=== PATIENT | male | born 1970 | race Caucasian/White ===

== ENCOUNTER 2016-07-29 01:00 | Emergency (ER) | payer OTHER ==
[~2016-07-29] VITALS: Ht 177.8 cm; Wt 75.9 kg
[~2016-07-29 01:00] MED LIST: AMPH20TA2 PO; VICODIN PO
[2016-07-29 01:06] VITALS: TEMP 36.9; Ht 177.8 cm; Wt 75.9 kg
[2016-07-29] MEDS ORDERED: IBUPROFEN 600 MG TAB PO STA (01:17)
[2016-07-29] MEDS ORDERED: ACETAMINOPHEN 500 MG TAB PO STA (01:17)
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
[2016-07-29 02:22] VITALS: BP 124/89; PULSE 96; O2SAT 97
--- NOTE | 2016-07-29 08:33 | DIAGNOSTIC IMAGING REPORT ---
LEFT RIBS UNILATERAL WITH PA CHEST CLINICAL HISTORY: fall, pain trauma COMPARISON STUDY: None FINDINGS: Negative left ribs. Lungs are clear. No evidence pneumothorax. IMPRESSION: Negative study Electronically signed by: Osvaldo Jacobs M.D. 07/29/2016 8:31 AM Dictated Date/Time: 07/29/2016 8:30 AM
== END 2016-07-29 02:50 | disposition home or self-care (01) ==
LOC: C.EDB 01:02
DX: S20.212A Contusion of left front wall of thorax, initial encounter (principal); X58.XXXA Exposure to other specified factors, initial encounter; Y92.89 Other specified places as the place of occurrence of the external cause; F17.210 Nicotine dependence, cigarettes, uncomplicated; F10.10 Alcohol abuse, uncomplicated

== ENCOUNTER 2019-07-20 23:24 | Inpatient (IN) ==
--- OUTSIDE RECORDS SUMMARY | 2019-07-20 23:27 | External Medical Summary | Continuity of Care Document ---
:1970 Author Name Sabrina Conte Address Unavailable Unavailable , Care Team Providers Name Role Phone Unavailable Unavailable Unavailable PCP, UNKNOWN Unavailable Unavailable Problems Active medical history not documented Allergies and Adverse Reactions Allergy history not documented Medications Medications not documented Procedures Procedures not documented Immunizations Immunizations not documented Plan of Treatment Planned Observations Planned Goals not documented Results No Known Results Results not documented
[2019-07-20] MEDS ORDERED: SODIUM CHLORIDE 0.9% 1000ML 1,000 ML IV ONE (23:47)
[2019-07-20] MEDS ORDERED: KETOROLAC TROMETHAMINE 15 MG/ML VIAL IV STA (23:47)
[2019-07-21 00:06] LABS: Basophils # (auto) 0.06 K/uL (0-0.2); Basophils % (auto) 0.6 %; Eosinophils # (auto) 0.22 K/uL (0-0.5); Eosinophils % (auto) 2.3 %; Hematocrit (blood only) 46.8 % (42-52); Hemoglobin 16.5 g/dL (14.0-18.0); Immature Granulocytes # (auto) 0.03 K/uL (0.00-0.02); Immature Granulocytes % (auto) 0.3 %; Lymphocytes # (auto) 3.41 K/uL (1.2-3.4); Lymphocytes % (auto) 35.3 %; Mean Corpuscular Hemoglobin 33.7 pg (25-34); Mean Corpuscular Hgb Conc 35.3 g/dL (32-36); Mean Corpuscular Volume 95.7 fL (80-100); Mean Platelet Volume 8.8 fL (7.4-10.4); Monocytes # (auto) 0.75 K/uL (0.11-0.59); Monocytes % (auto) 7.8 %; Neutrophils # (auto) 5.19 K/uL (1.4-6.5); Neutrophils % (auto) 53.7 %; Platelet Count 216 K/uL (130-400); RDW Coefficient of Variation 12.5 % (11.5-14.5); RDW Standard Deviation 43.5 fL (36.4-46.3); Red Blood Count 4.89 M/uL (4.7-6.1); White Blood Count 9.66 K/uL (4.8-10.8)
[2019-07-21 00:26] LABS: Albumin Level 3.6 gm/dl (3.4-5.0); BUN Creatinine Ratio 13.5 (10-20); Calcium 8.5 mg/dl (8.5-10.1); Creatinine Clr Calc Pharmacy 110.5 ml/min; Est GFR (African American) 118.6; Est GFR (Non-African American) 102.3; Potassium 3.1 mmol/L (3.5-5.1)
[2019-07-21 00:28] LABS: Albumin Globulin Ratio 0.7 (0.9-2); Bilirubin,Total 0.5 mg/dl (0.2-1); Globulin 4.8 gm/dl (2.5-4.0); Total Protein 8.4 gm/dl (6.4-8.2)
[2019-07-21] MEDS ORDERED: IOVERSOL 100ml IV PRN (00:50)
[2019-07-21 01:54] LABS: Appearance Urine Slightly Cloudy (Clear); Bilirubin Urine Negative (Negative); Blood Urine Negative (Negative); Color Urine Yellow; Glucose Urine UA Negative (Negative); Ketones Urine Trace (Negative); Leukocyte Esterase Urine Negative (Negative); Nitrite Urine Negative (Negative); Protein Urine Negative (Negative); Urobilinogen Urine Negative (Negative)
[2019-07-21] MEDS ORDERED: NICOTINE 21 MG/24 HR TDSY TD STA (02:40)
[2019-07-21] MEDS ORDERED: NICOTINE POLACRILEX 2 MG GUM MT ONE (02:45)
[2019-07-21] MEDS ORDERED: SODIUM CHLORIDE 0.9% 1000ML 1,000 ML IV ONE (02:48)
--- NOTE | 2019-07-21 02:59 | Emergency Department Note ---
History of Present Illness General Chief complaint: Abdominal Pain Stated complaint: stomach pain Time Seen by Provider: 07/20/19 23:32 Source: patient Mode of arrival: ambulatory Limitations: no limitations History of Present Illness Maximum Pain Intensity: 4 This patient is a 49-year-old male who presents to the emergency department ambulatory complaining of upper abdominal pain. The patient states that he has had severe pain in his upper abdomen over the past 4 days. The patient states that the pain radiates across the upper abdomen and he rates his discomfort an 8/10. Pain is worse when he eats. He has had a decreased appetite. He has been nauseous but has not vomited. He denies changes in bowel movements, urinary symptoms or fever. Patient admits to alcohol use tonight and states he had 2-3 drinks. He admits that he sometimes drinks more than he would like to. He is not able to quantify how much he drinks per day. He does report a history of some abdominal pain over the past 2 years and was supposed to have an EGD, but never scheduled it. He states this pain is different. He has not taken any medication for the pain. Home Medications Home Medications Medication Instructions Recorded Confirmed Type dextroamphetamine-amphetamine 20 mg PO BID 05/26/18 07/20/19 History [Adderall] amitriptyline 10 mg PO HS 07/20/19 07/20/19 History magnesium oxide 400 mg PO HS 07/20/19 07/20/19 History omeprazole 20 mg PO DAILY 07/20/19 07/20/19 History sildenafil 50 mg PO UD PRN 07/20/19 07/20/19 History tizanidine 2 mg PO DAILY 07/20/19 07/20/19 History Allergies Allergy/AdvReac Type Severity Reaction Status Date / Time banana AdvReac Unknown GI SYMPTOMS Verified 07/20/19 23:47 Past Med/Surg History Medical History (Updated 07/21/19 @ 03:59 by Tanisha Coy PA-C) ADD (attention deficit disorder) Migraines Sleep disorder (Chronic) Social History Preferred Language: Gabonese Communication Ability: Effective Watch Guard Gate Required: No Beliefs That Will Affect Care: None Current Living Situation: Significant Other Feels Safe at Home: Yes Smoking Status: Former smoker Tobacco Type: cigarettes ; Cigarettes Per Day: 6 ; Hx Alcohol Use: Yes Alcohol type: beer Hx Substance Use: Yes substance use type: former substance user Review of Systems A total of 10 systems reviewed and were otherwise negative Physical Exam Vital Signs Vital Signs - 24 hr 07/20/19 23:26 07/21/19 00:06 07/21/19 01:07 Temperature 36.6 C Temperature Source Oral Pulse Rate 120 H Pulse Rate [Right Finger] 101 H 92 H Respiratory Rate 18 18 20 Respiratory Effort / Characteristics Non-Labored Non-Labored Respiratory Depth Normal Normal Respiratory Pattern Regular Blood Pressure 155/94 H Blood Pressure [Left Arm] 144/97 H 132/93 Blood Pressure Mean 114 Blood Pressure Mean [Left Arm] 112 106 Blood Pressure Position [Left Arm] Sitting Pulse Oximetry 96 98 97 Oxygen Delivery Method Room Air Room Air Sepsis Recent Fever Within 48 Hours No Sepsis Action Taken by Nursing No Action Required 07/21/19 02:58 Temperature Temperature Source Pulse Rate Pulse Rate [Right Finger] 108 H Respiratory Rate 20 Respiratory Effort / Characteristics Non-Labored Respiratory Depth Normal Respiratory Pattern Blood Pressure Blood Pressure [Left Arm] 150/92 H Blood Pressure Mean Blood Pressure Mean [Left Arm] 111 Blood Pressure Position [Left Arm] Sitting Pulse Oximetry 98 Oxygen Delivery Method Room Air Sepsis Recent Fever Within 48 Hours Sepsis Action Taken by Nursing VITALS: Vitals are noted on the nurse's note and reviewed by myself. Vital signs stable. GENERAL: This is a 49-year-old male, in no acute distress, nondiaphoretic, well- developed well-nourished. SKIN: The skin was without rashes. HEAD: Normocephalic atraumatic. EARS: External auditory canals clear, tympanic membranes pearly snider without erythema or effusion bilaterally. EYES: Pupils equal round and reactive to light and accommodation. No scleral icterus. MOUTH: Mucous membranes moist. Tonsils are not enlarged. Pharynx without eryt levon or exudate. NECK: Supple without nuchal rigidity. No lymphadenopathy. HEART: Regular rate and rhythm without murmurs gallops or rubs. LUNGS: Clear to auscultation bilaterally without wheezes, rales or rhonchi. No retractions or accessory muscle use. ABDOMEN: Positive bowel sounds x 4. Soft, mild tenderness to palpation across the upper abdomen. No guarding or rebound tenderness. EXTREMITIES: No pitting edema of the lower extremities. NEURO: Patient was alert and oriented to person place and time. PSYCH: Patient anxious appearing. Course Consultations Consultation #1: [facility] hospitalist Administered Medications Ioversol (Optiray 320 100ml) 92 ml IV ONCE PRN PRN Reason: Interaction Checking Stop: 07/25/19 00:49 Last Admin: 07/21/19 00:50 Dose: 92 ml Documented by: [id number] Discontinued Medications Sodium Chloride (Nss 1000ml) 1,000 mls @ 999 mls/hr IV .Q1H1M ONE Stop: 07/21/19 00:47 Last Infusion: 07/21/19 00:49 Dose: 0 mls/hr Documented by: [id number] Admin: 07/21/19 00:01 Dose: 999 mls/hr Documented by: [id number] Sodium Chloride (Nss 1000ml) 1,000 mls @ 999 mls/hr IV .Q1H1M ONE Stop: 07/21/19 03:48 Last Admin: 07/21/19 02:54 Dose: 999 mls/hr Documented by: [id number] Ketorolac Tromethamine (Toradol) 15 mg IV NOW STA Stop: 07/20/19 23:48 Last Admin: 07/21/19 00:01 Dose: 15 mg Documented by: [id number] Nicotine (Nicoderm Cq) 21 mg TD NOW STA Stop: 07/21/19 02:41 Last Admin: 07/21/19 02:48 Dose: 21 mg Documented by: [id number] Nicotine Polacrilex (Nicorette 2mg) Confirm Administered Dose 1 piece [facility] ONE Stop: 07/21/19 02:46 Last Admin: 07/21/19 02:48 Dose: 1 piece Documented by: [id number] Medical Decision Making Differential Diagnosis Differential diagnosis includes appendicitis, testicular torsion, infections, diverticulitis, UTI, obstruction, mesenteric ischemia, aortic pathology, inflammatory bowel disease, renal colic, PUD, pancreatitis, biliary pathology, hernia, volvulus, constipation, as well as other pathologies. Home Medications Current Medication List: was personally reviewed by me Laboratory Data Attestation: I reviewed the patient's lab results. Result diagrams: 07/20/19 23:52 07/20/19 23:52 Lab Results 07/20/19 07/20/19 07/21/19 Range/Units 23:52 23:52 00:20 WBC 9.66 (4.8-10.8) K/uL RBC 4.89 (4.7-6.1) M/uL Hgb 16.5 (14.0-18.0) g/dL Hct 46.8 (42-52) % MCV 95.7 (80-100) fL MCH 33.7 (25-34) pg MCHC 35.3 (32-36) g/dL RDW Std Deviation 43.5 (36.4-46.3) fL RDW Coeff of Edilson 12.5 (11.5-14.5) % Plt Count 216 (130-400) K/uL MPV 8.8 (7.4-10.4) fL Immature Gran % (Auto) 0.3 % Neut % (Auto) 53.7 % Lymph % (Auto) 35.3 % [place] % (Auto) 7.8 % Eos % (Auto) 2.3 % Baso % (Auto) 0.6 % Immature Gran # (Auto) 0.03 H (0.00-0.02) K/uL Neut # (Auto) 5.19 (1.4-6.5) K/uL Lymph # (Auto) 3.41 H (1.2-3.4) K/uL [place] # (Auto) 0.75 H (0.11-0.59) K/uL Eos # (Auto) 0.22 (0-0.5) K/uL Baso # (Auto) 0.06 (0-0.2) K/uL Sodium 141 (136-145) mmol/L Potassium 3.1 L (3.5-5.1) mmol/L Chloride 107 (98-107) mmol/L Carbon Dioxide 25 (21-32) mmol/L Anion Gap 9.0 (3-11) BUN 12 (7-18) mg/dl Creatinine 0.88 (0.6-1.4) mg/dl Est Cr Clr Drug Dosing 110.5 ml/min Est GFR ( Amer) 118.6 Est GFR (Non-Af Amer) 102.3 BUN/Creatinine Ratio 13.5 (10-20) Glucose 127 H (70-99) mg/dl Calcium 8.5 (8.5-10.1) mg/dl Total Bilirubin 0.5 (0.2-1) mg/dl AST 96 H (15-37) U/L ALT 120 H (12-78) U/L Alkaline Phosphatase 152 H (45-117) U/L Total Protein 8.4 H (6.4-8.2) gm/dl Albumin 3.6 (3.4-5.0) gm/dl Globulin 4.8 H (2.5-4.0) gm/dl Albumin/Globulin Ratio 0.7 L (0.9-2) Lipase 587 H (73-393) U/L Urine Color Urine Appearance (Clear) Urine pH (4.5-7.5) Ur Specific [place] (1.000-1.030) Urine Protein (Negative) Urine Glucose (UA) (Negative) Urine Ketones (Negative) Urine Blood (Negative) Urine Nitrite (Negative) Urine Bilirubin (Negative) Urine Urobilinogen (Negative) Ur Leukocyte Esterase (Negative) Ethyl Alcohol mg/dL 254.0 H (0-3) mg/dl 03/25/20 Range/Units 01:25 WBC (4.8-10.8) K/uL RBC (4.7-6.1) M/uL Hgb (14.0-18.0) g/dL Hct (42-52) % MCV (80-100) fL MCH (25-34) pg MCHC (32-36) g/dL RDW Std Deviation (36.4-46.3) fL RDW Coeff of Edilson (11.5-14.5) % Plt Count (130-400) K/uL MPV (7.4-10.4) fL Immature Gran % (Auto) % Neut % (Auto) % Lymph % (Auto) % [place] % (Auto) % Eos % (Auto) % Baso % (Auto) % Immature Gran # (Auto) (0.00-0.02) K/uL Neut # (Auto) (1.4-6.5) K/uL Lymph # (Auto) (1.2-3.4) K/uL [place] # (Auto) (0.11-0.59) K/uL Eos # (Auto) (0-0.5) K/uL Baso # (Auto) (0-0.2) K/uL Sodium (136-145) mmol/L Potassium (3.5-5.1) mmol/L Chloride (98-107) mmol/L Carbon Dioxide (21-32) mmol/L Anion Gap (3-11) BUN (7-18) mg/dl Creatinine (0.6-1.4) mg/dl Est Cr Clr Drug Dosing ml/min Est GFR ( Amer) Est GFR (Non-Af Amer) BUN/Creatinine Ratio (10-20) Glucose (70-99) mg/dl Calcium (8.5-10.1) mg/dl Total Bilirubin (0.2-1) mg/dl AST (15-37) U/L ALT (12-78) U/L Alkaline Phosphatase (45-117) U/L Total Protein (6.4-8.2) gm/dl Albumin (3.4-5.0) gm/dl Globulin (2.5-4.0) gm/dl Albumin/Globulin Ratio (0.9-2) Lipase (73-393) U/L Urine Color Yellow Urine Appearance Slightly Cloudy (Clear) Urine pH 7.0 (4.5-7.5) Ur Specific [place] 1.010 (1.000-1.030) Urine Protein Negative (Negative) Urine Glucose (UA) Negative (Negative) Urine Ketones Trace H (Negative) Urine Blood Negative (Negative) Urine Nitrite Negative (Negative) Urine Bilirubin Negative (Negative) Urine Urobilinogen Negative (Negative) Ur Leukocyte Esterase Negative (Negative) Ethyl Alcohol mg/dL (0-3) mg/dl Imaging Data Attestation: I personally reviewed and interpreted this imaging study as follows: Radiologist's Impression: CT ABDOMEN & PELVIS With Contrast: Compared to 09/04/15. Retroperitoneal edema may reflect proximal pancreatitis or duodenitis. Recommend laboratory correlation. No loculated fluid collection. No bowel perforation. Marked hepatic steatosis. Colonic diverticula without diverticulitis. Unremarkable appendix. Mild urinary bladder wall thickening. Possible cystitis. Radiologist: Killian Thurman M.D. Blood Pressure Blood Pressure Findings: Elevated blood pressure Blood Pressure Disposition: elevated BP felt to be situational MDM Narrative The patient is a 49-year-old male who presents today complaining of upper abdominal pain for the past several days. Labs revealed no leukocytosis or anemia. Patient is hypokalemic. Patient's lipase is elevated at 587. AST is elevated at 96, ALT [address] phosphatase [address] of the abdomen/pelvis was performed and does show evidence of pancreatitis. Patient's medical alcohol elevated at 254. Patient given IV Toradol and fluids with significant improvement of his symptoms. Patient was informed of the findings and advised to stay for further care. [facility] and will evaluate the patient for further care. Impression & Plan Acute alcoholic pancreatitis Discharge Plan Visit Data Chief Complaint: Abdominal Pain Stated Complaint: stomach pain ED Provider: Jihan Phan ED Midlevel Provider: Tanisha Coy Discharge Problem: Acute alcoholic pancreatitis Discharge Instructions Interventions: ED Discharge Assessment Last Done: 07/21/19 03:47 Forms Stand Alone Forms: [employer] Prescriptions Prescriptions: No Action dextroamphetamine-amphetamine [Adderall] 20 mg Tablet 20 mg PO BID RF: 0 tizanidine 2 mg tablet 2 mg PO DAILY RF: 0 sildenafil 50 mg tablet 50 mg PO UD PRN (Reason: Sexual Activity) RF: 0 amitriptyline 10 mg tablet 10 mg PO HS RF: 0 magnesium oxide 400 mg (241.3 mg magnesium) tablet 400 mg PO HS RF: 0 omeprazole 20 mg capsule,delayed release(DR/EC) 20 mg PO DAILY RF: 0 Referrals Referrals: Lazaro Jackson DO [Primary Care Provider] - Discharge Problem: Acute alcoholic pancreatitis Qualifiers: Acute pancreatitis complication: unspecified Qualified Code(s): K85.20 - Alcohol induced acute pancreatitis without necrosis or infection
[2019-07-21] MEDS ORDERED: NITROGLYCERIN SL 0.4 MG/TAB TAB SL PRN (04:07)
[2019-07-21] MEDS ORDERED: POLYETHYLENE (MIRALAX) 17 GM PACK PO PRN (04:07)
[2019-07-21] MEDS ORDERED: LORazepam 3 MG/6 ML VIAL IV PRN (04:07)
[2019-07-21] MEDS ORDERED: ATIVAN IV ALCOHOL WITHDRAWL IV PRN (04:07)
[2019-07-21] MEDS ORDERED: ONDANSETRON INJ 2 MG/ML 2 ML VIAL IV PRN (04:07)
[2019-07-21] MEDS ORDERED: GABAPENTIN 1200MG ALCOHOL WITHDRAWAL LOAD PO STA (04:07)
[2019-07-21] MEDS ORDERED: MULTI-VITAMIN INFUSION 10 ML, THIAMINE HCL 100 MG, FOLIC ACID 1 MG in SODIUM CHLORIDE 0... IV ONE (04:30)
[2019-07-21] MEDS ORDERED: GABAPENTIN 600 MG TAB PO SCH (04:30)
[2019-07-21] MEDS: SODIUM CHLORIDE 0.9% 1000ML 1,000 ML IV SCH ×4 (04:58→20:50)
--- NOTE | 2019-07-21 05:05 | History and Physical Report ---
DATE OF ADMISSION: 07/21/2019 CHIEF COMPLAINT: Abdominal pain. HISTORY OF PRESENT ILLNESS: A 49-year-old male with past medical history significant for chronic alcoholism, affective disorder, depression, anxiety, presents with severe abdominal pain starting last Friday in the epigastric region, states it was 7/10 in severity, not getting better. Denies any nausea, vomiting, is somewhat constipated. Last bowel movement was yesterday and it was normal. No blood in stools or black stools. Normal bladder movements. Denies any other complaints. There is no chest pain, no shortness of breath, no cough, no fever, no chills, no headache, no blurred vision, no earache, no runny nose, no sore throat. Appetite is okay, but not eating much since yesterday because of abdominal pain. No rash. He says he drinks alcohol about 3-4 beers and 3-4 shots of vodka every day for last 30 years. There is no history of withdrawal symptoms but he never quit drinking. His alcohol level was 254 in the ER. Currently, resting comfortable and hemodynamically stable. ALLERGIES: No known drug allergies. PAST MEDICAL HISTORY: As mentioned above. PAST SURGICAL HISTORY: Colonoscopy. MEDICATIONS: The patient is on amitriptyline 10 mg p.o. at bedtime, Adderall 20 mg p.o. b.i.d., magnesium oxide 400 mg p.o. at bedtime, omeprazole 20 mg p.o. daily, sildenafil 50 mg p.r.n., tizanidine 2 mg p.o. daily. FAMILY HISTORY: No family history on file. SOCIAL HISTORY: Former smoker, quit in 2019. Alcohol 3-4 beers per day and 3-4 shots of vodka a day for last 30 years. No drug use as per records. REVIEW OF SYMPTOMS: As per HPI. Rest of the review of symptoms negative. PHYSICAL EXAMINATION: GENERAL: The patient is of moderate build, not in acute distress. VITAL SIGNS: Temperature 36.6, pulse 108, respiratory rate 20, blood pressure 150/92, oxygen 98% on room air. HEENT: No pallor, no icterus. Pupils equal, round, reactive to light. NECK: No JVD, no neck mass, no carotid bruit. CARDIOVASCULAR: S1, S2 heard, regular rate and rhythm, no murmur, no gallop. RESPIRATORY SYSTEM: Normal AP diameter. No accessory muscle use. No wheezing, no crackles. ABDOMEN: Soft, bowel sounds present. Mild epigastric tenderness present, no guarding, no rigidity. No distention. CENTRAL NERVOUS SYSTEM: Cranial nerves II-XII grossly intact. Alert and oriented. Moves all extremities. EXTREMITIES: No edema, no erythema. LABORATORY DATA: WBC is 9.6, hemoglobin 16.5, hematocrit 46.8, platelets 216. Sodium 141, potassium 3.1, chloride 107, bicarbonate 25, BUN 12, creatinine 0.8, serum glucose 127, calcium 8.4, total bilirubin 0.5, AST 96, ALT 120, alkaline phosphatase 152, lipase 587. Urinalysis negative. Ethyl alcohol 254. IMAGING: CT of abdomen and pelvis preliminary report shows proximal pancreatitis or duodenitis. ASSESSMENT AND PLAN: This is a 49-year-old male with history of alcoholism, presents with abdominal pain and found to have acute pancreatitis. 1. Acute pancreatitis, most likely alcohol-induced pancreatitis. Lipase is 587. CT scan preliminary report shows pancreatitis or duodenitis.Will follow final report. We will keep him n.p.o., aggressive IV fluids, IV normal saline 200 mL per hour, IV Dilaudid p.r.n., IV antiemetics p.r.n. follow lipase in a.m. Consult GI for further recommendations. 2. Alcoholism: Will monitor for withdrawal symptoms. We will give him IV banana bag and then continue with IV thiamine, IV folic acid, multivitamins daily. Gabapentin withdrawal protocol with active IV Ativan active protocol. Close monitor for withdrawal symptoms. Needs counseling. 3. History of transaminitis, possibly secondary to alcoholism. We will follow the repeat labs. 4. History of affective disorder, depression, anxiety. Continue with his home medications. 5. Deep vein thrombosis prophylaxis, sequential compression devices. 6. Disposition: Close monitoring in the med/surg tele. Level 1 full code. MTDD
[2019-07-21] MEDS ORDERED: POTASSIUM CHLORIDE 20 MEQ TABCR PO STA (06:00)
[2019-07-21] MEDS: HYDROmorphone INJ 0.5 MG/0.5 ML SYR IV PRN ×4 (06:49→20:50)
--- NOTE | 2019-07-21 06:49 | CT Scan Report ---
CT abd pelvis IV con only CLINICAL HISTORY: 49 years-old Male presenting with upper abdominal pain, epigastric pain. TECHNIQUE: Multidetector CT of the abdomen and pelvis was performed after the administration of intra venous contrast. IV contrast: 92 mL of Optiray 320. One or more dose lowering techniques were used co nsistent with the principles of ALARA (as low as reasonably achievable), including automatic exposure control, mA or kV adjustment to individual patient size, and/or use of iterative reconstruction. COMPARISON: 09/04/2015. CT DOSE (mGy.cm): The estimated cumulative dose is 670.06 mGy.cm. FINDINGS: [place] topogram: Unremarkable. Lung bases: Normal heart size. No pericardial or pleural effusion. No focal infiltrate or nodule at t he lung bases. Fat-containing Bochdalek hernia on the left and trace on the right. Liver: Normal morphology. Density consistent with severe hepatic steatosis. No focal lesion. Patent h epatic vasculature. Biliary: No intrahepatic or extrahepatic biliary ductal dilatation. Normal gallbladder. Pancreas: Trace peripancreatic fat infiltration primarily along the pancreatic head, which appears to emanate more from the descending duodenum than the pancreas itself. The remainder the pancreas is no rmal. Spleen: Normal. Adrenal glands: Normal. Kidneys and ureters: Normal. No hydronephrosis. Bladder: Circumferential bladder wall thickening. Pelvic organs: Prostate and seminal vesicles normal. Bowel: Normal appendix. No bowel obstruction. Mild wall thickening of the descending duodenum with pe riduodenal trace fluid and fat stranding. This also tracks into the right anterior pararenal space. Peritoneal cavity: No free fluid or intraperitoneal gas. Lymph nodes: No enlarged lymph nodes in the abdomen or pelvis. Vasculature: Mild atherosclerosis of the normal caliber abdominal aorta. IVC and pelvic veins patent. Abdominal wall: Small bilateral inguinal hernias. Musculoskeletal: Normal. IMPRESSION: 1. Periduodenal inflammatory change with mild wall thickening of the descending duodenum. Findings f avor duodenitis or duodenal ulcer. Groove pancreatitis is considered less likely, which could be excl uded with serum lipase. 2. Severe hepatic steatosis. 3. Circumferential bladder wall thickening could either indicate cystitis developing bladder outlet obstruction in the setting of benign prostatic hyperplasia. Correlate with urinalysis. ACT 112: Negative or not required by law. Electronically signed by: Regan Negrete M.D. 07/21/2019 6:48 AM
[2019-07-21] MEDS: CEROVITE ADV FORMULA TAB PO SCH (08:25)
[2019-07-21] MEDS: TIZANIDINE HCL 4 MG TABLET PO SCH (08:26)
[2019-07-21] MEDS ORDERED: THIAMINE HCL 100 MG in SYRINGE 9 ML IV SCH (09:00)
[2019-07-21] MEDS ORDERED: FOLIC ACID 1 MG in SYRINGE 9.8 ML IV SCH (09:00)
[2019-07-21] MEDS ORDERED: AMPHETAMINE ASP/SULF/DEXTRAMPH 20 MG TAB PO SCH (09:00)
[2019-07-21] MEDS ORDERED: PANTOprazole 40 MG TAB PO SCH (09:00)
--- NOTE | 2019-07-21 10:19 | Gastrointestinal Consultation ---
Date of Consultation July 21, 2019 Assessment & Plan (1) Epigastric abdominal pain: This is a 49 y/o male with PMHx alcohol abuse, intermittently elevated LFTs, fatty liver, chronic abd pain, anxiety, who presents with several days of epigastric abd pain. He was found to have mildly elevated LFTs and lipase with CT findings of mild pancreatitis/duodenitis, likely related to ongoing ETOH use. - Agree with IV hydration - Continue analgesia/antiemetics PRN - Continue PPI - Keep NPO until abd pain improves, would then advance diet slowly starting with clear liquids, then low-fat diet - Trend LFTs, lipase, BMP - Would recommend he follow-up as an outpt with GI and consider EGD/EUS as recommended and ordered at last GI visit for his ongoing abd pain - Pt would do well to consider formal rehab and ETOH cessation Thank you for allowing us to participate in the care of this patient. Please call with any acute changes, questions or concerns. Please see addendum below with additional recommendation from my supervising physician. (2) Elevated lipase: (3) Chronic alcohol abuse: Supervising Physician Co-Signing Physician Notes Aggressive hydration. Slowly advance diet only when pain improves. Stop ETOH. History of Present Illness Reason for Consultation: acute pancreatitis Attending Physician: Divya Zuleta MD History of Present Illness This is a 49 y/o male with PMHx alcoholism, anxiety, chronic abd pain, probable fatty liver, intermittently elevated LFTs, who presented to the ER yesterday with acute on chronic epigastric pain since Friday. On arrival, lipase mildly at 587, LFTs mildly elevated (AST 96, ALT 120, ALP 152), bilirubin, renal fxn and CBC WNL. CTAP with IV contrast demonstrated trace peripancreatic fat inflammation in the area of the pancreatic head along with periduodenal inflammatory change. He was admitted and started on IV hydration, folic acid, thiamine and oral PPI. Due to current coronavirus pandemic, chart was reviewed for consult but pt was not seen. Overnight he remained hemodynamically stable, afebrile. Repeat labs are pending. Per chart notes he has denied n/v; melena, hematochezia, fever, chills, last BM was 2 days ago. He continues to drink ETOH daily which he has done on a chronic basis for many years. Per review of [facility] chart, he has been seen by [facility] GI service over the last year for epigastric abd pain, elevated LFTs, fattyh liver, alcohol use; last seen Feb 2019. At that time EGD/EUS was ordered but pt has yet to schedule. Allergies Allergy/AdvReac Type Severity Reaction Status Date / Time banana AdvReac Unknown GI SYMPTOMS Verified 07/20/19 23:47 Home Medications Home Medications Medication Instructions Recorded Confirmed Type dextroamphetamine-amphetamine 20 mg PO BID 05/26/18 07/20/19 History [Adderall] amitriptyline 10 mg PO HS 07/20/19 07/20/19 History magnesium oxide 400 mg PO HS 07/20/19 07/20/19 History omeprazole 20 mg PO DAILY 07/20/19 07/20/19 History sildenafil 50 mg PO UD PRN 07/20/19 07/20/19 History tizanidine 2 mg PO DAILY 07/20/19 07/20/19 History Patient History Medical History (Updated 07/21/19 @ 10:58 by Oralia Jc PA-C) ADD (attention deficit disorder) Migraines Sleep disorder (Chronic) Social History Preferred Language: Kazakh Communication Ability: Effective Joiner Helper Required: No Beliefs That Will Affect Care: None Current Living Situation: Alone Other Information That Helps Us Care for You: No Feels Safe at Home: Yes Safety Concerns: Feels Safe At This Time Smoking Status: Current every day smoker Tobacco Type: e-cigarettes ; Cigarettes Per Day: 6 ; Do You Dip or Chew Tobacco: No ; Second Hand Exposure: No ; Tobacco Cessation Education Requested by Patient: No Hx Alcohol Use: Yes Alcohol type: beer and hard liquor Hx Substance Use: Yes substance use type: former substance user Last Used Substance: Unknown Results & Data ([place]) Vital Signs (Past 12 Hours) Vital Signs Temp Pulse Pulse Resp BP BP Pulse Ox 07/21/19 07:26 97 H 07/21/19 07:22 37.4 C 109 H 20 144/93 H 95 07/21/19 04:44 104 H 07/21/19 04:05 37.2 C 102 H 20 162/92 H 95 07/21/19 03:50 102 H 20 142/94 H 95 07/21/19 02:58 108 H 20 150/92 H 98 07/21/19 01:07 92 H 20 132/93 97 07/21/19 00:06 101 H 18 144/97 H 98 07/20/19 23:26 36.6 C 120 H 18 155/94 H 96 Laboratory Results 07/21/19 07/21/19 07/21/19 Range/Units 06:10 04:24 01:25 WBC (4.8-10.8) K/uL RBC (4.7-6.1) M/uL Hgb (14.0-18.0) g/dL Hct (42-52) % MCV (80-100) fL MCH (25-34) pg MCHC (32-36) g/dL RDW Std Deviation (36.4-46.3) fL RDW Coeff of Edilson (11.5-14.5) % Plt Count (130-400) K/uL MPV (7.4-10.4) fL Immature Gran % (Auto) % Neut % (Auto) % Lymph % (Auto) % [place] % (Auto) % Eos % (Auto) % Baso % (Auto) % Immature Gran # (Auto) (0.00-0.02) K/uL Neut # (Auto) (1.4-6.5) K/uL Lymph # (Auto) (1.2-3.4) K/uL [place] # (Auto) (0.11-0.59) K/uL Eos # (Auto) (0-0.5) K/uL Baso # (Auto) (0-0.2) K/uL Sodium (136-145) mmol/L Potassium (3.5-5.1) mmol/L Chloride (98-107) mmol/L Carbon Dioxide (21-32) mmol/L Anion Gap (3-11) BUN (7-18) mg/dl Creatinine (0.6-1.4) mg/dl Est Cr Clr Drug Dosing ml/min Est GFR ( Amer) Est GFR (Non-Af Amer) BUN/Creatinine Ratio (10-20) Glucose (70-99) mg/dl Calcium (8.5-10.1) mg/dl Magnesium 1.9 (1.8-2.4) mg/dl Total Bilirubin (0.2-1) mg/dl AST (15-37) U/L ALT (12-78) U/L Alkaline Phosphatase (45-117) U/L Total Protein (6.4-8.2) gm/dl Albumin (3.4-5.0) gm/dl Globulin (2.5-4.0) gm/dl Albumin/Globulin Ratio (0.9-2) Lipase (73-393) U/L Folate 17.55 (>5.38) ng/ml Urine Color Yellow Urine Appearance Slightly Cloudy (Clear) Urine pH 7.0 (4.5-7.5) Ur Specific [place] 1.010 (1.000-1.030) Urine Protein Negative (Negative) Urine Glucose (UA) Negative (Negative) Urine Ketones Trace H (Negative) Urine Blood Negative (Negative) Urine Nitrite Negative (Negative) Urine Bilirubin Negative (Negative) Urine Urobilinogen Negative (Negative) Ur Leukocyte Esterase Negative (Negative) Ethyl Alcohol mg/dL (0-3) mg/dl 07/21/19 07/20/19 07/20/19 Range/Units 00:20 23:52 23:52 WBC 9.66 (4.8-10.8) K/uL RBC 4.89 (4.7-6.1) M/uL Hgb 16.5 (14.0-18.0) g/dL Hct 46.8 (42-52) % MCV 95.7 (80-100) fL MCH 33.7 (25-34) pg MCHC 35.3 (32-36) g/dL RDW Std Deviation 43.5 (36.4-46.3) fL RDW Coeff of Edilson 12.5 (11.5-14.5) % Plt Count 216 (130-400) K/uL MPV 8.8 (7.4-10.4) fL Immature Gran % (Auto) 0.3 % Neut % (Auto) 53.7 % Lymph % (Auto) 35.3 % [place] % (Auto) 7.8 % Eos % (Auto) 2.3 % Baso % (Auto) 0.6 % Immature Gran # (Auto) 0.03 H (0.00-0.02) K/uL Neut # (Auto) 5.19 (1.4-6.5) K/uL Lymph # (Auto) 3.41 H (1.2-3.4) K/uL [place] # (Auto) 0.75 H (0.11-0.59) K/uL Eos # (Auto) 0.22 (0-0.5) K/uL Baso # (Auto) 0.06 (0-0.2) K/uL Sodium 141 (136-145) mmol/L Potassium 3.1 L (3.5-5.1) mmol/L Chloride 107 (98-107) mmol/L Carbon Dioxide 25 (21-32) mmol/L Anion Gap 9.0 (3-11) BUN 12 (7-18) mg/dl Creatinine 0.88 (0.6-1.4) mg/dl Est Cr Clr Drug Dosing 110.5 ml/min Est GFR ( Amer) 118.6 Est GFR (Non-Af Amer) 102.3 BUN/Creatinine Ratio 13.5 (10-20) Glucose 127 H (70-99) mg/dl Calcium 8.5 (8.5-10.1) mg/dl Magnesium (1.8-2.4) mg/dl Total Bilirubin 0.5 (0.2-1) mg/dl AST 96 H (15-37) U/L ALT 120 H (12-78) U/L Alkaline Phosphatase 152 H (45-117) U/L Total Protein 8.4 H (6.4-8.2) gm/dl Albumin 3.6 (3.4-5.0) gm/dl Globulin 4.8 H (2.5-4.0) gm/dl Albumin/Globulin Ratio 0.7 L (0.9-2) Lipase 587 H (73-393) U/L Folate (>5.38) ng/ml Urine Color Urine Appearance (Clear) Urine pH (4.5-7.5) Ur Specific [place] (1.000-1.030) Urine Protein (Negative) Urine Glucose (UA) (Negative) Urine Ketones (Negative) Urine Blood (Negative) Urine Nitrite (Negative) Urine Bilirubin (Negative) Urine Urobilinogen (Negative) Ur Leukocyte Esterase (Negative) Ethyl Alcohol mg/dL 254.0 H (0-3) mg/dl
[2019-07-21] MEDS: GABAPENTIN 600 MG TAB PO SCH ×2 (11:15→17:02)
[2019-07-21 11:44] LABS: Albumin Globulin Ratio 0.8 (0.9-2); Albumin Level 3.2 gm/dl (3.4-5.0); BUN Creatinine Ratio 10.4 (10-20); Bilirubin,Total 0.7 mg/dl (0.2-1); Calcium 7.9 mg/dl (8.5-10.1); Creatinine Clr Calc Pharmacy 137.6 ml/min; Est GFR (African American) 126.6; Est GFR (Non-African American) 109.2; Potassium 3.7 mmol/L (3.5-5.1); Total Protein 7.2 gm/dl (6.4-8.2)
--- NOTE | 2019-07-21 16:15 | Hospitalist Progress Note ---
Date of Service July 21, 2019 Assessment & Plan (1) Acute alcoholic pancreatitis: (1) Epigastric abdominal pain: Due to alcohol abuse/alcohol induced pancreatitis Admitted with elevated lipase, epigastric pain CT abdomen pelvis finding of mild pancreatitis/duodenitis Patient was treated with bowel rest, n.p.o., IV fluids Repeat labs shows normal lipase level, GI symptoms improved, Willing to try for clear liquid diet -appreciate input GI input slow advancement diet with clear liquids /then low fat diet as tolerated - Continue PPI - Follow-up as an outpt with GI and EGD/EUS as recommended Abnormal LFTs/alcoholic hepatitis: LFTs elevated secondary to acute alcohol intoxication/abuse CT abdomen pelvis shows a severe hepatic steatosis Continue IV fluids, GI recommendation as above Patient is counseled repeatedly for strict alcohol abstinence to prevent fulminant liver failure Patient voiced understanding Does not want to go to inpatient rehab, willing to seek for resources for outpatient counseling, psychotherapy psychiatric follow-up and possible medication treatment for alcohol addiction We will update case management to provide patient resources for outpatient addiction (2) Chronic alcohol abuse: strongly encouraged for ETOH abstinence Refuses inpatient alcohol rehab on Gabapentin ETOH withdrawl protocol Patient will be discharged home when medically stable Admission and Anticipated Discharge Date Admission Date: July 21, 2019 Subjective No complaint of dizzy spell or lightheadedness, patient denies of being anxious Understands that he needs to quit drinking alcohol in order to prevent having liver failure/recurrent pancreatitis Abdominal pain has improved, feels hungry, willing to try clear liquid diet no nausea /vomiting no fever or chills Review of Systems Review of Systems: All systems reviewed & are unremarkable except as noted in HPI & below Constitutional: + anorexia; no fever and no chills Cardiovascular: no chest pain, no dyspnea, no orthopnea, no syncope and no edema Gastrointestinal: + abdominal pain; no nausea and no vomiting Physical Exam Constitutional: WD/WN, vitals as above Eyes: PERRL, conjunctivae normal, anicteric sclerae ENMT: external ear and nose normal, oropharynx normal Neck: trachea midline, no thyromegaly Respiratory: normal respiratory effort, lungs clear to auscultation Cardiovascular: RRR, no murmur, no edema Gastrointestinal (Abdomen): Percussion/Palpation: + abdomen tender and abdomen soft Musculoskeletal: no cyanosis or clubbing, extremities motor strength 5/5 Skin: no rashes, warm and dry Neurologic: PERRL, EOMI, accommodation nl, no face palsy, no dysarthria Psychiatric: A+Ox3, euthymic affect Results & Data Results & Data ([facility]) Vital Signs (Past 12 Hours) Vital Signs Temp Pulse Pulse Resp BP Pulse Ox 07/21/19 15:40 37.0 C 104 H 18 172/91 H 90 07/21/19 14:55 90 07/21/19 07:26 97 H 07/21/19 07:22 37.4 C 109 H 20 144/93 H 95 07/21/19 04:44 104 H (1) Acute alcoholic pancreatitis Acute pancreatitis complication: unspecified Qualified Code(s): K85.20 - Alcohol induced acute pancreatitis without necrosis or infection
[2019-07-21] MEDS: cloNIDine HCL 0.1 MG TAB PO PRN (20:08)
[2019-07-21] MEDS: AMITRIPTYLINE HCL 10 MG TAB PO SCH (20:09)
[2019-07-21] MEDS: MAGNESIUM OXIDE 400 MG TAB PO SCH (20:09)
[2019-07-21] MEDS: PANTOprazole 40 MG TAB PO SCH (20:10)
[2019-07-21] MEDS ORDERED: ALUMINUM/MAGNESIUM/SIMETH (MAALOX MAX) 30 ML UDC PO STA (21:12)
[2019-07-22] MEDS: SODIUM CHLORIDE 0.9% 1000ML 1,000 ML IV SCH ×5 (01:47→20:10)
[2019-07-22] MEDS: ACETAMINOPHEN 325 MG TAB PO PRN (04:53)
[2019-07-22] MEDS ORDERED: ALUMINUM/MAGNESIUM/SIMETH (MAALOX MAX) 30 ML UDC PO PRN (04:56)
[2019-07-22] MEDS: GABAPENTIN 600 MG TAB PO SCH ×3 (05:25→20:18)
[2019-07-22 06:20] LABS: Albumin Level 2.9 gm/dl (3.4-5.0); BUN Creatinine Ratio 7.1 (10-20); Bilirubin Direct 0.5 mg/dl (0-0.2); Calcium 7.4 mg/dl (8.5-10.1); Creatinine Clr Calc Pharmacy 130.4 ml/min; Est GFR (African American) 123.9; Est GFR (Non-African American) 106.9; Magnesium 1.6 mg/dl (1.8-2.4); Potassium 3.2 mmol/L (3.5-5.1)
[2019-07-22 06:26] LABS: Bilirubin,Total 1.6 mg/dl (0.2-1); Total Protein 6.8 gm/dl (6.4-8.2)
[2019-07-22] MEDS ORDERED: POTASSIUM CHLORIDE 20 MEQ TABCR PO STA (07:23)
[2019-07-22] MEDS ORDERED: MAGNESIUM SULFATE / D5W 1 GM/100 ML BAG IV ONE (07:30)
--- NOTE | 2019-07-22 07:30 | Hospitalist Progress Note ---
Date of Service July 22, 2019 Assessment & Plan (1) Acute alcoholic pancreatitis: (1) Epigastric abdominal pain: Due to alcohol abuse/alcohol induced pancreatitis Admitted with elevated lipase, epigastric pain CT abdomen pelvis finding of mild pancreatitis/duodenitis Patient was treated with bowel rest, n.p.o., IV fluids Repeat labs shows normal lipase level, GI symptoms improved, Willing to try for clear liquid diet -appreciate input GI input slow advancement diet with clear liquids /then low fat diet as tolerated - Continue PPI - Follow-up as an outpt with GI and EGD/EUS as recommended Abnormal LFTs/alcoholic liver disease/ concern for alcoholic hepatitis: LFTs elevated secondary to acute alcohol intoxication/abuse CT abdomen pelvis shows a severe hepatic steatosis Continue IV fluids, GI recommendation as above Tbili elevated this AM (07/21), MRCP ordered, discussed with GI - will obtain PT and will cont. to follow to calc. Maddrey's score to assess for poss. alcoholic hepatitis Patient is counseled repeatedly for strict alcohol abstinence to prevent fulminant liver failure Patient voiced understanding Does not want to go to inpatient rehab, willing to seek for resources for outpatient counseling, psychotherapy psychiatric follow-up and possible medication treatment for alcohol addiction Case management to provide patient resources for outpatient addiction (2) Chronic alcohol abuse: strongly encouraged for ETOH abstinence Refuses inpatient alcohol rehab on Gabapentin ETOH withdrawal protocol Patient will be discharged home when medically stable Admission and Anticipated Discharge Date Admission Date: July 21, 2019 Subjective Pt is lying in bed, in NAD. Says he tried clear liquid diet and had some abd. pain/ discomfort yesterday. He also had some food today and abd. pain did not seem to bother him as much anymore. Denies fever, chills, chest pain, shortness of breath, nausea or vomiting. Reports having BM. Tbili elevated this AM, lipase, ALT, AST decreased. K, Mg low and replaced. Denies any tremor, visual or auditory hallucinations. MRCP ordered this AM, and discussed with GI, however pt received food and ate (despite NPO status) and so study was not yet performed. Review of Systems Review of Systems: All systems reviewed & are unremarkable except as noted in HPI & below Constitutional: no fever and no chills Respiratory: no cough and no dyspnea Cardiovascular: no chest pain, no palpitations and no edema Gastrointestinal: + abdominal pain (improved); no nausea and no vomiting Physical Exam Physical Exam: Constitutional: middle aged male lying in bed in NAD, WD/WN, vitals as above Eyes: PERRL, EOMI, conjunctivae normal, anicteric sclerae ENMT: external ear and nose normal, oropharynx normal Neck: trachea midline, no thyromegaly Respiratory: normal respiratory effort, lungs clear to auscultation, no wheezing, rhonchi, crackles Cardiovascular: RRR, no murmur, no edema Gastrointestinal (Abdomen): Percussion/Palpation: + abdomen tender to palp., soft, nondistended Musculoskeletal: no cyanosis or clubbing, extremities motor strength 5/5, moves extremities spontaneously Skin: no rashes, warm and dry Neurologic: PERRL, EOMI, accommodation nl, no face palsy, no dysarthria, moves extremities spontaneously Psychiatric: A+Ox3, euthymic affect Results & Data Results & Data ([facility]) Vital Signs (Past 12 Hours) Vital Signs Temp Pulse Pulse Resp BP BP Pulse Ox 07/22/19 06:00 159/93 H 07/22/19 03:24 37.1 C 89 20 164/93 H 93 07/22/19 00:53 85 07/21/19 23:06 37.4 C 89 20 161/98 H 93 07/21/19 20:10 37.4 C 07/21/19 19:42 37.6 C H 92 H 20 164/99 H 95 Laboratory Results 07/22/19 07/21/19 07/21/19 Range/Units 05:32 10:51 04:24 Sodium 136 140 (136-145) mmol/L Potassium 3.2 L 3.7 D (3.5-5.1) mmol/L Chloride 106 107 (98-107) mmol/L Carbon Dioxide 25 27 (21-32) mmol/L Anion Gap 5.0 5.0 (3-11) BUN 6 L 8 (7-18) mg/dl Creatinine 0.79 0.75 (0.6-1.4) mg/dl Est Cr Clr Drug Dosing 130.4 137.6 ml/min Est GFR ( Amer) 123.9 126.6 Est GFR (Non-Af Amer) 106.9 109.2 BUN/Creatinine Ratio 7.1 L 10.4 (10-20) Glucose 95 122 H (70-99) mg/dl Calcium 7.4 L 7.9 L (8.5-10.1) mg/dl Magnesium 1.6 L (1.8-2.4) mg/dl Total Bilirubin 1.6 H D 0.7 (0.2-1) mg/dl Direct Bilirubin 0.5 H (0-0.2) mg/dl AST 69 H 126 H (15-37) U/L ALT 82 H 110 H (12-78) U/L Alkaline Phosphatase 119 H 128 H (45-117) U/L Total Protein 6.8 7.2 (6.4-8.2) gm/dl Albumin 2.9 L 3.2 L (3.4-5.0) gm/dl Globulin 4.0 (2.5-4.0) gm/dl Albumin/Globulin Ratio 0.8 L (0.9-2) Lipase 149 315 (73-393) U/L Folate 17.55 (>5.38) ng/ml Medications Administered Current Inpatient Medications Acetaminophen (Tylenol) 650 mg PO Q4H PRN PRN Reason: Pain or Fever Stop: 08/20/19 04:06 Last Admin: 07/22/19 04:53 Dose: 650 mg Documented by: Al Hydrox/Mg Hydrox/Simethicone (Maalox Max) 15 ml PO Q6H PRN PRN Reason: GI Upset Stop: 08/21/19 04:55 Last Admin: 07/22/19 05:25 Dose: 15 ml Documented by: Amitriptyline HCl (Elavil) 10 mg PO HS [facility] Stop: 08/20/19 20:59 Last Admin: 07/21/19 20:09 Dose: 10 mg Documented by: Amphetamine/Dextroamphetamine (Adderall) 20 mg PO BID [facility] Stop: 08/04/19 08:59 Last Admin: 07/21/19 08:30 Dose: Not Given Documented by: Clonidine HCl (Catapres) 0.1 mg PO Q4H PRN PRN Reason: Hypertension Stop: 08/20/19 05:58 Last Admin: 07/22/19 00:00 Dose: 0.1 mg Documented by: Gabapentin (Neurontin) 600 mg PO Q8H [facility] Stop: 07/22/19 22:01 Last Admin: 07/22/19 05:25 Dose: 600 mg Documented by: Gabapentin (Neurontin) 600 mg PO Q12H [facility] Stop: 07/23/19 22:01 Gabapentin (Neurontin) 600 mg PO Q24H [facility] Stop: 07/24/19 22:01 Hydromorphone HCl (Dilaudid) 0.5 mg IV Q3H PRN PRN Reason: Pain Stop: 08/04/19 04:06 Last Admin: 07/21/19 20:50 Dose: 0.5 mg Documented by: Sodium Chloride (Nss 1000ml) 1,000 mls @ 200 mls/hr IV .Q5H [facility] Stop: 08/20/19 04:06 Last Admin: 07/22/19 07:03 Dose: 200 mls/hr Documented by: Lorazepam (Ativan) 1 mg in 2 mls @ 2 mls/min IV UD PRN; Protocol PRN Reason: EtOH Withdrawl AWSS Score 6,7 Stop: 08/20/19 04:06 Lorazepam (Ativan) 2 mg in 4 mls @ 4 mls/min IV UD PRN; Protocol PRN Reason: EtOH Withdrawl AWSS Score 8,9 Stop: 08/20/19 04:06 Lorazepam (Ativan) 3 mg in 6 mls @ 4 mls/min IV ONCE PRN; Protocol PRN Reason: EtOH Withdrawl AWSS Score >=10 Stop: 08/20/19 04:06 Magnesium Sulfate/Dextrose (Magnesium Sulfate / D5w) 1 gm in 100 mls @ 100 mls/hr IV ONE ONE Stop: 07/22/19 08:29 Magnesium Oxide (Mag-Ox) 400 mg PO HS [facility] Stop: 08/20/19 20:59 Last Admin: 07/21/19 20:09 Dose: 400 mg Documented by: Multivitamins/Minerals (Multivitamin W/ Minerals Tab) 1 tab PO QAM [facility] Stop: 08/20/19 08:59 Last Admin: 07/21/19 08:25 Dose: 1 tab Documented by: Nitroglycerin (Nitrostat) 0.4 mg SL UD PRN PRN Reason: Chest Pain Stop: 08/20/19 04:06 Ondansetron HCl (Zofran) 4 mg IV Q6H PRN PRN Reason: Nausea Stop: 08/20/19 04:06 Pantoprazole Sodium (Protonix) 40 mg PO BID [facility] Stop: 08/20/19 20:59 Last Admin: 07/21/19 20:10 Dose: 40 mg Documented by: Polyethylene Glycol (Miralax Powder Packet) 17 gm PO DAILY PRN PRN Reason: Constipation Stop: 08/20/19 04:06 Tizanidine HCl (Zanaflex) 2 mg PO DAILY [facility] Stop: 08/20/19 08:59 Last Admin: 07/21/19 08:26 Dose: 2 mg Documented by: (1) Acute alcoholic pancreatitis Acute pancreatitis complication: unspecified Qualified Code(s): K85.20 - Alcohol induced acute pancreatitis without necrosis or infection
[2019-07-22] MEDS: PANTOprazole 40 MG TAB PO SCH ×2 (08:13→20:17)
[2019-07-22] MEDS: TIZANIDINE HCL 4 MG TABLET PO SCH (08:13)
[2019-07-22] MEDS: CEROVITE ADV FORMULA TAB PO SCH (08:13)
[2019-07-22] MEDS: NICOTINE 21 MG/24 HR TDSY TD SCH (09:22)
[2019-07-22 10:06] LABS: Hematocrit (blood only) 37.4 % (42-52); Hemoglobin 13.1 g/dL (14.0-18.0); Mean Corpuscular Hemoglobin 34.3 pg (25-34); Mean Corpuscular Volume 97.9 fL (80-100); Platelet Count 155 K/uL (130-400); RDW Coefficient of Variation 12.3 % (11.5-14.5); RDW Standard Deviation 43.4 fL (36.4-46.3); Red Blood Count 3.82 M/uL (4.7-6.1); White Blood Count 7.49 K/uL (4.8-10.8)
[2019-07-22] MEDS ORDERED: POTASSIUM CHLORIDE 20 MEQ TABCR PO ONE (13:00)
[2019-07-22] MEDS: HYDROmorphone INJ 0.5 MG/0.5 ML SYR IV PRN (15:22)
[2019-07-22] MEDS: cloNIDine HCL 0.1 MG TAB PO PRN ×2 (15:22)
[2019-07-22] MEDS: LORazepam 1 MG/2 ML VIAL IV PRN (18:38)
--- NOTE | 2019-07-22 18:55 | Magnetic Resonance Report ---
MRCP CLINICAL HISTORY: Severe abdominal pain. Evaluate for choledocholithiasis. TECHNIQUE: Utilizing a 1.5 Estela magnet and dedicated coil, multiplanar, multiecho imaging of the upp er abdomen was performed utilizing heavily T2 weighted pulsing sequences without IV contrast. COMPARISON STUDY: CT of the abdomen and pelvis July 21, 2019. FINDINGS: There is no biliary ductal dilatation. No common bile duct calculi are identified. The cour se and caliber of the main pancreatic duct is normal. No gallstones are noted. There is no peripancre atic or pericholecystic infiltration. Fatty infiltration of the liver is better depicted on CT of Jun. No abdominal ascites or lymphadenopathy is present. Unenhanced images of the spleen, adr enal glands and kidneys are unremarkable. Caliber of visualized small and large bowel are normal. IMPRESSION: 1. No biliary ductal dilatation. 2. No common bile duct calculi identified. 3. Fatty infiltration of the liver, better depicted on CT of July 21, 2019. ACT 112: Negative or not required by law. Electronically signed by: Harley Walker M.D. 07/22/2019 6:54 PM
[2019-07-22] MEDS: AMITRIPTYLINE HCL 10 MG TAB PO SCH (20:17)
[2019-07-22] MEDS: MAGNESIUM OXIDE 400 MG TAB PO SCH (20:17)
[2019-07-23] MEDS: ACETAMINOPHEN 325 MG TAB PO PRN ×2 (00:01→13:24)
[2019-07-23] MEDS: cloNIDine HCL 0.1 MG TAB PO PRN ×4 (00:02→21:06)
[2019-07-23] MEDS ORDERED: LORazepam 1 MG TAB PO STA (00:12)
[2019-07-23] MEDS: SODIUM CHLORIDE 0.9% 1000ML 1,000 ML IV SCH ×3 (01:48→13:14)
[2019-07-23 05:54] LABS: Hematocrit (blood only) 37.5 % (42-52); Hemoglobin 13.1 g/dL (14.0-18.0); Mean Corpuscular Hemoglobin 33.4 pg (25-34); Mean Corpuscular Hgb Conc 34.9 g/dL (32-36); Mean Corpuscular Volume 95.7 fL (80-100); Platelet Count 139 K/uL (130-400); RDW Coefficient of Variation 12.3 % (11.5-14.5); RDW Standard Deviation 42.7 fL (36.4-46.3); Red Blood Count 3.92 M/uL (4.7-6.1); White Blood Count 6.68 K/uL (4.8-10.8)
[2019-07-23 06:18] LABS: INR 1.1 (0.9-1.1); Prothrombin Time 11.4 Seconds (9.0-12.0)
[2019-07-23 06:30] LABS: Albumin Globulin Ratio 0.7 (0.9-2); Albumin Level 2.9 gm/dl (3.4-5.0); BUN Creatinine Ratio 6.6 (10-20); Bilirubin Direct 0.4 mg/dl (0-0.2); Bilirubin,Total 1.3 mg/dl (0.2-1); Calcium 7.6 mg/dl (8.5-10.1); Creatinine Clr Calc Pharmacy 147.2 ml/min; Est GFR (African American) 130.3; Est GFR (Non-African American) 112.4; Globulin 3.9 gm/dl (2.5-4.0); Magnesium 2.3 mg/dl (1.8-2.4); Potassium 3.8 mmol/L (3.5-5.1); Total Protein 6.8 gm/dl (6.4-8.2)
--- NOTE | 2019-07-23 07:49 | Hospitalist Progress Note ---
Date of Service July 23, 2019 Assessment & Plan (1) Acute alcoholic pancreatitis: (1) Epigastric abdominal pain: Due to alcohol abuse/alcohol induced pancreatitis Admitted with elevated lipase, epigastric pain CT abdomen pelvis finding of mild pancreatitis/duodenitis Patient was treated with bowel rest, n.p.o., IV fluids Repeat labs shows normal lipase level, GI symptoms improved, Willing to try for clear liquid diet -appreciate input from GI - slow advancement diet with clear liquids /then low fat diet as tolerated - Continue PPI - Follow-up as an outpt with GI and EGD/EUS as recommended Abnormal LFTs/alcoholic liver disease/ concern for alcoholic hepatitis: LFTs elevated secondary to acute alcohol intoxication/abuse CT abdomen pelvis shows a severe hepatic steatosis Continue IV fluids, GI recommendation as above Tbili elevated (07/21), discussed w/ GI, MRCP ordered - negative for bile duct calculi - will obtain PT and will cont. to follow to calc. Lockhart's score to assess for poss. alcoholic hepatitis Patient is counseled repeatedly for strict alcohol abstinence to prevent fulminant liver failure Patient voiced understanding Does not want to go to inpatient rehab, willing to seek for resources for outpatient counseling, psychotherapy psychiatric follow-up and possible medication treatment for alcohol addiction Received info on outpt resources (07/22) (2) Chronic alcohol abuse: strongly encouraged for ETOH abstinence Refuses inpatient alcohol rehab Received info on outpt resources (07/22) on Gabapentin ETOH withdrawal protocol Patient will be discharged home when medically stable Admission and Anticipated Discharge Date Admission Date: July 21, 2019 Subjective Pt is lying in bed, in NAD. Started on clear liquid diet, overall tolerating with some abd. discomfort. MRCP obtained yesterday for incr. Tbili, MRCP negative for bile duct calculi. Tbili decreased today. Pt denies any fever, chills, chest pain, shortness of breath, nausea or vomiting. Abd. discomfort much improved but worsens with any PO intake. Denies any visual or auditory hallucinations. Review of Systems Review of Systems: All systems reviewed & are unremarkable except as noted in HPI & below Constitutional: no fever and no chills Respiratory: no cough and no dyspnea Cardiovascular: no chest pain, no palpitations and no edema Gastrointestinal: + abdominal pain (improved); no nausea and no vomiting Neurologic: + tremor(s) (mild occasional) Physical Exam Physical Exam: Constitutional: middle aged male lying in bed in NAD, WD/WN, vitals as above Eyes: PERRL, EOMI, conjunctivae normal, anicteric sclerae ENMT: external ear and nose normal, oropharynx normal Neck: trachea midline, no thyromegaly Respiratory: normal respiratory effort, lungs clear to auscultation, no wheezing, rhonchi, crackles Cardiovascular: RRR, no murmur, no edema Gastrointestinal (Abdomen): Percussion/Palpation: + abdomen tender to palp. (improved), soft, nondistended Musculoskeletal: no cyanosis or clubbing, extremities motor strength 5/5, moves extremities spontaneously Skin: no rashes, warm and dry Neurologic: PERRL, EOMI, accommodation nl, no face palsy, no dysarthria, m oves extremities spontaneously Psychiatric: A+Ox3, euthymic affect Results & Data Results & Data ([facility]) Vital Signs (Past 12 Hours) Vital Signs Temp Pulse Pulse Resp BP BP Pulse Ox 07/23/19 02:48 36.9 C 78 18 151/97 H 95 07/23/19 00:00 82 07/22/19 23:47 37.1 C 83 16 163/98 H 97 07/22/19 20:15 37.3 C 90 16 153/87 H 93 Laboratory Results 07/23/19 07/23/19 07/23/19 Range/Units 05:17 05:17 05:17 WBC 6.68 (4.8-10.8) K/uL RBC 3.92 L (4.7-6.1) M/uL Hgb 13.1 L (14.0-18.0) g/dL Hct 37.5 L (42-52) % MCV 95.7 (80-100) fL MCH 33.4 (25-34) pg MCHC 34.9 (32-36) g/dL RDW Std Deviation 42.7 (36.4-46.3) fL RDW Coeff of Edilson 12.3 (11.5-14.5) % Plt Count 139 (130-400) K/uL MPV 9.0 (7.4-10.4) fL PT 11.4 (9.0-12.0) Seconds INR 1.1 (0.9-1.1) Sodium 139 (136-145) mmol/L Potassium 3.8 D (3.5-5.1) mmol/L Chloride 110 H (98-107) mmol/L Carbon Dioxide 24 (21-32) mmol/L Anion Gap 5.0 (3-11) BUN 5 L (7-18) mg/dl Creatinine 0.70 (0.6-1.4) mg/dl Est Cr Clr Drug Dosing 147.2 ml/min Est GFR ( Amer) 130.3 Est GFR (Non-Af Amer) 112.4 BUN/Creatinine Ratio 6.6 L (10-20) Glucose 93 (70-99) mg/dl Calcium 7.6 L (8.5-10.1) mg/dl Magnesium 2.3 (1.8-2.4) mg/dl Total Bilirubin 1.3 H (0.2-1) mg/dl Direct Bilirubin 0.4 H (0-0.2) mg/dl AST 87 H (15-37) U/L ALT 88 H (12-78) U/L Alkaline Phosphatase 129 H (45-117) U/L Total Protein 6.8 (6.4-8.2) gm/dl Albumin 2.9 L (3.4-5.0) gm/dl Globulin 3.9 (2.5-4.0) gm/dl Albumin/Globulin Ratio 0.7 L (0.9-2) 07/22/19 07/22/19 Range/Units 18:19 05:34 WBC 7.49 (4.8-10.8) K/uL RBC 3.82 L (4.7-6.1) M/uL Hgb 13.1 L D (14.0-18.0) g/dL Hct 37.4 L (42-52) % MCV 97.9 (80-100) fL MCH 34.3 H (25-34) pg MCHC 35.0 (32-36) g/dL RDW Std Deviation 43.4 (36.4-46.3) fL RDW Coeff of Edilson 12.3 (11.5-14.5) % Plt Count 155 (130-400) K/uL MPV 9.0 (7.4-10.4) fL PT 11.0 (9.0-12.0) Seconds INR 1.0 (0.9-1.1) Sodium (136-145) mmol/L Potassium (3.5-5.1) mmol/L Chloride (98-107) mmol/L Carbon Dioxide (21-32) mmol/L Anion Gap (3-11) BUN (7-18) mg/dl Creatinine (0.6-1.4) mg/dl Est Cr Clr Drug Dosing ml/min Est GFR ( Amer) Est GFR (Non-Af Amer) BUN/Creatinine Ratio (10-20) Glucose (70-99) mg/dl Calcium (8.5-10.1) mg/dl Magnesium (1.8-2.4) mg/dl Total Bilirubin (0.2-1) mg/dl Direct Bilirubin (0-0.2) mg/dl AST (15-37) U/L ALT (12-78) U/L Alkaline Phosphatase (45-117) U/L Total Protein (6.4-8.2) gm/dl Albumin (3.4-5.0) gm/dl Globulin (2.5-4.0) gm/dl Albumin/Globulin Ratio (0.9-2) Medications Administered Current Inpatient Medications Acetaminophen (Tylenol) 650 mg PO Q4H PRN PRN Reason: Pain or Fever Stop: 08/20/19 04:06 Last Admin: 07/23/19 00:01 Dose: 650 mg Documented by: Al Hydrox/Mg Hydrox/Simethicone (Maalox Max) 15 ml PO Q6H PRN PRN Reason: GI Upset Stop: 08/21/19 04:55 Last Admin: 07/22/19 05:25 Dose: 15 ml Documented by: Amitriptyline HCl (Elavil) 10 mg PO HS [facility] Stop: 08/20/19 20:59 Last Admin: 07/22/19 20:17 Dose: 10 mg Documented by: Amphetamine/Dextroamphetamine (Adderall) 20 mg PO BID [facility] Stop: 08/04/19 08:59 Last Admin: 07/21/19 08:30 Dose: Not Given Documented by: Clonidine HCl (Catapres) 0.1 mg PO Q4H PRN PRN Reason: Hypertension Stop: 08/20/19 05:58 Last Admin: 07/23/19 00:02 Dose: 0.1 mg Documented by: Gabapentin (Neurontin) 600 mg PO Q12H [facility] Stop: 07/23/19 22:01 Gabapentin (Neurontin) 600 mg PO Q24H [facility] Stop: 07/24/19 22:01 Hydromorphone HCl (Dilaudid) 0.5 mg IV Q3H PRN PRN Reason: Pain Stop: 08/04/19 04:06 Last Admin: 07/22/19 15:22 Dose: 0.5 mg Documented by: Sodium Chloride (Nss 1000ml) 1,000 mls @ 180 mls/hr IV .Q5H34M [facility] Stop: 08/20/19 04:06 Last Admin: 07/23/19 07:12 Dose: 180 mls/hr Documented by: Lorazepam (Ativan) 1 mg in 2 mls @ 2 mls/min IV UD PRN; Protocol PRN Reason: EtOH Withdrawl AWSS Score 6,7 Stop: 08/20/19 04:06 Last Admin: 07/22/19 18:38 Dose: 2 mls/min Documented by: Lorazepam (Ativan) 2 mg in 4 mls @ 4 mls/min IV UD PRN; Protocol PRN Reason: EtOH Withdrawl AWSS Score 8,9 Stop: 08/20/19 04:06 Lorazepam (Ativan) 3 mg in 6 mls @ 4 mls/min IV ONCE PRN; Protocol PRN Reason: EtOH Withdrawl AWSS Score >=10 Stop: 08/20/19 04:06 Magnesium Oxide (Mag-Ox) 400 mg PO HS [facility] Stop: 08/20/19 20:59 Last Admin: 07/22/19 20:17 Dose: 400 mg Documented by: Miscellaneous (Remove Nicoderm Patch) 1 ea N/A DAILY@0859 [facility] Stop: 08/22/19 08:58 Multivitamins/Minerals (Multivitamin W/ Minerals Tab) 1 tab PO QAM [facility] Stop: 08/20/19 08:59 Last Admin: 07/22/19 08:13 Dose: 1 tab Documented by: Nicotine (Nicoderm Cq) 21 mg TD QAM [facility] Stop: 08/21/19 09:09 Last Admin: 07/22/19 09:22 Dose: 21 mg Documented by: Nitroglycerin (Nitrostat) 0.4 mg SL UD PRN PRN Reason: Chest Pain Stop: 08/20/19 04:06 Ondansetron HCl (Zofran) 4 mg IV Q6H PRN PRN Reason: Nausea Stop: 08/20/19 04:06 Pantoprazole Sodium (Protonix) 40 mg PO BID [facility] Stop: 08/20/19 20:59 Last Admin: 07/22/19 20:17 Dose: 40 mg Documented by: Polyethylene Glycol (Miralax Powder Packet) 17 gm PO DAILY PRN PRN Reason: Constipation Stop: 08/20/19 04:06 Tizanidine HCl (Zanaflex) 2 mg PO DAILY [facility] Stop: 08/20/19 08:59 Last Admin: 07/22/19 08:13 Dose: 2 mg Documented by: (1) Acute alcoholic pancreatitis Acute pancreatitis complication: unspecified Qualified Code(s): K85.20 - Alcohol induced acute pancreatitis without necrosis or infection
[2019-07-23] MEDS: CEROVITE ADV FORMULA TAB PO SCH (08:11)
[2019-07-23] MEDS: PANTOprazole 40 MG TAB PO SCH ×2 (08:11→20:44)
[2019-07-23] MEDS: TIZANIDINE HCL 4 MG TABLET PO SCH (08:11)
[2019-07-23] MEDS: NICOTINE 21 MG/24 HR TDSY TD SCH (08:12)
[2019-07-23] MEDS: GABAPENTIN 600 MG TAB PO SCH ×2 (10:13→21:05)
[2019-07-23] MEDS: LORazepam 2 MG/4 ML VIAL IV PRN (15:55)
[2019-07-23] MEDS: LACTATED RINGER'S 1,000 ML IV SCH (18:53)
[2019-07-23] MEDS: HYDROmorphone INJ 0.5 MG/0.5 ML SYR IV PRN (19:24)
[2019-07-23] MEDS: AMITRIPTYLINE HCL 10 MG TAB PO SCH (20:44)
[2019-07-23] MEDS: MAGNESIUM OXIDE 400 MG TAB PO SCH (20:44)
[2019-07-23] MEDS: LORazepam 1 MG/2 ML VIAL IV PRN (22:32)
[2019-07-24] MEDS ORDERED: SODIUM CHLORIDE 0.65% NA SOLN 45 ML (OCEAN) ONE (01:14)
[2019-07-24] MEDS: ACETAMINOPHEN 325 MG TAB PO PRN (01:37)
[2019-07-24] MEDS: cloNIDine HCL 0.1 MG TAB PO PRN ×3 (01:37→20:53)
[2019-07-24] MEDS: LORazepam 2 MG/4 ML VIAL IV PRN ×4 (01:38→23:19)
[2019-07-24] MEDS: LACTATED RINGER'S 1,000 ML IV SCH ×3 (03:59→18:49)
[2019-07-24 06:14] LABS: Hematocrit (blood only) 37.3 % (42-52); Hemoglobin 13.5 g/dL (14.0-18.0); Mean Corpuscular Hemoglobin 33.8 pg (25-34); Mean Corpuscular Hgb Conc 36.2 g/dL (32-36); Mean Corpuscular Volume 93.5 fL (80-100); Platelet Count 155 K/uL (130-400); RDW Coefficient of Variation 12.2 % (11.5-14.5); RDW Standard Deviation 41.3 fL (36.4-46.3); Red Blood Count 3.99 M/uL (4.7-6.1); White Blood Count 6.77 K/uL (4.8-10.8)
[2019-07-24 06:30] LABS: INR 1.1 (0.9-1.1); Prothrombin Time 11.4 Seconds (9.0-12.0)
[2019-07-24 06:48] LABS: Albumin Level 3.1 gm/dl (3.4-5.0); BUN Creatinine Ratio 4.2 (10-20); Bilirubin Direct 0.4 mg/dl (0-0.2); Calcium 8.3 mg/dl (8.5-10.1); Creatinine Clr Calc Pharmacy 145.1 ml/min; Est GFR (African American) 129.5; Est GFR (Non-African American) 111.7
[2019-07-24 06:54] LABS: Albumin Globulin Ratio 0.7 (0.9-2); Bilirubin,Total 1.2 mg/dl (0.2-1); Globulin 4.2 gm/dl (2.5-4.0); Total Protein 7.3 gm/dl (6.4-8.2)
[2019-07-24] MEDS ORDERED: POTASSIUM CHLORIDE 20 MEQ TABCR PO STA (08:04)
--- NOTE | 2019-07-24 08:09 | Hospitalist Progress Note ---
Date of Service July 24, 2019 Assessment & Plan (1) Acute alcoholic pancreatitis: (1) Epigastric abdominal pain: Due to alcohol abuse/alcohol induced pancreatitis Admitted with elevated lipase, epigastric pain CT abdomen pelvis finding of mild pancreatitis/duodenitis Patient was treated with bowel rest, n.p.o., IV fluids Repeat labs shows normal lipase level, GI symptoms improved, -appreciate input from GI - slow advancement diet with clear liquids /then low fat diet as tolerated - Continue PPI - Follow-up as an outpt with GI and EGD/EUS as recommended Abnormal LFTs/alcoholic liver disease/ concern for alcoholic hepatitis: LFTs elevated secondary to acute alcohol intoxication/abuse CT abdomen pelvis shows a severe hepatic steatosis Continue IV fluids, GI recommendation as above Tbili elevated (07/21), discussed w/ GI, MRCP ordered - negative for bile duct calculi - will obtain PT and will cont. to follow to alejandro. Mechelleey's score to assess for poss. alcoholic hepatitis Patient is counseled repeatedly for strict alcohol abstinence to prevent fulminant liver failure Patient voiced understanding Does not want to go to inpatient rehab, willing to seek for resources for outpatient counseling, psychotherapy psychiatric follow-up and possible medication treatment for alcohol addiction Received info on outpt resources (07/22) (2) Chronic alcohol abuse: strongly encouraged for ETOH abstinence Refuses inpatient alcohol rehab Received info on outpt resources (07/22) on Gabapentin ETOH withdrawal protocol Patient will be discharged home when medically stable Admission and Anticipated Discharge Date Admission Date: July 21, 2019 Subjective Pt is lying in bed, in NAD. Had breakfast, full liquid/low fat diet, and denies any issues on my exam. He continues to be concerned that he will have more pain w/ eating. He is inquiring about medical marijuana. Counseled patient in length about abstinence from alcohol, and importance of follow-up. Patient states that his girlfriend also drinks, and discussed that he plans to move to his own apartment after discharge, and try to be sober. Encouraged him to contact family/friends who are not associated with him and drinking, and who could help him to get through this. He also received information from the case management regarding outpatient addiction counseling and follow-up. Pt denies any fever, chills, chest pain, shortness of breath, nausea or vomiting. Denies any visual or auditory hallucinations. Review of Systems Review of Systems: All systems reviewed & are unremarkable except as noted in HPI & below Constitutional: no fever and no chills Respiratory: no cough and no dyspnea Cardiovascular: no chest pain and no palpitations Gastrointestinal: + abdominal pain (much improved); no nausea and no vomiting Neurologic: + tremor(s) (mild occasional) Physical Exam Physical Exam: Constitutional: middle aged male lying in bed in NAD, WD/WN, vitals as above Eyes: PERRL, EOMI, conjunctivae normal, anicteric sclerae ENMT: external ear and nose normal, oropharynx normal Neck: trachea midline, no thyromegaly Respiratory: normal respiratory effort, lungs clear to auscultation, no wheezing, rhonchi, crackles Cardiovascular: RRR, no murmur, no edema Gastrointestinal (Abdomen): Percussion/Palpation: + abdomen tender to palp. (improved), soft, nondistended Musculoskeletal: no cyanosis or clubbing, extremities motor strength 5/5, moves extremities spontaneously Skin: no rashes, warm and dry Neurologic: PERRL, EOMI, accommodation nl, no face palsy, no dysarthria, moves extremities spontaneously Psychiatric: A+Ox3, euthymic affect Results & Data Results & Data ([facility]) Vital Signs (Past 12 Hours) Vital Signs Temp Pulse Pulse Resp BP BP Pulse Ox 07/24/19 07:26 36.6 C 83 18 149/96 H 96 07/24/19 06:35 36.6 C 80 18 139/95 96 07/24/19 05:04 108 H 07/24/19 03:58 36.6 C 81 20 152/96 H 98 07/24/19 02:31 36.8 C 101 H 18 162/89 H 98 07/24/19 01:04 37.4 C 107 H 20 175/102 H 97 07/23/19 23:45 37.3 C 103 H 20 169/115 H 95 Laboratory Results 07/24/19 07/24/19 07/24/19 Range/Units 05:49 05:49 05:49 WBC 6.77 (4.8-10.8) K/uL RBC 3.99 L (4.7-6.1) M/uL Hgb 13.5 L (14.0-18.0) g/dL Hct 37.3 L (42-52) % MCV 93.5 (80-100) fL MCH 33.8 (25-34) pg MCHC 36.2 H (32-36) g/dL RDW Std Deviation 41.3 (36.4-46.3) fL RDW Coeff of Edilson 12.2 (11.5-14.5) % Plt Count 155 (130-400) K/uL MPV 9.0 (7.4-10.4) fL PT 11.4 (9.0-12.0) Seconds INR 1.1 (0.9-1.1) Sodium 138 (136-145) mmol/L Potassium 3.0 L D (3.5-5.1) mmol/L Chloride 109 H (98-107) mmol/L Carbon Dioxide 24 (21-32) mmol/L Anion Gap 5.0 (3-11) BUN 3 L (7-18) mg/dl Creatinine 0.71 (0.6-1.4) mg/dl Est Cr Clr Drug Dosing 145.1 ml/min Est GFR ( Amer) 129.5 Est GFR (Non-Af Amer) 111.7 BUN/Creatinine Ratio 4.2 L (10-20) Glucose 110 H (70-99) mg/dl Calcium 8.3 L (8.5-10.1) mg/dl Total Bilirubin 1.2 H (0.2-1) mg/dl Direct Bilirubin 0.4 H (0-0.2) mg/dl AST 108 H (15-37) U/L ALT 118 H (12-78) U/L Alkaline Phosphatase 138 H (45-117) U/L Total Protein 7.3 (6.4-8.2) gm/dl Albumin 3.1 L (3.4-5.0) gm/dl Globulin 4.2 H (2.5-4.0) gm/dl Albumin/Globulin Ratio 0.7 L (0.9-2) Medications Administered Current Inpatient Medications Acetaminophen (Tylenol) 650 mg PO Q4H PRN PRN Reason: Pain or Fever Stop: 08/20/19 04:06 Last Admin: 07/24/19 01:37 Dose: 650 mg Documented by: Al Hydrox/Mg Hydrox/Simethicone (Maalox Max) 15 ml PO Q6H PRN PRN Reason: GI Upset Stop: 08/21/19 04:55 Last Admin: 07/22/19 05:25 Dose: 15 ml Documented by: Amitriptyline HCl (Elavil) 10 mg PO HS [facility] Stop: 08/20/19 20:59 Last Admin: 07/23/19 20:44 Dose: 10 mg Documented by: Amphetamine/Dextroamphetamine (Adderall) 20 mg PO BID [facility] Stop: 08/04/19 08:59 Last Admin: 07/21/19 08:30 Dose: Not Given Documented by: Clonidine HCl (Catapres) 0.1 mg PO Q4H PRN PRN Reason: Hypertension Stop: 08/20/19 05:58 Last Admin: 07/24/19 01:37 Dose: 0.1 mg Documented by: Gabapentin (Neurontin) 600 mg PO Q24H [facility] Stop: 07/24/19 22:01 Hydromorphone HCl (Dilaudid) 0.5 mg IV Q3H PRN PRN Reason: Pain Stop: 08/04/19 04:06 Last Admin: 07/23/19 19:24 Dose: 0.5 mg Documented by: Lorazepam (Ativan) 1 mg in 2 mls @ 2 mls/min IV UD PRN; Protocol PRN Reason: EtOH Withdrawl AWSS Score 6,7 Stop: 08/20/19 04:06 Last Admin: 07/23/19 22:32 Dose: 2 mls/min Documented by: Lorazepam (Ativan) 2 mg in 4 mls @ 4 mls/min IV UD PRN; Protocol PRN Reason: EtOH Withdrawl AWSS Score 8,9 Stop: 08/20/19 04:06 Last Admin: 07/24/19 01:38 Dose: 4 mls/min Documented by: Lorazepam (Ativan) 3 mg in 6 mls @ 4 mls/min IV ONCE PRN; Protocol PRN Reason: EtOH Withdrawl AWSS Score >=10 Stop: 08/20/19 04:06 Last Admin: 07/24/19 00:44 Dose: 4 mls/min Documented by: Lactated Ringer's (Lr) 1,000 mls @ 125 mls/hr IV .Q8H [facility] Stop: 08/22/19 18:44 Last Admin: 07/24/19 03:59 Dose: 125 mls/hr Documented by: Magnesium Oxide (Mag-Ox) 400 mg PO HS [facility] Stop: 08/20/19 20:59 Last Admin: 07/23/19 20:44 Dose: 400 mg Documented by: Miscellaneous (Remove Nicoderm Patch) 1 ea N/A DAILY@0859 [facility] Stop: 08/22/19 08:58 Last Admin: 07/23/19 08:13 Dose: 1 ea Documented by: Multivitamins/Minerals (Multivitamin W/ Minerals Tab) 1 tab PO QAM [facility] Stop: 08/20/19 08:59 Last Admin: 07/23/19 08:11 Dose: 1 tab Documented by: Nicotine (Nicoderm Cq) 21 mg TD QAM [facility] Stop: 08/21/19 09:09 Last Admin: 07/23/19 08:12 Dose: 21 mg Documented by: Nitroglycerin (Nitrostat) 0.4 mg SL UD PRN PRN Reason: Chest Pain Stop: 08/20/19 04:06 Ondansetron HCl (Zofran) 4 mg IV Q6H PRN PRN Reason: Nausea Stop: 08/20/19 04:06 Pantoprazole Sodium (Protonix) 40 mg PO BID [facility] Stop: 08/20/19 20:59 Last Admin: 07/23/19 20:44 Dose: 40 mg Documented by: Polyethylene Glycol (Miralax Powder Packet) 17 gm PO DAILY PRN PRN Reason: Constipation Stop: 08/20/19 04:06 Potassium Chloride (Klor-Con M20) 20 meq PO TID [facility] Stop: 08/23/19 08:59 Tizanidine HCl (Zanaflex) 2 mg PO DAILY [facility] Stop: 08/20/19 08:59 Last Admin: 07/23/19 08:11 Dose: 2 mg Documented by: (1) Acute alcoholic pancreatitis Acute pancreatitis complication: unspecified Qualified Code(s): K85.20 - Alco hol induced acute pancreatitis without necrosis or infection
[2019-07-24] MEDS: FOLIC ACID 1 MG TAB PO SCH (08:31)
[2019-07-24] MEDS: NICOTINE 21 MG/24 HR TDSY TD SCH (08:31)
[2019-07-24] MEDS: THIAMINE HCL 100 MG TAB PO SCH (08:31)
[2019-07-24] MEDS: PANTOprazole 40 MG TAB PO SCH ×2 (08:32→20:09)
[2019-07-24] MEDS: CEROVITE ADV FORMULA TAB PO SCH (08:32)
[2019-07-24] MEDS: TIZANIDINE HCL 4 MG TABLET PO SCH (08:32)
[2019-07-24 08:38] LABS: Magnesium 2.2 mg/dl (1.8-2.4)
[2019-07-24] MEDS: POTASSIUM CHLORIDE 20 MEQ TABCR PO SCH ×2 (13:47→20:08)
[2019-07-24] MEDS: HYDROmorphone HCL 2 MG TAB PO PRN (18:16)
[2019-07-24] MEDS ORDERED: Nursing to Pharmacy Communication ONE (18:34)
[2019-07-24] MEDS ORDERED: NICOTINE 21 MG/24 HR TDSY TD SCH (19:00)
[2019-07-24] MEDS: MAGNESIUM OXIDE 400 MG TAB PO SCH (20:09)
[2019-07-24] MEDS: AMITRIPTYLINE HCL 10 MG TAB PO SCH (20:09)
[2019-07-24] MEDS: LORazepam 1 MG/2 ML VIAL IV PRN (20:53)
[2019-07-24] MEDS ORDERED: GABAPENTIN 600 MG TAB PO SCH (22:00)
--- NOTE | 2019-07-24 23:23 | Communication Note ---
Date of Service: July 24, 2019 Made aware by RN of uncontrolled blood pressure. SBP 150-170s since afternoon . Usual abdominal pain as per RN. AP Uncontrolled HTN Ongoing alcohol withdrawal Possible chronic hypertension (concentric LVH on outpatient [facility] 2018) Initiate lisinopril daily. Clonidine as needed as ordered on admission. Will relay to AM provider.
[2019-07-25] MEDS: HYDROmorphone HCL 2 MG TAB PO PRN (00:23)
[2019-07-25] MEDS: LORazepam 1 MG/2 ML VIAL IV PRN (00:23)
[2019-07-25] MEDS: LACTATED RINGER'S 1,000 ML IV SCH (02:49)
[2019-07-25 06:50] LABS: Albumin Level 3.4 gm/dl (3.4-5.0); BUN Creatinine Ratio 4.3 (10-20); Bilirubin Direct 0.4 mg/dl (0-0.2); Creatinine Clr Calc Pharmacy 116.4 ml/min; Est GFR (African American) 122.7; Est GFR (Non-African American) 105.8; Potassium 2.9 mmol/L (3.5-5.1)
[2019-07-25 06:53] LABS: Albumin Globulin Ratio 0.8 (0.9-2); Bilirubin,Total 1.2 mg/dl (0.2-1); Globulin 4.4 gm/dl (2.5-4.0); Total Protein 7.8 gm/dl (6.4-8.2)
[2019-07-25] MEDS: CEROVITE ADV FORMULA TAB PO SCH (08:35)
[2019-07-25] MEDS: FOLIC ACID 1 MG TAB PO SCH (08:35)
[2019-07-25] MEDS: THIAMINE HCL 100 MG TAB PO SCH (08:36)
[2019-07-25] MEDS: TIZANIDINE HCL 4 MG TABLET PO SCH (08:36)
[2019-07-25] MEDS: PANTOprazole 40 MG TAB PO SCH (08:36)
[2019-07-25] MEDS ORDERED: POTASSIUM CHLORIDE 20 MEQ TABCR PO ONE (09:00)
[2019-07-25 09:17] LABS: INR 1.1 (0.9-1.1); Prothrombin Time 11.5 Seconds (9.0-12.0)
[2019-07-25] MEDS ORDERED: POTASSIUM CHLORIDE 20 MEQ TABCR PO SCH (14:00)
[2019-07-25 14:20] LABS: BUN Creatinine Ratio 5.4 (10-20); Calcium 9.6 mg/dl (8.5-10.1); Creatinine Clr Calc Pharmacy 95.2 ml/min; Est GFR (African American) 104.7; Est GFR (Non-African American) 90.3; Potassium 3.9 mmol/L (3.5-5.1)
--- NOTE | 2019-07-25 15:51 | Discharge Summary ---
Date of Service July 25, 2019 Admission HPI Per Admitting Provider This is a 48 y/o male with past medical history significant of alcoholism, affective disorder, depression, anxiety, was brought in by sanding machine operator or tender because of alcohol intoxication and combativeness.As per significant other, he was drinking vodka whole day at his significant other's place and he got combative and she called sanding machine operator or tender and he was brought in here. Initially seemed to be okay, then was threatening and combative here in the ER and he received 10 mg IV Haldol and 1 mg Ativan and was restrained, but right now he is conversing okay. He says he wants to go home, but when we said the alcohol was too high to send him to home and he said he was okay to stay overnight, but he wanted to take the restrains off and we took off the restraints and seem to be doing okay. Not much cooperative. We could not get much review of symptoms from the patient at this time. Admission Exam Per Admitting Provider GENERAL: The patient is of moderate build, seems to be intoxicated with alcohol. VITAL SIGNS: Temperature 36.6, pulse 101, respiratory rate 18, blood pressure 136/83, oxygen 96% room air. HEENT: No pallor, no icterus. Pupils equal, round, and reactive to light. Oral mucosa moist. NECK: No neck masses. CARDIOVASCULAR: S1, S2 heard, regular rate and rhythm, no murmur, no gallop. RESPIRATORY SYSTEM: Clear to auscultation bilaterally. No wheezing, no crackles. ABDOMEN: Soft, bowel sounds present. Nontender. No distention. CENTRAL NERVOUS SYSTEM: Alert and awake, not moves his extremities. Nonfocal. Principal Diagnosis Pancreatitis (alcoholic) Alcoholic liver disease Alcohol intoxication, withdrawal Discharge Exam Constitutional: middle aged male sitting up bed in NAD, WD/WN VS: BP 124/81, HR 89, RR 18, Temp. 37.0C, O2 Satts 93% on room air Eyes: PERRL, EOMI, conjunctivae normal, anicteric sclerae ENMT: external ear and nose normal, oropharynx normal Neck: trachea midline, no thyromegaly Respiratory: normal respiratory effort, lungs clear to auscultation, no wheezing, rhonchi, crackles Cardiovascular: RRR, no murmur, no edema Gastrointestinal (Abdomen): Percussion/Palpation: + abdomen only mildly tender to palp., soft, nondistended Musculoskeletal: no cyanosis or clubbing, extremities motor strength 5/5, moves extremities spontaneously Skin: no rashes, warm and dry Neurologic: PERRL, EOMI, accommodation nl, no face palsy, no dysarthria, moves extremities spontaneously Psychiatric: A+Ox3, euthymic affect Discharge Data Allergies Allergy/AdvReac Type Severity Reaction Status Date / Time banana AdvReac Unknown GI SYMPTOMS Verified 07/20/19 23:47 Consultations 07/21/19 02:40 ED Decision to Admit Stat 07/21/19 04:07 Consult Case Management - Discharge Planning Routine 07/21/19 08:00 Consult Gastroenterology Routine Ordered Studies 07/20/19 23:48 CT abd pelvis IV con only Urgent IMPRESSION: 1. Periduodenal inflammatory change with mild wall thickening of the descending duodenum. Findings favor duodenitis or duodenal ulcer. Groove pancreatitis is considered less likely, which could be excluded with serum lipase. 2. Severe hepatic steatosis. 3. Circumferential bladder wall thickening could either indicate cystitis developing bladder outlet obstruction in the setting of benign prostatic hyperplasia. Correlate with urinalysis. 07/22/19 08:24 MR MRCP Stat IMPRESSION: 1. No biliary ductal dilatation. 2. No common bile duct calculi identified. 3. Fatty infiltration of the liver, better depicted on CT of July 21, 2019. Hospital Course (1) Acute alcoholic pancreatitis: (1) Epigastric abdominal pain: Due to alcohol abuse/alcohol induced pancreatitis Admitted with elevated lipase, epigastric pain CT abdomen pelvis finding of mild pancreatitis/duodenitis Patient was treated with bowel rest, n.p.o., IV fluids Repeat labs shows normal lipase level, GI symptoms improved, - appreciate input from GI - slowly advanced diet with clear liquids /then low fat diet, tolerated well - Continue PPI - Follow-up as an outpt with GI and EGD/EUS as recommended Abnormal LFTs/alcoholic liver disease/ concern for alcoholic hepatitis: LFTs elevated secondary to acute alcohol intoxication/abuse CT abdomen pelvis shows a severe hepatic steatosis GI recommendation as above Tbili elevated (07/21), discussed w/ GI, MRCP ordered - negative for bile duct calculi - Tbili downtrended, PT wnl, Maddrey score unremarkable Patient was counseled repeatedly for strict alcohol abstinence to prevent fulminant liver failure Patient voiced understanding Does not want to go to inpatient rehab, willing to seek for resources for outpatient counseling, psychotherapy psychiatric follow-up and possible medication treatment for alcohol addiction Received info on outpt resources (07/22) (2) Chronic alcohol abuse: strongly encouraged for alcohol abstinence Refuses inpatient alcohol rehab Received info on outpt resources (07/22) on Gabapentin alcohol withdrawal protocol while inpt Total Time Total Time Spent Total Time Spent (In Minutes): 40 Total Time Includes: Examination of the Patient, Discharge Planning and Medication Reconciliation Discharge Plan Discharge Items Patient Disposition: Home - Self-Care Reason For Visit: ABDOMINAL PAIN Discharge Diagnosis: Pancreatitis Alcoholic liver disease Alcohol intoxication, withdrawal Activity: As commented below Non-emergency contact: Primary Care Provider Call non-emergency contact if: you have any medication questions and your symptoms worsen Follow-up/Referrals: Lazaro Jackson DO [Primary Care Provider] - Diet: Low Fat Addtl Attending Provider Instructions: Recommend to follow-up with primary care doctor within 1 to 2 weeks. At that time, blood work - liver function tests, should be obtained to monitor their level. Make sure to schedule EGD/EUS study with gastroenterology office, as was already ordered for you. It is crucial that you completely abstain from alcohol. Do not restart taking your Adderall, until you talk with your primary care doctor. Instead of your omeprazole, start taking pantoprazole 40 mg twice a day. Also take vitamins, thiamine and folic acid daily. Take gabapentin 100 mg twice a day for next 5 days. Discuss with your primary care doctor, if your dose should be changed after that or if you should stop this medication. Make sure to call for addiction counseling/management appointment, information was given to you by our case management. Pending Studies at Discharge: No Stand-Alone Forms: My 4-Tell, Smoking Cessation Medications and DC Order Prescriptions: New pantoprazole 40 mg Tablet,Delayed Release (Dr/Ec) 40 mg PO BID 30 Days Qty: 60 RF: 0 thiamine HCl (vitamin B1) [Vitamin B-1] 100 mg Tablet 100 mg PO QAM 30 Days Qty: 30 RF: 0 folic acid 1 mg Tablet 1 mg PO QAM 30 Days Qty: 30 RF: 0 gabapentin 100 mg capsule 100 mg PO BID Qty: 10 RF: 0 hydromorphone [Dilaudid] 2 mg tablet 1 mg PO TID PRN (Reason: pain) Qty: 10 RF: 0 Continued tizanidine 2 mg tablet 2 mg PO DAILY RF: 0 sildenafil 50 mg tablet 50 mg PO UD PRN (Reason: Sexual Activity) RF: 0 amitriptyline 10 mg tablet 10 mg PO HS RF: 0 magnesium oxide 400 mg (241.3 mg magnesium) tablet 400 mg PO HS RF: 0 Discontinued dextroamphetamine-amphetamine [Adderall] 20 mg Tablet 20 mg PO BID RF: 0 omeprazole 20 mg capsule,delayed release(DR/EC) 20 mg PO DAILY RF: 0 Discharge Orders: Discharge Order (Routine); Ordered 07/25/19 Ordered By: Wilson Mosley Admission Data Admit Date/Time: 07/21/19 03:28 Attending Provider: Wilson Mosley Admit Provider: Edin Robert Primary Care Provider: Lazaro Jackson Other Providers: Edin Robert ; Falguni Spicer ; Oralia Jc ; Halina Soler ; Rosmery Juarez ; Kayden Sethi ; Patrick Woodson ; Yelena Caro ; Elo Cobos ; Darek Rios ; Nehemias Arambula ; Agnes Solano ; Isabela Nick ; Katherine Cuenca ; Amy Montenegro ; Reagan Morton ; Divya Zuleta H. Other Interventions: Discharge Summary Assessment (RN) Last Done: 07/25/19 15:54 DC Date/Time DO NOT enter until pt leaves facility: 07/25/19 16:25
== END 2019-07-25 16:25 | disposition home or self-care (01) | DRG 439 ==
LOC: ED 23:24 → 2N 07-21 03:28 → SUATTDRO 07-21 03:28 → 2N 07-21 03:47

== ENCOUNTER 2020-01-20 12:25 | Inpatient (IN) ==
--- NOTE | 2020-01-20 12:51 | XRay Report ---
XR chest 1V portable CLINICAL HISTORY: Atypical chest pain COMPARISON STUDY: July 2016 FINDINGS: The cardiac and mediastinal contours are normal. There is no evidence of focal pulmonary co nsolidation. There is no evidence of failure. No pleural effusions are visualized.[ IMPRESSION: No active disease in the chest. ACT 112: Negative or not required by law. Electronically signed by: Per Villa M.D. 01/20/2020 12:50 PM
[2020-01-20] MEDS ORDERED: NICOTINE 14 MG/24 HR PATCH TD SCH (13:30)
--- NOTE | 2020-01-20 13:31 | Emergency Department Note ---
History of Present Illness General Chief complaint: Cardiac Assessment Time Seen by Provider: 01/20/20 13:04 History of Present Illness This is a 49-year-old male that presents to the emergency department via ambu alex referred by PCP office with complaints of "chest pain". The patient states that he had chest pain intermittently from this past Friday into Friday. It was not necessarily exertional but he felt it was stress related. He notes that he has had a very stressful week. He points to the left anterior chest as a location of pain. He also notes excessive diaphoresis as of recently. While at the PCP office today he brought up his left anterior chest pain and as well as his diaphoresis and an EKG was performed and found to be abnormal and he was referred here for further evaluation and work-up. The patient denies any current chest pain. No fevers, chills, nausea or vomiting. He does have a minimal appetite as of late. He notes his father at age 62 from an ND. His mother is currently living. Patient notes he had a stress test and EKG about 18 months ago. He did have 324 of aspirin plus nitro prior to arrival. He denies any personal history of cardiac events. No history of ND, PE, DVT or recent leg swelling. Home Medications Home Medications Medication Instructions Recorded Confirmed Type amitriptyline 10 mg PO HS 07/20/19 01/20/20 History magnesium oxide 400 mg PO HS 07/20/19 01/20/20 History sildenafil 50 mg PO UD PRN 07/20/19 01/20/20 History tizanidine 2 mg PO DAILY 07/20/19 01/20/20 History aspirin [Aspir-81] 324 mg PO DAILY PRN 01/20/20 01/20/20 History dextroamphetamine-amphetamine 20 mg PO BID 01/20/20 01/20/20 History folic acid 1 mg PO DAILY 01/20/20 01/20/20 History lactobacillus combination no.4 0 mmu cells PO DAILY 01/20/20 01/20/20 History [Probiotic] multivitamin 1 tab PO QAM 01/20/20 01/20/20 History nitroglycerin 0.4 mg SUBLINGUAL UD 01/20/20 01/20/20 History pantoprazole 40 mg PO BID 01/20/20 01/20/20 History riboflavin (vitamin B2) 0 mg PO DAILY 01/20/20 01/20/20 History Allergies Allergy/AdvReac Type Severity Reaction Status Date / Time banana AdvReac Unknown GI SYMPTOMS Verified 07/20/19 23:47 Past Med/Surg History Medical History ADD (attention deficit disorder) Migraines Sleep disorder Surgical History History of endoscopy Hx of colonoscopy Social History Smoking Status: Current every day smoker Tobacco Type: Cigarettes and E-cigarettes / Vaping Cigarettes Per Day: 6; Second Hand Exposure: No; Hx Alcohol Use: Yes Alcohol type: beer and hard liquor Hx Substance Use: Yes Last Used Substance: Unknown Preferred Language: Setswana Communication Ability: Effective Recep Required: No Beliefs That Will Affect Care: None marital status: Single Current Living Situation: Alone Feels Safe at Home: Yes Assistive Devices: None Review of Systems A total of 10 systems reviewed and were otherwise negative Physical Exam Vital Signs Vital Signs - 24 hr 01/20/20 12:36 01/20/20 12:37 01/20/20 13:00 Temperature 37.6 C H Temperature Source Oral Pulse Rate 108 H 103 H Pulse Rate [Finger] Pulse Rate from SpO2 Sensor Pulse Rhythm Regular Pulse Strength Normal Respiratory Rate 20 24 Respiratory Effort / Characteristics Non-Labored Spontaneous Respiratory Depth Normal Respiratory Pattern Regular Blood Pressure 146/107 H 130/102 H Blood Pressure [Right Arm] Blood Pressure Mean 120 112 Blood Pressure Mean [Right Arm] Blood Pressure Position Sitting Pulse Oximetry 99 99 Oxygen Delivery Method Room Air Room Air Sepsis Recent Fever Within 48 Hours No Sepsis New/Unexplained Change in Mental Status No Sepsis Action Taken by Nursing No Action Required 01/20/20 13:08 01/20/20 13:09 01/20/20 13:15 Temperature Temperature Source Pulse Rate 109 H 105 H Pulse Rate [Finger] 66 Pulse Rate from SpO2 Sensor Pulse Rhythm Pulse Strength Respiratory Rate 20 14 33 H Respiratory Effort / Characteristics Respiratory Depth Normal Respiratory Pattern Blood Pressure Blood Pressure [Right Arm] 108/65 Blood Pressure Mean Blood Pressure Mean [Right Arm] 79 Blood Pressure Position Pulse Oximetry 99 Oxygen Delivery Method Room Air Sepsis Recent Fever Within 48 Hours Sepsis New/Unexplained Change in Mental Status Sepsis Action Taken by Nursing 01/20/20 13:30 01/20/20 13:45 01/20/20 14:00 Temperature Temperature Source Pulse Rate 103 H 106 H 105 H Pulse Rate [Finger] Pulse Rate from SpO2 Sensor Pulse Rhythm Pulse Strength Respiratory Rate 23 20 17 Respiratory Effort / Characteristics Respiratory Depth Respiratory Pattern Blood Pressure Blood Pressure [Right Arm] Blood Pressure Mean Blood Pressure Mean [Right Arm] Blood Pressure Position Pulse Oximetry Oxygen Delivery Method Sepsis Recent Fever Within 48 Hours Sepsis New/Unexplained Change in Mental Status Sepsis Action Taken by Nursing 01/20/20 14:01 01/20/20 14:15 01/20/20 14:30 Temperature Temperature Source Pulse Rate 101 H 101 H 99 H Pulse Rate [Finger] Pulse Rate from SpO2 Sensor 98 H Pulse Rhythm Pulse Strength Respiratory Rate 20 25 H 18 Respiratory Effort / Characteristics Respiratory Depth Respiratory Pattern Blood Pressure 145/109 H Blood Pressure [Right Arm] Blood Pressure Mean 130 Blood Pressure Mean [Right Arm] Blood Pressure Position Pulse Oximetry 97 Oxygen Delivery Method Sepsis Recent Fever Within 48 Hours Sepsis New/Unexplained Change in Mental Status Sepsis Action Taken by Nursing 01/20/20 14:45 01/20/20 15:00 01/20/20 15:01 Temperature Temperature Source Pulse Rate 0 L 115 H 113 H Pulse Rate [Finger] Pulse Rate from SpO2 Sensor 104 H 113 H 110 H Pulse Rhythm Pulse Strength Respiratory Rate 17 27 H Respiratory Effort / Characteristics Respiratory Depth Respiratory Pattern Blood Pressure 154/95 H 154/95 H Blood Pressure [Right Arm] Blood Pressure Mean 114 104 Blood Pressure Mean [Right Arm] Blood Pressure Position Pulse Oximetry 98 99 99 Oxygen Delivery Method Sepsis Recent Fever Within 48 Hours Sepsis New/Unexplained Change in Mental Status Sepsis Action Taken by Nursing 01/20/20 15:15 01/20/20 15:30 01/20/20 15:45 Temperature Temperature Source Pulse Rate 114 H 108 H 96 H Pulse Rate [Finger] Pulse Rate from SpO2 Sensor 108 H 109 H 94 H Pulse Rhythm Pulse Strength Respiratory Rate 24 20 16 Respiratory Effort / Characteristics Respiratory Depth Respiratory Pattern Blood Pressure 124/80 Blood Pressure [Right Arm] Blood Pressure Mean 94 Blood Pressure Mean [Right Arm] Blood Pressure Position Pulse Oximetry 98 99 95 Oxygen Delivery Method Sepsis Recent Fever Within 48 Hours Sepsis New/Unexplained Change in Mental Status Sepsis Action Taken by Nursing VITAL SIGNS - Vital signs and nursing notes were reviewed. Stable and afebrile. He is borderline tachycardic. GENERAL -49-year-old male appearing his stated age who is in no acute distress. He is diaphoretic. Drops of sweat are noted to the forehead. Communicates well with provider and answers questions appropriately. SKIN - Without rashes. HEAD - NC/AT. EYES - PERRL with EOMI bilaterally. Sclera anicteric. EARS - No deformities of external structures noted on gross examination bilatera lly. No pain elicited with palpation of the tragus bilaterally. External auditory canals without discharge or otorrhea. Tympanic membranes pearly snider without retraction or bulging. No fluid or purulent material visualized behind the TM. Handle of malleus, umbo, cone of light, pars tensa/flaccid all easily visualized. NOSE - Midline and without cyanosis. No epistaxis or purulent drainage noted. Se ptum midline without deviation or septal hematoma noted. MOUTH/OROPHARYNX - Without perioral cyanosis. Buccal mucosa pink and moist and without leukoplakia. Tongue midline with equal elevation of palate bilaterally. No tonsillar hypertrophy, erythema, or exudates noted. Good dentition noted. NECK - Neck with FROM. Supple to palpation. No lymphadenopathy noted. No nuchal rigidity. LUNGS - Chest wall symmetric without accessory muscle use, intercostals retractions, or central cyanosis. Normal vesicular breath sounds CTA B/L. No wheezes, rales, or rhonchi appreciated. CARDIAC - RRR with S1/S2. No murmur, rubs, or gallops appreciated. ABDOMEN - Abdominal contour normal without pulsations or visible masses. BS normoactive all four quadrants. No tenderness, palpable masses, hepatosplenomegaly, or ascites noted. EXTREMITIES - No clubbing or peripheral cyanosis. No pretibial edema present. S oft tissue contusion noted to the left proximal lateral forearm. No step-off. No deformity. +5/5 strength noted in UE/LE bilaterally. NEUROLOGIC - Cranial nerves II through XII grossly intact. Sensory intact to light touch throughout. PSYCH - A&Ox3 and cooperates fully with examiner. Pt is very pleasant and interacts well with examiner. Course Administered Medications Heparin Sodium/Dextrose (Heparin Sodium/Dextrose) 25,000 units in 500 mls @ 20 mls/hr IV .Q24H [facility]; Protocol Stop: 02/19/20 15:29 Last Admin: 09/24/20 15:40 Dose: 1,000 units/hr, 20 mls/hr Documented by: [id number] Cosigned by: [id number] Nicotine (Nicotine 14 Mg/24 Hr Patch) 14 mg TD QAM DELANEY Stop: 02/19/20 13:29 Last Admin: 01/20/20 13:21 Dose: 14 mg Documented by: [id number] Discontinued Medications Heparin Sodium (Porcine) (Heparin Sod (Porcine) 1000 Unit/Ml 10 Ml Vial) Confirm Administered Dose 10,000 units .ROUTE .STK-MED ONE Stop: 01/20/20 15:34 Last Admin: 01/20/20 15:35 Dose: 4,000 units Documented by: [id number] Cosigned by: [id number] Heparin Sodium/Dextrose (Heparin Iv Low Dose With Bolus) 1 ea N/A NOW STA; Protocol Stop: 01/20/20 15:28 Last Admin: 01/20/20 15:48 Dose: 1 ea Documented by: [id number] Metoprolol Tartrate (Metoprolol Tartrate 1 Mg/Ml Vial) 5 mg IV NOW STA Stop: 01/20/20 15:22 Last Admin: 01/20/20 15:35 Dose: 5 mg Documented by: [id number] Medical Decision Making Laboratory Data Result diagrams: 01/20/20 14:09 01/20/20 14:16 Lab Results 01/20/20 01/20/20 01/20/20 Range/Units 14:09 14:09 14:09 WBC 11.33 H (4.8-10.8) K/uL RBC 4.86 (4.7-6.1) M/uL Hgb 16.5 (14.0-18.0) g/dL Hct 46.4 (42-52) % MCV 95.5 (80-100) fL MCH 34.0 (25-34) pg MCHC 35.6 (32-36) g/dL RDW Std Deviation 43.7 (36.4-46.3) fL RDW Coeff of Edilson 12.7 (11.5-14.5) % Plt Count 257 (130-400) K/uL MPV 9.1 (7.4-10.4) fL Immature Gran % (Auto) 0.4 % Neut % (Auto) 68.3 % Lymph % (Auto) 20.7 % Butts % (Auto) 8.9 % Eos % (Auto) 1.3 % Baso % (Auto) 0.4 % Neut # (Auto) 7.75 H (1.4-6.5) K/uL Lymph # (Auto) 2.34 (1.2-3.4) K/uL Butts # (Auto) 1.01 H (0.11-0.59) K/uL Eos # (Auto) 0.15 (0-0.5) K/uL Baso # (Auto) 0.04 (0-0.2) K/uL Immature Gran # (Auto) 0.04 H (0.00-0.02) K/uL PT 10.4 (9.0-12.0) Seconds INR 1.0 (0.9-1.1) APTT 26.5 (21.0-31.0) Seconds PTT Ratio 0.9 D-Dimer 270 (0-500) ug/L FEU Sodium 138 (136-145) mmol/L Potassium (3.5-5.1) mmol/L Chloride 102 (98-107) mmol/L Carbon Dioxide 29 (21-32) mmol/L Anion Gap 7.0 (3-11) BUN 10 (7-18) mg/dl Creatinine 0.91 (0.6-1.4) mg/dl Est Cr Clr Drug Dosing 116.0 ml/min Est GFR ( Amer) 115.9 Est GFR (Non-Af Amer) 100.0 BUN/Creatinine Ratio 10.6 (10-20) Glucose 105 H (70-99) mg/dl Calcium 9.2 (8.5-10.1) mg/dl Total Bilirubin 1.0 (0.2-1) mg/dl AST (15-37) U/L ALT 121 H (12-78) U/L Alkaline Phosphatase 158 H (45-117) U/L Troponin I 7.460 H* (0-0.045) ng/ml Total Protein 8.9 H (6.4-8.2) gm/dl Albumin 3.5 (3.4-5.0) gm/dl Globulin 5.4 H (2.5-4.0) gm/dl Albumin/Globulin Ratio 0.6 L (0.9-2) Lipase 116 (73-393) U/L 01/20/20 Range/Units 14:16 WBC (4.8-10.8) K/uL RBC (4.7-6.1) M/uL Hgb (14.0-18.0) g/dL Hct (42-52) % MCV (80-100) fL MCH (25-34) pg MCHC (32-36) g/dL RDW Std Deviation (36.4-46.3) fL RDW Coeff of Edilson (11.5-14.5) % Plt Count (130-400) K/uL MPV (7.4-10.4) fL Immature Gran % (Auto) % Neut % (Auto) % Lymph % (Auto) % Butts % (Auto) % Eos % (Auto) % Baso % (Auto) % Neut # (Auto) (1.4-6.5) K/uL Lymph # (Auto) (1.2-3.4) K/uL Butts # (Auto) (0.11-0.59) K/uL Eos # (Auto) (0-0.5) K/uL Baso # (Auto) (0-0.2) K/uL Immature Gran # (Auto) (0.00-0.02) K/uL PT (9.0-12.0) Seconds INR (0.9-1.1) APTT (21.0-31.0) Seconds PTT Ratio D-Dimer (0-500) ug/L FEU Sodium (136-145) mmol/L Potassium 3.9 (3.5-5.1) mmol/L Chloride (98-107) mmol/L Carbon Dioxide (21-32) mmol/L Anion Gap (3-11) BUN (7-18) mg/dl Creatinine (0.6-1.4) mg/dl Est Cr Clr Drug Dosing ml/min Est GFR ( Amer) Est GFR (Non-Af Amer) BUN/Creatinine Ratio (10-20) Glucose (70-99) mg/dl Calcium (8.5-10.1) mg/dl Total Bilirubin (0.2-1) mg/dl AST 141 H (15-37) U/L ALT (12-78) U/L Alkaline Phosphatase (45-117) U/L Troponin I (0-0.045) ng/ml Total Protein (6.4-8.2) gm/dl Albumin (3.4-5.0) gm/dl Globulin (2.5-4.0) gm/dl Albumin/Globulin Ratio (0.9-2) Lipase (73-393) U/L ECG Data Additional Comments: Sinus tachycardia at a rate of 111 bpm. This was compared to EKG of February 17, 2012 and significant changes have noted to have occurred. No ST elevation at this time but diffuse T wave inversion noted in addition to Q waves. A second EKG was repeated at 1503 and revealed sinus tachycardia rate of 103 bpm. Persistence of the T wave inversion and Q waves again noted. No ST elevation. MDM Narrative Patient was seen and evaluated as above in room B04. Review was performed of nursing notes and vital signs. I did review pertinent previous visits and patient history. After obtaining a thorough history and physical examination the above work up was performed. He presents to us today with referral from PCP office noting a few days ago he had chest pain and was found to be diaphoretic in the office and an EKG was performed and was found to be significantly abnormal. On arrival the patient is mildly diaphoretic but denies any chest pain. He has been chest pain-free for several days now. Chest x-ray was obtained. No overt failure. Troponin was elevated. Bone Char Kiln Tender consulted. He came to bedside. Stat echo was performed. He will be taken to the Hydraulic Corrugating Machine Operator for further evaluation and management. Please refer to further documentation regarding his stay. Labs reveal mild leukocytosis 11.33 without anemia. D- dimer negative. Other than the troponin elevation and mild AST and ALT elevation, no other significant abnormality noted. Given the troponin elevation in the setting of diaphoresis with remote chest pain heparin low-dose with bolus was ordered. IV metoprolol was also added. It is important note that the initial order was standard bolus however I immediately communicated with the nurse that this was changed to low-dose as well as the clinical pharmacist. Is important note that the patient was only provided the low-dose with bolus as ordered. While in the department, I personally reevaluated the patient several times and each time the patient was found to be resting comfortably. Please refer to further documentation regarding his stay. Case was discussed with the attending physician. GCS: 15 In the evaluation and treatment of this patient, the following differential diagnoses were considered: ND, ASC, Dysrhythmia, Angina, Mediastinitis, GERD, Esophagitis, PE, Pneumonia, Bronchitis, Costochondritis, Rib Fracture, Zoster. Impression & Plan Abnormal ECG, Diaphoresis, Elevated troponin Discharge Plan Visit Data Chief Complaint: Cardiac Assessment ED Provider: Nayan Batista ED Midlevel Provider: Kris Mahajan Discharge Problem: Abnormal ECG, Diaphoresis, Elevated troponin Patient Disposition: Still a Patient Condition: Good Discharge Instructions Interventions: ED Discharge Assessment Last Done: 01/20/20 16:01
[2020-01-20 14:29] LABS: Basophils # (auto) 0.04 K/uL (0-0.2); Basophils % (auto) 0.4 %; Eosinophils # (auto) 0.15 K/uL (0-0.5); Eosinophils % (auto) 1.3 %; Hematocrit (blood only) 46.4 % (42-52); Hemoglobin 16.5 g/dL (14.0-18.0); Immature Granulocytes # (auto) 0.04 K/uL (0.00-0.02); Immature Granulocytes % (auto) 0.4 %; Lymphocytes # (auto) 2.34 K/uL (1.2-3.4); Lymphocytes % (auto) 20.7 %; Mean Corpuscular Hgb Conc 35.6 g/dL (32-36); Mean Corpuscular Volume 95.5 fL (80-100); Mean Platelet Volume 9.1 fL (7.4-10.4); Monocytes # (auto) 1.01 K/uL (0.11-0.59); Monocytes % (auto) 8.9 %; Neutrophils # (auto) 7.75 K/uL (1.4-6.5); Neutrophils % (auto) 68.3 %; Platelet Count 257 K/uL (130-400); RDW Coefficient of Variation 12.7 % (11.5-14.5); RDW Standard Deviation 43.7 fL (36.4-46.3); Red Blood Count 4.86 M/uL (4.7-6.1); White Blood Count 11.33 K/uL (4.8-10.8)
[2020-01-20 14:47] LABS: D Dimer 270 ug/L FEU (0-500); Partial Thromboplastin Ratio 0.9; Partial Thromboplastin Time 26.5 Seconds (21.0-31.0); Prothrombin Time 10.4 Seconds (9.0-12.0)
[2020-01-20 14:57] LABS: Albumin Globulin Ratio 0.6 (0.9-2); Albumin Level 3.5 gm/dl (3.4-5.0); BUN Creatinine Ratio 10.6 (10-20); Calcium 9.2 mg/dl (8.5-10.1); Est GFR (African American) 115.9; Globulin 5.4 gm/dl (2.5-4.0); Total Protein 8.9 gm/dl (6.4-8.2)
[2020-01-20 15:02] LABS: Potassium 3.9 mmol/L (3.5-5.1)
[2020-01-20 15:03] LABS: Troponin I 7.46 ng/ml (0-0.045)
[2020-01-20] MEDS ORDERED: METOPROLOL TARTRATE 1 MG/ML VIAL IV STA (15:21)
[2020-01-20] MEDS ORDERED: Heparin IV Low Dose WITH Bolus STA (15:27)
[2020-01-20] MEDS ORDERED: HEPARIN SODIUM/DEXTROSE 25,000 UNITS/500 ML BAG IV SCH ×2 (15:30)
[2020-01-20] MEDS ORDERED: HEPARIN SOD (PORCINE) 1000 UNIT/ML 10 ML VIAL ONE (15:33)
--- NOTE | 2020-01-20 15:54 | Cardiology Consultation ---
Date of Consultation January 20, 2020 Assessment & Plan (1) Precordial chest pain: Chest pain patient is a 49-year-old male presents with signs and symptoms suggestive of acute coronary syndrome. EKGs reflect evolving anteroseptal infarct. Patient currently asymptomatic other than mild diaphoresis at times. Heart rate and blood pressures are elevated. Plan acutely will order stat echocardiogram reviewed in the ER in interim patient begun on IV heparin IV metoprolol and oral metoprolol topical nitrates for management. Suspect patient will require diagnostic cardiac catheterization for further delineation. Further recommendations pending results of imaging serial lab test Echocardiogram reviewed with LAD distribution hypokinesis. Patient will be referred urgently for diagnostic cardiac catheterization History of Present Illness Reason for Consultation: Chest pain,elevated troponin Requesting Physician: Dr Shamika Polk History of Present Illness Patient is a 49-year-old male without prior history of documented cardiac disease with underlying history of tobacco use borderline hypertension and hyperlipidemia. He does have a familial history of heart disease. Patient presented to primary care physician's office today for minor concern but noted on presentation symptoms of chest pain 4 days ago that have been stuttering for 3 days prior. Episodes were associated with chest pressure radiating to left shoulder and intermittent diaphoresis. EKG performed in the office was significantly abnormal and patient was referred to ER for further evaluation. Initial troponins elevated Patient noted no further chest pain since past Friday though has had intermittent episodes of diaphoresis. No worsening shortness of breath. No bleeding difficulties. Denies fevers chills or unexplained infections. Notes no melena medication dysuria hematuria. No recent change in medications. Is wearing a nicotine patch and attempt to discontinue E cigarettes. Takes Adderall daily. No recent increase or change in iglv-ene-rrnbaov medications other than an acids. Denies street drugs or amphetamine and cocaine use Allergies Allergy/AdvReac Type Severity Reaction Status Date / Time banana AdvReac Unknown GI SYMPTOMS Verified 07/20/19 23:47 Home Medications Home Medications Medication Instructions Recorded Confirmed Type amitriptyline 10 mg PO HS 07/20/19 01/20/20 History magnesium oxide 400 mg PO HS 07/20/19 01/20/20 History sildenafil 50 mg PO UD PRN 07/20/19 01/20/20 History tizanidine 2 mg PO DAILY 07/20/19 01/20/20 History aspirin [Aspir-81] 324 mg PO DAILY PRN 01/20/20 01/20/20 History dextroamphetamine-amphetamine 20 mg PO BID 01/20/20 01/20/20 History folic acid 1 mg PO DAILY 01/20/20 01/20/20 History lactobacillus combination no.4 0 mmu cells PO DAILY 01/20/20 01/20/20 History [Probiotic] multivitamin 1 tab PO QAM 01/20/20 01/20/20 History nitroglycerin 0.4 mg SUBLINGUAL UD 01/20/20 01/20/20 History pantoprazole 40 mg PO BID 01/20/20 01/20/20 History riboflavin (vitamin B2) 0 mg PO DAILY 01/20/20 01/20/20 History Patient History Medical History ADD (attention deficit disorder) Migraines Sleep disorder Surgical History History of endoscopy Hx of colonoscopy Social History Smoking Status: Current every day smoker Tobacco Type: Cigarettes and E-cigarettes / Vaping Cigarettes Per Day: 6; Second Hand Exposure: No; Hx Alcohol Use: Yes Alcohol type: beer and hard liquor Hx Substance Use: Yes Last Used Substance: Unknown Preferred Language: Guamanian Communication Ability: Effective Tare Man Required: No Beliefs That Will Affect Care: None marital status: Single Current Living Situation: Alone Feels Safe at Home: Yes Assistive Devices: None Review of Systems Review of Systems: All systems reviewed & are unremarkable except as noted in HPI & below Physical Exam Constitutional: WD/WN, vitals as above Eyes: PERRL, conjunctivae normal, anicteric sclerae ENMT: external ear and nose normal, oropharynx normal Neck: trachea midline, no thyromegaly Respiratory: normal respiratory effort, lungs clear to auscultation Cardiovascular: Rate/Rhythm: regular rate, regular rhythm and + tachycardic Heart Sounds: normal S1 and normal S2; no gallop and no murmur Palpation: normal PMI Vessels: normal carotid upstroke and radial pulses present; no JVD and no carotid bruit Extremities: no edema Gastrointestinal (Abdomen): normal bowel sounds, soft, nontender, no hepatosplenomegaly Musculoskeletal: no cyanosis or clubbing, extremities motor strength 5/5 Skin: no rashes, warm and dry Neurologic: PERRL, EOMI, accommodation nl, no face palsy, no dysarthria Psychiatric: A+Ox3, euthymic affect Results & Data ([facility]) Vital Signs (Past 12 Hours) Vital Signs Temp Pulse Pulse Resp BP BP Pulse Ox 01/20/20 15:01 113 H 27 H 99 01/20/20 15:00 115 H 17 154/95 H 99 01/20/20 14:45 0 L 154/95 H 98 01/20/20 14:30 99 H 18 97 01/20/20 14:15 101 H 25 H 01/20/20 14:01 101 H 20 145/109 H 01/20/20 14:00 105 H 17 01/20/20 13:45 106 H 20 01/20/20 13:30 103 H 23 01/20/20 13:15 105 H 33 H 01/20/20 13:09 109 H 14 01/20/20 13:08 66 20 108/65 99 01/20/20 13:00 103 H 24 130/102 H 01/20/20 12:37 99 01/20/20 12:36 37.6 C H 108 H 20 146/107 H 99 Laboratory Results Laboratory Results - last 24 hr 01/20/20 01/20/20 01/20/20 14:09 14:09 14:09 WBC 11.33 H RBC 4.86 Hgb 16.5 Hct 46.4 MCV 95.5 MCH 34.0 MCHC 35.6 RDW Std Deviation 43.7 RDW Coeff of Edilson 12.7 Plt Count 257 MPV 9.1 Immature Gran % (Auto) 0.4 Neut % (Auto) 68.3 Lymph % (Auto) 20.7 [place] % (Auto) 8.9 Eos % (Auto) 1.3 Baso % (Auto) 0.4 Neut # (Auto) 7.75 H Lymph # (Auto) 2.34 [place] # (Auto) 1.01 H Eos # (Auto) 0.15 Baso # (Auto) 0.04 Immature Gran # (Auto) 0.04 H PT 10.4 INR 1.0 APTT 26.5 PTT Ratio 0.9 D-Dimer 270 Sodium 138 Potassium Chloride 102 Carbon Dioxide 29 Anion Gap 7.0 BUN 10 Creatinine 0.91 Est Cr Clr Drug Dosing 116.0 Est GFR ( Amer) 115.9 Est GFR (Non-Af Amer) 100.0 BUN/Creatinine Ratio 10.6 Glucose 105 H Calcium 9.2 Total Bilirubin 1.0 AST ALT 121 H Alkaline Phosphatase 158 H Troponin I 7.460 H* Total Protein 8.9 H Albumin 3.5 Globulin 5.4 H Albumin/Globulin Ratio 0.6 L Lipase 116 01/20/20 14:16 WBC RBC Hgb Hct MCV MCH MCHC RDW Std Deviation RDW Coeff of Edilson Plt Count MPV Immature Gran % (Auto) Neut % (Auto) Lymph % (Auto) [place] % (Auto) Eos % (Auto) Baso % (Auto) Neut # (Auto) Lymph # (Auto) [place] # (Auto) Eos # (Auto) Baso # (Auto) Immature Gran # (Auto) PT INR APTT PTT Ratio D-Dimer Sodium Potassium 3.9 Chloride Carbon Dioxide Anion Gap BUN Creatinine Est Cr Clr Drug Dosing Est GFR ( Amer) Est GFR (Non-Af Amer) BUN/Creatinine Ratio Glucose Calcium Total Bilirubin AST 141 H ALT Alkaline Phosphatase Troponin I Total Protein Albumin Globulin Albumin/Globulin Ratio Lipase
[2020-01-20] MEDS ORDERED: METOPROLOL TARTRATE 25 MG TAB PO STA (15:55)
[2020-01-20] MEDS ORDERED: NITROGLYCERIN 2% OINTMENT 30GM TUBE EXT SCH (16:00)
[2020-01-20] MEDS ORDERED: MIDAZOLAM HCL 1 MG/ML 2ML VIAL ONE ×2 (16:01→16:53)
[2020-01-20] MEDS ORDERED: NiCARDipine HCL INJ 2.5 MG/ML 10 ML AMP ONE (16:01)
[2020-01-20] MEDS ORDERED: HEPARIN (PORCINE) 1000 UNIT/ML 10 ML (CATH LAB USE ONLY) ONE (16:01)
[2020-01-20] MEDS ORDERED: fentaNYL citrate 100 MCG/2 ML VIAL ONE ×2 (16:01→16:53)
[2020-01-20] MEDS ORDERED: NITROGLYCERIN/D5W 100MCG/ML 20ML SYR ONE (16:03)
--- NOTE | 2020-01-20 16:23 | Pre Anesthesia Assessment ---
Date of Service January 20, 2020 Pre Sedation Assessment Vital Signs Temp Pulse Pulse Resp BP BP Pulse Ox 01/20/20 15:45 96 H 16 124/80 95 01/20/20 15:30 108 H 20 99 01/20/20 15:15 114 H 24 98 01/20/20 15:01 113 H 27 H 99 01/20/20 15:00 115 H 17 154/95 H 99 01/20/20 14:45 0 L 154/95 H 98 01/20/20 14:30 99 H 18 97 01/20/20 14:15 101 H 25 H 01/20/20 14:01 101 H 20 145/109 H 01/20/20 14:00 105 H 17 01/20/20 13:45 106 H 20 01/20/20 13:30 103 H 23 01/20/20 13:15 105 H 33 H 01/20/20 13:09 109 H 14 01/20/20 13:08 66 20 108/65 99 01/20/20 13:00 103 H 24 130/102 H 01/20/20 12:37 99 01/20/20 12:36 99.7 F H 108 H 20 146/107 H 99 Cardiovascular RRR, no murmur, no edema Respiratory normal respiratory effort, lungs clear to auscultation Pre-Sedation Airway Assessment Smoking Status: Current every day smoker Hx Sleep Apnea: No Hx Difficult Intubation: No Short, Thick Neck: No Thyromental Distance: > or= 3.5 Finger Breadths Oral Cavity: + WNL Mallampati Class: III ASA: ASA3 Procedure Planning Contraindications for Sedation: none Current Medications Reviewed: Yes Notes The planned sedation has been discussed with the patient. Informed Consent was obtained. I have identified the patient, determined the appropriateness of sedation and have assessed the patient immediately prior to the procedure. All medicine(s) and interventions are by my order.
[2020-01-20] MEDS ORDERED: PRASugrel TAB 10 MG TAB PO ONE (17:31)
--- NOTE | 2020-01-20 17:36 | Post Anesthesia Assessment ---
Date of Service January 20, 2020 Post Sedation Assessment Vital Signs Temp Pulse Pulse Resp BP BP Pulse Ox 01/20/20 15:45 96 H 16 124/80 95 01/20/20 15:30 108 H 20 99 01/20/20 15:15 114 H 24 98 01/20/20 15:01 113 H 27 H 99 01/20/20 15:00 115 H 17 154/95 H 99 01/20/20 14:45 0 L 154/95 H 98 01/20/20 14:30 99 H 18 97 01/20/20 14:15 101 H 25 H 01/20/20 14:01 101 H 20 145/109 H 01/20/20 14:00 105 H 17 01/20/20 13:45 106 H 20 01/20/20 13:30 103 H 23 01/20/20 13:15 105 H 33 H 01/20/20 13:09 109 H 14 01/20/20 13:08 66 20 108/65 99 01/20/20 13:00 103 H 24 130/102 H 01/20/20 12:37 99 01/20/20 12:36 99.7 F H 108 H 20 146/107 H 99 Recovery Score Activity: Moves 4 extremities Respiration: Deep Breath/Cough Circulation: +/-20% PreAnes Value Consciousness: Fully Awake Oxygen Saturation: O2 needed for >90% Discharge Sedation Level of Care: Fast Track Phase II Post Sedation Plan On clinical assessment, the patient appears to have tolerated the sedation without complications. Patient is recovering as anticipated. Patient will continue to be monitored by nursing and may be discharged when sedation discharge criteria are met per below protocol. Upon Completions of procedure up to 15 minutes continue every 5 minute vital signs and the P.A.R. score; then discharge to a Phase I or Fast Track to Phase II per the following guidelines: * Discharge Patient to appropriate Phase II area if PAR is 8 or greater or return to pre- procedure baseline. The post - procedure orders will be as directed. * If PAR score is less than 8 or not return to pre-procedure baseline then patient will follow Phase I monitoring till PAR is reached for Phase II. The Phase I may be done in procedure room or may call to secure a Phase I area. * If naloxone or flumazenil are used for reversal, hold in Phase I for continued monitoring from when last reversal dose was given for a minimum of 60 minutes or longer pending the nurse and/or physician discretion of patient condition before discharge to Phase II. Please call the Sedation Physician to re-evaluate and complete post-note for discharge to Phase II area. Do NOT discharge from procedure sedation or Phase 1 until post- sedation evaluation note is complete by procedure /sedation MD Sedation Discharge Instructions to be given to the patient at discharge to home.
--- NOTE | 2020-01-20 17:53 | Cardiac Catheterization ---
ACC Data: [place] Cardiac Status Clinical evaluation leading to the procedure CAD Presenation: Non STEMI Anginal Classification: CCS IV Heart Failure: No Cardiogenic Shock within 24 Hours: No Cardiac Arrest within 24 Hours: No Imaging Studies Past 6 Months: Yes Stress Studies Past 6 Months: No Diagnostic Physicians Name: Rajinder Dillard MD Status: Urgent Closure Device Percutaneous Entry Location: Radial Closure Device: Radial Band Recommendations: PCI without planned CABG PCI Indication: PCI for high risk Non-RUSH Lesion Segment Name: Mid LAD Culprit Artery: Yes Stenosis Prior to Rx (%): 99 Chronic Total Occlusion: No IVUS: Yes FFR: No Pre-Procedure BRY Flow: 1 Previously Treated Lesion: No Lesion Complexity: Non-High/Non-C Lesion Length (mm): 30 Thrombus Present: Yes Bifurcation Lesion: No Guidewire Across Lesion: Stenosis Post-Procedure (%): 0 Post-Procedure BRY Flow: 3 Devices(s) Deployed: Yes Yes Lesion #2 Segment Name: OM 2 Culprit Artery: No Stenosis Prior to Rx (%): 95 Chronic Total Occlusion: No IVUS: No FFR: No Pre-Procedure BRY Flow: 3 Previously Treated Lesion: No Lesion Complexity: Non-High/Non-C Lesion Length (mm): 10 Thrombus Present: No Bifurcation Lesion: No Guidewire Across Lesion: Yes Stenosis Post-Procedure (%): 0 Post-Procedure BRY Flow: 3 Devices(s) Deployed: Yes Intraprocedure Events Significant Disection: No Perforation: No Cardiac Cath Procedure Full Procedure Date January 20, 2020 Pre-Procedure Diagnosis Pre-Procedure Diagnosis: Non STEMI AUC Score AUC Score: 8 Post-Procedure Diagnosis Post-Procedure Diagnosis: Severe CAD, Successful PCI and Normal Intracardiac Pressures Procedure(s) Performed Procedure(s) Performed: Coronary Angiography, Left Heart Cath, Drug Eluting Stent and IVUS [employer] [facility] Rajinder Dillard MD Allopathic Doctor(s) Nicola Youssef Estimated Blood Loss Estimated Blood Loss: 15 Medication(s) Medication(s): Fentanyl, Heparin, Hydralazine, Nicardipine, Nitroglycerin and Versed Summary of Findings Indication: High risk NSTEMI Access: 6 Fr slender right radial artery Catheters: [place], EBU 3.5 guide Findings: LM -large caliber, angiographically normal LAD -large caliber, proximal luminal irregularities, 99% hazy/acute mid segment stenosis with BRY I-II distal flow. Medium caliber first diagonal with mild diffuse proximal to mid disease. Circumflex - dominant, large caliber, 30% ostial, mid segment luminal irregularities. Medium caliber OM 2 with 95% proximal stenosis. Proximal luminal irregularities in left PDA RCA -nondominant, 30% mid segment stenosis LVEDP - 10 -- PCI -- Antithrombotic therapy: Heparin, Prasugrel Procedure: Left main cannulated with EBU 3.5 guide Rod[place]uster 50 wire passed across lesion into distal vessel Mid LAD lesion predilated with 2.5 compliant balloon Dilated lesion stented with 3.5 x 38 mm Meredith drug-eluting Post stenting no reflow with suspected distal edge dissection Mid LAD after stent dilated with 2.5 balloon with reestablished flow Second IRAIS (2.75 x 15 mm Elijah) placed to mid LAD overlapping with distal aspect of initial stent IVUS used to assess stent expansion and evaluate vessel immediately proximal/distal to stents [place] IVUS pullback revealed appropriately sized stents, well apposed, mildly underexpanded in the proximal aspect of stents. No apparent edge complications. Mild diffuse proximal LAD disease. Stent post-dilated with 3.75 noncompliant balloon IC vasodilators administered for spasm Post procedure BRY 3 flow, stents well expanded with minimal residual stenosis and no apparent cardiac complications. Rod[place]uster 50 wire removed from LAD and redirected into circumflex across proximal OM 2 stenosis Proximal OM 2 dilated with 2.0 balloon Proximal OM 2 stented with 2.25 x 12 mm Elijah drug-eluting stent Stent postdilated with stent balloon Post procedure BRY 3 flow, stent well expanded with minimal residual stenosis and no apparent cardiac complications. Arterial Closure: TR band Summary: 1. Severe multi vessel coronary artery disease -99% acute mid LAD stenosis with sluggish distal flow (BRY I-II). 95% proximal OM 2 2. Normal intracardiac filling pressure 3. Successful PCI of mid LAD with 2 overlapping drug-eluting stents (3.5 x 38, 2.75 x 15 mm Elijah; postdilated with 3.75 NC). 4. Successful PCI of proximal OM2 with single drug-eluting stent (2.25 x 12 mm Elijah). Recommendations: To PCU for continued monitoring Loaded with Prasugrel 60 mg in [place] Continue dual-antiplatelet therapy for at least 1 year Continue statin, and ASCVD risk factor modification Consult cardiac Rehab Hemodynamics Rest Ao:: 124/93/109 Final Ao: 136/90/112 LV: 115/10 Recommendations Recommendations: PCI without planned CABG Specimens Specimens: None Radiation Exposure (mGy) 2548 Contrast (mls) 140 Fluids (cc crystalloids) Fluids (cc crystalloids): 100 Drains Drains: None Anesthesia Moderate Procedural Complication(s) None Disposition PCU I attest to the content of the Intraoperative Record and any orders documented therein. Any exceptions are noted below. [employer] Card Cath Procedure Codes Cardiac Catheterization Procedure 1: Cardiovascular Cath Procedures: 26771 Coronaries and LHC (+/-LV) Therapeutic Services & Ancillary Proc Procedure 1: Cardiovascular Tx and Anc Procedures: 10892 IV Ultrasound (Coronary or Graft) Moderate Sedation Procedure 1: Sedation/Anesthesia: 02426 Mod Sedation by the same physician;Init15 Min Child Age 5 & Up Procedure 2: Sedation/Anesthesia: 43747 Mod Sedation by the same physician; Ea [id number] Minutes Stenting Procedure 1: Cardiovascular Stent Procedures: 05233 Perc transcatheter placement of intracoronary stent(s), with ang Procedure 2: Cardiovascular Stent Procedures: 12707 Ea addl branch of a major coronary artery PG Care Time/CCT Total # of Minutes Spent Total Time Spent with Patient: Total time spent is greater than 50% in coordination of care (as documented) at patient's floor/unit and/or counseling patient:
[2020-01-20] MEDS ORDERED: ONDANSETRON INJ 2 MG/ML 2 ML VIAL IV PRN (17:54)
[2020-01-20] MEDS ORDERED: NITROGLYCERIN SL 0.4 MG/TAB TAB SL PRN (17:54)
[2020-01-20] MEDS ORDERED: SODIUM CHLORIDE 0.9% 1000ML 1,000 ML IV SCH (18:00)
[2020-01-20] MEDS ORDERED: INFLUENZA ADMINISTRATION CHARGE ONE (18:12)
[2020-01-20] MEDS ORDERED: INFLUENZA VIRUS QUAD VACCINE 0.5 ML SYR IM ONE (18:12)
--- NOTE | 2020-01-20 19:07 | History & Physical Report ---
Date of Service January 20, 2020 Assessment & Plan (1) NSTEMI (non-ST elevated myocardial infarction): Patient presented for evaluation of chest pain, associated with diaphoresis, chest pressure radiating to left shoulder and jaw Troponin was found elevated at 7.46 ECG abnormal, evolving anteroseptal infarct, echo showing hypokinesis in the LAD distribution Patient underwent cardiac cath and now is status post IRAIS to LAD x2, and 1 IRAIS to OM 2 Loaded with Prasugrel in [employer] Continue dual antiplatelet therapy with aspirin and Prasugrel for 1 year Continue statin, Lipitor 80 ordered Metoprolol Will need cardiac rehab and ASCVD risk factor modification Cardiology consulted History of tobacco use, currently vaping, patient was counseled on cessation, continue nicotine patch History of alcohol use -Currently reports that he drinks much less, max 2-3 beers a day -Continue home folic acid, thiamine ADHD -Patient on Adderall, will hold for now -Amitriptyline tizanidine, likely resume prior to discharge Code: Full Admission and Anticipated Discharge Date Admission Date: January 20, 2020 History of Present Illness Chief Complaint: Chest pain Primary Care Provider: Lazaro Jackson DO 49-year-old male with history of ADHD, alcohol abuse, tobacco history abuse, history of pancreatitis, who presents in ED with history of chest pain. Patient was evaluated by his primary care doctor today who recommended further evaluation in the hospital. Patient reported chest pain for past 4 days, the pain was intermittent, but associated with diaphoresis. He also reported chest pressure that was radiating to his left shoulder and jaw. Initial ECG obtained in the office was abnormal. Repeat ECG in the ED was obtained showing evolving anteroseptal infarct and then echocardiogram was also obtained in the ED, which showed hypokinesis in LAD distribution. Troponin was elevated at 7.4. Patient was started on IV heparin and metoprolol and oral metoprolol and was taken for cardiac cath for further evaluation. Patient is a status post IRAIS x2 to LAD, and 1 IRAIS stent to OM 2. He was loaded with Prasugrel 60, and will need to be on dual antiplatelet therapy for a year, started on statin. Patient is currently vaping, but strongly interested in c ontinuing on nicotine patch and quitting smoking/vaping altogether. Currently pt is sitting up in bed, in no acute distress, eating dinner. Currently denies any chest pain or shortness of breath, dizziness or lightheadedness. Denies any numbness tingling in his extremities. Also denies any abdominal pain, nausea or vomiting. Previously patient reported heavy alcohol use, now he reports 2-3 beers a day. He states that he has been doing much better and that he is trying to drink even less. He confirmed his home medications, of folic acid, riboflavin, Adderall, pantoprazole, probiotic, ami triptyline and tizanidine. Allergies Allergy/AdvReac Type Severity Reaction Status Date / Time banana AdvReac Unknown GI SYMPTOMS Verified 07/20/19 23:47 Home Medications Home Medications Medication Instructions Recorded Confirmed Type amitriptyline 10 mg PO HS 07/20/19 01/20/20 History magnesium oxide 400 mg PO HS 07/20/19 01/20/20 History sildenafil 50 mg PO UD PRN 07/20/19 01/20/20 History tizanidine 2 mg PO DAILY 07/20/19 01/20/20 History aspirin [Aspir-81] 324 mg PO DAILY PRN 01/20/20 01/20/20 History dextroamphetamine-amphetamine 20 mg PO BID 01/20/20 01/20/20 History folic acid 1 mg PO DAILY 01/20/20 01/20/20 History lactobacillus combination no.4 0 mmu cells PO DAILY 01/20/20 01/20/20 History [Probiotic] multivitamin 1 tab PO QAM 01/20/20 01/20/20 History nitroglycerin 0.4 mg SUBLINGUAL UD 01/20/20 01/20/20 History pantoprazole 40 mg PO BID 01/20/20 01/20/20 History riboflavin (vitamin B2) 0 mg PO DAILY 01/20/20 01/20/20 History Past Med/Surg History Medical History ADD (attention deficit disorder) Migraines Sleep disorder Surgical History History of endoscopy Hx of colonoscopy Social History Smoking Status: Former smoker Tobacco Type: Cigarettes and E-cigarettes / Vaping Cigarettes Per Day: 6; Second Hand Exposure: No; Hx Alcohol Use: Yes Alcohol type: beer and hard liquor Hx Substance Use: Yes Last Used Substance: Days (ago) Substance Use Type Other:: medical marijuana Preferred Language: Ecuadorean Communication Ability: Effective Registered Respiratory Therapist Required: No Beliefs That Will Affect Care: None marital status: Single Current Living Situation: Alone Feels Safe at Home: Yes Assistive Devices: Denture - Upper and Denture - Lower Review of Systems Review of Systems: All systems reviewed & are unremarkable except as noted in HPI & below Constitutional: no fever and no chills Eyes: no problem reported Ear, Nose, Mouth, Throat: no problem reported Respiratory: no cough and no dyspnea Cardiovascular: no chest pain (no resolved) and no palpitations Gastrointestinal: no abdominal pain, no nausea and no vomiting Genitourinary: no problem reported Musculoskeletal: no problem reported Integumentary: no problem reported Neurologic: no problem reported Psychiatric: no problem reported Endocrine: no problem reported Hematologic / Lymphatic: no problem reported Allergy / Immunological: no problem reported Physical Exam Physical Exam: Patient is sitting up in bed, in no acute distress, eating dinner Constitutional: WD/WN, vitals as above Eyes: PERRL, conjunctivae normal, anicteric sclerae EOM intact bilaterally ENMT: external ear and nose normal, oropharynx normal Neck: normal visual inspection Respiratory: normal respiratory effort, lungs clear to auscultation Auscultation: no crackles, no rhonchi and no wheezes Cardiovascular: RRR, no murmur, no edema Chest (Breasts): Chest: normal inspection of chest Gastrointestinal (Abdomen): Inspection/Auscultation: abdomen normal to inspection and normal bowel sounds; abdomen not distended Percussion/Palpation: abdomen nontender and no guarding Musculoskeletal: Head/Neck/Chest: normocephalic and head atraumatic Extremities: extremities normal to inspection Skin: no rashes, warm and dry Neurologic: moves all extremities Psychiatric: A+Ox3, euthymic affect Results & Data Results & Data ([facility]) Vital Signs (Past 12 Hours) Vital Signs Temp Pulse Pulse Resp BP BP BP 01/20/20 18:39 96 H 18 144/99 H 01/20/20 18:24 95 H 18 138/95 01/20/20 18:13 91 H 18 132/91 01/20/20 17:53 94 H 18 139/95 01/20/20 15:45 96 H 16 124/80 01/20/20 15:30 108 H 20 01/20/20 15:15 114 H 24 01/20/20 15:01 113 H 27 H 01/20/20 15:00 115 H 17 154/95 H 01/20/20 14:45 0 L 154/95 H 01/20/20 14:30 99 H 18 01/20/20 14:15 101 H 25 H 01/20/20 14:01 101 H 20 145/109 H 01/20/20 14:00 105 H 17 01/20/20 13:45 106 H 20 01/20/20 13:30 103 H 23 01/20/20 13:15 105 H 33 H 01/20/20 13:09 109 H 14 01/20/20 13:08 66 20 108/65 01/20/20 13:00 103 H 24 130/102 H 01/20/20 12:37 01/20/20 12:36 37.6 C H 108 H 20 146/107 H Pulse Ox 01/20/20 18:39 95 01/20/20 18:24 96 01/20/20 18:13 96 01/20/20 17:53 95 01/20/20 15:45 95 01/20/20 15:30 99 01/20/20 15:15 98 01/20/20 15:01 99 01/20/20 15:00 99 01/20/20 14:45 98 01/20/20 14:30 97 01/20/20 14:15 01/20/20 14:01 01/20/20 14:00 01/20/20 13:45 01/20/20 13:30 01/20/20 13:15 01/20/20 13:09 01/20/20 13:08 99 01/20/20 13:00 01/20/20 12:37 99 01/20/20 12:36 99 Code Status & VTE Plan VTE Prophylaxis Plan VTE Prophylaxis will be ordered: Yes
[2020-01-20] MEDS: THIAMINE HCL 100 MG TAB PO SCH (20:22)
[2020-01-20] MEDS: METOPROLOL TARTRATE 25 MG TAB PO SCH (20:22)
[2020-01-20] MEDS: FOLIC ACID 1 MG TAB PO SCH (20:22)
[2020-01-20] MEDS ORDERED: METOPROLOL TARTRATE 25 MG TAB PO SCH (21:00)
[2020-01-20] MEDS: ACETAMINOPHEN 325 MG TAB PO PRN (22:47)
[2020-01-21] MEDS: NICOTINE 21 MG/24 HR TDSY TD SCH ×2 (00:34→08:28)
[2020-01-21] MEDS: ACETAMINOPHEN 325 MG TAB PO PRN (03:22)
[2020-01-21 06:09] LABS: Basophils # (auto) 0.03 K/uL (0-0.2); Basophils % (auto) 0.3 %; Eosinophils # (auto) 0.18 K/uL (0-0.5); Eosinophils % (auto) 1.6 %; Hematocrit (blood only) 46.5 % (42-52); Hemoglobin 15.6 g/dL (14.0-18.0); Immature Granulocytes # (auto) 0.05 K/uL (0.00-0.02); Immature Granulocytes % (auto) 0.5 %; Lymphocytes # (auto) 2.57 K/uL (1.2-3.4); Lymphocytes % (auto) 23.2 %; Mean Corpuscular Hemoglobin 32.1 pg (25-34); Mean Corpuscular Hgb Conc 33.5 g/dL (32-36); Mean Corpuscular Volume 95.7 fL (80-100); Monocytes # (auto) 0.79 K/uL (0.11-0.59); Monocytes % (auto) 7.1 %; Neutrophils # (auto) 7.47 K/uL (1.4-6.5); Neutrophils % (auto) 67.3 %; Platelet Count 237 K/uL (130-400); RDW Coefficient of Variation 12.7 % (11.5-14.5); RDW Standard Deviation 43.8 fL (36.4-46.3); Red Blood Count 4.86 M/uL (4.7-6.1); White Blood Count 11.09 K/uL (4.8-10.8)
[2020-01-21 06:27] LABS: BUN Creatinine Ratio 10.4 (10-20); Calcium 8.9 mg/dl (8.5-10.1); Creatinine Clr Calc Pharmacy 96.3 ml/min; Est GFR (African American) 102.2; Est GFR (Non-African American) 88.2; Potassium 4.4 mmol/L (3.5-5.1)
[2020-01-21 07:59] LABS: Estimated Average Glucose 103 mg/dl; Hemoglobin A1C 5.2 % (4.5-5.6)
[2020-01-21] MEDS: FOLIC ACID 1 MG TAB PO SCH (08:28)
[2020-01-21] MEDS: THIAMINE HCL 100 MG TAB PO SCH (08:28)
[2020-01-21] MEDS: METOPROLOL TARTRATE 25 MG TAB PO SCH (08:28)
[2020-01-21] MEDS ORDERED: ATORVASTATIN 40 MG TAB PO SCH (09:00)
[2020-01-21] MEDS ORDERED: PANTOprazole 40 MG TAB PO SCH (09:00)
[2020-01-21] MEDS ORDERED: ASPIRIN 81 MG ECTAB PO SCH (09:00)
[2020-01-21] MEDS ORDERED: MULTIVITAMIN TAB PO SCH (09:00)
[2020-01-21] MEDS ORDERED: lisinopriL 5 MG TAB PO SCH (09:00)
[2020-01-21] MEDS ORDERED: PRASugrel TAB 10 MG TAB PO SCH (09:00)
--- NOTE | 2020-01-21 10:34 | Cardiology Progress Note ---
Date of Service January 21, 2020 Assessment & Plan (1) ACS (acute coronary syndrome): Patient presented with acute coronary syndrome involving anteroapical infarct by echocardiogram, enzyme and EKG. Underwent successful coronary intervention to the left anterior descending as well as to the obtuse marginal with diffuse coronary disease identified Plan: Dual antiplatelet therapy x1 year currently on aspirin and Prasugrel to be continued Continue beta-david with metoprolol 25 mg twice daily Continue added lisinopril 5 mg p.o. daily Treat underlying lipid disorder atorvastatin 80 mg p.o. daily Cardiac rehab Discontinue vaping/tobacco use Discussed Adderall use with patient, he wishes to continue with indications being ADHD as well as central apnea Patient ambulate today if stable may be discharged later this afternoon. Will arrange follow-up with cardiology 12 week's time (2) Ischemic cardiomyopathy: Focal anteroapical wall motion normality persistent on echocardiogram with mild to moderate left ventricular dysfunction No current heart failure though patient at risk given LV dysfunction. Expected to improve however at risk and will need CHF instructions daily weights (3) Dyslipidemia: Atorvastatin begun with mixed dyslipidemia observed including elevated triglycerides low HDL and high LDL Admission and Anticipated Discharge Date Admission Date: January 20, 2020 Subjective Patient seen and examined, chart, medications, telemetry reviewed. No complaints this morning other than sleep disruption last night. No chest pains diaphoresis tachypalpitations dizziness or lightheadedness. Up in room but no ambulation is today. Right wrist healing well with small hematoma Physical Exam Constitutional: WD/WN, vitals as above Eyes: PERRL, conjunctivae normal, anicteric sclerae ENMT: external ear and nose normal, oropharynx normal Neck: trachea midline, no thyromegaly Respiratory: normal respiratory effort, lungs clear to auscultation Cardiovascular: Rate/Rhythm: regular rate, regular rhythm and + tachycardic Heart Sounds: normal S1 and normal S2; no gallop and no murmur Palpation: normal PMI Vessels: normal carotid upstroke and radial pulses present; no JVD and no carotid bruit Extremities: no edema Gastrointestinal (Abdomen): normal bowel sounds, soft, nontender, no hepatosplenomegaly Musculoskeletal: no cyanosis or clubbing, extremities motor strength 5/5 Skin: no rashes, warm and dry Neurologic: PERRL, EOMI, accommodation nl, no face palsy, no dysarthria Psychiatric: A+Ox3, euthymic affect Results & Data ([facility]) Vital Signs (Past 12 Hours) Vital Signs Temp Pulse Pulse Pulse Resp BP Pulse Ox 01/21/20 08:00 37 C 91 H 94 H 16 127/84 95 01/21/20 04:04 37.4 C 92 H 18 124/83 94 01/20/20 23:27 37.2 C 84 18 134/86 98 01/20/20 23:00 89 Laboratory Results Laboratory Results - last 24 hr 01/20/20 01/20/20 01/20/20 14:09 14:09 14:09 WBC 11.33 H RBC 4.86 Hgb 16.5 Hct 46.4 MCV 95.5 MCH 34.0 MCHC 35.6 RDW Std Deviation 43.7 RDW Coeff of Edilson 12.7 Plt Count 257 MPV 9.1 Immature Gran % (Auto) 0.4 Neut % (Auto) 68.3 Lymph % (Auto) 20.7 [place] % (Auto) 8.9 Eos % (Auto) 1.3 Baso % (Auto) 0.4 Neut # (Auto) 7.75 H Lymph # (Auto) 2.34 [place] # (Auto) 1.01 H Eos # (Auto) 0.15 Baso # (Auto) 0.04 Immature Gran # (Auto) 0.04 H PT 10.4 INR 1.0 APTT 26.5 PTT Ratio 0.9 D-Dimer 270 Sodium 138 Potassium Chloride 102 Carbon Dioxide 29 Anion Gap 7.0 BUN 10 Creatinine 0.91 Est Cr Clr Drug Dosing 116.0 Est GFR ( Amer) 115.9 Est GFR (Non-Af Amer) 100.0 BUN/Creatinine Ratio 10.6 Glucose 105 H Estimat Average Glucose Hemoglobin A1c Calcium 9.2 Total Bilirubin 1.0 AST ALT 121 H Alkaline Phosphatase 158 H Troponin I 7.460 H* Total Protein 8.9 H Albumin 3.5 Globulin 5.4 H Albumin/Globulin Ratio 0.6 L Triglycerides Cholesterol LDL Cholesterol, Calc VLDL Cholesterol, Calc HDL Cholesterol Cholesterol/HDL Ratio Lipase 116 01/20/20 01/20/20 01/21/20 14:16 22:41 05:57 WBC 11.09 H RBC 4.86 Hgb 15.6 Hct 46.5 MCV 95.7 MCH 32.1 MCHC 33.5 RDW Std Deviation 43.8 RDW Coeff of Edilson 12.7 Plt Count 237 MPV 9.0 Immature Gran % (Auto) 0.5 Neut % (Auto) 67.3 Lymph % (Auto) 23.2 [place] % (Auto) 7.1 Eos % (Auto) 1.6 Baso % (Auto) 0.3 Neut # (Auto) 7.47 H Lymph # (Auto) 2.57 [place] # (Auto) 0.79 H Eos # (Auto) 0.18 Baso # (Auto) 0.03 Immature Gran # (Auto) 0.05 H PT INR APTT PTT Ratio D-Dimer Sodium Potassium 3.9 Chloride Carbon Dioxide Anion Gap BUN Creatinine Est Cr Clr Drug Dosing Est GFR ( Amer) Est GFR (Non-Af Amer) BUN/Creatinine Ratio Glucose Estimat Average Glucose Hemoglobin A1c Calcium Total Bilirubin AST 141 H ALT Alkaline Phosphatase Troponin I 16.900 H* Total Protein Albumin Globulin Albumin/Globulin Ratio Triglycerides Cholesterol LDL Cholesterol, Calc VLDL Cholesterol, Calc HDL Cholesterol Cholesterol/HDL Ratio Lipase 01/21/20 01/21/20 01/21/20 05:57 05:57 05:57 WBC RBC Hgb Hct MCV MCH MCHC RDW Std Deviation RDW Coeff of Edilson Plt Count MPV Immature Gran % (Auto) Neut % (Auto) Lymph % (Auto) [place] % (Auto) Eos % (Auto) Baso % (Auto) Neut # (Auto) Lymph # (Auto) [place] # (Auto) Eos # (Auto) Baso # (Auto) Immature Gran # (Auto) PT INR APTT PTT Ratio D-Dimer Sodium 137 Potassium 4.4 Chloride 104 Carbon Dioxide 30 Anion Gap 3.0 BUN 11 Creatinine 1.01 Est Cr Clr Drug Dosing 96.3 Est GFR ( Amer) 102.2 Est GFR (Non-Af Amer) 88.2 BUN/Creatinine Ratio 10.4 Glucose 109 H Estimat Average Glucose 103 Hemoglobin A1c 5.2 Calcium 8.9 Total Bilirubin AST ALT Alkaline Phosphatase Troponin I 13.900 H* Total Protein Albumin Globulin Albumin/Globulin Ratio Triglycerides 689 H Cholesterol 251 H LDL Cholesterol, Calc VLDL Cholesterol, Calc HDL Cholesterol 30 Cholesterol/HDL Ratio 8 Lipase
[2020-01-21 11:40] VITALS: BP 129/75; PULSE 89; TEMP 97.7; O2SAT 100
--- NOTE | 2020-01-21 12:48 | Electrocardiogram Report ---
Test Reason : Blood Pressure : / mmHG Vent. Rate : 111 BPM Atrial Rate : 111 BPM P-R Int : 136 ms QRS Dur : 080 ms QT Int : 356 ms P-R-T Axes : 074 -57 097 degrees QTc Int : 484 ms Poor data quality, interpretation may be adversely affected Sinus tachycardia Left axis deviation Low voltage QRS Possible Inferior infarct , age undetermined Cannot rule out Anterior infarct , age undetermined T wave abnormality, consider lateral ischemia Abnormal ECG When compared with ECG of 17-FEB-2012 14:56, Anterior infarct is now Present Confirmed by Thang Hernandez ([id number]) on 01/21/2020 12:47:41 PM Referred By: Confirmed By:Thang Hernandez
--- NOTE | 2020-01-21 12:59 | Electrocardiogram Report ---
Test Reason : Blood Pressure : / mmHG Vent. Rate : 103 BPM Atrial Rate : 103 BPM P-R Int : 140 ms QRS Dur : 094 ms QT Int : 384 ms P-R-T Axes : 045 -39 092 degrees QTc Int : 503 ms Sinus tachycardia Left axis deviation Low voltage QRS Inferior infarct (cited on or before 20-JAN-2020) Cannot rule out Anterior infarct (cited on or before 20-JAN-2020) T wave abnormality, consider lateral ischemia Abnormal ECG When compared with ECG of 20-JAN-2020 12:32, (unconfirmed) No significant change was found Confirmed by Thang Hernandez ([id number]) on 01/21/2020 12:58:55 PM Referred By: Lazaro Jackson Confirmed By:Thang Hernandez
--- NOTE | 2020-01-21 13:46 | Hospitalist Progress Note ---
Date of Service January 21, 2020 Assessment & Plan (1) NSTEMI (non-ST elevated myocardial infarction): Present on admission with chest pain radiating to the left shoulder Troponin was found elevated at 7.46 on admission, then peak to 16 ECG abnormal, evolving anteroseptal infarct, echo showing hypokinesis in the LAD distribution S/P cardiac cath with successful PCI of mid LAD with 2 overlapping drug-eluting stents and proximal OM2 with single drug-eluting stent cardiology on board Troponin trending down to 13 today Echo showed moderate size apical, septal, and anteroseptal wall motion abnormality with hypokinesis to akinesis of the segment. Ejection fraction 40 to 45%. 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) Code status Full Disposition Discharge home today Admission and Anticipated Discharge Date Admission Date: January 20, 2020 Subjective Pt was seen and examined Lying in bed with no distress Pt said that he feels fine He has been walking in the hallway Denies any chest pain, palpitation, dizziness and SOB Physical Exam Physical Exam: General- No acute distress Head- atraumatic Eyes- PERRL, EOMI, ENT- oropharynx clear Neck- supple, no JVD Lungs- clear to auscultation Heart- regular rhythm; no murmur Abdomen- normal bowel sounds, soft, nontender Extremities- no calf tenderness, no hematoma in right wrist area Neuro- alert, oriented x 3; PERRL, EOMI; no facial palsy; no dysarthria Skin- warm & dry Results & Data Results & Data ([facility]) Vital Signs (Past 12 Hours) Vital Signs Temp Pulse Pulse Pulse Resp BP Pulse Ox 01/21/20 11:40 36.5 C 89 18 129/75 100 01/21/20 08:00 37 C 91 H 94 H 16 127/84 95 01/21/20 04:04 37.4 C 92 H 18 124/83 94
[2020-01-21] MEDS ORDERED: AMITRIPTYLINE HCL 10 MG TAB PO SCH (21:00)
--- NOTE | 2020-01-23 07:41 | Electrocardiogram Report ---
Test Reason : Blood Pressure : / mmHG Vent. Rate : 094 BPM Atrial Rate : 094 BPM P-R Int : 140 ms QRS Dur : 088 ms QT Int : 394 ms P-R-T Axes : 066 -21 147 degrees QTc Int : 492 ms Normal sinus rhythm Low voltage QRS Inferior infarct (cited on or before 20-JAN-2020) Serial changes of evolving Anterior infarct (cited on or before 20-JAN-2020) T wave abnormality, consider lateral ischemia Abnormal ECG When compared with ECG of 20-JAN-2020 15:03, (unconfirmed) Serial changes of Anterior infarct Present Confirmed by Thang Hernandez ([id number]) on 01/23/2020 7:41:11 AM Referred By: Lazaro Jackson Confirmed By:Thang Hernandez
--- NOTE | 2020-01-24 07:56 | Discharge Summary ---
Date of Service January 21, 2020 Admission HPI Per Admitting Provider 49-year-old male with history of ADHD, alcohol abuse, tobacco history abuse, history of pancreatitis, who presents in ED with history of chest pain. Patient was evaluated by his primary care doctor today who recommended further evaluation in the hospital. Patient reported chest pain for past 4 days, the pain was intermittent, but associated with diaphoresis. He also reported chest pressure that was radiating to his left shoulder and jaw. Initial ECG obtained in the office was abnormal. Repeat ECG in the ED was obtained showing evolving anteroseptal infarct and then echocardiogram was also obtained in the ED, which showed hypokinesis in LAD distribution. Troponin was elevated at 7.4. Patient was started on IV heparin and metoprolol and oral metoprolol and was taken for cardiac cath for further evaluation. Patient is a status post IRAIS x2 to LAD, and 1 IRAIS stent to OM 2. He was loaded with Prasugrel 60, and will need to be on dual antiplatelet therapy for a year, started on statin. Patient is currently vaping, but strongly interested in continuing on nicotine patch and quitting smoking/vaping altogether. Currently pt is sitting up in bed, in no acute distress, eating dinner. Currently denies any chest pain or shortness of breath, dizziness or lightheadedness. Denies any numbness tingling in his extremities. Also denies any abdominal pain, nausea or vomiting. Previously patient reported heavy alcohol use, now he reports 2-3 beers a day. He states that he has been doing much better and that he is trying to drink even less. He confirmed his home medications, of folic acid, riboflavin, Adderall, pantoprazole, probiotic, amitriptyline and tizanidine. Admission Exam Per Admitting Provider Physical Exam: Patient is sitting up in bed, in no acute distress, eating dinner Constitutional: WD/WN, vitals as above Eyes: PERRL, conjunctivae normal, anicteric sclerae EOM intact bilaterally ENMT: external ear and nose normal, oropharynx normal Neck: normal visual inspection Respiratory: normal respiratory effort, lungs clear to auscultation Auscultation: no crackles, no rhonchi and no wheezes Cardiovascular: RRR, no murmur, no edema Chest: normal inspection of chest Gastrointestinal: Abdomen normal to inspection and normal bowel sounds; abdomen not distended Percussion/Palpation: abdomen nontender and no guarding Head/Neck/Chest: normocephalic and head atraumatic Extremities: extremities normal to inspection Skin: no rashes, warm and dry Neurologic: moves all extremities Psychiatric: A+Ox3, euthymic affect Principal Diagnosis NSTEMI (non-ST elevated myocardial infarction): Discharge Exam General- No acute distress Head- atraumatic Eyes- PERRL, EOMI, ENT- oropharynx clear Neck- supple, no JVD Lungs- clear to auscultation Heart- regular rhythm; no murmur Abdomen- normal bowel sounds, soft, nontender Extremities- no calf tenderness, no hematoma in right wrist area Neuro- alert, oriented x 3; PERRL, EOMI; no facial palsy; no dysarthria Skin- warm & dry Discharge Data Allergies Allergy/AdvReac Type Severity Reaction Status Date / Time banana AdvReac Unknown GI SYMPTOMS Verified 07/20/19 23:47 Consultations 01/20/20 16:19 ED Decision to Admit Stat 01/20/20 18:00 Consult Cardiac Rehabilitation Routine 01/20/20 19:08 Consult Cardiology Routine Procedures Performed Operation Date: 01/20/20 16:30 Actual Procedures s Cineradiography w/Routine Exam - aNdir Dillard MD p Cath, Left with Cors and Vent - Nadir Dillard MD s Drug Eluting Stent SGl Vessel - Nadir Dillard MD s Drug Eluting Stent each ADDTL Vessel - Nadir Dillard MD s IVUS Coronary Single Vessel - Naidr Dillard MD Ordered Studies 01/20/20 07:34 CL IVUS Coronary Single Vessel Routine 01/20/20 16:15 CL Cath Imgs for PACS use only Stat XR chest 1V portable CLINICAL HISTORY: Atypical chest pain COMPARISON STUDY: July 2016 FINDINGS: The cardiac and mediastinal contours are normal. There is no evidence of focal pulmonary consolidation. There is no evidence of failure. No pleural effusions are visualized.[ IMPRESSION: No active disease in the chest. ACT 112: Negative or not required by law. Electronically signed by: Per Villa M.D. 01/20/2020 12:50 PM Dictated: 01/20/20 1250 Transcribed: 01/20/20 1250 Hospital Course (1) NSTEMI (non-ST elevated myocardial infarction): Present on admission with chest pain radiating to the left shoulder Troponin was found elevated at 7.46 on admission, then peak to 16 ECG abnormal, evolving anteroseptal infarct, echo showing hypokinesis in the LAD distribution S/P cardiac cath with successful PCI of mid LAD with 2 overlapping drug-eluting stents and proximal OM2 with single drug-eluting stent cardiology on board Troponin trending down to 13 today Echo showed moderate size apical, septal, and anteroseptal wall motion abno rmality with hypokinesis to akinesis of the segment. Ejection fraction 40 to 45%. 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) Code status Full Disposition Discharge home today Total Time Total Time Spent Total Time Spent (In Minutes): 35 minutes Total Time Includes: Examination of the Patient, Discharge Planning, Medication Reconciliation, Communication With Other Providers and Other Discharge Plan Discharge Items Patient Disposition: Home - Self-Care Reason For Visit: NSTEMI Discharge Diagnosis: NSTEMI (non-ST elevated myocardial infarction): Condition on Discharge: Good Activity: As commented below Non-emergency contact: Primary Care Provider and Temporary Receptionist Call non-emergency contact if: you have any medication questions Follow-up/Referrals: Lazaro Jackson DO [Primary Care Provider] - 01/25/20 11:20 am (Date & Time 01/25/2020 11:20 AM Provider Lazaro Jackson DO Department [facility] ) Diet: Heart Healthy Addtl Attending Provider Instructions: Follow up with your primary care provider Dr. Jackson on 01/24 @ 11 am Follow up with cardiology in 1 to 2 weeks (office will call you for the appointment) Continue dual antiplatelet therapy with aspirin and Prasugrel for at least 1 year Counseling on smoking/Vaping cessation Check BMP in 1 week since starting on Lisinopril to monitor electrolytes and renal function Since starting on Lipitor check LFT Check in 1 week to monitor liver function Your physician or cardiology will refer you to cardiac rehab Keep the area for the cardiac cath clean and dry to avoid any infection Do not use creams, lotions or ointment on the wound site Do not take a bath, tub soak, go in a Jacuzzi, or swim in a pool or queen for one week after the procedure. Do not participate in strenuous activities for 3 days after the procedure. Gradually increase your activities until you reach your normal activity level Avoid heavy lifting (more than 10 pounds) and pushing or pulling heavy objects for the first 5 days after the procedure. Pending Studies at Discharge: No Stand-Alone Forms: My [facility] Stage [facility] Diagnostics, Smoking Cessation Medications and DC Order Prescriptions: New prasugrel [Effient] 10 mg Tablet 10 mg PO QAM 30 Days Qty: 30 RF: 0 lisinopril [Zestril] 5 mg Tablet 5 mg PO QAM Qty: 30 RF: 0 aspirin 81 mg Tablet,Delayed Release (Dr/Ec) 81 mg PO QAM 30 Days Qty: 30 RF: 0 metoprolol tartrate 25 mg Tablet 25 mg PO BID 30 Days Qty: 60 RF: 0 atorvastatin 80 mg tablet 80 mg PO DAILY Qty: 30 RF: 0 Continued multivitamin Tablet 1 tab PO QAM RF: 0 riboflavin (vitamin B2) 25 mg Tablet 0 mg PO DAILY RF: 0 pantoprazole 40 mg tablet,delayed release (DR/EC) 40 mg PO BID RF: 0 dextroamphetamine-amphetamine 20 mg tablet 20 mg PO BID RF: 0 nitroglycerin 0.4 mg Tablet, Sublingual 0.4 mg sublingual UD RF: 0 folic acid 1 mg tablet 1 mg PO DAILY RF: 0 Probiotic 3 billion cell Capsule 0 mmu cells PO DAILY RF: 0 tizanidine 2 mg tablet 2 mg PO DAILY RF: 0 sildenafil 50 mg tablet 50 mg PO UD PRN (Reason: Sexual Activity) RF: 0 amitriptyline 10 mg tablet 10 mg PO HS RF: 0 magnesium oxide 400 mg (241.3 mg magnesium) tablet 400 mg PO HS RF: 0 Discontinued aspirin [Aspir-81] 81 mg Tablet,Delayed Release (Dr/Ec) 324 mg PO DAILY PRN (Reason: Pain) RF: 0 Discharge Orders: Discharge Order (Routine); Ordered 01/21/20 Ordered By: Leonor Camacho Admission Data Admit Date/Time: 01/20/20 16:44 Attending Provider: Leonor Camacho Admit Provider: Nadir Dillard Primary Care Provider: Lazaro Jackson Other Providers: Vinicio Hoang ; Wilson Mosley Other Interventions: Discharge Summary Assessment (RN) Last Done: 01/21/20 15:36
== END 2020-01-21 16:46 | disposition home or self-care (01) | DRG 247 ==
LOC: ED 12:25 → CC 16:01 → SUATTDRO 16:44 → 2E 16:44

== ENCOUNTER 2020-03-26 17:32 | Observation (INO) ==
[2020-03-26] MEDS ORDERED: SODIUM CHLORIDE 0.9% 500 ML IV SCH (18:00)
[2020-03-26] MEDS ORDERED: SODIUM CHLORIDE 0.9% 1000ML 1,000 ML IV SCH (18:00)
[2020-03-26 18:12] LABS: Basophils # (auto) 0.04 K/uL (0-0.2); Basophils % (auto) 0.7 %; Eosinophils # (auto) 0.16 K/uL (0-0.5); Eosinophils % (auto) 2.8 %; Hematocrit (blood only) 36.5 % (42-52); Hemoglobin 12.9 g/dL (14.0-18.0); Immature Granulocytes # (auto) 0.02 K/uL (0.00-0.02); Immature Granulocytes % (auto) 0.4 %; Lymphocytes # (auto) 1.97 K/uL (1.2-3.4); Lymphocytes % (auto) 35.1 %; Mean Corpuscular Hemoglobin 33.2 pg (25-34); Mean Corpuscular Hgb Conc 35.3 g/dL (32-36); Mean Corpuscular Volume 94.1 fL (80-100); Mean Platelet Volume 9.1 fL (7.4-10.4); Monocytes # (auto) 0.22 K/uL (0.11-0.59); Monocytes % (auto) 3.9 %; Neutrophils # (auto) 3.21 K/uL (1.4-6.5); Neutrophils % (auto) 57.1 %; Platelet Count 236 K/uL (130-400); RDW Coefficient of Variation 12.7 % (11.5-14.5); RDW Standard Deviation 43.4 fL (36.4-46.3); Red Blood Count 3.88 M/uL (4.7-6.1); White Blood Count 5.62 K/uL (4.8-10.8)
[2020-03-26 18:21] LABS: Albumin Level 3.6 gm/dl (3.4-5.0); BUN Creatinine Ratio 11.1 (10-20); Calcium 8.1 mg/dl (8.5-10.1); Creatinine Clr Calc Pharmacy 115.2 ml/min; Est GFR (Non-African American) 94.9; Potassium 3.3 mmol/L (3.5-5.1)
[2020-03-26 18:35] LABS: Albumin Globulin Ratio 0.8 (0.9-2); Bilirubin,Total 0.8 mg/dl (0.2-1); Globulin 4.5 gm/dl (2.5-4.0); Thyroid Stimulating Hormone 1.87 uIu/ml (0.300-4.500); Total Protein 8.1 gm/dl (6.4-8.2); Troponin I 0.056 ng/ml (0-0.045)
--- NOTE | 2020-03-26 19:23 | CT Scan Report ---
CT SCAN OF THE BRAIN WITHOUT IV CONTRAST CLINICAL HISTORY: Syncope/seizure. COMPARISON STUDY: MRI of the brain dated 09/28/2007. TECHNIQUE: Unenhanced axial CT scan of the brain is performed from the vertex to the skull base. A d ose lowering technique was utilized adhering to the principles of ALARA. CT DOSE: 729.78 mGycm FINDINGS: Brain parenchyma: The brain parenchyma is normal in appearance. There is no hemorrhage, mass effect, or evidence of acute territorial ischemia by CT criteria. Dumont-white matter differentiation is preser carlos. No extra-axial fluid collection is seen. Ventricles, sulci, cisterns: Normal in configuration. Intracranial vasculature: There is atherosclerotic calcification of the cavernous carotid arteries. Calvarium: Unremarkable. Sinuses and mastoids: The visualized paranasal sinuses are clear. The mastoid air cells are well pneu matized. Orbits: The bony orbits are grossly intact. IMPRESSION: There is no hemorrhage, mass effect, or evidence of acute territorial ischemia by CT hany soto. ACT 112: Negative or not required by law. Electronically signed by: Tomas Maravilla M.D. 03/26/2020 7:22 PM
[2020-03-26 19:24] LABS: D Dimer 370 ug/L FEU (0-500)
--- NOTE | 2020-03-26 19:25 | XRay Report ---
SINGLE VIEW CHEST CLINICAL HISTORY: Generalized weakness. FINDINGS: An AP, portable, upright chest radiograph is compared to study dated 01/20/2020. The cardiom ediastinal silhouette is unremarkable. A coronary artery stent is noted. There is mild elevation of t he left hemidiaphragm with left basilar atelectasis. The lungs and pleural spaces are otherwise clear . No pneumothorax is seen. The bony thorax is grossly intact. IMPRESSION: No acute cardiopulmonary abnormality. ACT 112: Negative or not required by law. Electronically signed by: Tomas Maravilla M.D. 03/26/2020 7:23 PM
[2020-03-26] MEDS ORDERED: ASPIRIN CHEW 324 MG PO STA (19:55)
[2020-03-26] MEDS ORDERED: LORazepam 2 MG/4 ML VIAL IV STA (20:06)
--- NOTE | 2020-03-26 20:35 | Emergency Department Note ---
Impression & Plan Acute hypotension, Alcoholic intoxication, Elevated troponin, Syncope and collapse ED Provider Note INFORMANT: Patient ED PROVIDER(S): Josh Packer MD CHIEF COMPLAINT: Illness PLAN: Disposition: Admitted Condition: Good MEDICAL DECISION MAKING: Patient presented to the ER after having an episode of shaking that was described like seizure activity. The patient was found to be hypotensive af terwards but not post ictal. He initially refused transport however was in agreement after discussion with the manager internet retails sales. The patient had an ECG that was performed and no acute findings were noted. He was noted to be mildly hypotensive and was given normal saline hydration. The patient had blood work obtained. His CBC showed a mild anemia. Potassium was slightly low. His LFTs were mildly elevated. D-dimer negative. Alcohol level mildly elevated at 0.184. The patient was found to have a mildly positive troponin. On reassessment I discussed the findings. It is very possible the patient had a primary cardiac event that caused his seizure-like activity as opposed to a true purely neurologic seizure type of episode. He needs to stay in the hospital for further management. A head CT was performed and was negative. The patient was initially reluctant to stay in the hospital but then agreed. [facility] Patient was evaluated in the ER and admitted for further management. He was given aspirin. He was also given a dose of IV Ativan due to his regular alcohol consumption. Triage Nursing notes reviewed and agree them. Additional history obtained from EMS Vital Signs: reviewed and remarkable for mild hypotension Differential diagnosis: Infection, dehydration, metabolic abnormality, hypo/hyperglycemia, electrolyte disturbance, anemia, hypoxia, cardiac sources, intracerebral event, toxicologic, neurologic, as well as other pathologies. Diagnostics interpreted by me: ECG: Twelve-lead ECG reveals a normal sinus rhythm at 73 bpm. Low voltage QRS. Inferior Q wave. Poor R wave progression. No ST elevation. Normal axis. Cardiac Monitoring: Cardiac monitoring ordered by me: The patient was placed on continuous cardiac monitoring and observed. It revealed a normal sinus rhythm at 75 beats per minute without ectopy or evidence of dysrhythmia. Imaging studies: Chest x-ray. Findings: A chest x-ray was performed and revealed no pneumothorax, effusion, infiltrate, pulmonary edema, free air under the diaphragm, or wide mediastinum. Impression: No acute disease. Head CT: A noncontrast CT scan of the head was performed and was negative for tumor, fracture, intracranial hemorrhage, or other acute pathology. Consultation(s): Dr. Robert HPI: The patient is a 49 year old male who presents to the Emergency Room with complaints of illness. This started a few days ago but punctuated and an episode of passing out and shaking with seizure-like activity this evening. Patient was witnessed by his girlfriend to have shaking. He was unresponsive at the time. Patient does not remember the event. He does recall drinking several alcoholic beverages. There is no trauma. There was no post ictal phase. No loss of bowel or bladder. No tongue biting. No history of seizures. The patient also notes the following associated symptoms, general malaise and fatigue. The patient has been given no medication for relieving factors. Patient was noted to be hypotensive per EMS. Initially he was refusing transport. He then agreed and was given normal saline hydration. Current pain is rated as 0. Patient does have a cardiac history with recent [place] and stent. Pt denies headache, fevers, chills, diaphoresis, visual changes, neck pain, chest pain, breathing difficulties, nausea, vomiting, abdominal pain, back pain, melena, hematochezia, urinary symptoms, numbness, weakness, lymphadenopathy, rash, or other complaints. ROS: See above HPI for pertinent positives & negatives. A total of 10 systems reviewed and were otherwise negative. PAST MEDICAL HISTORY:See Below, CAD PAST SURGICAL HISTORY:See Below, coronary FAMILY HISTORY:See Below SOCIAL HISTORY:See Below, lives with girlfriend, positive EtOH on a regular basis HOME MEDICATIONS:See Below ALLERGIES:See Below VITALS:See Below PHYSICAL EXAMINATION: GENERAL: Awake, alert, tired-appearing, in no distress HENT: Normocephalic, atraumatic. Oropharynx unremarkable. EYES: Normal conjunctiva. Sclera non-icteric. NECK: Inspection normal. Non-tender. Supple. No nuchal rigidity. FROM. No masses. RESPIRATORY: Clear to auscultation. No wheezes. No rales. Normal respiratory effort. CARDIAC: Normal rate. Normal rhythm. No murmurs. No rubs. Extremities warm and well perfused. Pulses equal. No JVD. GI: Soft, non-distended. No tenderness to palpation. No rebound or guarding. No masses. RECTAL: Deferred. MUSCULOSKELETAL: Atraumatic. Chest examination reveals no tenderness. The back is symmetrical on inspection without obvious abnormality. There is no CVA tenderness to palpation. No joint edema. LOWER EXTREMITIES: Calves are equal size bilaterally and non-tender. No edema. No discoloration. NEURO: Normal sensorium. No sensory or motor deficits noted. SKIN: No rash or jaundice noted. ED COURSE: Critical Care: I have personally spent greater than 31 minutes of critical care time in the direct management of this patient. This includes bedside care, interpretation of diagnostic studies, and testing, discussion with consultants, and family members, and other required patient management activities. These minutes are in excess of all separately billable procedures. Josh Packer MD Past Med/Surg History Medical History (Updated 03/26/20 @ 20:26 by Josh Packer MD) ADD (attention deficit disorder) Migraines Sleep disorder Surgical History History of endoscopy Hx of colonoscopy Social History Smoking Status: Current some day smoker Tobacco Type: E-cigarettes / Vaping Cigarettes Per Day: 6; Second Hand Exposure: No; Hx Alcohol Use: Yes Alcohol type: beer and hard liquor Hx Substance Use: Yes Last Used Substance: Days (ago) Substance Use Type Other:: medical marijuana Preferred Language: Libyan Communication Ability: Effective Script Coordinator Required: No Beliefs That Will Affect Care: None marital status: Single Current Living Situation: Alone Feels Safe at Home: Yes Assistive Devices: Denture - Upper and Denture - Lower Allergies Allergies Allergy/AdvReac Type Severity Reaction Status Date / Time banana AdvReac Unknown GI SYMPTOMS Verified 07/20/19 23:47 Home Meds Home Medications Medication Instructions Recorded Confirmed amitriptyline 10 mg PO HS 07/20/19 03/26/20 magnesium oxide 400 mg PO HS 07/20/19 03/26/20 sildenafil 50 mg PO UD PRN 07/20/19 03/26/20 tizanidine 2 mg PO DAILY 07/20/19 03/26/20 Probiotic 3 mmu cells PO DAILY 01/20/20 03/26/20 dextroamphetamine-amphetamine 20 mg PO BID 01/20/20 03/26/20 folic acid 1 mg PO DAILY 01/20/20 03/26/20 multivitamin 1 tab PO QAM 01/20/20 03/26/20 nitroglycerin 0.4 mg SUBLINGUAL UD 01/20/20 03/26/20 pantoprazole 40 mg PO BID 01/20/20 03/26/20 riboflavin (vitamin B2) 25 mg PO DAILY 01/20/20 03/26/20 atomoxetine 60 mg PO QAM 03/26/20 03/26/20 hydroxyzine HCl 10 mg PO DIRECTED 03/26/20 03/26/20 Previous Rx's Medication Instructions Recorded atorvastatin 80 mg PO DAILY #30 tab 01/21/20 lisinopril [Zestril] 5 mg PO QAM #30 tab 01/21/20 Results & Data (ED) Vital Signs Vital Signs - 24 hr 03/26/20 17:48 Temperature 36.9 C Temperature Source Oral Pulse Rate 79 Respiratory Rate 18 Respiratory Effort / Characteristics Non-Labored Spontaneous Respiratory Depth Normal Respiratory Pattern Regular Blood Pressure 103/64 Blood Pressure Mean 77 Pulse Oximetry 98 Oxygen Delivery Method Room Air Sepsis Recent Fever Within 48 Hours No Sepsis New/Unexplained Change in Mental Status No Sepsis Action Taken by Nursing No Action Required Laboratory Data Result diagrams: 03/26/20 17:40 03/26/20 17:40 Lab Results 03/26/20 03/26/20 03/26/20 Range/Units 17:40 17:40 18:32 WBC 5.62 (4.8-10.8) K/uL RBC 3.88 L (4.7-6.1) M/uL Hgb 12.9 L (14.0-18.0) g/dL Hct 36.5 L (42-52) % MCV 94.1 (80-100) fL MCH 33.2 (25-34) pg MCHC 35.3 (32-36) g/dL RDW Std Deviation 43.4 (36.4-46.3) fL RDW Coeff of Edilson 12.7 (11.5-14.5) % Plt Count 236 (130-400) K/uL MPV 9.1 (7.4-10.4) fL Immature Gran % (Auto) 0.4 % Neut % (Auto) 57.1 % Lymph % (Auto) 35.1 % Day % (Auto) 3.9 % Eos % (Auto) 2.8 % Baso % (Auto) 0.7 % Neut # (Auto) 3.21 (1.4-6.5) K/uL Lymph # (Auto) 1.97 (1.2-3.4) K/uL Day # (Auto) 0.22 (0.11-0.59) K/uL Eos # (Auto) 0.16 (0-0.5) K/uL Baso # (Auto) 0.04 (0-0.2) K/uL Immature Gran # (Auto) 0.02 (0.00-0.02) K/uL D-Dimer (0-500) ug/L FEU Sodium 139 (136-145) mmol/L Potassium 3.3 L (3.5-5.1) mmol/L Chloride 103 (98-107) mmol/L Carbon Dioxide 26 (21-32) mmol/L Anion Gap 9.0 (3-11) BUN 11 (7-18) mg/dl Creatinine 0.95 (0.6-1.4) mg/dl Est Cr Clr Drug Dosing 115.2 ml/min Est GFR ( Amer) 110.0 Est GFR (Non-Af Amer) 94.9 BUN/Creatinine Ratio 11.1 (10-20) Glucose 181 H (70-99) mg/dl Calcium 8.1 L (8.5-10.1) mg/dl Magnesium 2.0 (1.8-2.4) mg/dl Total Bilirubin 0.8 (0.2-1) mg/dl AST 197 H (15-37) U/L ALT 137 H (12-78) U/L Alkaline Phosphatase 161 H (45-117) U/L Troponin I 0.056 H* (0-0.045) ng/ml Total Protein 8.1 (6.4-8.2) gm/dl Albumin 3.6 (3.4-5.0) gm/dl Globulin 4.5 H (2.5-4.0) gm/dl Albumin/Globulin Ratio 0.8 L (0.9-2) TSH 1.870 (0.300-4.500) uIu/ml Specimen Hemolysis Ethyl Alcohol mg/dL 184.0 H (0-3) mg/dl COVID-19 Eval Order SARS-CoV-2, RNA, NAAT (NEGATIVE) 03/26/20 03/26/20 03/26/20 Range/Units 18:33 18:41 18:41 WBC (4.8-10.8) K/uL RBC (4.7-6.1) M/uL Hgb (14.0-18.0) g/dL Hct (42-52) % MCV (80-100) fL MCH (25-34) pg MCHC (32-36) g/dL RDW Std Deviation (36.4-46.3) fL RDW Coeff of Edilson (11.5-14.5) % Plt Count (130-400) K/uL MPV (7.4-10.4) fL Immature Gran % (Auto) % Neut % (Auto) % Lymph % (Auto) % Day % (Auto) % Eos % (Auto) % Baso % (Auto) % Neut # (Auto) (1.4-6.5) K/uL Lymph # (Auto) (1.2-3.4) K/uL Day # (Auto) (0.11-0.59) K/uL Eos # (Auto) (0-0.5) K/uL Baso # (Auto) (0-0.2) K/uL Immature Gran # (Auto) (0.00-0.02) K/uL D-Dimer 370 (0-500) ug/L FEU Sodium (136-145) mmol/L Potassium (3.5-5.1) mmol/L Chloride (98-107) mmol/L Carbon Dioxide (21-32) mmol/L Anion Gap (3-11) BUN (7-18) mg/dl Creatinine (0.6-1.4) mg/dl Est Cr Clr Drug Dosing ml/min Est GFR ( Amer) Est GFR (Non-Af Amer) BUN/Creatinine Ratio (10-20) Glucose (70-99) mg/dl Calcium (8.5-10.1) mg/dl Magnesium (1.8-2.4) mg/dl Total Bilirubin (0.2-1) mg/dl AST (15-37) U/L ALT (12-78) U/L Alkaline Phosphatase (45-117) U/L Troponin I (0-0.045) ng/ml Total Protein (6.4-8.2) gm/dl Albumin (3.4-5.0) gm/dl Globulin (2.5-4.0) gm/dl Albumin/Globulin Ratio (0.9-2) TSH (0.300-4.500) uIu/ml Specimen Hemolysis Ethyl Alcohol mg/dL (0-3) mg/dl COVID-19 Eval [facility] SARS-CoV-2, RNA, NAAT NEGATIVE (NEGATIVE) Administered Medications Sodium Chloride (Nss 1000ml) 1,000 mls @ 125 mls/hr IV .Q8H DELANEY Stop: 03/27/20 01:59 Last Admin: 03/26/20 18:46 Dose: 125 mls/hr Documented by: [id number] Discontinued Medications Aspirin (Aspirin Chew 324 Mg) 324 mg PO NOW STA Stop: 03/26/20 19:56 Last Admin: 03/26/20 20:17 Dose: 324 mg Documented by: [id number] Sodium Chloride (Nss) 500 mls @ 999 mls/hr IV .Q31M DELANEY Stop: 03/26/20 18:30 Last Infusion: 03/26/20 20:17 Dose: 0 mls/hr Documented by: [id number] Admin: 03/26/20 18:02 Dose: 999 mls/hr Documented by: [id number] Lorazepam (Ativan) 2 mg in 4 mls @ 4 mls/min IV NOW STA Stop: 03/26/20 20:07 Last Admin: 03/26/20 20:17 Dose: 4 mls/min Documented by: [id number] Discharge Plan Visit Data Chief Complaint: Seizure Stated Complaint: SEIZURE ED Provider: Josh Packer Discharge Problem: Acute hypotension, Alcoholic intoxication, Elevated troponin, Syncope and collapse Forms Stand Alone Forms: My [facility] Prescriptions Prescriptions: No Action multivitamin Tablet 1 tab PO QAM RF: 0 riboflavin (vitamin B2) 25 mg Tablet 25 mg PO DAILY RF: 0 pantoprazole 40 mg tablet,delayed release (DR/EC) 40 mg PO BID RF: 0 dextroamphetamine-amphetamine 20 mg tablet 20 mg PO BID RF: 0 nitroglycerin 0.4 mg Tablet, Sublingual 0.4 mg sublingual UD RF: 0 folic acid 1 mg tablet 1 mg PO DAILY RF: 0 Probiotic 3 billion cell Capsule 3 mmu cells PO DAILY RF: 0 lisinopril [Zestril] 5 mg Tablet 5 mg PO QAM Qty: 30 RF: 0 atorvastatin 80 mg tablet 80 mg PO DAILY Qty: 30 RF: 0 tizanidine 2 mg tablet 2 mg PO DAILY RF: 0 sildenafil 50 mg tablet 50 mg PO UD PRN (Reason: Sexual Activity) RF: 0 amitriptyline 10 mg tablet 10 mg PO HS RF: 0 magnesium oxide 400 mg (241.3 mg magnesium) tablet 400 mg PO HS RF: 0 hydroxyzine HCl 10 mg tablet 10 mg PO DIRECTED RF: 0 atomoxetine 60 mg capsule 60 mg PO QAM RF: 0
--- NOTE | 2020-03-26 22:07 | History and Physical Report ---
DATE OF ADMISSION: 03/26/2020 CHIEF COMPLAINT: Syncope versus seizures. HISTORY OF PRESENT ILLNESS: A 49-year-old male with past medical history significant for CAD status post stent to mid LAD and OM in December of this year and patient says he is compliant with his medications, taking his aspirin, prasugrel, statin and beta david, history of ongoing alcohol abuse, history of ADHD, depression, was brought in because his girlfriend thought he had a seizure episode. The patient says he briefly lost consciousness and his girlfriend thought he was slightly shaking his body and it was brief event and was confused for a brief period of time because he could not remember the event, but he could remember his girlfriend calling EMS. No more episodes since then. Currently resting comfortably and hemodynamically stable. Per the EMS his blood pressure was low. Currently, he is hemodynamically stable. He says he is taking all his medications regularly. He is still drinking alcohol, says three shots of vodka every day. His alcohol level was 184 in the ER, he says he is trying to quit smoking, he says he is in nicotine patch. Denies any chest pain, no shortness of breath, no nausea, no vomiting, no headaches, no blurred vision, no earache, no runny nose, no sore throat, no loss of sense of smell or taste. Appetite is down since last night. No diarrhea, no constipation, no blood in the stool or black stools. Normal bowel and bladder movements. No rash, no swelling in the legs. ALLERGIES: No known drug allergies. PAST MEDICAL HISTORY: As mentioned above. PAST SURGICAL HISTORY: Colonoscopy, EGDs, EGD with endoscopic ultrasound. MEDICATIONS: The patient is on amitriptyline 10 mg at bedtime, aspirin 81 mg p.o. daily, atomoxetine 60 mg p.o. a.m., atorvastatin 80 mg p.o. daily, folic acid 1 mg p.o. daily, lisinopril 5 mg p.o. a.m., magnesium oxide 400 mg p.o. at bedtime, metoprolol succinate 50 mg p.o. daily, multivitamin 1 tablet daily, nitroglycerin 0.4 mg sublingual p.r.n., Protonix 40 mg p.o. b.i.d., Paxil 10 mg p.o. daily, probiotics 1 p.o. daily, Viagra p.r.n., tizanidine 2 mg p.o. daily. FAMILY HISTORY: No family history on file. SOCIAL HISTORY: Former smoker, used to smoke, currently on nicotine patch. Alcohol, drinks he 2-3 shots of vodka daily. No drug use as per the records. REVIEW OF SYMPTOMS: As per HPI. Rest of review of symptoms negative. PHYSICAL EXAMINATION: GENERAL: The patient is of moderate build, not in acute distress. VITAL SIGNS: Temperature 36.9, pulse 79, respiratory rate 18, blood pressure 98/57oxygen 98% room air. HEENT: Pupils equal, round, reactive to light. Extraocular muscles intact. Oral mucosa moist. NECK: Supple. CARDIOVASCULAR: S1, S2 heard, regular rate and rhythm, no murmur, no gallop. RESPIRATORY SYSTEM: Normal AP diameter. No accessory muscle use. No wheezing, no crackles. ABDOMEN: Soft, bowel sounds present, nontender. No distention. CENTRAL NERVOUS SYSTEM: Cranial nerves II-XII grossly intact, nonfocal. EXTREMITIES: No edema, no erythema. LABORATORY DATA: WBC 5.6, hemoglobin 12.9, hematocrit 36.5, platelets 236. D-dimer 370. Sodium 139, potassium 3.3, chloride 103, bicarbonate 26, BUN 11, creatinine 0.9, serum glucose 181, calcium 8.1, magnesium 2, total bilirubin 0.8, AST 197, ALT 137, alkaline phosphatase 161. Troponin I 0.05 TSH 1.8. Ethyl alcohol 184. SARS-CoV-2 RNA negative. Chest x-ray: No acute cardiopulmonary abnormality. CT of the head, no acute findings. EKG: Normal sinus rhythm with rate of 73, nonspecific T-wave abnormalities seen. ASSESSMENT AND PLAN: This is a 49-year-old male who presents with syncope versus seizures. 1. Syncope versus seizure. The patient had brief episode of loss of consciousness, Slightly shaky but there is no significant postictal. No biting of tongue, no incontinence. Currently hemodynamically stable. Labs look okay except for potassium 3.3, Troponin 0.05. We will monitor in the [facility], serial cardiac enzymes, echocardiogram, EEG and consult cardiology in a.m. for further recommendations. The patient states he is taking his cardiac medications regularly. 2. History of coronary artery disease status post stent in December of this year, he is taking his metoprolol, he is taking statin, prasugrel and lisinopril and aspirin as per the patient. Continue to monitor, follow the echo and serial enzymes. 3. Mild elevated troponin. Follow serial CE and echo.Asymptomatic currently. 4. Alcoholism, ongoing alcoholism. We will start him on gabapentin protocol and IV Ativan p.r.n., banana bag and continue his home multivitamin, folic acid and p.o. thiamine. Monitor for any withdrawals. 5. Elevated liver function tests, mostly from alcoholism. Follow liver ultrasounds, follow repeat labs. 6. History of attention deficit hyperactivity disorder. Says Adderall was stopped and changed to atomoxetine, but he is planning to go back on Adderall. 7. Tobacco abuse. He says he is on nicotine patch. 8. HTN on lisinopril and b david. Was hypotensive for EMS. Will monitor. 9. Gastroesophageal reflux disease. Continue Protonix. 10. Deep venous thrombosis prophylaxis, sequential compression devices for now. DISPOSITION: Closely monitor in [place]. Level 1 full code. Expect to discharge home and follow with family doctor. ROLOD
[2020-03-26] MEDS ORDERED: NITROGLYCERIN SL 0.4 MG/TAB TAB SL SCH (22:58)
[2020-03-26] MEDS ORDERED: ACETAMINOPHEN 325 MG TAB PO PRN (22:58)
[2020-03-26] MEDS ORDERED: ONDANSETRON INJ 2 MG/ML 2 ML VIAL IV PRN (22:58)
[2020-03-26] MEDS ORDERED: LORazepam 2 MG/4 ML VIAL IV PRN (22:58)
[2020-03-26] MEDS ORDERED: LORazepam 3 MG/6 ML VIAL IV PRN (22:58)
[2020-03-26] MEDS ORDERED: LORazepam 1 MG/2 ML VIAL IV PRN (22:58)
[2020-03-26] MEDS ORDERED: ATIVAN IV ALCOHOL WITHDRAWL IV PRN (22:58)
[2020-03-26] MEDS ORDERED: NITROGLYCERIN SL 0.4 MG/TAB TAB SL PRN (22:58)
[2020-03-26] MEDS ORDERED: GABAPENTIN 1200MG ALCOHOL WITHDRAWAL LOAD PO STA (22:58)
[2020-03-26] MEDS ORDERED: POTASSIUM CHLORIDE CRTAB 20 MEQ TABCR PO STA (22:58)
[2020-03-26] MEDS ORDERED: GABAPENTIN 600 MG TAB PO ONE (23:30)
[2020-03-26] MEDS ORDERED: MULTI-VITAMIN INFUSION 10 ML, THIAMINE HCL 100 MG, FOLIC ACID 1 MG in SODIUM CHLORIDE 0... IV ONE (23:30)
[2020-03-27] MEDS: THIAMINE HCL 100 MG TAB PO SCH ×2 (00:31→09:05)
[2020-03-27] MEDS ORDERED: LORazepam 0.5 MG/1 ML VIAL IV STA (00:58)
[2020-03-27] MEDS ORDERED: NICOTINE POLACRILEX 2 MG GUM MT ONE (01:00)
[2020-03-27] MEDS: SODIUM CHLORIDE 0.9% 1000ML 1,000 ML IV SCH ×2 (02:38→14:21)
[2020-03-27] MEDS: NICOTINE 21 MG/24 HR TDSY TD SCH ×2 (02:38→09:03)
[2020-03-27] MEDS: GABAPENTIN 600 MG TAB PO SCH ×2 (05:33→12:20)
[2020-03-27 06:21] LABS: Basophils # (auto) 0.02 K/uL (0-0.2); Basophils % (auto) 0.3 %; Eosinophils # (auto) 0.13 K/uL (0-0.5); Hematocrit (blood only) 30.7 % (42-52); Immature Granulocytes # (auto) 0.02 K/uL (0.00-0.02); Immature Granulocytes % (auto) 0.3 %; Lymphocytes # (auto) 2.12 K/uL (1.2-3.4); Lymphocytes % (auto) 32.7 %; Mean Corpuscular Hemoglobin 33.1 pg (25-34); Mean Corpuscular Hgb Conc 35.8 g/dL (32-36); Mean Corpuscular Volume 92.5 fL (80-100); Mean Platelet Volume 8.7 fL (7.4-10.4); Monocytes # (auto) 0.33 K/uL (0.11-0.59); Monocytes % (auto) 5.1 %; Neutrophils # (auto) 3.86 K/uL (1.4-6.5); Neutrophils % (auto) 59.6 %; Platelet Count 173 K/uL (130-400); RDW Coefficient of Variation 12.5 % (11.5-14.5); RDW Standard Deviation 42.1 fL (36.4-46.3); Red Blood Count 3.32 M/uL (4.7-6.1); White Blood Count 6.48 K/uL (4.8-10.8)
[2020-03-27 06:50] LABS: Albumin Level 2.9 gm/dl (3.4-5.0); BUN Creatinine Ratio 12.3 (10-20); Bilirubin Direct 0.3 mg/dl (0-0.2); Calcium 7.5 mg/dl (8.5-10.1); Creatinine Clr Calc Pharmacy 136.7 ml/min; Est GFR (African American) 123.3; Est GFR (Non-African American) 106.4; Magnesium 1.6 mg/dl (1.8-2.4); Potassium 3.8 mmol/L (3.5-5.1)
[2020-03-27 06:52] LABS: Bilirubin,Total 0.8 mg/dl (0.2-1); Total Protein 6.6 gm/dl (6.4-8.2); Troponin I 0.059 ng/ml (0-0.045)
--- NOTE | 2020-03-27 08:59 | Ultrasound Report ---
ULTRASOUND RIGHT UPPER QUADRANT ABDOMEN CLINICAL HISTORY: Elevated hepatic transaminases. COMPARISON STUDY: Abdominal CT dated 07/21/2019. TECHNIQUE: Real-time, grayscale, and color flow sonography of the right upper quadrant of the abdomen was performed. Images are reviewed in the transverse and longitudinal planes. FINDINGS: Liver: The liver is enlarged and demonstrates heterogeneously increased echotexture consistent with h epatic steatosis. There is no intrahepatic biliary ductal dilatation. The main portal vein is patent. Gallbladder: The gallbladder is normal in appearance. No gallstones are identified. There is no gallb ladder wall thickening or pericholecystic fluid. A sonographic Vegas's sign is reportedly absent. Th e common bile duct measures up to 0.5 cm in diameter. Pancreas: Visualized portions of the pancreatic head and body are normal in appearance. Right kidney: Survey images of the right kidney demonstrate normal size and echotexture. There is no hydronephrosis. Ascites: None. IMPRESSION: Hepatomegaly and hepatic steatosis. This is unchanged from prior studies. ACT 112: Negative or not required by law. Electronically signed by: Tomas Maravilla M.D. 03/27/2020 8:58 AM
[2020-03-27] MEDS ORDERED: ADVANCED PROBIOTIC 1250 MG CAPSULE PO SCH (09:00)
[2020-03-27] MEDS ORDERED: FOLIC ACID 1 MG TAB PO SCH (09:00)
[2020-03-27] MEDS ORDERED: METOPROLOL SUCC 50MG EXT REL TAB PO SCH (09:00)
[2020-03-27] MEDS ORDERED: lisinopril 5 MG TAB PO SCH (09:00)
[2020-03-27] MEDS ORDERED: ASPIRIN 81 MG ECTAB PO SCH (09:00)
[2020-03-27] MEDS ORDERED: ATOMOXETINE HCL 60 MG CAPSULE PO SCH (09:00)
[2020-03-27] MEDS ORDERED: MULTIVITAMIN TAB PO SCH (09:00)
[2020-03-27] MEDS ORDERED: NON-FORMULARY MEDICATION (Riboflavin (Vitamin B2) 25 mg Tablet) PO SCH (09:00)
[2020-03-27] MEDS ORDERED: PANTOprazole 40 MG TAB PO SCH (09:00)
[2020-03-27] MEDS ORDERED: tiZANidine HCL 4 MG TABLET PO SCH (09:00)
[2020-03-27] MEDS ORDERED: PRASugrel TAB 10 MG TAB PO SCH (09:00)
[2020-03-27] MEDS ORDERED: ATORVASTATIN 40 MG TAB PO SCH (09:00)
--- NOTE | 2020-03-27 10:01 | Cardiology Consultation ---
Date of Consultation March 27, 2020 Assessment & Plan (1) Loss of consciousness for less than 30 minutes: (2) Ischemic cardiomyopathy: (3) Acute alcoholic pancreatitis: (4) Chronic alcohol abuse: (5) CAD (coronary artery disease): Given the patient's description of the event along with factors been no arrhythmias on monitor since admission I doubt this represents an arrhythmogenic event. Again, no arrhythmias on monitor. We will continue to monitor on telemetry for additional 24 hours. We will review echocardiogram to evaluate for any changes compared to previous. Should this come back unremarkable then no further cardiac testing will be necessary. Would recommend discharge home with a 2-week Zio patch monitor will be provided by my office as an outpatient. Patient should be continued on current outpatient medical regimen Given the questionable tonic-clonic movements along with his history of questionable narcolepsy/cataplexy I do believe a neurologic evaluation is warranted at this time. History of Present Illness Reason for Consultation: syncope vs. seizure activity Requesting Physician: Dr. Robert Attending Physician: Marisa Lee MD History of Present Illness It was my pleasure to see Mr. Hinds in cardiac consultation today March 27, 2020. He is a very pleasant 49-year-old gentleman who follows with Dr. Alvarado of our cardiology practice for his history of coronary artery disease. He presented to [facility] on 03/26/2020 via EMS for reported loss of consciousness episode. He states that on the he was not feeling very well. He thought he may have come down with a viral-like illness that his girlfriend recently had. He was a little nauseous. He had 2 or 3 bites or drinks with his girlfriend and he was sitting on the couch when his girlfriend reports that he suddenly lost consciousness. The patient does not remember the event. All he remembers is waking up with his girlfriend on the phone to 911. He was reportedly only unconscious for a few moments but there was question of a seizure-like activity. During this episode he denied any cardiac complaints of chest pain, chest pain, palpitations, lightheadedness, dizziness or syncope. He states he has been take his medications as directed. He states that he drank a normal amount of alcohol that he normally does that day. He is questioning whether or not this could have been a cataplexy episode, he has been tested for narcolepsy in the past but is unsure of the results. Currently he is at rest with no complaint. Telemetry reviewed: Normal sinus rhythm without arrhythmia or significant ectopy. Allergies Allergy/AdvReac Type Severity Reaction Status Date / Time banana AdvReac Unknown GI SYMPTOMS Verified 07/20/19 23:47 Home Medications Medication Instructions Recorded Confirmed Type amitriptyline 10 mg PO HS 07/20/19 03/26/20 History magnesium oxide 400 mg PO HS 07/20/19 03/26/20 History sildenafil 50 mg PO UD PRN 07/20/19 03/26/20 History tizanidine 2 mg PO DAILY 07/20/19 03/26/20 History Probiotic 3 mmu cells PO DAILY 01/20/20 03/26/20 History folic acid 1 mg PO DAILY 01/20/20 03/26/20 History multivitamin 1 tab PO QAM 01/20/20 03/26/20 History nitroglycerin 0.4 mg SUBLINGUAL UD 01/20/20 03/26/20 History pantoprazole 40 mg PO BID 01/20/20 03/26/20 History riboflavin (vitamin B2) 25 mg PO DAILY 01/20/20 03/26/20 History atorvastatin 80 mg PO DAILY #30 tab 01/21/20 03/26/20 Rx lisinopril [Zestril] 5 mg PO QAM #30 tab 01/21/20 03/26/20 Rx aspirin [Aspir-81] 81 mg PO DAILY 03/26/20 03/26/20 History atomoxetine 60 mg PO QAM 03/26/20 03/26/20 History hydroxyzine HCl 10 mg PO DIRECTED 03/26/20 03/26/20 History metoprolol succinate 50 mg PO DAILY 03/26/20 03/26/20 History prasugrel 10 mg PO DAILY 03/26/20 03/26/20 History Patient History Medical History (Updated 03/27/20 @ 10:05 by Jacinto Cm DO) ADD (attention deficit disorder) Migraines Sleep disorder Surgical History History of endoscopy Hx of colonoscopy Social History Smoking Status: Current some day smoker Tobacco Type: E-cigarettes / Vaping Cigarettes Per Day: 6; Second Hand Exposure: No; Hx Alcohol Use: Yes Alcohol type: beer and hard liquor Hx Substance Use: Yes Last Used Substance: Days (ago) Substance Use Type Other:: medical marijuana Preferred Language: Uzbek 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 No acute distress. HEENT: Normocephalic, atraumatic. Pupils equal, round and reactive to light and accommodation. Extraocular muscles are intact. Anicteric sclera. Moist mucous membranes. Neck: No JVD. No bruit. Cardiovascular: Regular. Positive S-4. Normal S-1 and S-2. No S-3. No murmurs or rubs. Pulmonary: Clear to auscultation B/L. No rales, rhonchi or wheezing Abdomen: Bowel sounds x 4, soft. No rebound, guarding or tenderness. No organomegaly. Extremities: No clubbing, cyanosis or edema. +2 pedal pulses bilaterally. Skin: Warm and dry. Results & Data ([facility]) Vital Signs (Past 12 Hours) Vital Signs Temp Pulse Pulse Resp BP BP Pulse Ox 03/27/20 07:33 86 03/27/20 04:00 37.1 C 84 16 135/86 96 03/27/20 02:44 84 03/26/20 23:45 36.8 C 86 16 129/79 96 03/26/20 22:15 84 18 119/81 97 Laboratory Results Laboratory Results - last 24 hr 03/26/20 03/26/20 03/26/20 17:40 17:40 18:32 WBC 5.62 RBC 3.88 L Hgb 12.9 L Hct 36.5 L MCV 94.1 MCH 33.2 MCHC 35.3 RDW Std Deviation 43.4 RDW Coeff of Edilson 12.7 Plt Count 236 MPV 9.1 Immature Gran % (Auto) 0.4 Neut % (Auto) 57.1 Lymph % (Auto) 35.1 Saline % (Auto) 3.9 Eos % (Auto) 2.8 Baso % (Auto) 0.7 Neut # (Auto) 3.21 Lymph # (Auto) 1.97 Saline # (Auto) 0.22 Eos # (Auto) 0.16 Baso # (Auto) 0.04 Immature Gran # (Auto) 0.02 D-Dimer Sodium 139 Potassium 3.3 L Chloride 103 Carbon Dioxide 26 Anion Gap 9.0 BUN 11 Creatinine 0.95 Est Cr Clr Drug Dosing 115.2 Est GFR ( Amer) 110.0 Est GFR (Non-Af Amer) 94.9 BUN/Creatinine Ratio 11.1 Glucose 181 H Calcium 8.1 L Magnesium 2.0 Total Bilirubin 0.8 Direct Bilirubin AST 197 H ALT 137 H Alkaline Phosphatase 161 H Troponin I 0.056 H* Total Protein 8.1 Albumin 3.6 Globulin 4.5 H Albumin/Globulin Ratio 0.8 L TSH 1.870 Specimen Hemolysis Ethyl Alcohol mg/dL 184.0 H COVID-19 Eval Order SARS-CoV-2, RNA, NAAT 03/26/20 03/26/20 03/26/20 18:33 18:41 18:41 WBC RBC Hgb Hct MCV MCH MCHC RDW Std Deviation RDW Coeff of Edilson Plt Count MPV Immature Gran % (Auto) Neut % (Auto) Lymph % (Auto) Saline % (Auto) Eos % (Auto) Baso % (Auto) Neut # (Auto) Lymph # (Auto) Saline # (Auto) Eos # (Auto) Baso # (Auto) Immature Gran # (Auto) D-Dimer 370 Sodium Potassium Chloride Carbon Dioxide Anion Gap BUN Creatinine Est Cr Clr Drug Dosing Est GFR ( Amer) Est GFR (Non-Af Amer) BUN/Creatinine Ratio Glucose Calcium Magnesium Total Bilirubin Direct Bilirubin AST ALT Alkaline Phosphatase Troponin I Total Protein Albumin Globulin Albumin/Globulin Ratio TSH Specimen Hemolysis Ethyl Alcohol mg/dL COVID-19 Eval [facility] SARS-CoV-2, RNA, NAAT NEGATIVE 03/27/20 03/27/20 05:46 05:46 WBC 6.48 RBC 3.32 L Hgb 11.0 L Hct 30.7 L MCV 92.5 MCH 33.1 MCHC 35.8 RDW Std Deviation 42.1 RDW Coeff of Edilson 12.5 Plt Count 173 MPV 8.7 Immature Gran % (Auto) 0.3 Neut % (Auto) 59.6 Lymph % (Auto) 32.7 Saline % (Auto) 5.1 Eos % (Auto) 2.0 Baso % (Auto) 0.3 Neut # (Auto) 3.86 Lymph # (Auto) 2.12 Saline # (Auto) 0.33 Eos # (Auto) 0.13 Baso # (Auto) 0.02 Immature Gran # (Auto) 0.02 D-Dimer Sodium 140 Potassium 3.8 D Chloride 109 H Carbon Dioxide 23 Anion Gap 8.0 BUN 10 Creatinine 0.80 Est Cr Clr Drug Dosing 136.7 Est GFR ( Amer) 123.3 Est GFR (Non-Af Amer) 106.4 BUN/Creatinine Ratio 12.3 Glucose 86 Calcium 7.5 L Magnesium 1.6 L Total Bilirubin 0.8 Direct Bilirubin 0.3 H AST 197 H ALT 117 H Alkaline Phosphatase 132 H Troponin I 0.059 H* Total Protein 6.6 Albumin 2.9 L Globulin Albumin/Globulin Ratio TSH Specimen Hemolysis Ethyl Alcohol mg/dL COVID-19 Eval Order SARS-CoV-2, RNA, NAAT Medications Administered Current Inpatient Medications Acetaminophen (Acetaminophen 325 Mg Tab) 650 mg PO Q4H PRN PRN Reason: Pain or Fever Stop: 04/25/20 22:57 Amitriptyline HCl (Amitriptyline Hcl 10 Mg Tab) 10 mg PO HS [facility] Stop: 04/26/20 20:59 Aspirin (Aspirin 81 Mg Ectab) 81 mg PO DAILY [facility] Stop: 04/26/20 08:59 Last Admin: 03/27/20 09:05 Dose: 81 mg Documented by: Atomoxetine HCl (Atomoxetine Hcl 60 Mg Capsule) 60 mg PO QAM [facility] Stop: 04/26/20 08:59 Atorvastatin Calcium (Atorvastatin 40 Mg Tab) 80 mg PO DAILY [facility] Stop: 04/26/20 08:59 Last Admin: 03/27/20 09:04 Dose: 80 mg Documented by: Folic Acid (Folic Acid 1 Mg Tab) 1 mg PO DAILY [facility] Stop: 04/26/20 08:59 Last Admin: 03/27/20 09:04 Dose: 1 mg Documented by: Gabapentin (Gabapentin 600 Mg Tab) 600 mg PO Q6H [facility] Stop: 03/27/20 12:01 Last Admin: 03/27/20 05:33 Dose: 600 mg Documented by: Gabapentin (Gabapentin 600 Mg Tab) 600 mg PO Q8H [facility] Stop: 03/28/20 12:01 Gabapentin (Gabapentin 600 Mg Tab) 600 mg PO Q12H [facility] Stop: 03/29/20 12:01 Gabapentin (Gabapentin 600 Mg Tab) 600 mg PO Q24H [facility] Stop: 03/30/20 12:01 Lorazepam (Ativan) 1 mg in 2 mls @ 2 mls/min IV UD PRN; Protocol PRN Reason: EtOH Withdrawl AWSS Score 6,7 Stop: 04/25/20 22:57 Lorazepam (Ativan) 2 mg in 4 mls @ 4 mls/min IV UD PRN; Protocol PRN Reason: EtOH Withdrawl AWSS Score 8,9 Stop: 04/25/20 22:57 Lorazepam (Ativan) 3 mg in 6 mls @ 4 mls/min IV ONCE PRN; Protocol PRN Reason: EtOH Withdrawl AWSS Score >=10 Stop: 04/25/20 22:57 Sodium Chloride (Nss 1000ml) 1,000 mls @ 100 mls/hr IV .Q10H [facility] Stop: 04/26/20 01:29 Last Admin: 03/27/20 02:38 Dose: 100 mls/hr Documented by: Lactobacillus Acidoph/Casei/Rhamnos (Advanced Probiotic 1250 Mg Capsule) 2 cap PO DAILY [facility] Stop: 04/26/20 08:59 Last Admin: 03/27/20 09:04 Dose: 2 cap Documented by: Lisinopril (Lisinopril 5 Mg Tab) 5 mg PO QAM [facility] Stop: 04/26/20 08:59 Last Admin: 03/27/20 09:05 Dose: 5 mg Documented by: Magnesium Oxide (Magnesium Oxide 400 Mg Tab) 400 mg PO HS [facility] Stop: 04/26/20 20:59 Metoprolol Succinate (Metoprolol Succ 50mg Ext Rel Tab) 50 mg PO DAILY [facility] Stop: 04/26/20 08:59 Last Admin: 03/27/20 09:05 Dose: 50 mg Documented by: Miscellaneous (Remove Nicoderm Patch) 1 ea N/A DAILY@[id number] [facility] Stop: 04/26/20 08:58 Last Admin: 03/27/20 09:04 Dose: 1 ea Documented by: Multivitamins (Multivitamin Tab) 1 tab PO QAM [facility] Stop: 04/26/20 08:59 Last Admin: 03/27/20 09:05 Dose: 1 tab Documented by: Nicotine (Nicotine 21 Mg/24 Hr Tdsy) 21 mg TD QAM [facility] Stop: 04/26/20 01:04 Last Admin: 03/27/20 09:03 Dose: 21 mg Documented by: Nitroglycerin (Nitroglycerin Sl 0.4 Mg/Tab Tab) 0.4 mg SL UD PRN PRN Reason: Chest Pain Stop: 04/25/20 22:57 Ondansetron HCl (Ondansetron Inj 2 Mg/Ml 2 Ml Vial) 4 mg IV Q6H PRN PRN Reason: Nausea Stop: 04/25/20 22:57 Pantoprazole Sodium (Pantoprazole 40 Mg Tab) 40 mg PO BID [facility] Stop: 04/26/20 08:59 Last Admin: 03/27/20 09:05 Dose: 40 mg Documented by: Prasugrel (Prasugrel Tab 10 Mg Tab) 10 mg PO DAILY [facility] Stop: 04/26/20 08:59 Last Admin: 03/27/20 09:05 Dose: 10 mg Documented by: Thiamine HCl (Thiamine Hcl 100 Mg Tab) 100 mg PO QAM [facility] Stop: 04/25/20 22:57 Last Admin: 03/27/20 09:05 Dose: 100 mg Documented by: Tizanidine HCl (Tizanidine Hcl 4 Mg Tablet) 2 mg PO DAILY [facility] Stop: 04/26/20 08:59 Last Admin: 03/27/20 09:05 Dose: 2 mg Documented by: (1) Acute alcoholic pancreatitis Acute pancreatitis complication: unspecified Qualified Code(s): K85.20 - Alcohol induced acute pancreatitis without necrosis or infection
--- NOTE | 2020-03-27 11:00 | Electrocardiogram Report ---
Test Reason : Blood Pressure : / mmHG Vent. Rate : 073 BPM Atrial Rate : 073 BPM P-R Int : 168 ms QRS Dur : 100 ms QT Int : 420 ms P-R-T Axes : 056 -09 040 degrees QTc Int : 462 ms Poor data quality, interpretation may be adversely affected Normal sinus rhythm Low voltage QRS Possible Inferior infarct (cited on or before 20-JAN-2020) Incomplete right bundle branch block Abnormal ECG When compared with ECG of 21-JAN-2020 08:25, Nonspecific T wave abnormality has replaced inverted T waves in Anterolateral leads Confirmed by Rajinder Golden ([id number]) on 03/27/2020 11:00:46 AM Referred By: REFERRED SELF Confirmed By:Seamus Golden
--- NOTE | 2020-03-27 11:37 | Electroencephalogram ---
EEG Procedure Note Date of Service March 27, 2020 Start / End Times Start Time: 0551 Home Medication List Medication Instructions Recorded Confirmed Type amitriptyline 10 mg PO HS 07/20/19 03/26/20 History magnesium oxide 400 mg PO HS 07/20/19 03/26/20 History sildenafil 50 mg PO UD PRN 07/20/19 03/26/20 History tizanidine 2 mg PO DAILY 07/20/19 03/26/20 History Probiotic 3 mmu cells PO DAILY 01/20/20 03/26/20 History folic acid 1 mg PO DAILY 01/20/20 03/26/20 History multivitamin 1 tab PO QAM 01/20/20 03/26/20 History nitroglycerin 0.4 mg SUBLINGUAL UD 01/20/20 03/26/20 History pantoprazole 40 mg PO BID 01/20/20 03/26/20 History riboflavin (vitamin B2) 25 mg PO DAILY 01/20/20 03/26/20 History atorvastatin 80 mg PO DAILY #30 tab 01/21/20 03/26/20 Rx lisinopril [Zestril] 5 mg PO QAM #30 tab 01/21/20 03/26/20 Rx aspirin [Aspir-81] 81 mg PO DAILY 03/26/20 03/26/20 History atomoxetine 60 mg PO QAM 03/26/20 03/26/20 History hydroxyzine HCl 10 mg PO DIRECTED 03/26/20 03/26/20 History metoprolol succinate 50 mg PO DAILY 03/26/20 03/26/20 History prasugrel 10 mg PO DAILY 03/26/20 03/26/20 History Inpatient Medication List Aspirin (Aspirin 81 Mg Ectab) 81 mg PO DAILY [facility] Stop: 04/26/20 08:59 Last Admin: 03/27/20 09:05 Dose: 81 mg Documented by: [id number] Atorvastatin Calcium (Atorvastatin 40 Mg Tab) 80 mg PO DAILY [facility] Stop: 04/26/20 08:59 Last Admin: 03/27/20 09:04 Dose: 80 mg Documented by: [id number] Folic Acid (Folic Acid 1 Mg Tab) 1 mg PO DAILY [facility] Stop: 04/26/20 08:59 Last Admin: 03/27/20 09:04 Dose: 1 mg Documented by: [id number] Gabapentin (Gabapentin 600 Mg Tab) 600 mg PO Q6H [facility] Stop: 03/27/20 12:01 Last Admin: 03/27/20 05:33 Dose: 600 mg Documented by: [id number] Sodium Chloride (Nss 1000ml) 1,000 mls @ 100 mls/hr IV .Q10H [facility] Stop: 04/26/20 01:29 Last Admin: 03/27/20 02:38 Dose: 100 mls/hr Documented by: [id number] Lactobacillus Acidoph/Casei/Rhamnos (Advanced Probiotic 1250 Mg Capsule) 2 cap PO DAILY [facility] Stop: 04/26/20 08:59 Last Admin: 03/27/20 09:04 Dose: 2 cap Documented by: [id number] Lisinopril (Lisinopril 5 Mg Tab) 5 mg PO QAM [facility] Stop: 04/26/20 08:59 Last Admin: 03/27/20 09:05 Dose: 5 mg Documented by: [id number] Metoprolol Succinate (Metoprolol Succ 50mg Ext Rel Tab) 50 mg PO DAILY [facility] Stop: 04/26/20 08:59 Last Admin: 03/27/20 09:05 Dose: 50 mg Documented by: [id number] Miscellaneous (Remove Nicoderm Patch) 1 ea N/A DAILY@0859 [facility] Stop: 04/26/20 08:58 Last Admin: 03/27/20 09:04 Dose: 1 ea Documented by: [id number] Multivitamins (Multivitamin Tab) 1 tab PO QAM [facility] Stop: 04/26/20 08:59 Last Admin: 03/27/20 09:05 Dose: 1 tab Documented by: [id number] Nicotine (Nicotine 21 Mg/24 Hr Tdsy) 21 mg TD QAM [facility] Stop: 04/26/20 01:04 Last Admin: 03/27/20 09:03 Dose: 21 mg Documented by: [id number] Admin: 03/27/20 02:38 Dose: Not Given Documented by: [id number] Pantoprazole Sodium (Pantoprazole 40 Mg Tab) 40 mg PO BID [facility] Stop: 04/26/20 08:59 Last Admin: 03/27/20 09:05 Dose: 40 mg Documented by: [id number] Prasugrel (Prasugrel Tab 10 Mg Tab) 10 mg PO DAILY [facility] Stop: 04/26/20 08:59 Last Admin: 03/27/20 09:05 Dose: 10 mg Documented by: [id number] Thiamine HCl (Thiamine Hcl 100 Mg Tab) 100 mg PO QAM [facility] Stop: 04/25/20 22:57 Last Admin: 03/27/20 09:05 Dose: 100 mg Documented by: [id number] Admin: 03/27/20 00:31 Dose: 100 mg Documented by: [id number] Tizanidine HCl (Tizanidine Hcl 4 Mg Tablet) 2 mg PO DAILY [facility] Stop: 04/26/20 08:59 Last Admin: 03/27/20 09:05 Dose: 2 mg Documented by: [id number] Discontinued Medications Aspirin (Aspirin Chew 324 Mg) 324 mg PO NOW STA Stop: 03/26/20 19:56 Last Admin: 03/26/20 20:17 Dose: 324 mg Documented by: [id number] Gabapentin (Gabapentin 600 Mg Tab) 1,200 mg PO NOW ONE Stop: 03/26/20 23:31 Last Admin: 03/27/20 00:29 Dose: 1,200 mg Documented by: [id number] Sodium Chloride (Nss) 500 mls @ 999 mls/hr IV .Q31M [facility] Stop: 03/26/20 18:30 Last Infusion: 03/26/20 20:17 Dose: 0 mls/hr Documented by: [id number] Admin: 03/26/20 18:02 Dose: 999 mls/hr Documented by: [id number] Sodium Chloride (Nss 1000ml) 1,000 mls @ 125 mls/hr IV .Q8H [facility] Stop: 03/27/20 01:59 Last Infusion: 03/27/20 03:08 Dose: 0 mls/hr Documented by: [id number] Admin: 03/26/20 18:46 Dose: 125 mls/hr Documented by: [id number] Lorazepam (Ativan) 2 mg in 4 mls @ 4 mls/min IV NOW STA Stop: 03/26/20 20:07 Last Admin: 03/26/20 20:17 Dose: 4 mls/min Documented by: [id number] Multivitamins 10 ml/ Thiamine HCl 100 mg/ Folic Acid 1 mg/Sodium Chloride 1,011.2 mls @ 500 mls/hr IV .Q2H2M ONE Stop: 03/27/20 01:31 Last Infusion: 03/27/20 02:42 Dose: 0 mls/hr Documented by: [id number] Admin: 03/27/20 00:28 Dose: 500 mls/hr Documented by: [id number] Lorazepam (Ativan) 0.5 mg in 1 mls @ 1 mls/min IV NOW STA Stop: 03/27/20 00:59 Last Admin: 03/27/20 02:03 Dose: 1 mls/min Documented by: [id number] Nicotine Polacrilex (Nicotine Polacrilex 2 Mg Gum) 1 piece MT ONE ONE Stop: 03/27/20 01:01 Last Admin: 03/27/20 02:03 Dose: 1 piece Documented by: [id number] Potassium Chloride (Potassium Chloride Crtab 20 Meq Tabcr) 40 meq PO NOW STA Stop: 03/26/20 22:59 Last Admin: 03/27/20 00:28 Dose: 40 meq Documented by: [id number] Description This is a 21 electrode EEG with a single channel dedicated to limited EKG. The electrodes were placed in accordance with the International 10-20 system.
--- NOTE | 2020-03-27 11:42 | Electroencephalogram ---
EEG Procedure Note Date of Service March 27, 2020 Start / End Times Start Time: 550 End Time: [address] Robert History Possible seizure Home Medication List Medication Instructions Recorded Confirmed Type amitriptyline 10 mg PO HS 07/20/19 03/26/20 History magnesium oxide 400 mg PO HS 07/20/19 03/26/20 History sildenafil 50 mg PO UD PRN 07/20/19 03/26/20 History tizanidine 2 mg PO DAILY 07/20/19 03/26/20 History Probiotic 3 mmu cells PO DAILY 01/20/20 03/26/20 History folic acid 1 mg PO DAILY 01/20/20 03/26/20 History multivitamin 1 tab PO QAM 01/20/20 03/26/20 History nitroglycerin 0.4 mg SUBLINGUAL UD 01/20/20 03/26/20 History pantoprazole 40 mg PO BID 01/20/20 03/26/20 History riboflavin (vitamin B2) 25 mg PO DAILY 01/20/20 03/26/20 History atorvastatin 80 mg PO DAILY #30 tab 01/21/20 03/26/20 Rx lisinopril [Zestril] 5 mg PO QAM #30 tab 01/21/20 03/26/20 Rx aspirin [Aspir-81] 81 mg PO DAILY 03/26/20 03/26/20 History atomoxetine 60 mg PO QAM 03/26/20 03/26/20 History hydroxyzine HCl 10 mg PO DIRECTED 03/26/20 03/26/20 History metoprolol succinate 50 mg PO DAILY 03/26/20 03/26/20 History prasugrel 10 mg PO DAILY 03/26/20 03/26/20 History Inpatient Medication List Aspirin (Aspirin 81 Mg Ectab) 81 mg PO DAILY [facility] Stop: 04/26/20 08:59 Last Admin: 03/27/20 09:05 Dose: 81 mg Documented by: [id number] Atorvastatin Calcium (Atorvastatin 40 Mg Tab) 80 mg PO DAILY [facility] Stop: 04/26/20 08:59 Last Admin: 03/27/20 09:04 Dose: 80 mg Documented by: [id number] Folic Acid (Folic Acid 1 Mg Tab) 1 mg PO DAILY [facility] Stop: 04/26/20 08:59 Last Admin: 03/27/20 09:04 Dose: 1 mg Documented by: [id number] Gabapentin (Gabapentin 600 Mg Tab) 600 mg PO Q6H [facility] Stop: 03/27/20 12:01 Last Admin: 03/27/20 05:33 Dose: 600 mg Documented by: [id number] Sodium Chloride (Nss 1000ml) 1,000 mls @ 100 mls/hr IV .Q10H [facility] Stop: 04/26/20 01:29 Last Admin: 03/27/20 02:38 Dose: 100 mls/hr Documented by: [id number] Lactobacillus Acidoph/Casei/Rhamnos (Advanced Probiotic 1250 Mg Capsule) 2 cap PO DAILY [facility] Stop: 04/26/20 08:59 Last Admin: 03/27/20 09:04 Dose: 2 cap Documented by: [id number] Lisinopril (Lisinopril 5 Mg Tab) 5 mg PO QAM [facility] Stop: 04/26/20 08:59 Last Admin: 03/27/20 09:05 Dose: 5 mg Documented by: [id number] Metoprolol Succinate (Metoprolol Succ 50mg Ext Rel Tab) 50 mg PO DAILY [facility] Stop: 04/26/20 08:59 Last Admin: 03/27/20 09:05 Dose: 50 mg Documented by: [id number] Miscellaneous (Remove Nicoderm Patch) 1 ea N/A DAILY@0859 [facility] Stop: 04/26/20 08:58 Last Admin: 03/27/20 09:04 Dose: 1 ea Documented by: [id number] Multivitamins (Multivitamin Tab) 1 tab PO QAM [facility] Stop: 04/26/20 08:59 Last Admin: 03/27/20 09:05 Dose: 1 tab Documented by: [id number] Nicotine (Nicotine 21 Mg/24 Hr Tdsy) 21 mg TD QAM [facility] Stop: 04/26/20 01:04 Last Admin: 03/27/20 09:03 Dose: 21 mg Documented by: [id number] Admin: 03/27/20 02:38 Dose: Not Given Documented by: [id number] Pantoprazole Sodium (Pantoprazole 40 Mg Tab) 40 mg PO BID [facility] Stop: 04/26/20 08:59 Last Admin: 03/27/20 09:05 Dose: 40 mg Documented by: [id number] Prasugrel (Prasugrel Tab 10 Mg Tab) 10 mg PO DAILY [facility] Stop: 04/26/20 08:59 Last Admin: 03/27/20 09:05 Dose: 10 mg Documented by: [id number] Thiamine HCl (Thiamine Hcl 100 Mg Tab) 100 mg PO QAM [facility] Stop: 04/25/20 22:57 Last Admin: 03/27/20 09:05 Dose: 100 mg Documented by: [id number] Admin: 03/27/20 00:31 Dose: 100 mg Documented by: [id number] Tizanidine HCl (Tizanidine Hcl 4 Mg Tablet) 2 mg PO DAILY [facility] Stop: 04/26/20 08:59 Last Admin: 03/27/20 09:05 Dose: 2 mg Documented by: [id number] Discontinued Medications Aspirin (Aspirin Chew 324 Mg) 324 mg PO NOW STA Stop: 03/26/20 19:56 Last Admin: 03/26/20 20:17 Dose: 324 mg Documented by: [id number] Gabapentin (Gabapentin 600 Mg Tab) 1,200 mg PO NOW ONE Stop: 03/26/20 23:31 Last Admin: 03/27/20 00:29 Dose: 1,200 mg Documented by: [id number] Sodium Chloride (Nss) 500 mls @ 999 mls/hr IV .Q31M [facility] Stop: 03/26/20 18:30 Last Infusion: 03/26/20 20:17 Dose: 0 mls/hr Documented by: [id number] Admin: 03/26/20 18:02 Dose: 999 mls/hr Documented by: [id number] Sodium Chloride (Nss 1000ml) 1,000 mls @ 125 mls/hr IV .Q8H [facility] Stop: 03/27/20 01:59 Last Infusion: 03/27/20 03:08 Dose: 0 mls/hr Documented by: [id number] Admin: 03/26/20 18:46 Dose: 125 mls/hr Documented by: [id number] Lorazepam (Ativan) 2 mg in 4 mls @ 4 mls/min IV NOW STA Stop: 03/26/20 20:07 Last Admin: 03/26/20 20:17 Dose: 4 mls/min Documented by: [id number] Multivitamins 10 ml/ Thiamine HCl 100 mg/ Folic Acid 1 mg/Sodium Chloride 1,011.2 mls @ 500 mls/hr IV .Q2H2M [facility] Stop: 03/27/20 01:31 Last Infusion: 03/27/20 02:42 Dose: 0 mls/hr Documented by: [id number] Admin: 11/30/20 00:28 Dose: 500 mls/hr Documented by: [id number] Lorazepam (Ativan) 0.5 mg in 1 mls @ 1 mls/min IV NOW STA Stop: 03/27/20 00:59 Last Admin: 03/27/20 02:03 Dose: 1 mls/min Documented by: [id number] Nicotine Polacrilex (Nicotine Polacrilex 2 Mg Gum) 1 piece MT ONE ONE Stop: 03/27/20 01:01 Last Admin: 03/27/20 02:03 Dose: 1 piece Documented by: [id number] Potassium Chloride (Potassium Chloride Crtab 20 Meq Tabcr) 40 meq PO NOW STA Stop: 03/26/20 22:59 Last Admin: 03/27/20 00:28 Dose: 40 meq Documented by: [id number] Description This is a 21 electrode EEG with a single channel dedicated to limited EKG. The electrodes were placed in accordance with the International 10-20 system. This EEG was done as a bedside recording and is of good technical quality. Episodically through the tracing there are electrode artifact from C4 and T5 but these do not interfere with interpretation Photic stimulation was performed. Drowsiness light sleep not recorded Under these conditions there is evidence for normal-appearing background alpha rhythm which is maximum posterior head regions, is bilaterally symmetrical and is of up to 10 Hz maximum frequency and 30 V maximum amplitude. Polymorphic modest voltage mid to upper frequency theta activity seen over the central regions in a symmetrical fashion. Beta activity seen bifrontally. Photic stimulation provokes a minimal driving response with no photoparoxysmal or photo myogenic components No time during the tracing is evidence for potentially epileptogenic patterns in form of polyspike or spike-wave burst, focal sharp waves and focal spikes Interpretation This a normal EEG during wakefulness Clinical Correlation This EEG is normal revealing no evidence for focal generalized encephalopathy or for potential epileptogenic patterns Josh Ortiz MD
--- NOTE | 2020-03-27 13:53 | Hospitalist Progress Note ---
Date of Service March 27, 2020 Assessment & Plan (1) Syncope and collapse: Was admitted with 2 episodes of unresponsiveness at home Witnessed by the girlfriend and noted to have brief shaking with brief loss of consciousness without any injury but the patient cannot remember the events No more episodes since admission and initial imaging studies and EKG were unremarkable EEG did not show any significant abnormality The patient has a history of narcolepsy and was on some kind of medications before which he has not been taking He was thinking it could be related to his narcolepsy He wanted to go home without seeing the neurologist in the hospital Will need to set up outpatient sleep study and ambulatory EEG with appointment with a neurologist He will not be able to drive for at about 6 months (2) Sleep disorder: History of narcolepsy Will need to schedule outpatient EEG and sleep study (3) CAD (coronary artery disease): Noted to have elevated troponin admission but serial studies did not show any significant elevation Appreciate cardiology input and recommendation Will have echocardiogram and further recommendation after that Patient wants to go home and will be discharged home this afternoon (4) Ischemic cardiomyopathy: No acute symptoms of CHF (5) Alcohol abuse: Moderate drinker at home Abnormal liver function test is secondary to alcoholism and ultrasound did show steatosis similar History of pancreatitis secondary to use of alcohol but none of the symptoms during this admission Minimal to no tremor with outstretched hands No unsteady gait (6) ADD (attention deficit disorder): No acute symptoms (7) Hypertension: Remains controlled Admission and Anticipated Discharge Date Admission Date: March 26, 2020 Subjective 03/27/2020 The patient was seen and examined in medical telemetry unit He was admitted yesterday with 2 brief episodes of unresponsiveness witnessed by the girlfriend at home While he was sitting on a chair his girlfriend him to be shaking his body with brief episode of unresponsiveness without any injury and/or incontinence This happened twice at home and each episode lasting less than a minute He can remember the event He has been feeling much better and wants to go home He denies any chest pain, palpitation or shortness of breath and does not have any neurological symptoms Review of Systems Review of Systems: All systems reviewed and are unremarkable except as noted below Neurologic: + tremor(s) (Minimal tremor involving the outstretched hands); no gait abnormality, no unsteadiness, no seizure-like activity and no headache(s) Alert, awake and oriented x3. Physical Exam Physical Exam: Lying in bed comfortably Constitutional: well developed and well nourished; no acute distress and not ill appearing Eyes: PERRL, conjunctivae normal, anicteric sclerae ENMT: external ear and nose normal, oropharynx normal Neck: trachea midline, no thyromegaly Respiratory: normal respiratory effort; no respiratory distress Auscultation: lungs clear to auscultation bilaterally and + diminished lung sounds Cardiovascular: Rate/Rhythm: regular rate and regular rhythm Heart Sounds: no murmur Gastrointestinal (Abdomen): Inspection/Auscultation: normal bowel sounds; abdomen not distended Percussion/Palpation: abdomen soft; abdomen nontender Musculoskeletal: No acute arthritis in any joint Neurologic: Motor/Sensory: + tremor (Minimal tremor with outstretched hand) Alert, awake and oriented x3. No focal sensory and motor deficit appreciated Psychiatric: A+Ox3, euthymic affect Lymphatic: no cervical or axillary lymphadenopathy Results & Data Results & Data ([facility]) Vital Signs (Past 12 Hours) Vital Signs Temp Pulse Pulse Resp BP Pulse Ox 03/27/20 11:58 36.9 C 79 18 122/82 97 03/27/20 07:33 86 03/27/20 04:00 37.1 C 84 16 135/86 96 03/27/20 02:44 84 Laboratory Results Short CBC 03/26/20 03/27/20 Range/Units 17:40 05:46 WBC 5.62 6.48 (4.8-10.8) K/uL Hgb 12.9 L 11.0 L (14.0-18.0) g/dL Hct 36.5 L 30.7 L (42-52) % Plt Count 236 173 (130-400) K/uL BMP 03/26/20 03/27/20 17:40 05:46 Sodium 139 140 Potassium 3.3 L 3.8 D Chloride 103 109 H Carbon Dioxide 26 23 BUN 11 10 Creatinine 0.95 0.80 Glucose 181 H 86 Calcium 8.1 L 7.5 L Cardiac Enzymes 03/26/20 03/27/20 03/27/20 Range/Units 17:40 05:46 10:52 Troponin I 0.056 H* 0.059 H* 0.054 H* (0-0.045) ng/ml Liver Function 03/26/20 03/27/20 Range/Units 17:40 05:46 Total Bilirubin 0.8 0.8 (0.2-1) mg/dl Direct Bilirubin 0.3 H (0-0.2) mg/dl AST 197 H 197 H (15-37) U/L ALT 137 H 117 H (12-78) U/L Alkaline Phosphatase 161 H 132 H (45-117) U/L Albumin 3.6 2.9 L (3.4-5.0) gm/dl Medications Administered Current Inpatient Medications Acetaminophen (Acetaminophen 325 Mg Tab) 650 mg PO Q4H PRN PRN Reason: Pain or Fever Stop: 04/25/20 22:57 Amitriptyline HCl (Amitriptyline Hcl 10 Mg Tab) 10 mg PO HS [facility] Stop: 04/26/20 20:59 Aspirin (Aspirin 81 Mg Ectab) 81 mg PO DAILY [facility] Stop: 04/26/20 08:59 Last Admin: 03/27/20 09:05 Dose: 81 mg Documented by: Atomoxetine HCl (Atomoxetine Hcl 60 Mg Capsule) 60 mg PO QAM [facility] Stop: 04/26/20 08:59 Last Admin: 03/27/20 12:20 Dose: 60 mg Documented by: Atorvastatin Calcium (Atorvastatin 40 Mg Tab) 80 mg PO DAILY [facility] Stop: 04/26/20 08:59 Last Admin: 03/27/20 09:04 Dose: 80 mg Documented by: Folic Acid (Folic Acid 1 Mg Tab) 1 mg PO DAILY [facility] Stop: 04/26/20 08:59 Last Admin: 03/27/20 09:04 Dose: 1 mg Documented by: Gabapentin (Gabapentin 600 Mg Tab) 600 mg PO Q8H [facility] Stop: 03/28/20 12:01 Gabapentin (Gabapentin 600 Mg Tab) 600 mg PO Q12H [facility] Stop: 03/29/20 12:01 Gabapentin (Gabapentin 600 Mg Tab) 600 mg PO Q24H [facility] Stop: 03/30/20 12:01 Lorazepam (Ativan) 1 mg in 2 mls @ 2 mls/min IV UD PRN; Protocol PRN Reason: EtOH Withdrawl AWSS Score 6,7 Stop: 04/25/20 22:57 Lorazepam (Ativan) 2 mg in 4 mls @ 4 mls/min IV UD PRN; Protocol PRN Reason: EtOH Withdrawl AWSS Score 8,9 Stop: 04/25/20 22:57 Lorazepam (Ativan) 3 mg in 6 mls @ 4 mls/min IV ONCE PRN; Protocol PRN Reason: EtOH Withdrawl AWSS Score >=10 Stop: 04/25/20 22:57 Sodium Chloride (Nss 1000ml) 1,000 mls @ 100 mls/hr IV .Q10H [facility] Stop: 04/26/20 01:29 Last Admin: 03/27/20 02:38 Dose: 100 mls/hr Documented by: Lactobacillus Acidoph/Casei/Rhamnos (Advanced Probiotic 1250 Mg Capsule) 2 cap PO DAILY [facility] Stop: 04/26/20 08:59 Last Admin: 03/27/20 09:04 Dose: 2 cap Documented by: Lisinopril (Lisinopril 5 Mg Tab) 5 mg PO QAM [facility] Stop: 04/26/20 08:59 Last Admin: 03/27/20 09:05 Dose: 5 mg Documented by: Magnesium Oxide (Magnesium Oxide 400 Mg Tab) 400 mg PO HS [facility] Stop: 04/26/20 20:59 Metoprolol Succinate (Metoprolol Succ 50mg Ext Rel Tab) 50 mg PO DAILY [facility] Stop: 04/26/20 08:59 Last Admin: 03/27/20 09:05 Dose: 50 mg Documented by: Miscellaneous (Remove Nicoderm Patch) 1 ea N/A DAILY@0859 [facility] Stop: 04/26/20 08:58 Last Admin: 03/27/20 09:04 Dose: 1 ea Documented by: Multivitamins (Multivitamin Tab) 1 tab PO QAM [facility] Stop: 04/26/20 08:59 Last Admin: 03/27/20 09:05 Dose: 1 tab Documented by: Nicotine (Nicotine 21 Mg/24 Hr Tdsy) 21 mg TD QAM [facility] Stop: 04/26/20 01:04 Last Admin: 03/27/20 09:03 Dose: 21 mg Documented by: Nitroglycerin (Nitroglycerin Sl 0.4 Mg/Tab Tab) 0.4 mg SL UD PRN PRN Reason: Chest Pain Stop: 04/25/20 22:57 Ondansetron HCl (Ondansetron Inj 2 Mg/Ml 2 Ml Vial) 4 mg IV Q6H PRN PRN Reason: Nausea Stop: 04/25/20 22:57 Pantoprazole Sodium (Pantoprazole 40 Mg Tab) 40 mg PO BID [facility] Stop: 04/26/20 08:59 Last Admin: 03/27/20 09:05 Dose: 40 mg Documented by: Prasugrel (Prasugrel Tab 10 Mg Tab) 10 mg PO DAILY [facility] Stop: 04/26/20 08:59 Last Admin: 03/27/20 09:05 Dose: 10 mg Documented by: Thiamine HCl (Thiamine Hcl 100 Mg Tab) 100 mg PO QAM [facility] Stop: 04/25/20 22:57 Last Admin: 03/27/20 09:05 Dose: 100 mg Documented by: Tizanidine HCl (Tizanidine Hcl 4 Mg Tablet) 2 mg PO DAILY [facility] Stop: 04/26/20 08:59 Last Admin: 03/27/20 09:05 Dose: 2 mg Documented by:
[2020-03-27 14:29] LABS: Appearance Urine Clear (Clear); Bilirubin Urine Negative (Negative); Blood Urine Negative (Negative); Color Urine Yellow; Glucose Urine UA Negative (Negative); Ketones Urine Negative (Negative); Leukocyte Esterase Urine Negative (Negative); Nitrite Urine Negative (Negative); Protein Urine Negative (Negative); Specific Gravity Urine 1.015 (1.000-1.030); Urobilinogen Urine Negative (Negative); pH Urine 5.5 (4.5-7.5)
[2020-03-27] MEDS ORDERED: GABAPENTIN 600 MG TAB PO SCH (20:00)
[2020-03-27] MEDS ORDERED: MAGNESIUM OXIDE 400 MG TAB PO SCH (21:00)
[2020-03-27] MEDS ORDERED: AMITRIPTYLINE HCL 10 MG TAB PO SCH (21:00)
--- NOTE | 2020-03-28 09:07 | Discharge Summary ---
Date of Service March 28, 2020 Admission HPI Per Admitting Provider DICTATED BY: Edin Robert MD DATE OF ADMISSION: 03/26/2020 CHIEF COMPLAINT: Syncope versus seizures. HISTORY OF PRESENT ILLNESS: A 49-year-old male with past medical history significant for CAD status post stent to mid LAD and OM in December of this year and patient says he is compliant with his medications, taking his aspirin, prasugrel, statin and beta david, history of ongoing alcohol abuse, history of ADHD, depression, was brought in because his girlfriend thought he had a seizure episode. The patient says he briefly lost consciousness and his girlfriend thought he was slightly shaking his body and it was brief event and was confused for a brief period of time because he could not remember the event, but he could remember his girlfriend calling EMS. No more episodes since then. Currently resting comfortably and hemodynamically stable. Per the EMS his blood pressure was low. Currently, he is hemodynamically stable. He says he is taking all his medications regularly. He is still drinking alcohol, says three shots of vodka every day. His alcohol level was 184 in the ER, he says he is trying to quit smoking, he says he is in nicotine patch. Denies any chest pain, no shortness of breath, no nausea, no vomiting, no headaches, no blurred vision, no earache, no runny nose, no sore throat, no loss of sense of smell or taste. Appetite is down since last night. No diarrhea, no constipation, no blood in the stool or black stools. Normal bowel and bladder movements. No rash, no swelling in the legs. Admission Exam Per Admitting Provider GENERAL: The patient is of moderate build, not in acute distress. VITAL SIGNS: Temperature 36.9, pulse 79, respiratory rate 18, blood pressure 98/57oxygen 98% room air. HEENT: Pupils equal, round, reactive to light. Extraocular muscles intact. Oral mucosa moist. NECK: Supple. CARDIOVASCULAR: S1, S2 heard, regular rate and rhythm, no murmur, no gallop. RESPIRATORY SYSTEM: Normal AP diameter. No accessory muscle use. No wheezing, no crackles. ABDOMEN: Soft, bowel sounds present, nontender. No distention. CENTRAL NERVOUS SYSTEM: Cranial nerves II-XII grossly intact, nonfocal. EXTREMITIES: No edema, no erythema. Principal Diagnosis Unresponsive episode,CAD,H/O Narcolepsy,Sleep Apnea Discharge Exam Constitutional well developed and well nourished; no acute distress and not ill appearing Eyes PERRL, conjunctivae normal, anicteric sclerae ENMT external ear and nose normal, oropharynx normal Neck trachea midline, no thyromegaly Respiratory normal respiratory effort; no respiratory distress Auscultation: lungs clear to auscultation bilaterally and + diminished lung sounds Cardiovascular Rate/Rhythm: regular rate and regular rhythm Heart Sounds: no murmur Gastrointestinal (Abdomen) Inspection/Auscultation: normal bowel sounds; abdomen not distended Percussion/Palpation: abdomen soft; abdomen nontender Neurologic Motor/Sensory: + tremor (Minimal tremor with outstretched hand) Psychiatric A+Ox3, euthymic affect Lymphatic no cervical or axillary lymphadenopathy Discharge Data Allergies Allergy/AdvReac Type Severity Reaction Status Date / Time banana AdvReac Unknown GI SYMPTOMS Verified 07/20/19 23:47 Consultations 03/26/20 19:55 ED Decision to Admit Stat 03/26/20 22:58 Consult Case Management - Discharge Planning Routine 03/27/20 08:00 Consult Cardiology Routine 03/27/20 13:15 Consult Neurology Routine Ordered Studies 03/26/20 18:00 CT head/brain wo con Stat 03/27/20 08:00 US liver Routine Hospital Course (1) Syncope and collapse: Was admitted with 2 episodes of unresponsiveness at home Witnessed by the girlfriend and noted to have brief shaking with brief loss of consciousness without any injury but the patient cannot remember the events No more episodes since admission and initial imaging studies and EKG were unremarkable EEG did not show any significant abnormality The patient has a history of narcolepsy and was on some kind of medications before which he has not been taking He was thinking it could be related to his narcolepsy He wanted to go home without seeing the neurologist in the hospital Will need to set up outpatient sleep study and ambulatory EEG with appointment with a neurologist He will not be able to drive for at about 6 months (2) Sleep disorder: History of narcolepsy Will need to schedule outpatient EEG and sleep study (3) CAD (coronary artery disease): Noted to have elevated troponin admission but serial studies did not show any significant elevation Appreciate cardiology input and recommendation Will have echocardiogram and further recommendation after that Patient wants to go home and will be discharged home this afternoon (4) Ischemic cardiomyopathy: No acute symptoms of CHF (5) Alcohol abuse: Moderate drinker at home Abnormal liver function test is secondary to alcoholism and ultrasound did show steatosis similar History of pancreatitis secondary to use of alcohol but none of the symptoms during this admission Minimal to no tremor with outstretched hands No unsteady gait (6) ADD (attention deficit disorder): No acute symptoms (7) Hypertension: Remains controlled Total Time Total Time Spent Total Time Spent (In Minutes): 35 minutes Total Time Includes: Examination of the Patient, Discharge Planning, Medication Reconciliation and Communication With Other Providers Discharge Plan Discharge Items Patient Disposition: Home - Self-Care Reason For Visit: SYNCOPE,SEIZURE Discharge Diagnosis: Unresponsive episode,CAD,H/O Narcolepsy,Sleep Apnea Activity: Resume your previous activity Non-emergency contact: Primary Care Provider Call non-emergency contact if: you have any medication questions and your symptoms worsen Follow-up/Referrals: Lazaro Jackson DO [Primary Care Provider] - (Date & Time 03/31/2020 11:20 AM Provider Lazaro Jackson DO Department [facility] ) Diet: Heart Healthy Addtl Attending Provider Instructions: Please take precautions to avoid falls PLEASE DO NOT DRIVE FOR 6 MONTHS AND OR UNTIL CLEARED BY THE NEUROLOGIST PLEASE QUIT DRINKING Keep appointment with the Neurologist and the Sleep medicine Pending Studies at Discharge: No Stand-Alone Forms: My [employer], Smoking Cessation Medications and DC Order Prescriptions: New thiamine HCl (vitamin B1) [Vitamin B-1] 100 mg Tablet 100 mg PO QAM Qty: 30 RF: 0 nicotine [Nicoderm CQ] 21 mg/24 hr Patch 24 Hour 21 mg transdermal QAM 30 Days Qty: 30 RF: 0 gabapentin 600 mg tablet 600 mg PO UD Qty: 3 RF: 0 Continued multivitamin Tablet 1 tab PO QAM RF: 0 riboflavin (vitamin B2) 25 mg Tablet 25 mg PO DAILY RF: 0 pantoprazole 40 mg tablet,delayed release (DR/EC) 40 mg PO BID RF: 0 nitroglycerin 0.4 mg Tablet, Sublingual 0.4 mg sublingual UD RF: 0 folic acid 1 mg tablet 1 mg PO DAILY RF: 0 Probiotic 3 billion cell Capsule 3 mmu cells PO DAILY RF: 0 lisinopril [Zestril] 5 mg Tablet 5 mg PO QAM Qty: 30 RF: 0 atorvastatin 80 mg tablet 80 mg PO DAILY Qty: 30 RF: 0 tizanidine 2 mg tablet 2 mg PO DAILY RF: 0 sildenafil 50 mg tablet 50 mg PO UD PRN (Reason: Sexual Activity) RF: 0 amitriptyline 10 mg tablet 10 mg PO HS RF: 0 magnesium oxide 400 mg (241.3 mg magnesium) tablet 400 mg PO HS RF: 0 hydroxyzine HCl 10 mg tablet 10 mg PO DIRECTED RF: 0 atomoxetine 60 mg capsule 60 mg PO QAM RF: 0 metoprolol succinate 50 mg tablet extended release 24 hr 50 mg PO DAILY RF: 0 aspirin 81 mg Tablet,Delayed Release (Dr/Ec) 81 mg PO DAILY RF: 0 prasugrel 10 mg tablet 10 mg PO DAILY RF: 0 Discharge Orders: Discharge Order (Routine); Ordered 03/27/20 Ordered By: Marisa Lee Admission Data Admit Date/Time: 03/26/20 21:08 Attending Provider: Marisa Lee Admit Provider: Edin Robert Primary Care Provider: Lazaro Jackson Other Providers: Edin Robert ; Jacinto Cm ; Pascual López ; Vinicio Hoang ; Nayan Alvarado ; OscarEusebio hood ; Osvaldo Dumont ; Christin Lincoln ; Martha Rojas ; Danis Sloan ; Josh Ortiz Other Interventions: Discharge Summary Assessment (RN) Last Done: 03/27/20 16:27
[2020-03-29] MEDS ORDERED: GABAPENTIN 600 MG TAB PO SCH
[2020-03-30] MEDS ORDERED: GABAPENTIN 600 MG TAB PO SCH (12:00)
== END 2020-03-27 17:02 | disposition home or self-care (01) ==
LOC: 2W 17:32 → ED 17:32 → 2W 22:15

== ENCOUNTER 2020-05-26 14:05 | Inpatient (IN) ==
[2020-05-26] MEDS ORDERED: THIAMINE HCL 100 MG in SYRINGE 9 ML IV STA (14:15)
[2020-05-26] MEDS ORDERED: FOLIC ACID 1 MG in SYRINGE 9.8 ML IV STA (14:15)
[2020-05-26] MEDS ORDERED: MoRPHine SULFATE 4 MG/ML 1 ML CARP\\VIAL IV STA (14:16)
[2020-05-26] MEDS ORDERED: ONDANSETRON INJ 2 MG/ML 2 ML VIAL IV STA (14:16)
[2020-05-26] MEDS ORDERED: MoRPHine SULFATE 2 MG/ML CARP IV STA (14:18)
[2020-05-26 14:37] LABS: Basophils # (auto) 0.02 K/uL (0-0.2); Basophils % (auto) 0.2 %; Eosinophils # (auto) 0.02 K/uL (0-0.5); Eosinophils % (auto) 0.2 %; Hematocrit (blood only) 43.2 % (42-52); Hemoglobin 15.1 g/dL (14.0-18.0); Immature Granulocytes # (auto) 0.03 K/uL (0.00-0.02); Immature Granulocytes % (auto) 0.3 %; Lymphocytes # (auto) 1.08 K/uL (1.2-3.4); Lymphocytes % (auto) 10.7 %; Mean Corpuscular Hemoglobin 34.2 pg (25-34); Mean Corpuscular Volume 97.7 fL (80-100); Mean Platelet Volume 8.8 fL (7.4-10.4); Monocytes # (auto) 0.39 K/uL (0.11-0.59); Monocytes % (auto) 3.9 %; Neutrophils # (auto) 8.51 K/uL (1.4-6.5); Neutrophils % (auto) 84.7 %; Platelet Count 251 K/uL (130-400); RDW Standard Deviation 46.4 fL (36.4-46.3); Red Blood Count 4.42 M/uL (4.7-6.1); White Blood Count 10.05 K/uL (4.8-10.8)
--- NOTE | 2020-05-26 14:42 | Emergency Department Note ---
Impression & Plan Acute alcoholic pancreatitis, Alcoholic intoxication, At risk for withdrawal, Epigastric abdominal pain ED Provider Note NAME: JUAN JOSE ROYAL AGE: 50 SEX: M : 1970 ARRIVES VIA: Ambulance INFORMANT: Patient ED PROVIDER(S): Anish Jones DO CHIEF COMPLAINT: Abdominal pain HPI: Patient is a 42-year-old male who presents to the ER for abdominal pain. Amada hutchison has been present for about 24 hours. He is an alcoholic and drinks about 6 beers a day. He drank half a glass of vodka this morning. He has had this abdominal pain before. Its in the epigastric periumbilical region and goes back to the back. Feels consistent with his previous bouts of pancreatitis. Denies any dysuria, urgency or frequency. No previous abdominal surgeries. No cough or runny nose. Pain is a 10 out of 10 currently. No other exacerbating or remitting factors. ROS: See above HPI for pertinent positives & negatives. A total of 10 systems reviewed and were otherwise negative. PAST MEDICAL HISTORY:See Below PAST SURGICAL HISTORY:See Below FAMILY HISTORY:See Below SOCIAL HISTORY:See Below HOME MEDICATIONS:See Below ALLERGIES:See Below VITALS:See Below PHYSICAL EXAMINATION: GENERAL: Sitting up in bed, alert, disheveled, agitated EYE EXAM: normal conjunctiva. OROPHARYNX: no exudate, no erythema, lips, buccal mucosa, and tongue normal and mucous membranes are moist NECK: supple, no nuchal rigidity, no adenopathy, non-tender LUNGS: Clear to auscultation. Normal chest wall mechanics HEART: no murmurs, S1 normal and S2 normal ABDOMEN: abdomen soft, mild diffuse tenderness normo-active bowel sounds, no masses, no rebound or guarding. LOWER EXTREMITIES: No pitting edema. NEURO EXAM: Normal sensorium, cranial nerves II-XII grossly intact, normal speech, no gross weakness of arms, no gross weakness of legs. MEDICAL DECISION MAKING: Patient is a 50-year-old alcoholic with previous pancreatitis that presents the ER for severe abdominal pain. IV was established blood work was obtained. Labs show no significant leukocytosis or anemia. BMP was unremarkable. T bili was normal. LFTs were elevated in the 150s. Lipase was elevated at 4800. Alcohol was 180. Covid was negative. CT abdomen pelvis confirms pancreatitis. It was not hemorrhagic per CT. Patient was given IV fluids and 2 doses of IV narcotics. He was given IV thiamine and folate. He was updated bedside. Discussed with hospitalist for further evaluation as this gentleman is at high risk for withdrawal as he cannot take anything orally secondary to the panc reatitis. Triage Nursing notes reviewed. Limited review of prior medical records performed Vital Signs: reviewed and remarkable for HTN Differential diagnosis: Differential diagnoses includes but is not limited to gastritis, peptic ulcer disease, GERD, gallbladder disease, pancreatitis, small bowel obstruction, acute coronary syndrome, pericarditis, ischemic bowel, irritable bowel disease, irritable bowel syndrome, appendicitis, diverticulitis, malignancy, hernia, urinary tract infection, torsion, perforation, trauma, infectious. ER treatment provided: See below Diagnostics interpreted by me: ECG: none Cardiac Monitoring: An order was placed for continuous cardiac monitoring. The monitor shows a rate of 70 with sinus rhythm. Laboratory studies: As stated above and show below. Imaging studies: CT abdomen pelvis confirms pancreatitis Consultation(s): Discussed with hospitalist for further evaluation Procedures: none Critical Care: None Past Med/Surg History Medical History (Updated 05/26/20 @ 17:51 by Coni Padilla PA-C) ADD (attention deficit disorder) Migraines Sleep disorder Surgical History History of endoscopy Hx of colonoscopy Social History Smoking Status: Current some day smoker Tobacco Type: E-cigarettes / Vaping Cigarettes Per Day: 6; Second Hand Exposure: No; Hx Alcohol Use: Yes Alcohol type: beer and hard liquor Hx Substance Use: Yes Last Used Substance: Days (ago) Substance Use Type Other:: medical marijuana Preferred Language: Somali Communication Ability: Effective 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: No Beliefs That Will Affect Care: None marital status: Single Current Living Situation: Alone Other Information That Helps Us Care for You: No Feels Safe at Home: Yes Safety Concerns: Feels Safe At This Time Assistive Devices: Denture - Upper and Denture - Lower Allergies Allergies Allergy/AdvReac Type Severity Reaction Status Date / Time banana AdvReac Unknown GI SYMPTOMS Verified 05/26/20 15:50 Home Meds Home Medications Medication Instructions Recorded Confirmed amitriptyline 10 mg PO HS 07/20/19 05/26/20 sildenafil 50 mg PO UD PRN 07/20/19 05/26/20 tizanidine 2 mg PO HS PRN 07/20/19 05/26/20 Probiotic 3 mmu cells PO DAILY 01/20/20 05/26/20 folic acid 1 mg PO DAILY 01/20/20 05/26/20 multivitamin 1 tab PO QAM 01/20/20 05/26/20 nitroglycerin 0.4 mg SUBLINGUAL UD 01/20/20 05/26/20 pantoprazole 40 mg PO DAILY 01/20/20 05/26/20 aspirin 81 mg PO DAILY 03/26/20 05/26/20 metoprolol succinate 50 mg PO DAILY 03/26/20 05/26/20 prasugrel 10 mg PO DAILY 03/26/20 05/26/20 Previous Rx's Medication Instructions Recorded atorvastatin 80 mg PO DAILY #30 tab 01/21/20 lisinopril [Zestril] 5 mg PO QAM #30 tab 01/21/20 Results & Data (ED) Vital Signs Vital Signs - 24 hr 05/26/20 14:09 05/26/20 14:13 05/26/20 14:24 Temperature 36.5 C Temperature Source Oral Pulse Rate 72 71 72 Pulse Rate [Apical] 72 Pulse Rate from SpO2 Sensor 73 73 Respiratory Rate 25 H 19 20 Respiratory Effort / Characteristics Non-Labored Spontaneous Respiratory Depth Normal Respiratory Pattern Regular Blood Pressure 174/105 H 174/105 H Blood Pressure [Right Arm] 174/105 H Blood Pressure Mean 128 128 Blood Pressure Mean [Right Arm] 128 Pulse Oximetry 94 99 98 Oxygen Delivery Method Room Air Sepsis Recent Fever Within 48 Hours No Sepsis New/Unexplained Change in Mental Status No Sepsis Action Taken by Nursing No Action Required 05/26/20 14:30 05/26/20 14:38 05/26/20 15:00 Temperature Temperature Source Pulse Rate 73 82 77 Pulse Rate [Apical] Pulse Rate from SpO2 Sensor 74 85 76 Respiratory Rate 20 21 12 Respiratory Effort / Characteristics Respiratory Depth Respiratory Pattern Blood Pressure 164/100 H Blood Pressure [Right Arm] Blood Pressure Mean 121 Blood Pressure Mean [Right Arm] Pulse Oximetry 99 98 100 Oxygen Delivery Method Sepsis Recent Fever Within 48 Hours Sepsis New/Unexplained Change in Mental Status Sepsis Action Taken by Nursing 05/26/20 15:30 05/26/20 16:00 05/26/20 16:30 Temperature Temperature Source Pulse Rate 74 76 77 Pulse Rate [Apical] Pulse Rate from SpO2 Sensor 72 79 79 Respiratory Rate 19 18 16 Respiratory Effort / Characteristics Respiratory Depth Respiratory Pattern Blood Pressure Blood Pressure [Right Arm] Blood Pressure Mean Blood Pressure Mean [Right Arm] Pulse Oximetry 93 97 95 Oxygen Delivery Method Sepsis Recent Fever Within 48 Hours Sepsis New/Unexplained Change in Mental Status Sepsis Action Taken by Nursing Laboratory Data Result diagrams: 05/26/20 14:23 05/26/20 14:23 Lab Results 05/26/20 05/26/20 05/26/20 Range/Units 14:23 14:23 14:23 WBC 10.05 (4.8-10.8) K/uL RBC 4.42 L (4.7-6.1) M/uL Hgb 15.1 (14.0-18.0) g/dL POC Hgb (14.0-18.0) g/dl Hct 43.2 (42-52) % POC Hct (42-52) % MCV 97.7 (80-100) fL MCH 34.2 H (25-34) pg MCHC 35.0 (32-36) g/dL RDW Std Deviation 46.4 H (36.4-46.3) fL RDW Coeff of Edilson 13.0 (11.5-14.5) % Plt Count 251 (130-400) K/uL MPV 8.8 (7.4-10.4) fL Immature Gran % (Auto) 0.3 % Neut % (Auto) 84.7 % Lymph % (Auto) 10.7 % Frio % (Auto) 3.9 % Eos % (Auto) 0.2 % Baso % (Auto) 0.2 % Neut # (Auto) 8.51 H (1.4-6.5) K/uL Lymph # (Auto) 1.08 L (1.2-3.4) K/uL Frio # (Auto) 0.39 (0.11-0.59) K/uL Eos # (Auto) 0.02 (0-0.5) K/uL Baso # (Auto) 0.02 (0-0.2) K/uL Immature Gran # (Auto) 0.03 H (0.00-0.02) K/uL POC Sodium (135-144) mmol/L Sodium 140 (136-145) mmol/L POC Potassium (3.3-5.0) mmol/L Potassium 4.2 (3.5-5.1) mmol/L POC Chloride (101-112) mmol/L Chloride 106 (98-107) mmol/L Carbon Dioxide 26 (21-32) mmol/L POC Total CO2 (24-31) mmol/L Anion Gap 8.0 (3-11) POC Anion Gap (16-25) mmol/L POC BUN (7-18) mg/dl BUN 9 (7-18) mg/dl Creatinine 0.84 (0.6-1.4) mg/dl POC Creatinine (0.6-1.3) mg/dl Est Cr Clr Drug Dosing 120.0 ml/min Est GFR ( Amer) 120.0 Est GFR (Non-Af Amer) 103.5 BUN/Creatinine Ratio 10.5 (10-20) Glucose 145 H (70-99) mg/dl POC Glucose (other) (70-99) mg/dl Calcium 8.9 (8.5-10.1) mg/dl POC Ioniz Calcium Christina (1.12-1.32) mmol/l Total Bilirubin 0.5 (0.2-1) mg/dl AST 154 H (15-37) U/L ALT 138 H (12-78) U/L Alkaline Phosphatase 198 H (45-117) U/L Total Protein 9.0 H (6.4-8.2) gm/dl Albumin 3.9 (3.4-5.0) gm/dl Globulin 5.1 H (2.5-4.0) gm/dl Albumin/Globulin Ratio 0.8 L (0.9-2) Lipase 4803 H (73-393) U/L Ethyl Alcohol mg/dL 179.0 H (0-3) mg/dl COVID-19 Eval Order SARS-CoV-2, RNA, NAAT (NEGATIVE) 05/26/20 05/26/20 05/26/20 Range/Units 14:40 16:00 16:00 WBC (4.8-10.8) K/uL RBC (4.7-6.1) M/uL Hgb (14.0-18.0) g/dL POC Hgb 14.6 (14.0-18.0) g/dl Hct (42-52) % POC Hct 43 (42-52) % MCV (80-100) fL MCH (25-34) pg MCHC (32-36) g/dL RDW Std Deviation (36.4-46.3) fL RDW Coeff of Edilson (11.5-14.5) % Plt Count (130-400) K/uL MPV (7.4-10.4) fL Immature Gran % (Auto) % Neut % (Auto) % Lymph % (Auto) % Frio % (Auto) % Eos % (Auto) % Baso % (Auto) % Neut # (Auto) (1.4-6.5) K/uL Lymph # (Auto) (1.2-3.4) K/uL Frio # (Auto) (0.11-0.59) K/uL Eos # (Auto) (0-0.5) K/uL Baso # (Auto) (0-0.2) K/uL Immature Gran # (Auto) (0.00-0.02) K/uL POC Sodium 140 (135-144) mmol/L Sodium (136-145) mmol/L POC Potassium 3.8 (3.3-5.0) mmol/L Potassium (3.5-5.1) mmol/L POC Chloride 105 (101-112) mmol/L Chloride (98-107) mmol/L Carbon Dioxide (21-32) mmol/L POC Total CO2 22 L (24-31) mmol/L Anion Gap (3-11) POC Anion Gap 17.0 (16-25) mmol/L POC BUN 7 (7-18) mg/dl BUN (7-18) mg/dl Creatinine (0.6-1.4) mg/dl POC Creatinine 0.8 (0.6-1.3) mg/dl Est Cr Clr Drug Dosing ml/min Est GFR ( Amer) Est GFR (Non-Af Amer) BUN/Creatinine Ratio (10-20) Glucose (70-99) mg/dl POC Glucose (other) 146 H (70-99) mg/dl Calcium (8.5-10.1) mg/dl POC Ioniz Calcium Christina 1.07 L (1.12-1.32) mmol/l Total Bilirubin (0.2-1) mg/dl AST (15-37) U/L ALT (12-78) U/L Alkaline Phosphatase (45-117) U/L Total Protein (6.4-8.2) gm/dl Albumin (3.4-5.0) gm/dl Globulin (2.5-4.0) gm/dl Albumin/Globulin Ratio (0.9-2) Lipase (73-393) U/L Ethyl Alcohol mg/dL (0-3) mg/dl COVID-19 Eval Order Covid19 IDNow [facility] SARS-CoV-2, RNA, NAAT NEGATIVE (NEGATIVE) Administered Medications Discontinued Medications Thiamine HCl 100 mg/ Syringe 10 mls @ 2 mls/min IV NOW STA Stop: 05/26/20 14:19 Last Admin: 05/26/20 14:38 Dose: 2 mls/min Documented by: [id number] Folic Acid 1 mg/ Syringe 10 mls @ 5 mls/min IV NOW STA Stop: 05/26/20 14:16 Last Admin: 05/26/20 14:38 Dose: 5 mls/min Documented by: [id number] Ioversol (Ioversol 100ml) 94 ml IV ONCE ONE Stop: 05/26/20 14:55 Last Admin: 05/26/20 14:54 Dose: 94 ml Documented by: [id number] Morphine Sulfate (Morphine Sulfate 4 Mg/Ml 1 Ml Carp\Vial) 4 mg IV NOW STA Stop: 05/26/20 14:17 Last Admin: 05/26/20 14:31 Dose: Not Given Documented by: [id number] Morphine Sulfate (Morphine Sulfate 2 Mg/Ml Carp) 2 mg IV NOW STA Stop: 05/26/20 14:19 Last Admin: 05/26/20 14:34 Dose: 2 mg Documented by: [id number] Morphine Sulfate (Morphine Sulfate 10 Mg/Ml Carp/Vial) 6 mg IV NOW STA Stop: 05/26/20 15:15 Last Admin: 05/26/20 15:21 Dose: 6 mg Documented by: [id number] Ondansetron HCl (Ondansetron Inj 2 Mg/Ml 2 Ml Vial) 4 mg IV NOW STA Stop: 05/26/20 14:17 Last Admin: 05/26/20 14:34 Dose: 4 mg Documented by: [id number] Discharge Plan Visit Data Chief Complaint: Abdominal Pain ED Provider: Anish Jones Discharge Problem: Acute alcoholic pancreatitis, Alcoholic intoxication, At risk for withdrawal, Epigastric abdominal pain Discharge Instructions Interventions: ED Discharge Assessment Last Done: 05/26/20 17:33
[2020-05-26 14:53] LABS: Albumin Level 3.9 gm/dl (3.4-5.0); BUN Creatinine Ratio 10.5 (10-20); Calcium 8.9 mg/dl (8.5-10.1); Est GFR (Non-African American) 103.5; Potassium 4.2 mmol/L (3.5-5.1)
[2020-05-26 14:53] LABS: iSTAT Creatinine 0.8 mg/dl (0.6-1.3); iSTAT Hemoglobin 14.6 g/dl (14.0-18.0); iSTAT Ionized Calcium 1.07 mmol/l (1.12-1.32); iSTAT Potassium 3.8 mmol/L (3.3-5.0)
[2020-05-26] MEDS ORDERED: IOVERSOL 100ml IV ONE (14:54)
[2020-05-26 14:56] LABS: Albumin Globulin Ratio 0.8 (0.9-2); Bilirubin,Total 0.5 mg/dl (0.2-1); Globulin 5.1 gm/dl (2.5-4.0)
--- NOTE | 2020-05-26 15:12 | CT Scan Report ---
ABDOMEN AND PELVIS CT WITH IV CONTRAST CT DOSE: 849.95 mGycm HISTORY: Severe generalized abdominal pain. TECHNIQUE: Multiaxial CT images of the abdomen and pelvis were performed following the use of intrave nous contrast. A dose lowering technique was utilized adhering to the principles of ALARA. COMPARISON STUDY: Abdomen and pelvis CT 07/21/2019. FINDINGS: There is a 6 mm triangular shaped density within the lingula on image 3. This is likely gely ign. No pneumoperitoneum. No pneumatosis. Calcific plaque within the left coronary artery. Severe hep atic steatosis. The gallbladder, spleen, adrenal glands, and kidneys are unremarkable. No hydronephro sis. No retroperitoneal lymphadenopathy. There is a left circumaortic renal vein. There is moderate p eripancreatic inflammatory change and edema surrounding the majority of the pancreas. This most prono unced at the pancreatic head. Finds are consistent with acute pancreatitis. No evidence for pancreati c necrosis at this time. No loculated peripancreatic fluid collections. Mild thickening of the wall o f the main portal vein without evidence for acute thrombosis. This may be reactive to the acute pancr eatitis. The splenic vein is patent. Mild diffuse bladder wall thickening, unchanged. No evidence for bowel obstruction. Normal appendix. There are few small colonic diverticula. No evidence for acute d iverticulitis. IMPRESSION: 1. Acute pancreatitis. No evidence for pancreatic necrosis at this time. 2. Mild thickening of the main portal vein wall without evidence for acute thrombosis. This may be re active to the adjacent acute pancreatitis. 3. Severe hepatic steatosis. ACT 112: Negative or not required by law. Electronically signed by: Michel Edge M.D. 05/26/2020 3:10 PM
[2020-05-26] MEDS ORDERED: MoRPHine SULFATE 10 MG/ML CARP/VIAL IV STA (15:14)
--- NOTE | 2020-05-26 15:45 | History & Physical Report ---
Date of Service May 26, 2020 Assessment & Plan (1) Acute alcoholic pancreatitis: This is a 42-year-old male with PMH of alcohol use disorder, CAD status post stent to LAD and OM in 01/15, history of ADHD, depression, tobacco use and other medical problems listed below who presents with abdominal pain since this morning was found to have acute alcoholic pancreatitis and alcohol withdrawal. Abdominal pain, nausea and vomiting since this morning in setting of heavy alcohol use Lipase elevated at 4,803. CT abd/pelvis with acute pancreatitis. No evidence for pancreatic necrosis at this time AST 154, ALT 138, alk phos 198. Severe hepatic steatosis on CT A/P. Repeat CMP tomorrow Keep NPO except chips and sips, meds. LR @125 ml/hr, antiemetics, pain control (2) CAD (coronary artery disease): Given missed dose of aspirin, Prasugrel, statin, Toprol (3) Hypertension: Given missed dose of lisinopril, Toprol DVT Ppx: SCDs Code status: FULL PCP: Renetta Dispo: Admitted to PCU. Discharge planning ordered Patient seen in collaboration with Dr. Camacho. Please see addendum. History of Present Illness Chief Complaint: Pancreatitis, alcohol abuse Primary Care Provider: Lazaro Jackson DO This is a 42-year-old male with PMH of alcohol use disorder, CAD status post stent to LAD and OM in 01/15, history of ADHD, depression, tobacco use and other medical problems listed below who presents with abdominal pain since this morning. Patient drinks 6-12 ounce hard ciders daily and sometimes additional vodka. Remembers having alcoholic pancreatitis last June. Woke up this morning with centralized sharp abdominal pain made worse with movement or drinking water. Drank a half a glass of vodka this morning and attempt to lessen pain. Had one episode of vomiting prior to arrival. Did not take any morning medications. In ED, patient is afebrile and hypertensive at 170/115. Ethyl etoh level is 179. CT abd/pelvis with acute pancreatitis. No evidence for pancreatic necrosis at this time. Allergies Allergy/AdvReac Type Severity Reaction Status Date / Time banana AdvReac Unknown GI SYMPTOMS Verified 05/26/20 15:50 Home Medications Medication Instructions Recorded Confirmed Type amitriptyline 10 mg PO HS 07/20/19 05/26/20 History sildenafil 50 mg PO UD PRN 07/20/19 05/26/20 History tizanidine 2 mg PO HS PRN 07/20/19 05/26/20 History Probiotic 3 mmu cells PO DAILY 01/20/20 05/26/20 History folic acid 1 mg PO DAILY 01/20/20 05/26/20 History multivitamin 1 tab PO QAM 01/20/20 05/26/20 History nitroglycerin 0.4 mg SUBLINGUAL UD 01/20/20 05/26/20 History pantoprazole 40 mg PO DAILY 01/20/20 05/26/20 History atorvastatin 80 mg PO DAILY #30 tab 01/21/20 05/26/20 Rx lisinopril [Zestril] 5 mg PO QAM #30 tab 01/21/20 05/26/20 Rx aspirin 81 mg PO DAILY 03/26/20 05/26/20 History metoprolol succinate 50 mg PO DAILY 03/26/20 05/26/20 History prasugrel 10 mg PO DAILY 03/26/20 05/26/20 History Past Med/Surg History Medical History ADD (attention deficit disorder) Alcohol use disorder CAD (coronary artery disease) NSTEMI status post percutaneous intervention to the mid LAD and obtuse marginal branch vessel. December 2019. Dyslipidemia Hypertension Migraines Sleep disorder Surgical History History of endoscopy Hx of colonoscopy Family History Other Heart disease Social History Smoking Status: Current some day smoker Tobacco Type: E-cigarettes / Vaping Cigarettes Per Day: 6; Second Hand Exposure: No; Hx Alcohol Use: Yes Alcohol type: beer and hard liquor Hx Substance Use: Yes Last Used Substance: Days (ago) Substance Use Type Other:: medical marijuana Preferred Language: Chinese Communication Ability: Effective Mobile Tester Required: No Beliefs That Will Affect Care: None marital status: Single Current Living Situation: Alone Other Information That Helps Us Care for You: No Feels Safe at Home: Yes Safety Concerns: Feels Safe At This Time Assistive Devices: None Review of Systems Review of Systems: At least ten systems reviewed and negative except as noted in the HPI. Physical Exam Physical Exam: General Appearance: vitals as above, NAD, in acute pain, sitting up in bed, pleasant but anxious Head: normocephalic, atraumatic Eyes: normal inspection, PERRL, conjunctivae normal, anicteric sclerae ENT: external ear and nose normal, oropharynx normal Neck: normal visual inspection, trachea midline, no thyromegaly Respiratory: normal respiratory effort, lungs clear to auscultation, no wheeze, rales, rhonchi. No accessory muscle use Cardiovascular: regular rate, rhythm, no murmur, normal peripheral pulses, no BLE edema. Vessels: no JVD Chest: normal inspection of chest Abdomen/GI: normal bowel sounds, soft but TTP in epigastrium, no hepatosplenomegaly Extremities/Musculoskeletal: no cyanosis or clubbing, extremities motor strength 5/5 Neurologic: PERRL, EOMI, accommodation nl, no face palsy, no dysarthria, CN's II-XI intact bilaterally and moves all extremities Psychiatric: A+Ox3, anxious Skin: no rashes, normal color, warm/dry Results & Data Results & Data ([facility]) Vital Signs (Past 12 Hours) Vital Signs Temp Pulse Pulse Resp BP BP Pulse Ox 05/26/20 14:24 36.5 C 72 72 20 174/105 H 174/105 H 98 Laboratory Results Short CBC 05/26/20 Range/Units 14:23 WBC 10.05 (4.8-10.8) K/uL Hgb 15.1 (14.0-18.0) g/dL Hct 43.2 (42-52) % Plt Count 251 (130-400) K/uL BMP 05/26/20 14:23 Sodium 140 Potassium 4.2 Chloride 106 Carbon Dioxide 26 BUN 9 Creatinine 0.84 Glucose 145 H Calcium 8.9 Liver Function 05/26/20 Range/Units 14:23 Total Bilirubin 0.5 (0.2-1) mg/dl AST 154 H (15-37) U/L ALT 138 H (12-78) U/L Alkaline Phosphatase 198 H (45-117) U/L Albumin 3.9 (3.4-5.0) gm/dl Diagnostic Findings CT abd/pelvis: IMPRESSION: 1. Acute pancreatitis. No evidence for pancreatic necrosis at this time. 2. Mild thickening of the main portal vein wall without evidence for acute thrombosis. This may be reactive to the adjacent acute pancreatitis. 3. Severe hepatic steatosis. Supervising Physician Co-Signing Physician Notes Pt was seen and examined. Agreed with Coni AHUJA exam, assessment and plan. 50-year-old male with PMH of alcohol use disorder, CAD status post stent to LAD and OM in 01/15, history of ADHD, depression, tobacco use presents to the ER with abdominal pain started this morning. He said that the pain is severe, located in the mid abdomen and radiated to his back. He said that eating, drinking or movement make the pain worst. Pt said that he had one episode of vomiting today. Pt said that he drank about 6-12 ounce hard ciders daily and sometimes additional vodka. He said that his last drink was this morning. He said that last June he had an episodes of acute pancreatitis. Lab in the ER showed Ethyl etoh level is 179 and LFT elevated with AST 154, AST 138 and ALK 198, Lipase 4803. CT abd/pelvis with acute pancreatitis with no evidence for pancreatic necrosis at this time. Will continue IVF and pain management with IV morphine. Will repeat Lipase and Liver enzymes. Alcohol abuse- will manage for alcohol withdrawal and DT. Will start on alcohol withdrawal protocol with gabapentin and PRN Ativan. Will monitor closely for signs of alcohol withdrawal protocol and DT. Counseling on alcohol cessation. MD Doug (1) Acute alcoholic pancreatitis Acute pancreatitis complication: unspecified Qualified Code(s): K85.20 - Alcohol induced acute pancreatitis without necrosis or infection
[2020-05-26] MEDS ORDERED: POLYETHYLENE (MIRALAX) 17 GM PACK PO PRN (17:47)
[2020-05-26] MEDS ORDERED: GABAPENTIN 1200MG ALCOHOL WITHDRAWAL LOAD PO STA (17:47)
[2020-05-26] MEDS ORDERED: GABAPENTIN 600 MG TAB PO ONE (18:00)
[2020-05-26] MEDS: HYDROmorphone INJ 0.5 MG/0.5 ML SYR IV PRN ×2 (18:12→22:24)
[2020-05-26] MEDS: LACTATED RINGER'S 1,000 ML IV SCH (18:12)
[2020-05-26] MEDS: METOPROLOL SUCC 50MG EXT REL TAB PO SCH (18:50)
[2020-05-26] MEDS: ATORVASTATIN 40 MG TAB PO SCH ×2 (18:50→20:11)
[2020-05-26] MEDS: PRASugrel TAB 10 MG TAB PO SCH (18:51)
[2020-05-26] MEDS: LORazepam 1 MG TAB PO PRN ×2 (19:41→22:23)
[2020-05-26] MEDS ORDERED: cloNIDine HCL 0.1 MG TAB PO PRN (19:52)
[2020-05-26] MEDS: ONDANSETRON INJ 2 MG/ML 2 ML VIAL IV PRN (20:10)
[2020-05-26] MEDS: ASPIRIN 81 MG ECTAB PO SCH (20:11)
[2020-05-26] MEDS: PANTOprazole 40 MG TAB PO SCH (20:11)
[2020-05-26] MEDS: lisinopril 5 MG TAB PO SCH (20:21)
[2020-05-26] MEDS: AMITRIPTYLINE HCL 10 MG TAB PO SCH (20:43)
[2020-05-26] MEDS: NICOTINE 21 MG/24 HR TDSY TD SCH (20:45)
[2020-05-27] MEDS: GABAPENTIN 600 MG TAB PO SCH ×4 (00:04→20:38)
[2020-05-27] MEDS: LORazepam 1 MG TAB PO PRN ×2 (00:26→05:50)
[2020-05-27] MEDS: LACTATED RINGER'S 1,000 ML IV SCH ×3 (03:07→18:10)
[2020-05-27] MEDS: HYDROmorphone INJ 0.5 MG/0.5 ML SYR IV PRN ×5 (03:08→22:24)
[2020-05-27 07:16] LABS: Hematocrit (blood only) 42.3 % (42-52); Hemoglobin 14.6 g/dL (14.0-18.0); Mean Corpuscular Hemoglobin 33.8 pg (25-34); Mean Corpuscular Hgb Conc 34.5 g/dL (32-36); Mean Corpuscular Volume 97.9 fL (80-100); Mean Platelet Volume 8.9 fL (7.4-10.4); Platelet Count 223 K/uL (130-400); RDW Coefficient of Variation 13.2 % (11.5-14.5); Red Blood Count 4.32 M/uL (4.7-6.1); White Blood Count 9.54 K/uL (4.8-10.8)
[2020-05-27] MEDS: ACETAMINOPHEN 325 MG TAB PO PRN ×2 (07:46→18:12)
[2020-05-27 08:03] LABS: Albumin Globulin Ratio 0.8 (0.9-2); Albumin Level 3.5 gm/dl (3.4-5.0); BUN Creatinine Ratio 8.6 (10-20); Bilirubin,Total 1.6 mg/dl (0.2-1); Calcium 9.1 mg/dl (8.5-10.1); Creatinine Clr Calc Pharmacy 109.7 ml/min; Est GFR (African American) 119.4; Globulin 4.3 gm/dl (2.5-4.0); Potassium 3.4 mmol/L (3.5-5.1); Total Protein 7.8 gm/dl (6.4-8.2)
[2020-05-27] MEDS: METOPROLOL SUCC 50MG EXT REL TAB PO SCH (08:27)
[2020-05-27] MEDS: FOLIC ACID 1 MG TAB PO SCH (08:27)
[2020-05-27] MEDS: ADVANCED PROBIOTIC 1250 MG CAPSULE PO SCH (08:27)
[2020-05-27] MEDS: MULTIVITAMIN TAB PO SCH (08:28)
[2020-05-27] MEDS: NICOTINE 21 MG/24 HR TDSY TD SCH (08:28)
[2020-05-27] MEDS: THIAMINE HCL 100 MG TAB PO SCH (08:29)
[2020-05-27] MEDS: PRASugrel TAB 10 MG TAB PO SCH (08:29)
[2020-05-27] MEDS: lisinopril 5 MG TAB PO SCH (09:24)
[2020-05-27] MEDS: PANTOprazole 40 MG TAB PO SCH (09:24)
[2020-05-27] MEDS: ASPIRIN 81 MG ECTAB PO SCH (09:24)
[2020-05-27 09:30] LABS: Appearance Urine Clear (Clear); Bacteria Urine Automated Negative (Negative); Bilirubin Urine Negative (Negative); Blood Urine Negative (Negative); Color Urine Dark Yellow; Glucose Urine UA Negative (Negative); Ketones Urine 2+ (Negative); Leukocyte Esterase Urine Negative (Negative); Nitrite Urine Negative (Negative); Protein Urine 1+ (Negative); RBC Urine Automated 0-4 /hpf (0-4); Specific Gravity Urine 1.035 (1.000-1.030); Urobilinogen Urine Negative (Negative)
[2020-05-27] MEDS ORDERED: POTASSIUM CHLORIDE 10 MEQ TABCR PO STA (10:55)
--- NOTE | 2020-05-27 15:16 | Hospitalist Progress Note ---
Date of Service May 27, 2020 Assessment & Plan (1) Transaminitis: (2) Acute alcoholic pancreatitis: Present on admission with severe abdominal pain associated with Nausea and vomiting Mostly due to acute pancreatitis triggered by alcohol intake CT abd/pelvis showed acute pancreatitis and no evidence for pancreatic necrosis at this time. Lipase increased from 4803 to 6205 Elevated on admission AST 154, ALT 138, ALK phos 198. 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 Ethyl etoh level is 179 on admission Continue alcohol withdrawal protocol with gabapentin, IV Ativan as needed Continue folic acid and thiamine Refused any inpatient alcohol rehab Counseling on alcohol cessation Will monitor closely for sign of DT and alcohol withdrawal (4) CAD (coronary artery disease): Continue aspirin, Prasugrel, statin, Toprol Clinically stable (5) Hypertension: Continue lisinopril, Toprol BP improved DVT Ppx: SCDs Code status: FULL PCP: Renetta Rehmano Will discharge once medically stable Admission and Anticipated Discharge Date Admission Date: May 26, 2020 Subjective Pt was seen and examined for follow up of pancreatitis Lying in bed with no distress Pt said that he feels much better He said that his abdominal pain a little improve He said that he is not having any hallucination He said that he is hungry He is not interested to go to rehab Denies any chest pain, palpitation, dizziness and SOB Physical Exam Physical Exam: General- No acute distress Head- atraumatic Eyes- PERRL, EOMI, ENT- oropharynx clear Neck- supple, no JVD Lungs- clear to auscultation Heart- +tachycardia Abdomen- normal bowel sounds, soft, nontender Extremities- no calf tenderness Neuro- alert, oriented x 3; PERRL, EOMI; no facial palsy; no dysarthria Skin- warm & dry Results & Data Results & Data ([facility]) Vital Signs (Past 12 Hours) Vital Signs Temp Pulse Pulse Resp BP Pulse Ox 05/27/20 14:20 98 H 05/27/20 11:36 36.4 C L 102 H 18 144/98 H 93 05/27/20 08:16 36.6 C 05/27/20 08:07 37.6 C H 115 H 18 154/99 H 93 05/27/20 07:00 110 H (1) Acute alcoholic pancreatitis Acute pancreatitis complication: unspecified Qualified Code(s): K85.20 - Alcohol induced acute pancreatitis without necrosis or infection
[2020-05-27] MEDS: AMITRIPTYLINE HCL 10 MG TAB PO SCH (20:38)
[2020-05-28] MEDS: LACTATED RINGER'S 1,000 ML IV SCH ×2 (01:31→10:42)
[2020-05-28] MEDS: ACETAMINOPHEN 325 MG TAB PO PRN ×4 (02:42→20:08)
[2020-05-28] MEDS: LORazepam 1 MG TAB PO PRN (05:09)
[2020-05-28] MEDS: GABAPENTIN 600 MG TAB PO SCH ×2 (05:10→17:44)
[2020-05-28] MEDS: HYDROmorphone INJ 0.5 MG/0.5 ML SYR IV PRN ×3 (07:15→20:08)
[2020-05-28] MEDS: METOPROLOL SUCC 50MG EXT REL TAB PO SCH (07:40)
[2020-05-28 07:52] LABS: Albumin Level 2.8 gm/dl (3.4-5.0); BUN Creatinine Ratio 5.4 (10-20); Calcium 8.5 mg/dl (8.5-10.1); Creatinine Clr Calc Pharmacy 127.7 ml/min; Est GFR (African American) 122.4; Est GFR (Non-African American) 105.6; Potassium 3.6 mmol/L (3.5-5.1)
[2020-05-28 07:58] LABS: Albumin Globulin Ratio 0.7 (0.9-2); Bilirubin,Total 2.3 mg/dl (0.2-1); Total Protein 6.8 gm/dl (6.4-8.2)
[2020-05-28] MEDS: lisinopril 5 MG TAB PO SCH (08:40)
[2020-05-28] MEDS: PRASugrel TAB 10 MG TAB PO SCH (08:40)
[2020-05-28] MEDS: THIAMINE HCL 100 MG TAB PO SCH (08:41)
[2020-05-28] MEDS: ADVANCED PROBIOTIC 1250 MG CAPSULE PO SCH (08:41)
[2020-05-28] MEDS: ATORVASTATIN 40 MG TAB PO SCH (08:41)
[2020-05-28] MEDS: MULTIVITAMIN TAB PO SCH (08:41)
[2020-05-28] MEDS: FOLIC ACID 1 MG TAB PO SCH (08:41)
[2020-05-28] MEDS: NICOTINE 21 MG/24 HR TDSY TD SCH (08:42)
[2020-05-28] MEDS: ASPIRIN 81 MG ECTAB PO SCH (08:42)
[2020-05-28] MEDS: PANTOprazole 40 MG TAB PO SCH (08:43)
[2020-05-28] MEDS: ONDANSETRON INJ 2 MG/ML 2 ML VIAL IV PRN (12:37)
--- NOTE | 2020-05-28 14:19 | Hospitalist Progress Note ---
Date of Service May 28, 2020 Assessment & Plan (1) Transaminitis: (2) Acute alcoholic pancreatitis: Present on admission with severe abdominal pain associated with Nausea and vomiting Mostly due to acute pancreatitis triggered by alcohol intake CT abd/pelvis showed acute pancreatitis and no evidence for pancreatic necrosis at this time. Lipase increased from 4803 --> 6205 --> 1217 Elevated on admission AST 154, ALT 138 , ALK phos 198. 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 Ethyl etoh level is 179 on admission Continue alcohol withdrawal protocol with gabapentin, IV Ativan as needed Continue folic acid and thiamine Refused any inpatient alcohol rehab Counseling on alcohol cessation Continue monitor closely for sign of DT and alcohol withdrawal (4) CAD (coronary artery disease): Continue aspirin, Prasugrel, statin, Toprol Clinically stable (5) Hypertension: Continue lisinopril, Toprol BP improved DVT Ppx: SCDs Code status: FULL PCP: Renetta Dispo Possible discharge home tomorrow Refused inpatient alcohol rehab Admission and Anticipated Discharge Date Admission Date: May 26, 2020 Subjective Pt was seen and examined for follow up of pancreatitis Lying in bed with no distress Pt said that he feels much better He said that he had a low grade fever last night Not interested to go to rehab Tolerated clear liquid diet Denies any chest pain, palpitation, dizziness, hallucination and SOB Physical Exam Physical Exam: General- No acute distress Head- atraumatic Eyes- PERRL, EOMI, ENT- oropharynx clear Neck- supple, no JVD Lungs- clear to auscultation Heart- +tachycardia Abdomen- normal bowel sounds, soft, nontender Extremities- no calf tenderness Neuro- alert, oriented x 3; PERRL, EOMI; no facial palsy; no dysarthria Skin- warm & dry Results & Data Results & Data ([facility]) Vital Signs (Past 12 Hours) Vital Signs Temp Pulse Pulse Resp BP BP Pulse Ox 05/28/20 11:42 37.3 C 95 H 18 120/80 93 05/28/20 07:51 37.5 C 102 H 20 149/102 H 92 05/28/20 07:00 88 05/28/20 05:10 37.1 C 95 H 16 145/95 H 94 05/28/20 02:36 37.7 C H 99 H 16 146/95 H 94 (1) Acute alcoholic pancreatitis Acute pancreatitis complication: unspecified Qualified Code(s): K85.20 - Alcohol induced acute pancreatitis without necrosis or infection
[2020-05-28] MEDS: AMITRIPTYLINE HCL 10 MG TAB PO SCH (20:08)
[2020-05-28] MEDS ORDERED: Nursing to Pharmacy Communication SCH (20:15)
[2020-05-29] MEDS: LACTATED RINGER'S 1,000 ML IV SCH ×2 (00:50→15:36)
[2020-05-29] MEDS: HYDROmorphone INJ 0.5 MG/0.5 ML SYR IV PRN ×5 (00:57→23:13)
[2020-05-29] MEDS: GABAPENTIN 600 MG TAB PO SCH (06:20)
[2020-05-29] MEDS ORDERED: COUGH DROP (SUGAR FREE) LOZ 24 LOZ/1 BOX BUCCAL STA (07:31)
[2020-05-29 08:11] LABS: Albumin Globulin Ratio 0.6 (0.9-2); Albumin Level 2.7 gm/dl (3.4-5.0); BUN Creatinine Ratio 4.9 (10-20); Calcium 8.3 mg/dl (8.5-10.1); Creatinine Clr Calc Pharmacy 130.7 ml/min; Est GFR (African American) 123.7; Est GFR (Non-African American) 106.7; Globulin 4.4 gm/dl (2.5-4.0); Potassium 2.9 mmol/L (3.5-5.1); Total Protein 7.1 gm/dl (6.4-8.2)
[2020-05-29] MEDS ORDERED: POTASSIUM PHOS 3 MMOL/1 ML INFUSION IV STA (08:23)
[2020-05-29] MEDS: ADVANCED PROBIOTIC 1250 MG CAPSULE PO SCH (08:24)
[2020-05-29] MEDS: MULTIVITAMIN TAB PO SCH (08:24)
[2020-05-29] MEDS: ATORVASTATIN 40 MG TAB PO SCH (08:24)
[2020-05-29] MEDS: FOLIC ACID 1 MG TAB PO SCH (08:25)
[2020-05-29] MEDS: METOPROLOL SUCC 50MG EXT REL TAB PO SCH (08:25)
[2020-05-29] MEDS: PRASugrel TAB 10 MG TAB PO SCH (08:25)
[2020-05-29] MEDS: THIAMINE HCL 100 MG TAB PO SCH (08:28)
[2020-05-29] MEDS: PANTOprazole 40 MG TAB PO SCH (08:28)
[2020-05-29] MEDS: ASPIRIN 81 MG ECTAB PO SCH (08:28)
[2020-05-29] MEDS: NICOTINE 21 MG/24 HR TDSY TD SCH (08:28)
[2020-05-29] MEDS ORDERED: POTASSIUM CHLORIDE CRTAB 20 MEQ TABCR PO STA (08:36)
[2020-05-29] MEDS ORDERED: POTASSIUM PHOSPHATE 21 MMOL in SODIUM CHLORIDE 0.9% 500 ML IV ONE (08:45)
[2020-05-29] MEDS: lisinopril 5 MG TAB PO SCH (09:08)
[2020-05-29] MEDS: LORazepam 1 MG TAB PO PRN (11:29)
[2020-05-29] MEDS ORDERED: Nursing to Pharmacy Communication SCH (15:15)
--- NOTE | 2020-05-29 16:23 | Hospitalist Progress Note ---
Date of Service May 29, 2020 Assessment & Plan (1) Transaminitis: (2) Acute alcoholic pancreatitis: Present on admission with severe abdominal pain associated with Nausea and vomiting Mostly due to acute pancreatitis triggered by alcohol intake CT abd/pelvis showed acute pancreatitis and no evidence for pancreatic necrosis at this time. Lipase continue trending down 6205 --> 1217-->829 Elevated on admission AST 154, ALT 138 , ALK phos 198. 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 Ethyl etoh level is 179 on admission Continue alcohol withdrawal protocol with gabapentin, IV Ativan as needed Continue folic acid and thiamine Refused any inpatient alcohol rehab Counseling on alcohol cessation Continue monitor closely for sign of DT and alcohol withdrawal (4) CAD (coronary artery disease): Continue aspirin, Prasugrel, statin, Toprol Clinically stable (5) Hypokalemia: Potassium 2.9 today K replaced Continue monitor BMP (6) Hypertension: Continue lisinopril, Toprol BP improved DVT Ppx: SCDs Code status: FULL PCP: Renetta Thakur Possible discharge home tomorrow Refused inpatient alcohol rehab Admission and Anticipated Discharge Date Admission Date: May 26, 2020 Subjective Pt was seen and examined for follow up of pancreatitis Lying in bed with no distress Pt said that the abdominal pain is getting better He said that it seems after he eats that he noticed the pain gets intense He wants to remain on the full liquid diet Continue refusing inpatient alcohol rehab Denies any chest pain, palpitation, dizziness, hallucination and SOB Physical Exam Physical Exam: General- No acute distress Head- atraumatic Eyes- PERRL, EOMI, ENT- oropharynx clear Neck- supple, no JVD Lungs- clear to auscultation Heart- +tachycardia Abdomen- normal bowel sounds, soft, +tender Extremities- no calf tenderness Neuro- alert, oriented x 3; PERRL, EOMI; no facial palsy; no dysarthria Skin- warm & dry Results & Data Results & Data ([facility]) Vital Signs (Past 12 Hours) Vital Signs Temp Pulse Pulse Resp BP Pulse Ox 05/29/20 15:23 37.2 C 96 H 20 136/91 90 05/29/20 11:28 37.4 C 91 H 20 144/94 H 91 05/29/20 07:36 36.6 C 93 H 18 135/87 94 05/29/20 07:00 108 H (1) Acute alcoholic pancreatitis Acute pancreatitis complication: unspecified Qualified Code(s): K85.20 - Alcohol induced acute pancreatitis without necrosis or infection
[2020-05-29] MEDS: AMITRIPTYLINE HCL 10 MG TAB PO SCH (21:43)
[2020-05-30] MEDS: ACETAMINOPHEN 325 MG TAB PO PRN (01:03)
[2020-05-30] MEDS: LORazepam 1 MG TAB PO PRN (03:41)
[2020-05-30] MEDS: HYDROmorphone INJ 0.5 MG/0.5 ML SYR IV PRN (05:47)
[2020-05-30] MEDS ORDERED: GABAPENTIN 600 MG TAB PO SCH (06:00)
[2020-05-30] MEDS: LACTATED RINGER'S 1,000 ML IV SCH ×2 (06:19→21:31)
[2020-05-30 06:32] LABS: Albumin Level 2.9 gm/dl (3.4-5.0); BUN Creatinine Ratio 5.8 (10-20); Calcium 8.6 mg/dl (8.5-10.1); Creatinine Clr Calc Pharmacy 139.7 ml/min; Est GFR (African American) 127.1; Est GFR (Non-African American) 109.7; Potassium 3.2 mmol/L (3.5-5.1)
[2020-05-30 06:35] LABS: Albumin Globulin Ratio 0.6 (0.9-2); Bilirubin,Total 1.7 mg/dl (0.2-1); Globulin 4.8 gm/dl (2.5-4.0); Total Protein 7.7 gm/dl (6.4-8.2)
[2020-05-30] MEDS: PRASugrel TAB 10 MG TAB PO SCH (07:39)
[2020-05-30] MEDS: MULTIVITAMIN TAB PO SCH (07:40)
[2020-05-30] MEDS: ADVANCED PROBIOTIC 1250 MG CAPSULE PO SCH (07:40)
[2020-05-30] MEDS: ATORVASTATIN 40 MG TAB PO SCH (07:40)
[2020-05-30] MEDS: ASPIRIN 81 MG ECTAB PO SCH (07:40)
[2020-05-30] MEDS: FOLIC ACID 1 MG TAB PO SCH (07:40)
[2020-05-30] MEDS: NICOTINE 21 MG/24 HR TDSY TD SCH (07:40)
[2020-05-30] MEDS: PANTOprazole 40 MG TAB PO SCH (07:40)
[2020-05-30] MEDS: METOPROLOL SUCC 50MG EXT REL TAB PO SCH (07:41)
[2020-05-30] MEDS: THIAMINE HCL 100 MG TAB PO SCH (07:41)
[2020-05-30] MEDS: lisinopril 5 MG TAB PO SCH (07:41)
[2020-05-30] MEDS ORDERED: POTASSIUM CHLORIDE CRTAB 20 MEQ TABCR PO ONE ×2 (09:45→18:00)
[2020-05-30] MEDS ORDERED: oxyCODONE HCL IR 5 MG TAB (IMMEDIATE RELEASE) PO PRN (10:00)
[2020-05-30] MEDS ORDERED: ACETAMINOPHEN 325 MG TAB PO PRN (10:20)
--- NOTE | 2020-05-30 17:42 | Hospitalist Progress Note ---
Date of Service May 30, 2020 Assessment & Plan (1) Transaminitis: (2) Acute alcoholic pancreatitis: Present on admission with severe abdominal pain associated with Nausea and vomiting Mostly due to acute pancreatitis triggered by alcohol intake CT abd/pelvis showed acute pancreatitis and no evidence for pancreatic necrosis at this time. Lipase continue trending down 6205 --> 1217-->829 -->790 Elevated on admission AST 154, ALT 138 , ALK phos 198. 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 Ethyl etoh level is 179 on admission Continue alcohol withdrawal protocol with gabapentin, IV Ativan as needed Continue folic acid and thiamine Refused any inpatient alcohol rehab Counseling on alcohol cessation Continue monitor closely for sign of DT and alcohol withdrawal (4) CAD (coronary artery disease): Continue aspirin, Prasugrel, statin, Toprol Clinically stable (5) Hypokalemia: Potassium 3.2 today K replaced Continue monitor BMP (6) Hypertension: Continue lisinopril, Toprol BP improved DVT Ppx: SCDs Code status: FULL PCP: Renetta Dispo Will discharge once medically stable Refused inpatient alcohol rehab Admission and Anticipated Discharge Date Admission Date: May 26, 2020 Subjective Pt was seen and examined for follow up of pancreatitis Lying in bed with no distress Pt said that the abdominal pain is getting better But later during the day pt said that his pain was worst and was placed on clear liquid diet Continue refusing inpatient alcohol rehab Denies any chest pain, palpitation, dizziness, hallucination and SOB Physical Exam Physical Exam: General- No acute distress Head- atraumatic Eyes- PERRL, EOMI, ENT- oropharynx clear Neck- supple, no JVD Lungs- clear to auscultation Heart- +tachycardia Abdomen- normal bowel sounds, soft, +tender Extremities- no calf tenderness Neuro- alert, oriented x 3; PERRL, EOMI; no facial palsy; no dysarthria Skin- warm & dry Results & Data Results & Data ([facility]) Vital Signs (Past 12 Hours) Vital Signs Temp Pulse Pulse Resp BP Pulse Ox 05/30/20 16:12 37.2 C 95 H 20 142/84 H 97 05/30/20 07:31 37.4 C 89 20 132/87 95 (1) Acute alcoholic pancreatitis Acute pancreatitis complication: unspecified Qualified Code(s): K85.20 - Alcohol induced acute pancreatitis without necrosis or infection
[2020-05-30] MEDS: oxyCODONE HCL IR 5 MG TAB (IMMEDIATE RELEASE) PO PRN (18:05)
[2020-05-30] MEDS: AMITRIPTYLINE HCL 10 MG TAB PO SCH (21:31)
[2020-05-31] MEDS: HYDROmorphone INJ 0.5 MG/0.5 ML SYR IV PRN ×2 (00:14→05:32)
[2020-05-31] MEDS: oxyCODONE HCL IR 5 MG TAB (IMMEDIATE RELEASE) PO PRN ×2 (03:02→08:50)
[2020-05-31] MEDS ORDERED: FAMOTIDINE 20MG IV PUSH 20 MG/5 ML SYR IV STA (05:06)
[2020-05-31 06:42] LABS: INR 1.1 (0.9-1.1); Prothrombin Time 10.8 Seconds (9.0-12.0)
[2020-05-31 07:05] LABS: Albumin Level 2.9 gm/dl (3.4-5.0); BUN Creatinine Ratio 4.8 (10-20); Calcium 9.3 mg/dl (8.5-10.1); Creatinine Clr Calc Pharmacy 147.8 ml/min; Est GFR (African American) 130.1; Est GFR (Non-African American) 112.3; Potassium 3.5 mmol/L (3.5-5.1)
[2020-05-31 07:07] LABS: Albumin Globulin Ratio 0.6 (0.9-2); Bilirubin,Total 1.4 mg/dl (0.2-1); Globulin 5.1 gm/dl (2.5-4.0)
[2020-05-31] MEDS ORDERED: POTASSIUM CHLORIDE CRTAB 20 MEQ TABCR PO STA (08:02)
--- NOTE | 2020-05-31 08:02 | Hospitalist Progress Note ---
Date of Service May 31, 2020 Assessment & Plan (1) Transaminitis: (2) Acute alcoholic pancreatitis: Present on admission with severe abdominal pain associated with Nausea and vomiting Mostly due to acute pancreatitis triggered by alcohol intake CT abd/pelvis showed acute pancreatitis and no evidence for pancreatic necrosis at this time. Lipase continue trending down 6205 --> 1217-->829 -->790 -> 514 Elevated on admission AST 154, ALT 138 , ALK phos 198. 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 Ethyl etoh level is 179 on admission Continued alcohol withdrawal protocol with gabapentin, IV Ativan as needed Continue folic acid and thiamine Refused any inpatient alcohol rehab Counseling on alcohol cessation Continue monitor closely for sign of DT and alcohol withdrawal (4) CAD (coronary artery disease): Continue aspirin, Prasugrel, statin, Toprol Clinically stable (5) Hypokalemia: Potassium 3.2 K replaced Continue monitor BMP (6) Hypertension: Continue lisinopril, Toprol BP improved DVT Ppx: SCDs Code status: FULL PCP: Dr. Jackson Dispo Plan to discharge home today. Follow up on 06/02 w/ PCP Refused inpatient alcohol rehab Admission and Anticipated Discharge Date Admission Date: May 26, 2020 Subjective Pt was seen and examined for follow up of pancreatitis Pt is sitting up in bed in no distress Pt said that the abdominal pain is much better, tolerating clear liquid and full liquid diet Continue refusing inpatient alcohol rehab Denies any chest pain, palpitation, dizziness, hallucination and SOB Pt feels he is ready to be discharged. Review of Systems Review of Systems: All systems reviewed & are unremarkable except as noted in HPI & below Constitutional: no fever and no chills Respiratory: no cough and no dyspnea Cardiovascular: no chest pain and no palpitations Gastrointestinal: + abdominal pain (much improved); no nausea and no vomiting Physical Exam Physical Exam: General- No acute distress Head- atraumatic Eyes- PERRL, EOMI, ENT- oropharynx clear Neck- supple, no JVD Lungs- clear to auscultation Heart- RRR Abdomen- normal bowel sounds, soft, +tender Extremities- no calf tenderness Neuro- alert, oriented x 3; PERRL, EOMI; no facial palsy; no dysarthria Skin- warm & dry Results & Data Results & Data ([facility] [place]) Vital Signs (Past 12 Hours) Vital Signs Temp Pulse Resp BP BP Pulse Ox 05/31/20 07:32 36.8 C 84 18 149/90 H 95 05/31/20 01:16 37.4 C 05/30/20 23:15 37.8 C H 106 H 18 146/89 H 94 Laboratory Results 05/31/20 05/31/20 Range/Units 06:15 06:15 PT 10.8 (9.0-12.0) Seconds INR 1.1 (0.9-1.1) Sodium 139 (136-145) mmol/L Potassium 3.5 (3.5-5.1) mmol/L Chloride 107 (98-107) mmol/L Carbon Dioxide 26 (21-32) mmol/L Anion Gap 6.0 (3-11) BUN 3 L (7-18) mg/dl Creatinine 0.69 (0.6-1.4) mg/dl Est Cr Clr Drug Dosing 147.8 ml/min Est GFR ( Amer) 130.1 Est GFR (Non-Af Amer) 112.3 BUN/Creatinine Ratio 4.8 L (10-20) Glucose 103 H (70-99) mg/dl Calcium 9.3 (8.5-10.1) mg/dl Total Bilirubin 1.4 H (0.2-1) mg/dl AST 91 H (15-37) U/L ALT 79 H (12-78) U/L Alkaline Phosphatase 192 H (45-117) U/L Total Protein 8.0 (6.4-8.2) gm/dl Albumin 2.9 L (3.4-5.0) gm/dl Globulin 5.1 H (2.5-4.0) gm/dl Albumin/Globulin Ratio 0.6 L (0.9-2) Lipase 514 H (73-393) U/L Medications Administered Current Inpatient Medications Acetaminophen (Acetaminophen 325 Mg Tab) 650 mg PO Q8H PRN PRN Reason: mild Pain Or Fever Stop: 06/25/20 17:46 Last Admin: 05/31/20 00:14 Dose: 650 mg Documented by: Amitriptyline HCl (Amitriptyline Hcl 10 Mg Tab) 10 mg PO HS [facility] Stop: 06/25/20 20:59 Last Admin: 05/30/20 21:31 Dose: 10 mg Documented by: Aspirin (Aspirin 81 Mg Ectab) 81 mg PO DAILY [facility]ANE[facility] Stop: 06/25/20 17:14 Last Admin: 05/30/20 07:40 Dose: 81 mg Documented by: Atorvastatin Calcium (Atorvastatin 40 Mg Tab) 80 mg PO DAILY [facility] Stop: 06/25/20 17:14 Last Admin: 05/30/20 07:40 Dose: 80 mg Documented by: Clonidine HCl (Clonidine Hcl 0.1 Mg Tab) 0.1 mg PO Q8H PRN PRN Reason: SBP above 170 Stop: 06/25/20 19:51 Last Admin: 05/26/20 20:10 Dose: 0.1 mg Documented by: Folic Acid (Folic Acid 1 Mg Tab) 1 mg PO DAILY [facility]ANE[facility] Stop: 06/26/20 08:59 Last Admin: 05/30/20 07:40 Dose: 1 mg Documented by: Hydromorphone HCl (Hydromorphone Inj 0.5 Mg/0.5 Ml Syr) 0.5 mg IV Q4H PRN PRN Reason: Pain Stop: 06/09/20 17:02 Last Admin: 05/31/20 05:32 Dose: 0.5 mg Documented by: Lactated Ringer's (Lr) 1,000 mls @ 100 mls/hr IV .Q10H [facility] Stop: 06/28/20 15:14 Last Infusion: 05/31/20 00:05 Dose: 100 mls/hr Documented by: Lactobacillus Acidoph/Casei/Rhamnos (Advanced Probiotic 1250 Mg Capsule) 2 cap PO DAILY DELANEY Stop: 06/26/20 08:59 Last Admin: 05/30/20 07:40 Dose: 2 cap Documented by: Lisinopril (Lisinopril 5 Mg Tab) 5 mg PO QAM [facility] Stop: 06/25/20 17:14 Last Admin: 05/30/20 07:41 Dose: 5 mg Documented by: Lorazepam (Lorazepam 1 Mg Tab) 1 - 3 mg PO UD PRN; Protocol PRN Reason: EtoH Withdrawal AWSS 6-10+ Stop: 06/25/20 17:46 Last Admin: 05/30/20 03:41 Dose: 1 mg Documented by: Metoprolol Succinate (Metoprolol Succ 50mg Ext Rel Tab) 50 mg PO DAILY [facility] Stop: 06/25/20 17:14 Last Admin: 05/30/20 07:41 Dose: 50 mg Documented by: Miscellaneous (Remove Nicoderm Patch) 1 ea N/A DAILY@0859 [facility] Stop: 06/26/20 08:58 Last Admin: 05/30/20 07:41 Dose: 1 ea Documented by: Multivitamins (Multivitamin Tab) [address] [facility] Stop: 06/26/20 08:59 Last Admin: 05/30/20 07:40 Dose: 1 tab Documented by: Nicotine (Nicotine 21 Mg/24 Hr Tdsy) 21 mg TD QAM [facility] Stop: 06/25/20 19:59 Last Admin: 05/30/20 07:40 Dose: 21 mg Documented by: Ondansetron HCl (Ondansetron Inj 2 Mg/Ml 2 Ml Vial) 4 mg IV Q6H PRN PRN Reason: Nausea Stop: 06/25/20 17:46 Last Admin: 05/28/20 12:37 Dose: 4 mg Documented by: Oxycodone HCl (Oxycodone Hcl Ir 5 Mg Tab (Immediate Release)) 5 mg PO Q6H PRN PRN Reason: Moderate Pain Stop: 06/13/20 09:59 Last Admin: 05/31/20 03:02 Dose: 5 mg Documented by: Pantoprazole Sodium (Pantoprazole 40 Mg Tab) 40 mg PO DAILY [facility] Stop: 06/25/20 17:14 Last Admin: 05/30/20 07:40 Dose: 40 mg Documented by: Polyethylene Glycol (Polyethylene (Miralax) 17 Gm Pack) 17 gm PO DAILY PRN PRN Reason: Constipation Stop: 06/25/20 17:46 Prasugrel (Prasugrel Tab 10 Mg Tab) 10 mg PO DAILY [facility] Stop: 06/25/20 17:14 Last Admin: 05/30/20 07:39 Dose: 10 mg Documented by: Thiamine HCl (Thiamine Hcl 100 Mg Tab) 100 mg PO QAM [facility] Stop: 06/26/20 08:59 Last Admin: 05/30/20 07:41 Dose: 100 mg Documented by: (1) Acute alcoholic pancreatitis Acute pancreatitis complication: unspecified Qualified Code(s): K85.20 - Alcohol induced acute pancreatitis without necrosis or infection
[2020-05-31] MEDS: PRASugrel TAB 10 MG TAB PO SCH (08:42)
[2020-05-31] MEDS: MULTIVITAMIN TAB PO SCH (08:42)
[2020-05-31] MEDS: METOPROLOL SUCC 50MG EXT REL TAB PO SCH (08:42)
[2020-05-31] MEDS: PANTOprazole 40 MG TAB PO SCH (08:42)
[2020-05-31] MEDS: ADVANCED PROBIOTIC 1250 MG CAPSULE PO SCH (08:42)
[2020-05-31] MEDS: THIAMINE HCL 100 MG TAB PO SCH (08:42)
[2020-05-31] MEDS: ATORVASTATIN 40 MG TAB PO SCH (08:43)
[2020-05-31] MEDS: ASPIRIN 81 MG ECTAB PO SCH (08:43)
[2020-05-31] MEDS: FOLIC ACID 1 MG TAB PO SCH (08:43)
[2020-05-31] MEDS: lisinopril 5 MG TAB PO SCH (08:43)
[2020-05-31] MEDS: NICOTINE 21 MG/24 HR TDSY TD SCH (08:43)
[2020-05-31] MEDS: LACTATED RINGER'S 1,000 ML IV SCH (08:50)
[2020-05-31] MEDS: LORazepam 1 MG TAB PO PRN (09:57)
[2020-05-31] MEDS ORDERED: HYDROmorphone INJ 0.5 MG/0.5 ML SYR IV PRN (10:09)
--- NOTE | 2020-05-31 12:52 | Discharge Summary ---
Date of Service May 31, 2020 Admission HPI Per Admitting Provider This is a 42-year-old male with PMH of alcohol use disorder, CAD status post stent to LAD and OM in 01/15, history of ADHD, depression, tobacco use and other medical problems listed below who presents with abdominal pain since this morning. Patient drinks 6-12 ounce hard ciders daily and sometimes additional vodka. Remembers having alcoholic pancreatitis last June. Woke up this morning with centralized sharp abdominal pain made worse with movement or drinking water. Drank a half a glass of vodka this morning and attempt to lessen pain. Had one episode of vomiting prior to arrival. Did not take any morning medications. In ED, patient is afebrile and hypertensive at 170/115. Ethyl etoh level is 179. CT abd/pelvis with acute pancreatitis. No evidence for pancreatic necrosis at this time. Admission Exam Per Admitting Provider General Appearance: vitals as above, NAD, in acute pain, sitting up in bed, pleasant but anxious Head: normocephalic, atraumatic Eyes: normal inspection, PERRL, conjunctivae normal, anicteric sclerae ENT: external ear and nose normal, oropharynx normal Neck: normal visual inspection, trachea midline, no thyromegaly Respiratory: normal respiratory effort, lungs clear to auscultation, no wheeze, rales, rhonchi. No accessory muscle use Cardiovascular: regular rate, rhythm, no murmur, normal peripheral pulses, no BLE edema. Vessels: no JVD Chest: normal inspection of chest Abdomen/GI: normal bowel sounds, soft but TTP in epigastrium, no hepatosplenomegaly Extremities/Musculoskeletal: no cyanosis or clubbing, extremities motor strength 5/5 Neurologic: PERRL, EOMI, accommodation nl, no face palsy, no dysarthria, CN's II-XI intact bilaterally and moves all extremities Psychiatric: A+Ox3, anxious Skin: no rashes, normal color, warm/dry Principal Diagnosis Alcoholic pancreatitis Alcohol abuse Elevated liver enzymes Discharge Exam General- No acute distress Head- atraumatic Eyes- PERRL, EOMI, ENT- oropharynx clear Neck- supple, no JVD Lungs- clear to auscultation Heart- RRR Abdomen- normal bowel sounds, soft, +mildly tender in epigastrium Extremities- no calf tenderness Neuro- alert, oriented x 3; PERRL, EOMI; no facial palsy; no dysarthria, moves extremities Skin- warm & dry Discharge Data Allergies Allergy/AdvReac Type Severity Reaction Status Date / Time banana AdvReac Unknown GI SYMPTOMS Verified 05/26/20 15:50 Consultations 05/26/20 15:30 ED Decision to Admit Stat Ordered Studies 05/26/20 14:35 CT abd pelvis IV con only Stat IMPRESSION: 1. Acute pancreatitis. No evidence for pancreatic necrosis at this time. 2. Mild thickening of the main portal vein wall without evidence for acute thrombosis. This may be reactive to the adjacent acute pancreatitis. 3. Severe hepatic steatosis. Hospital Course (1) Transaminitis: (2) Acute alcoholic pancreatitis: Present on admission with severe abdominal pain associated with Nausea and vomiting Mostly due to acute pancreatitis triggered by alcohol intake CT abd/pelvis showed acute pancreatitis and no evidence for pancreatic necrosis at this time. Lipase continue trending down 6205 --> 1217-->829 -->790 -> 514 Elevated on admission AST 154, ALT 138 , ALK phos 198. 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 Ethyl etoh level is 179 on admission Continued alcohol withdrawal protocol with gabapentin, IV Ativan as needed Continue folic acid and thiamine Refused any inpatient alcohol rehab Counseling on alcohol cessation Continue monitor closely for sign of DT and alcohol withdrawal (4) CAD (coronary artery disease): Continue aspirin, Prasugrel, statin, Toprol Clinically stable (5) Hypokalemia: Potassium 3.2 K replaced Continue monitor BMP (6) Hypertension: Continue lisinopril, Toprol BP improved PCP: Dr. Jackson Dispo Plan to discharge home today. Follow up on 06/02 w/ PCP Refused inpatient alcohol rehab Total Time Total Time Spent Total Time Spent (In Minutes): 35 Total Time Includes: Examination of the Patient, Discharge Planning and Medication Reconciliation Discharge Plan Discharge Items Patient Disposition: Home - Self-Care Reason For Visit: ACUTE PANCREATITIS, ALCOHOL WITHDRAWL Discharge Diagnosis: Alcoholic pancreatitis Alcohol abuse Elevated liver enzymes Activity: Per Instructions section Non-emergency contact: Primary Care Provider Call non-emergency contact if: you have any medication questions and your symptoms worsen Follow-up/Referrals: Lazaro Jackson DO [Primary Care Provider] - 06/02/20 10:20 am (Date & Time 06/02/2020 10:20 AM Provider Lazaro Jackson DO Department Family [facility] PLEASE NOTE THAT THIS IS A TELEVIDEO APPOINTMENT. PLEASE FOLLOW THE INSTRUCTIONS PROVIDED IN YOUR EMAIL. IF YOU HAVE ANY QUESTIONS OR WOULD LIKE TO CHANGE THE APPOINTMENT, PLEASE CALL ) Diet: Full liquid and Clear liquid Addtl Attending Provider Instructions: Follow up with your primary care doctor, as already scheduled on Jun.02. The time of your appointment was changed to 10:20 AM. It is crucial that you do not drink any alcohol. Also avoid any heavy foods for next couple of days. Pending Studies at Discharge: No Stand-Alone Forms: My [facility], Smoking Cessation Medications and DC Order Prescriptions: New thiamine HCl (vitamin B1) [Vitamin B-1] 100 mg Tablet 100 mg PO QAM 30 Days Qty: 30 RF: 0 oxycodone 5 mg Tablet 5 mg PO Q8H PRN (Reason: pain) Qty: 5 RF: 0 Continued multivitamin Tablet 1 tab PO QAM RF: 0 pantoprazole 40 mg tablet,delayed release (DR/EC) 40 mg PO DAILY RF: 0 nitroglycerin 0.4 mg Tablet, Sublingual 0.4 mg sublingual UD RF: 0 folic acid 1 mg tablet 1 mg PO DAILY RF: 0 Probiotic 3 billion cell Capsule 3 mmu cells PO DAILY RF: 0 lisinopril [Zestril] 5 mg Tablet 5 mg PO QAM Qty: 30 RF: 0 atorvastatin 80 mg tablet 80 mg PO DAILY Qty: 30 RF: 0 tizanidine 2 mg tablet 2 mg PO HS PRN (Reason: neck pain) RF: 0 sildenafil 50 mg tablet 50 mg PO UD PRN (Reason: Sexual Activity) RF: 0 amitriptyline 10 mg tablet 10 mg PO HS RF: 0 metoprolol succinate 50 mg tablet extended release 24 hr 50 mg PO DAILY RF: 0 aspirin 81 mg Tablet,Delayed Release (Dr/Ec) 81 mg PO DAILY RF: 0 prasugrel 10 mg tablet 10 mg PO DAILY RF: 0 Discharge Orders: Discharge Order (Routine); Ordered 05/31/20 Ordered By: Wilson Mosley Admission Data Admit Date/Time: 05/26/20 16:36 Attending Provider: Wilson Mosley Admit Provider: Leonor Camacho Primary Care Provider: Lazaro Jackson Other Providers: Leonor Camacho
[2020-05-31] MEDS ORDERED: FAMOTIDINE 20 MG in SYRINGE 3 ML IV ONE (13:00)
== END 2020-05-31 14:29 | disposition home or self-care (01) | DRG 439 ==
LOC: ED 14:05 → 2W 16:36 → SUATTDRO 16:36 → 2W 17:33

== ENCOUNTER 2023-03-25 18:46 | Inpatient (IN) ==
--- NOTE | 2023-03-25 19:04 | Emergency Department Note ---
Impression & Plan Alcohol intoxication, Multiple rib fractures ED Provider Note HISTORY OF PRESENT ILLNESS: Patient is a 52-year-old male presenting with right posterior rib pain and alcohol intoxication. Patient reports that last night it was dark and he tripped and fell into a guitar amp and struck the right posterior side of his ribs. States that he has been having pain ever since. He has been "drinking the pain away." He states he "only drank 2 4 Lebeau's today." I was called by EMS from the field and spoke with the patient because he was initially refusing care. He did express some statements about wanting to "stay home and ." On arrival to the ER, the patient denies any suicidal ideation. He reports he is only been drinking to help with the pain. Denies any nausea or vomiting. Denies striking his head or loss of consciousness. His significant other presents to bedside and reports that he has been on a "franco" for the last 5 days. Reports he had previously been sober. ROS: as above PHYSICAL EXAM: Constitutional: Patient appears in no acute distress. HENT: Head: Normocephalic and atraumatic. Eyes: EOMI, PERRL Mouth/Throat: Mucous membranes moist. Neck: Trachea midline. Neck supple. Cardiovascular: RRR, No murmurs, rubs or gallops. Intact distal pulses. Pulmonary/Chest: No respiratory distress. Breath sounds clear and equal bilaterally. No wheezes or rales. Right posterior ribs are tender to palpation with some overlying ecchymosis Abdominal: Abdomen soft, no tenderness, rebound or guarding. Musculoskeletal: No edema, tenderness or deformity noted. Skin: Warm and dry. No rash, erythema, pallor or cyanosis Psychiatric: Patient is intoxicated and speaking loudly. Neurological: Alert and keenly responsive. CN II-XII grossly intact, moving all extremities equally and fully. MDM: - Vitals signs stable. - History obtained via EMS and patient. Patient presents with right lower posterior rib pain and alcohol intoxication. Patient reports he has been drinking multiple 4 Lebeau's over the last few days. He states that he fell last night into a guitar speaker and hit the back right side of his chest and he has been having pain ever since. His significant other presents to bedside and reports that he has been on a "franco" for the last 5 days. Reports he had previously been sober. - Patient became verbally aggressive with staff and started to attempt to get out of bed and cause verbal altercation. He was given 50 mg IM benadryl, 2 mg IM ativan and 5 mg IM haldol for patient/staff safety and to allow for facilitating care. - Chronic conditions affecting care: HTN; CAD - Differential diagnoses include, but are not limited to: Pneumonia; rib fracture; pulmonary contusion; liver laceration; intracranial hemorrhage - Order placed for continuous cardiac monitoring. At this time, monitor showed rate of 86 bpm with normal sinus rhythm, per my interpretation. - External medical records reviewed. EMS run sheet was reviewed. Patient was vitally stable in route. No medication was given prehospital. - EKG reviewed by myself showed normal sinus rhythm. Rate 90 bpm. QTc 437. No acute ischemic changes. - Laboratory workup interpreted by myself showed normal WBC; hypokalemia (K 3.2); elevated anion (12); elevated lipase (106); negative acetaminophen/salicylate levels; elevated alcohol (342.6) - CXR negative for pneumonia, per my interpretation. - CT head wo contrast negative for acute intracranial pathology - CT cervical spine wo contrast negative for acute injury - CT chest/abdomen/pelvis with IV contrast showed normal posterior lateral rib fractures. - Discussion was had with progressive care manager about patient's case and need for admission - Hospitalist consulted for admission - [facility] ASSESSMENT AND PLAN: Diagnosis: alcohol intoxication; right-sided rib fractures Plan: admit Past Med/Surg History Medical History ADD (attention deficit disorder) Alcohol use disorder CAD (coronary artery disease) NSTEMI status post percutaneous intervention to the mid LAD and obtuse marginal branch vessel. December 2019. Dyslipidemia Hypertension Migraines Sleep disorder Surgical History History of endoscopy Hx of colonoscopy Family History Other Heart disease Social History Smoking Status: Never smoker Tobacco Type: E-cigarettes / Vaping Cigarettes Per Day: 6; Second Hand Exposure: No; Do You Dip or Chew Tobacco: No; Hx Alcohol Use: Yes Alcohol type: beer and hard liquor Hx Substance Use: Yes Last Used Substance: Days (ago) Substance Use Type Other:: medical marijuana Preferred Language: Georgian Communication Ability: Effective Communication Ability Comment: PT [employer]XICATED [employer] Required: No Beliefs That Will Affect Care: None marital status: Single Current Living Situation: Alone Feels Safe at Home: Yes Assistive Devices: None Allergies Allergies Allergy/AdvReac Type Severity Reaction Status Date / Time No Known Allergies Allergy Verified 03/25/23 19:26 Home Meds Home Medications Medication Instructions Recorded Confirmed tizanidine 2 mg tablet 2 mg PO HS PRN Back Pain 07/20/19 03/25/23 folic acid 1 mg tablet 1 mg PO DAILY 01/20/20 03/25/23 multivitamin 1 tab PO QAM 01/20/20 03/25/23 pantoprazole 40 mg tablet,delayed 40 mg PO DAILY 01/20/20 03/25/23 release aspirin 81 mg tablet,delayed 81 mg PO DAILY 03/26/20 03/25/23 release metoprolol succinate 50 mg 50 mg PO DAILY 03/26/20 03/25/23 tablet,extended release 24 hr dextroamphetamine-amphetamine 10 10 mg PO DAILY 03/25/23 03/25/23 mg tablet escitalopram oxalate 10 mg tablet 10 mg PO DAILY 03/25/23 03/25/23 escitalopram oxalate 5 mg tablet 5 mg PO DAILY 03/25/23 03/25/23 ezetimibe 10 mg tablet 10 mg PO DAILY 03/25/23 03/25/23 fenofibrate micronized 134 mg 134 mg PO QAM 03/25/23 03/25/23 capsule tadalafil 20 mg tablet 20 mg PO DIRECTED PRN Erectile 03/25/23 03/25/23 Dysfunction tamsulosin 0.4 mg capsule 0.4 mg PO DAILY 03/25/23 03/25/23 Previous Rx's Medication Instructions Recorded atorvastatin 80 mg tablet 80 mg PO DAILY #30 tabs 01/21/20 Results & Data (ED) Vital Signs Vital Signs - 24 hr 03/25/23 19:04 03/25/23 19:14 03/25/23 20:43 Temperature 36.6 C Temperature Source Oral Pulse Rate 91 H 84 Pulse Rate [Left Apical] 78 Pulse Rhythm [Left Apical] Regular Pulse Strength [Left Apical] Normal Respiratory Rate 16 20 Respiratory Effort / Characteristics Non-Labored Spontaneous Non-Labored Spontaneous Respiratory Depth Normal Normal Respiratory Pattern Regular Regular Blood Pressure 140/94 Blood Pressure [Right Arm] 141/92 H Blood Pressure Mean 109 Blood Pressure Mean [Right Arm] 108 Blood Pressure Position Lying Blood Pressure Position [Right Arm] Lying Pulse Oximetry 96 95 Oxygen Delivery Method Room Air Room Air Sepsis Recent Fever Within 48 Hours No Sepsis New/Unexplained Change in Mental Status N/A Sepsis Action Taken by Nursing No Action Required 03/25/23 23:30 Temperature Temperature Source Pulse Rate 86 Pulse Rate [Left Apical] Pulse Rhythm [Left Apical] Pulse Strength [Left Apical] Respiratory Rate Respiratory Effort / Characteristics Respiratory Depth Respiratory Pattern Blood Pressure Blood Pressure [Right Arm] Blood Pressure Mean Blood Pressure Mean [Right Arm] Blood Pressure Position Blood Pressure Position [Right Arm] Pulse Oximetry Oxygen Delivery Method Sepsis Recent Fever Within 48 Hours Sepsis New/Unexplained Change in Mental Status Sepsis Action Taken by Nursing Laboratory Data 03/25/23 19:06 03/25/23 19:06 Lab Results 03/25/23 Range/Units 19:06 WBC 10.25 (4.8-10.8) K/ul RBC 4.75 (4.70-6.10) M/uL Hgb 14.4 (14.0-18.0) g/dl Hct 40.9 L (42.0-52.0) % MCV 86.1 (80.0-100.0) fL MCH 30.3 (25.0-34.0) pg MCHC 35.2 (32.0-36.0) g/dL RDW Std Deviation 39.4 (36.4-46.3) fL RDW Coeff of Edilson 12.5 (11.5-14.5) % Plt Count 293 (130-400) K/uL MPV 8.5 L (9.4-12.4) fL Immature Gran % (Auto) 0.3 % Neut % (Auto) 64.7 % Lymph % (Auto) 27.5 % [place] % (Auto) 6.3 % Eos % (Auto) 0.4 % Baso % (Auto) 0.8 % Neut # (Auto) 6.63 H (1.40-6.50) K/uL Lymph # (Auto) 2.82 (1.20-3.40) K/uL [place] # (Auto) 0.65 H (0.11-0.59) K/uL Eos # (Auto) 0.04 (0.00-0.50) K/uL Baso # (Auto) 0.08 (0.00-0.20) K/uL Immature Gran # (Auto) 0.03 (0.01-0.20) K/uL Sodium 143 (136-145) mmol/L Potassium 3.2 L (3.5-5.1) mmol/L Chloride 106 (98-107) mmol/L Carbon Dioxide 25 (21-32) mmol/L Anion Gap 12 H (3-11) BUN 8 (6-23) mg/dl Creatinine 0.90 (0.6-1.4) mg/dl Est Cr Clr Drug Dosing 104.6 ml/min Est GFR ( Amer) 115.0 ml/min Est GFR (Non-Af Amer) 99.2 ml/min BUN/Creatinine Ratio 8.9 L (10-20) Glucose 139 H (70-99(Fasting)) mg/dl Calcium 8.9 (8.6-10.3) mg/dl Total Bilirubin 0.6 (0.2-1.0) mg/dl AST 41 H (13-39) U/L ALT 26 (7-52) U/L Alkaline Phosphatase 72 (34-104) U/L Troponin I High Sens 5.9 (0-20) pg/ml Total Protein 8.1 (6.0-8.3) gm/dl Albumin 4.9 (3.4-5.0) gm/dl Globulin 3.2 (2.5-4.0) gm/dl Albumin/Globulin Ratio 1.5 (0.9-2) Lipase 106 H (11-82) U/L Salicylates < 3.0 L (3.0-30) mg/dl Acetaminophen < 3 L (10-30) ug/ml Ethyl Alcohol mg/dL 342.6 H (<10.0) mg/dl Administered Medications Discontinued Medications Diphenhydramine HCl (Diphenhydramine 50 Mg/Ml Vial) 50 mg IV NOW STA Stop: 03/25/23 19:42 Last Admin: 03/25/23 19:50 Dose: 50 mg Documented By: AB Diphenhydramine HCl (Diphenhydramine 50 Mg/Ml Vial) 50 mg IM NOW STA Stop: 03/25/23 19:42 Last Admin: 03/25/23 19:50 Dose: Not Given Documented By: AB Haloperidol Lactate (Haloperidol Lactate 5 Mg/Ml 1 Ml Vial) 5 mg IM NOW STA Stop: 03/25/23 19:42 Last Admin: 03/25/23 19:49 Dose: 5 mg Documented By: AB Ioversol (Optiray 320 500ml) 94 ml IV ONCE ONE Stop: 03/25/23 20:45 Last Admin: 03/25/23 20:44 Dose: 94 ml Documented By: GEP Lorazepam (Lorazepam 2 Mg/1 Ml Vial) 2 mg IM NOW STA Stop: 03/25/23 19:42 Last Admin: 03/25/23 19:49 Dose: 2 mg Documented By: AB Imaging Data Radiologist's Impression: Chest X-Ray 03/25/23 19:01 XR chest 1V portable HISTORY: 52 years-old Male Chest pain, nonspecific COMPARISON: 08/03/2020 TECHNIQUE: AP view of the chest FINDINGS: Cardiac silhouette is enlarged. Coronary arterial stents. No pneumothorax, pleural effusion or airspace consolidation. Bones appear grossly intact. IMPRESSION: No acute process. ACT 112: Negative or not required by law. The above report was generated using voice recognition software. It may contain grammatical, syntax or spelling errors. Electronically signed by: Simeon Oglesby M.D. 03/25/2023 7:36 PM Abdomen/Pelvis CT 03/25/23 19:15 Exam(s): CT ABDOMEN + PELVIS With Contrast IV Amt: 94 cc opti 320 EXAM: CT Abdomen and Pelvis With Intravenous Contrast CLINICAL HISTORY: Reason for exam: right flank ecchymosis s/p fall. TECHNIQUE: Axial computed tomography images of the abdomen and pelvis with intravenous contrast. CTDI is 25.53 mGy and DLP is 811.65 mGy-cm. Automated exposure control was utilized for the study. A dose lowering technique was utilized adhering to the principles of ALARA. CONTRAST: Patient received 94 cc opti 320 of IV contrast COMPARISON: 05/26/2020 CT abdomen pelvis. FINDINGS: ABDOMEN: Liver: Unremarkable. Gallbladder and bile ducts: Unremarkable. Pancreas: Unremarkable. Spleen: Unremarkable. Adrenals: Unremarkable. Kidneys and ureters: Unremarkable. No obstructing stones. No hydronephrosis. Stomach and bowel: Unremarkable. PELVIS: Appendix: No findings to suggest acute appendicitis. Bladder: Unremarkable. Reproductive: Unremarkable as visualized. ABDOMEN and PELVIS: Intraperitoneal space: Unremarkable. No free air. No significant fluid collection. Bones/joints: Right posterior lateral eighth and ninth rib fractures. Soft tissues: Unremarkable. Vasculature: Unremarkable. Lymph nodes: Unremarkable. IMPRESSION: Right posterior lateral eighth and ninth rib fractures. Otherwise no traumatic injury within the abdomen or pelvis. Electronically signed by: Juan Alberto Berg MD 03/25/23 21:[address] 03/25/23 19:15 Exam(s): CT C SPINE EXAM: CT Cervical Spine Without Intravenous Contrast CLINICAL HISTORY: Reason for exam: trauma. TECHNIQUE: Axial computed tomography images of the cervical spine without intravenous contrast. CTDI is 23.49 mGy and DLP is 537.6 mGy-cm. Automated exposure control was utilized for the study. A dose lowering technique was utilized adhering to the principles of ALARA. COMPARISON: No relevant prior studies available. FINDINGS: Vertebrae: No acute fracture or malalignment. Soft tissues: Unremarkable. IMPRESSION: No acute fracture or malalignment. Electronically signed by: Juan Alberto Berg MD 03/25/23 21:[address] 03/25/23 19:15 Exam(s): CT CHEST With Contrast IV Amt: 94 cc opti 320 EXAM: CT Chest With Intravenous Contrast CLINICAL HISTORY: Reason for exam: trauma; right posterior rib pain. TECHNIQUE: Axial computed tomography images of the chest with intravenous contrast. CTDI is 24.73 mGy and DLP is 1379.52 mGy-cm. Automated exposure control was utilized for the study. A dose lowering technique was utilized adhering to the principles of ALARA. CONTRAST: Patient received 94 cc opti 320 of IV contrast COMPARISON: No relevant prior studies available. FINDINGS: Lungs: No consolidation or interstitial edema. Pleural space: No pleural effusion or pneumothorax. Heart: Moderate to severe coronary artery calcifications. Bones/joints: Right eighth and ninth posterior lateral rib fractures. Soft tissues: Unremarkable. Vasculature: No traumatic injury to the aorta. Lymph nodes: Unremarkable. IMPRESSION: Right eighth and ninth posterior lateral rib fractures. Electronically signed by: Juan Alberto Berg MD 03/25/23 21:[address] 03/25/23 19:15 Exam(s): CT HEAD Without Contrast EXAM: CT Head Without Intravenous Contrast CLINICAL HISTORY: Reason for exam: trauma. TECHNIQUE: Axial computed tomography images of the head/brain without intravenous contrast. CTDI is 37.78 mGy and DLP is 702.46 mGy-cm. Automated exposure control was utilized for the study. A dose lowering technique was utilized adhering to the principles of ALARA. COMPARISON: No relevant prior studies available. FINDINGS: Brain: No hemorrhage, extra-axial fluid collection, mass effect, or edema. Ventricles: Unremarkable. Bones/joints: Unremarkable. No fracture. Soft tissues: Unremarkable. Sinuses: No acute sinusitis. Mastoid air cells: Unremarkable as visualized. IMPRESSION: 1. No acute intracranial abnormality. Electronically signed by: Juan Alberto Berg MD 03/25/23 21:01 PM Discharge Plan Visit Data Chief Complaint: Fall Stated Complaint: R RIB PAIN, ETOH ED Provider: Lindsay Roldan Discharge Problem: Alcohol intoxication, Multiple rib fractures Forms Stand Alone Forms: [facility] Prescriptions Prescriptions: No Action multivitamin Tablet 1 tab PO QAM pantoprazole 40 mg tablet,delayed release (DR/EC) 40 mg PO DAILY folic acid 1 mg tablet 1 mg PO DAILY Rx Instructions: LAST FILLED 12/04/21 FOR 90 DAYS/90 TABS. atorvastatin 80 mg tablet 80 mg PO DAILY Qty: 30 0RF tizanidine 2 mg tablet 2 mg PO HS PRN (Reason: Back Pain) metoprolol succinate 50 mg tablet extended release 24 hr 50 mg PO DAILY aspirin 81 mg Tablet,Delayed Release (Dr/Ec) 81 mg PO DAILY dextroamphetamine-amphetamine 10 mg tablet 10 mg PO DAILY fenofibrate micronized 134 mg capsule 134 mg PO QAM Rx Instructions: LAST FILLED 12/19/22 FOR 90 TABS/90 DAYS, [place] [facility] [place] tamsulosin 0.4 mg capsule 0.4 mg PO DAILY Rx Instructions: [place] [facility] [place] 2 [place]S [place]AM". escitalopram oxalate 10 mg tablet 10 mg PO DAILY Rx Instructions: TOTAL DOSE 15 MG--TAKES WITH 5 MG TAB. ezetimibe 10 mg tablet 10 mg PO DAILY tadalafil 20 mg tablet 20 mg PO DIRECTED PRN (Reason: Erectile Dysfunction) escitalopram oxalate 5 mg tablet 5 mg PO DAILY Rx Instructions: TOTAL DOSE 15 MG--TAKES WITH 10 MG TAB. Referrals Referrals: Lazaro Jackson DO [Primary Care Provider] -
[2023-03-25 19:27] LABS: Basophils # (auto) 0.08 K/uL (0.00-0.20); Basophils % (auto) 0.8 %; Eosinophils # (auto) 0.04 K/uL (0.00-0.50); Eosinophils % (auto) 0.4 %; Hematocrit (blood only) 40.9 % (42.0-52.0); Hemoglobin 14.4 g/dl (14.0-18.0); Immature Granulocytes # (auto) 0.03 K/uL (0.01-0.20); Immature Granulocytes % (auto) 0.3 %; Lymphocytes # (auto) 2.82 K/uL (1.20-3.40); Lymphocytes % (auto) 27.5 %; Mean Corpuscular Hemoglobin 30.3 pg (25.0-34.0); Mean Corpuscular Hgb Conc 35.2 g/dL (32.0-36.0); Mean Corpuscular Volume 86.1 fL (80.0-100.0); Mean Platelet Volume 8.5 fL (9.4-12.4); Monocytes # (auto) 0.65 K/uL (0.11-0.59); Monocytes % (auto) 6.3 %; Neutrophils # (auto) 6.63 K/uL (1.40-6.50); Neutrophils % (auto) 64.7 %; Platelet Count 293 K/uL (130-400); RDW Coefficient of Variation 12.5 % (11.5-14.5); RDW Standard Deviation 39.4 fL (36.4-46.3); Red Blood Count 4.75 M/uL (4.70-6.10); White Blood Count 10.25 K/ul (4.8-10.8)
--- NOTE | 2023-03-25 19:38 | XRay Report ---
XR chest 1V portable HISTORY: 52 years-old Male Chest pain, nonspecific COMPARISON: 08/03/2020 TECHNIQUE: AP view of the chest FINDINGS: Cardiac silhouette is enlarged. Coronary arterial stents. No pneumothorax, pleural effusion or airspa ce consolidation. Bones appear grossly intact. IMPRESSION: No acute process. ACT 112: Negative or not required by law. The above report was generated using voice recognition software. It may contain grammatical, syntax o r spelling errors. Electronically signed by: Simeon Oglesby M.D. 03/25/2023 7:36 PM
[2023-03-25] MEDS ORDERED: HALOPERIDOL LACTATE 5 MG/ML 1 ML VIAL IM STA (19:41)
[2023-03-25] MEDS ORDERED: diphenhydrAMINE 50 MG/ML VIAL IM STA (19:41)
[2023-03-25] MEDS ORDERED: diphenhydrAMINE 50 MG/ML VIAL IV STA (19:41)
[2023-03-25] MEDS ORDERED: LORazepam 2 MG/1 ML VIAL IM STA (19:41)
[2023-03-25 19:43] LABS: Acetaminophen < 3 ug/ml (10-30); Albumin Globulin Ratio 1.5 (0.9-2); Albumin Level 4.9 gm/dl (3.4-5.0); BUN Creatinine Ratio 8.9 (10-20); Bilirubin,Total 0.6 mg/dl (0.2-1.0); Calcium 8.9 mg/dl (8.6-10.3); Creatinine Clr Calc Pharmacy 104.6 ml/min; Est GFR (Non-African American) 99.2 ml/min; Globulin 3.2 gm/dl (2.5-4.0); Potassium 3.2 mmol/L (3.5-5.1); Salicylate < 3.0 mg/dl (3.0-30); Total Protein 8.1 gm/dl (6.0-8.3)
[2023-03-25 19:51] LABS: Troponin I High Sensitivity 5.9 pg/ml (0-20)
[2023-03-25] MEDS ORDERED: OPTIRAY 320 500ml IV ONE (20:44)
--- NOTE | 2023-03-25 21:01 | CT Scan Report ---
Exam(s): CT C SPINE EXAM: CT Cervical Spine Without Intravenous Contrast CLINICAL HISTORY: Reason for exam: trauma. TECHNIQUE: Axial computed tomography images of the cervical spine without intravenous contrast. CTDI is 23.49 mGy and DLP is 537.6 mGy-cm. Automated exposure control was utilized for the study. A dose lowering technique was utilized adhering to the principles of ALARA. COMPARISON: No relevant prior studies available. FINDINGS: Vertebrae: No acute fracture or malalignment. Soft tissues: Unremarkable. IMPRESSION: No acute fracture or malalignment. Electronically signed by: Juan Alberto Berg MD 03/25/23 21:00 PM
--- NOTE | 2023-03-25 21:02 | CT Scan Report ---
Exam(s): CT HEAD Without Contrast EXAM: CT Head Without Intravenous Contrast CLINICAL HISTORY: Reason for exam: trauma. TECHNIQUE: Axial computed tomography images of the head/brain without intravenous contrast. CTDI is 37.78 mGy and DLP is 702.46 mGy-cm. Automated exposure control was utilized for the study. A dose lowering technique was utilized adhering to the principles of ALARA. COMPARISON: No relevant prior studies available. FINDINGS: Brain: No hemorrhage, extra-axial fluid collection, mass effect, or edema. Ventricles: Unremarkable. Bones/joints: Unremarkable. No fracture. Soft tissues: Unremarkable. Sinuses: No acute sinusitis. Mastoid air cells: Unremarkable as visualized. IMPRESSION: 1. No acute intracranial abnormality. Electronically signed by: Juan Alberto Berg MD 03/25/23 21:01 PM
--- NOTE | 2023-03-25 21:04 | CT Scan Report ---
Exam(s): CT CHEST With Contrast IV Amt: 94 cc opti 320 EXAM: CT Chest With Intravenous Contrast CLINICAL HISTORY: Reason for exam: trauma; right posterior rib pain. TECHNIQUE: Axial computed tomography images of the chest with intravenous contrast. CTDI is 24.73 mGy and DLP is 1379.52 mGy-cm. Automated exposure control was utilized for the study. A dose lowering technique was utilized adhering to the principles of ALARA. CONTRAST: Patient received 94 cc opti 320 of IV contrast COMPARISON: No relevant prior studies available. FINDINGS: Lungs: No consolidation or interstitial edema. Pleural space: No pleural effusion or pneumothorax. Heart: Moderate to severe coronary artery calcifications. Bones/joints: Right eighth and ninth posterior lateral rib fractures. Soft tissues: Unremarkable. Vasculature: No traumatic injury to the aorta. Lymph nodes: Unremarkable. IMPRESSION: Right eighth and ninth posterior lateral rib fractures. Electronically signed by: Juan Alberto Berg MD 03/25/23 21:04 PM
--- NOTE | 2023-03-25 21:08 | CT Scan Report ---
Exam(s): CT ABDOMEN + PELVIS With Contrast IV Amt: 94 cc opti 320 EXAM: CT Abdomen and Pelvis With Intravenous Contrast CLINICAL HISTORY: Reason for exam: right flank ecchymosis s/p fall. TECHNIQUE: Axial computed tomography images of the abdomen and pelvis with intravenous contrast. CTDI is 25.53 mGy and DLP is 811.65 mGy-cm. Automated exposure control was utilized for the study. A dose lowering technique was utilized adhering to the principles of ALARA. CONTRAST: Patient received 94 cc opti 320 of IV contrast COMPARISON: 05/26/2020 CT abdomen pelvis. FINDINGS: ABDOMEN: Liver: Unremarkable. Gallbladder and bile ducts: Unremarkable. Pancreas: Unremarkable. Spleen: Unremarkable. Adrenals: Unremarkable. Kidneys and ureters: Unremarkable. No obstructing stones. No hydronephrosis. Stomach and bowel: Unremarkable. PELVIS: Appendix: No findings to suggest acute appendicitis. Bladder: Unremarkable. Reproductive: Unremarkable as visualized. ABDOMEN and PELVIS: Intraperitoneal space: Unremarkable. No free air. No significant fluid collection. Bones/joints: Right posterior lateral eighth and ninth rib fractures. Soft tissues: Unremarkable. Vasculature: Unremarkable. Lymph nodes: Unremarkable. IMPRESSION: Right posterior lateral eighth and ninth rib fractures. Otherwise no traumatic injury within the abdomen or pelvis. Electronically signed by: Juan Alberto Berg MD 03/25/23 21:07 PM
[2023-03-26] MEDS ORDERED: MAGNESIUM SULFATE / D5W 1 GM/100 ML BAG IV ONE (03:00)
--- OUTSIDE RECORDS SUMMARY | 2023-03-26 03:12 | External Medical Summary | Summary of Care ---
Author Name Unknown Organization [facility] Address [address] [place] [address] Phone [phone] Care Team Providers Care Automatic Packer Operator Name Role Phone Lenny Ball MD Primary Care Provider + Reason for Visit * Reason Onset Date Comments Medication Refill 03/18/2023 Encounter Details Date Type Department Care Team (Late st Contact Info) Description 03/18/2023 Refill Family Practice [facility] [address] [facility] [place] [address] Lenny Ball MD [address] [place] [address] Tobacco use disorder; Erectile dysfunction, unspecified erectile dysfunction type Allergies No known active allergiesdocumented as of this encounter (statuses as of 03/19/2023) Medications Medication Sig Dispensed Refills Start Date End Date Status Multiple Vitamins-Minerals (MULTIVITAMIN ADULT) TABS Take by mouth. 0 Active Amitriptyline HCl 50 MG Oral Tablet (Elavil) Take by mouth 50 mg at bedtime . 0 Active Nitroglycerin 0.4 MG Sublingual Tablet Sublingual (Nitrostat)Indica tions:Coronary artery disease involving [place] coronary artery of sh[place]ne[place] heart without angina pectoris Place 1 Tab under the tongue as needed for Pain, Chest. May repeat 3 times. If chest pain continues, call 911. 63 Tab 11 08/26/2020 Active Additional Information Patient not taking.Reported on 06/25/2022 Lidocaine 4 % External Patch (Aspercreme)Indic ations:Chronic midline low back pain without sciatica Place topically on the skin 1 Patch daily . 30 Patch 3 07/19/2021 Active Additional Information Patient not taking.Reported on 05/21/2022 Tamsulosin HCl 0.4 MG Oral Capsule (Flomax) Take 1 capsule by mouth daily. May take a second capsule by mouth as needed. Max 2 capsules per day. 180 Capsule 0 05/09/2022 Active Tamsulosin HCl 0.4 MG Oral Capsule (Flomax) Take 2 Capsules by mouth in the morning. 180 Capsule 3 05/09/2022 Active Aspirin 81 MG Oral Tablet ChewableIndicatio ns:History of non-ST elevation myocardial infarction (NSTEMI) Take 1 Tablet by mouth in the morning. 90 Tablet 3 05/13/2022 Active Nicotine 7 MG/24HR Transdermal Patch 24 Hour (Nicotine Step 3)Indications:Tob acco use disorder Place 1 Patch topically on the skin daily. Start after you finish the 14 mg patches. 14 Patch 0 05/14/2022 Active Additional Information Patient not taking.Reported on 06/25/2022 Folic Acid 1 MG Oral TabletIndications :Alcohol abuse Take 1 tablet by mouth once daily 90 Tablet 0 06/11/2022 Active Ezetimibe 10 MG Oral Tablet (Zetia)Indication s:Coronary artery disease involving [place] coronary artery of [place] heart without angina pectoris,NSTEMI (non-ST elevation myocardial infarction) (HCC),Presence of drug coated stent in LAD coronary artery,Orthostati c hypotension,Ische kev cardiomyopathy,HT N, goal below 130/80,Dyslipidem ia, goal LDL below 70,ACS (acute coronary syndrome) ([facility]) Take 1 tablet by mouth once daily 90 Tablet 3 08/01/2022 Active Venlafaxine HCl ER 75 MG Oral Capsule Extended Release 24 Hour (Effexor XR) Take 1 capsule by mouth in the morning 30 Capsule 5 08/18/2022 Active Additional Information Patient not taking.Reported on 01/30/2023 Pantoprazole Sodium 40 MG Oral Tablet Delayed Release (Protonix)Indicat ions:Gastroesopha geal reflux disease without esophagitis TAKE 1 TABLET BY MOUTH IN THE MORNING 90 Tablet 1 11/07/2022 Active tiZANidine HCl 2 MG Oral Tablet (Zanaflex)Indicat ions:Chronic midline low back pain without sciatica TAKE 1 TABLET BY MOUTH AT BEDTIME NEEDED FOR BACK PAIN 30 Tablet 0 11/07/2022 Active Atorvastatin Calcium 80 MG Oral Tablet (Lipitor)Indicati ons:Coronary artery disease involving [place] coronary artery of shinnecock heart without angina pectoris,History of non-ST elevation myocardial infarction (NSTEMI) Take 1 tablet by mouth once daily 90 Tablet 1 11/12/2022 Active Tadalafil 5 MG Oral Tablet (Cialis) TAKE 1 TABLET BY MOUTH ONCE DAILY NEEDED FOR ERECTILE DYSFUNCTION 30 Tablet 0 11/27/2022 Active Metoprolol Succinate ER 50 MG Oral Tablet Extended Release 24 Hour (toPROL XL) TAKE 1 TABLET BY MOUTH IN THE MORNING 90 Tablet 3 12/05/2022 Active Fenofibrate Micronized 134 MG Oral Capsule Take 1 capsule by mouth in the morning 90 Capsule 3 12/19/2022 Active Escitalopram Oxalate 10 MG Oral Tablet (Lexapro) Take 1 Tablet by mouth in the morning. 90 Tablet 0 03/04/2023 4 Active Escitalopram Oxalate 5 MG Oral Tablet (Lexapro) Take 1 Tablet by mouth in the morning. 90 Tablet 0 03/04/2023 4 Active Amphetamine-Dextr oamphetamine 10 MG Oral Tablet (Adderall) Take 1 Tablet by mouth in the morning. 30 Tablet 0 03/04/2023 3 Active Amphetamine-Dextr oamphetamine 20 MG Oral Tablet (Adderall) Take 1 Tablet by mouth in the morning and 1 Tablet before bedtime. Do not start before 2023. 0 2023 Active Nicotine 14 MG/24HR Transdermal Patch 24 Hour (Nicotine Step 2)Indications:Tob acco use disorder Place 1 Patch over 24 hours topically on the skin daily. For 2 weeks 14 Patch 0 03/19/2023 Active Tadalafil 20 MG Oral Tablet (Cialis) TAKE 1 TABLET BY MOUTH ONCE DAILY NEEDED FOR ERECTILE DYSFUNCTION 10 Tablet 0 03/18/2023 Active Sildenafil Citrate 50 MG Oral TabletIndications :Erectile dysfunction, unspecified erectile dysfunction type TAKE 1 TABLET BY MOUTH 1 TO 4 HOURS BEFORE INTERCOURSE. DO NOT TAKE MORE THAN 1 TABLET IN A 24 HOUR PERIOD 10 Tablet 0 03/19/2023 Active Sildenafil Citrate 50 MG Oral TabletIndications :Erectile dysfunction, unspecified erectile dysfunction type TAKE 1 TABLET BY MOUTH 1 TO 4 HOURS BEFORE INTERCOURSE. DO NOT TAKE MORE THAN 1 TABLET IN A 24 HOUR PERIOD 10 Tablet 0 01/14/2023 3 Discontinue d(Refill) Nicotine 14 MG/24HR Transdermal Patch 24 Hour (Nicotine Step 2)Indications:Tob acco use disorder Place 1 Patch over 24 hours topically on the skin daily. For 2 weeks 14 Patch 0 01/19/2023 3 Discontinue d(Refill) Sildenafil Citrate 50 MG Oral TabletIndications :Erectile dysfunction, unspecified erectile dysfunction type TAKE 1 TABLET BY MOUTH 1 TO 4 HOURS BEFORE INTERCOURSE. DO NOT TAKE MORE THAN 1 TABLET IN A 24 HOUR PERIOD Strength: 50 mg 10 Tablet 0 03/19/2023 3 Discontinue d(Refill) documented as of this encounter (statuses as of 03/19/2023) Active Problems Problem Noted Date Diagnosed Date Food insecurity 07/08/2022 Overview: Per [facility] Protocol HTN, goal below 130/80 06/25/2022 Gastroesophageal reflux disease without esophagi tis 06/25/2022 History of alcohol use 06/12/2021 ADHD (attention deficit hype ractivity disorder), combined type 06/12/2021 Tobacco use disorder 06/12/2021 Major depressive disorder, recurrent, moderate 0 06/12/2021 Chronic midline low back pain without sciatica 1 05/01/2020 BPH with obstruction/lower urinary tract symptom s 03/01/2021 Adjustment disorder with anxious mood 03/01/2021 Alcoholic liver disease 06/06/2020 Coronary artery disease invo lving shinnecock coronary artery of shinnecock heart without angina pectoris 01/25/2020 History of non-ST elevation myocardial infarctio n (NSTEMI) 01/25/2020 Status post insertion of drug eluting coronary a rtery stent 01/25/2020 Affective disorder Overview: sees Dr. Castanon Anxiety documented as of this encounter (statuses as of 03/19/2023) Resolved Problems Problem Noted Date Diagnosed Date Resolved Date Alcohol-induced acute pancreatitis 06/06/2020 06/12/2021 Alcohol dependence, continuous 06/06/2020 06/12/2021 Seizure 06/06/2020 06/12/2021 Alcohol abuse 07/22/2018 06/12/2021 Depression 06/25/2022 documented as of this encounter (statuses as of 03/19/2023) Immunizations Name Administration Dates Next Due COVID-19 mRNA, LNP-s, No Pre serve, 2-Dose Series (Pfizer) 09/23/2020,09/02/2020 Hepatitis B, 20+ yrs 06/25/2022,01/21/2022,12/19 Pneumococcal Conjugate Vacci ne, 20-valent ([id number]) 12/19/2021 Pneumococcal Polysaccharide PPV23 (Pneumovax) 07/13/2013 SEASONAL INFLUENZA, PF, 6 M & Above, IM , (FLULAVAL or FLUZONE) 01/21/2022,02/01/2021,01/25/2020,05/05 Seasonal Influenza Virus Vac cine, Unspecified Formulation 02/01/2021,01/25/2020,05/05/2019 TDAP (age 10 and older)(Boostrix) 07/13/2013 Zoster Vaccine Recombinant (Shingrix) 06/25/2022 documented as of this encounter Social History Tobacco Use Types Packs/Day Years Used Date Smoking Tobacco: Every Day Cigarettes Last attempted to quit: 01/20/2019 Vaporizer Smokeless Tobacco: Never Alcohol Use Standard Drinks/Week Comments Yes 32 (1 standard drink = 0.6 oz pu re alcohol) 2 drinks a week if that PHQ-2 Answer Date Recorded PHQ Adult Total Score 0 12/19/2021 Hunger Vital Sign Answer Date Recorded Within the past 12 months, y ou worried that your food would run out before you got the money to buy more. Sometimes true Within the past 12 months, t he food you bought just didn't last and you didn't have money to get more. Sometimes true Sex and Gender Information Value Date Recorded Sex Assigned at Male 09/22/2018 1:56 PM EDT Gender Identity Male 09/22/2018 1:56 PM EDT Sexual Orientation Straight 09/22/2018 1: 56 PM EDT Job Start Date Occupation Industry Not on file Not on file Not on file documented as of this encounter Miscellaneous Notes * Addendum Note - Hay Navarro, [facility] - 03/19/2023 11:41 AM ESTAddended by: HAY NAVARRO on: 03/19/2023 11:41 AM Modules accepted: Orders * Telephone Encounter - Hay Navarro [facility] - 03/19/2023 11:32 AM EST Per chart review, patient using Tadalafil 5mg daily for BPH symptoms and Sildenafil for impotence. Left message on for call back to confirm this. Refill authorized Thank You, Hay Navarro [facility] Clinical Pharmacist [facility] [phone] 03/19/2023, 11:40 AM * Telephone Encounter - Hay Navarro [facility] - 03/19/2023 11:28 AM ESTSigned Prescriptions: Disp Refills Sildenafil Citrate 50 MG Oral Tablet 10 Tab*0 Sig: TAKE 1 TABLETBY MOUTH 1 TO 4 HOURS BEFORE INTERCOURSE. DO NOT TAKE MORE THAN 1 TABLET IN A 24 HOUR PERIOD Strength: 50 mgAuthorizing Provider: LENNY BALL User: HAY NAVARRO Nicotine 14 MG/24HR Transdermal Patch 24 H*14 Pat*0 Sig: Place 1 Patch over 24 hours topically onthe skin daily. For 2 weeksAuthorizing Provider: LENNY BALL User: HAY NAVARRO LRefused Prescriptions: Disp Refills Nicotine 7 MG/24HR Transdermal Patch 24 Ho*14 Pat*0 Sig: Place 1 Patch topically on the skin daily. Start after you finish the 14 mg patches.Refused By: HAY NAVARROeason for Refusal: Refill Not Appropriate * Telephone Encounter - Hay Navarro [facility] - 03/19/2023 11:00 AM ESTPending Prescriptions: Disp Refills Nicotine 7 MG/24HR Transdermal Patch 24 Ho*14 Pat*0 Sig: Place 1 Patch topically on the skin daily. Start after you finish the 14 mg patches. Sildenafil Citrate 50 MG Oral Tablet 10 Tab*0 Nicotine 14 MG/24HR Transdermal Patch 24 H*14 Pat*0 Sig: Place 1 Patch over 24 hours topically on the skin daily. For 2 maxine ball * Telephone Encounter - Provider, Patient Portal - 03/19/2023 8:05 AM ESTPending Prescriptions: Disp Refills Nicotine 7 MG/24HR Transdermal Patch 24 Ho*14 Pat*0 Sig: Place 1 Patch topically on the skin daily. Start after you finish the 14 mg patches. Sildenafil Citrate 50 MG Oral Tablet 10 Tab*0 Nicotine 14 MG/24HR Transdermal Patch 24 H*14 Pat*0 Sig: Place 1 Patch over 24 hours topically on the skin daily. For 2 maxine ball * Telephone Encounter - Hay Navarro [facility] - 03/19/2023 7:41 AM EST MyG message sent to see if patient is ready to step down to 7mg patch. Thank You, Hay Navarro [facility] Clinical Pharmacist [facility] ([facility] ([facility]) [phone] 03/19/2023, 7:43 AM documented in this encounter Plan of Treatment Upcoming Encounters Date Type Department Care Team (Late st Contact Info) Description 04/04/2023 12:30 PM EST Telemedicine Psychiatry, [facility] [address] [place] [address] Sara Swanson MD [address] [place] [address] 05/07/2023 3:20 PM EST [facility] [place] [phone] [facility] [address] [facility] [place] [address] 05/30/2023 9:45 AM EST Office Visit Urology, [facility] [address] [facility] [place] [address] Mukund Hui MD [address] [place] [address] [place] [address] Scheduled Procedures Name Priority Associated Diagnoses Date/Ti me COLONOSCOPY FLEXIBLE PROXIMAL DIAGNOSTIC Recall History of colon polyps Health Maintenance Due Date Last Done Comments DISCUSS TOBACCO CESSATION (REFER TO SMARTSET #9741) 1972 Albumin/Creatinine Ratio 1990 Zoster Vaccines (2 of 2) 08/20/2022 06/25/2022 Depression Screening 12/19/2022 12/19/2021, 08/21/19 18 GFR 12/19/2022 12/19/2021, 06/27, 06/12/2021, Additional history exists COVID-19 Vaccine ( - 2022- season) 2022 09/23/2020, 09/02/2020 Influenza Vaccine (FLU shot) (#1) 2022 01/21/2022, 02/01/2021, 02/01/2021, Additional history exists COLONOSCOPY-EVERY 5 YRS AGES 18-100 02/17/2023 02/17/2018, 02/17/2018 DTaP,Tdap,and Td Vaccines (2 - Td or Tdap) 07/14/2023 07/13/2013 Diabetes Screening 12/19/2024 12/19/2021, 0 07/19/2021, 06/30/2021, Additional history exists Hepatitis C Screening Completed 10/14/2018 Pneumococcal Vaccine: Pediatrics (0 to 5 Years) and At-Risk Patients (6 to 64 Years) Completed 12/19/2021, 07/13/2013 Hepatitis B Completed 06/25/2022, 12/28, 12/19/2021 GARDASIL-HPV IMMUNIZATION SERIES Aged Out No longer eligible based on patient's age to complete this topic MENINGOCOCCAL (MENACTRA/MENVEO) Aged Out No longer eligible based on patient's age to complete this topic documented as of this encounter Medical Devices Not on filedocumented as of this encounter Visit Diagnoses Diagnosis Tobacco use disorder Erectile dysfunction, unspecified erectile dysfunction type documented in this encounter Care Teams Automatic Packer Operator Relationship Specialty Start Date End Date Lenny Ball MD [address] [place] [address] PCP - General Internal Medicine 05/18/21 documented as of this encounter
--- OUTSIDE RECORDS SUMMARY | 2023-03-26 03:13 | External Medical Summary | Summary of Care ---
Author Name Unknown Organization [facility] Address [address] [place] [address] Phone [phone] Care Team Providers Care Sales Recruitment Specialist Name Role Phone Lenny Ball MD Primary Care Provider + Reason for Visit * Reason Onset Date Comments Medication Refill 01/13/2023 Encounter Details Date Type Department Care Team Description 01/13/2023 Refill General Internal Medicine [facility] [address] [place] [address] Lenny Ball MD [address] [place] [address] Tobacco use disorder Allergies No known active allergiesdocumented as of this encounter (statuses as of 01/19/2023) Medications Medication Sig Dispensed Refills Start Date End Date Status Multiple Vitamins-Minerals (MULTIVITAMIN ADULT) TABS Take by mouth. 0 Active Amitriptyline HCl 50 MG Oral Tablet (Elavil) Take by mouth 50 mg at bedtime . 0 Active Nitroglycerin 0.4 MG Sublingual Tablet Sublingual (Nitrostat)Indica tions:Coronary artery disease involving [place] coronary artery of [place] heart without angina pectoris Place 1 Tab under the tongue as needed for Pain, Chest. May repeat 3 times. If chest pain continues, call 911. 25 Tab 11 08/26/2020 Active Additional Information Patient [...] Oral Tablet (Zetia)Indication s:Coronary artery disease involving [place] coronary artery of [place] heart without angina pectoris,NSTEMI (non-ST elevation myocardial infarction) (HCC),Presence of drug coated stent in LAD coronary artery,Orthostati c hypotension,Ische kev cardiomyopathy,HT N, goal below 130/80,Dyslipidem ia, goal LDL below 70,ACS (acute coronary syndrome) ([facility]) Take 1 tablet by mouth once daily 90 Tablet 3 08/01/2022 Active Venlafaxine HCl ER 75 MG Oral Capsule Extended Release 24 Hour (Effexor XR) Take 1 capsule by mouth in the morning 30 Capsule 5 08/18/2022 Active Pantoprazole Sodium 40 MG Oral Tablet Delayed [...] Oral Tablet (Lipitor)Indicati ons:Coronary artery disease involving [place] coronary artery of [place] heart without angina pectoris,History of non-ST elevation [...] the morning 90 Capsule 3 12/19/2022 Active Amphetamine-Dextr oamphetamine 20 MG Oral Tablet (Adderall) Take 1 Tablet by mouth in the morning and 1 Tablet before bedtime. 60 Tablet 0 12/31/2022 3 Active Tadalafil 20 MG Oral Tablet (Cialis) TAKE 1 TABLET BY MOUTH ONCE DAILY NEEDED FOR ERECTILE DYSFUNCTION 10 Tablet 0 01/10/2023 Active Sildenafil Citrate 50 MG Oral TabletIndications :Erectile dysfunction, unspecified erectile dysfunction type TAKE 1 TABLET BY MOUTH 1 TO 4 HOURS BEFORE INTERCOURSE. DO NOT TAKE MORE THAN 1 TABLET IN A 24 HOUR PERIOD 10 Tablet 0 01/14/2023 Active Nicotine 14 MG/24HR Transdermal Patch 24 Hour (Nicotine Step 2)Indications:Tob acco use disorder Place 1 Patch over 24 hours topically on the skin daily. For 2 weeks 14 Patch 0 01/19/2023 Active Nicotine 14 MG/24HR Transdermal Patch 24 Hour (Nicotine Step 2)Indications:Tob acco use disorder Place 1 Patch over 24 hours topically on the skin daily. Start in 6 weeks 28 Patch 0 11/11/2022 3 Discontinue d(Refill) Nicotine 21 MG/24HR Transdermal Patch 24 Hour (Nicotine Step 1)Indications:Tob acco use disorder Place 1 Patch topically on the skin daily. 56 Patch 0 12/20/2022 3 Discontinue d(Medicatio n/Dose Changed) documented as of this encounter (statuses as of 01/19/2023) Active Problems Problem Noted Date Food insecurity 07/08/2022 Overview: Per [facility] Protocol HTN, goal below 130/80 06/25/2022 Gastroesophageal reflux disease without esophagitis 06/25/2022 History of alcohol use 06/12/2021 ADHD (attention deficit hyperactivity di sorder), combined type 06/12/2021 Tobacco use disorder 06/12/2021 Major depressive disorder, recurrent, mo derate 06/12/2021 Chronic midline low back pain without sc iatica 03/01/2021 BPH with obstruction/lower urinary tract symptoms 03/01/2021 Adjustment disorder with anxious mood Alcoholic liver disease 06/06/2020 Coronary artery disease invo lving [place] coronary artery of [place] heart without angina pectoris 01/25/2020 History of non-ST elevation myocardial i nfarction (NSTEMI) 01/25/2020 Status post insertion of drug eluting co ronary artery stent 01/25/2020 Affective disorder Overview: sees Dr. Castanon Anxiety documented as of this encounter (statuses as of 01/19/2023) Resolved Problems Problem Noted Date Resolved Date Alcohol-induced acute pancreatitis 06/06/2020 06/12/2021 Alcohol dependence, continuous 06/06/2020 0 06/12/2021 Seizure 06/06/2020 06/12/2021 Alcohol abuse 07/22/2018 06/12/2021 Depression 06/25/2022 documented as of this encounter (statuses as of 01/19/2023) Immunizations Name Administration Dates Next Due COVID-19 mRNA, LNP-s, No Pre serve, 2-Dose Series (Embly) 09/23/2020,09/02/2020 Hepatitis B, 20+ yrs 06/25/2022,01/21/2022,12/19 Pneumococcal Conjugate Vacci ne, 20-valent ([id number]) 12/19/2021 Pneumococcal Polysaccharide PPV23 (Pneumovax) 07/13/2013 Seasonal Influenza Virus Vac cine, Unspecified Formulation 02/01/2021,01/25/2020,05/05/2019 Seasonal Influenza, PF, 6 mo ns & Above, IM , (Flulaval) 01/21/2022,02/01/2021,01/25/2020,05/05 TDAP (age 10 and older)(Boostrix) 07/13/2013 Zoster Vaccine Recombinant (Shingrix) 06/25/2022 documented as of this encounter Social History Tobacco Use Types Packs/Day Years Used Date Smoking Tobacco: Every Day Cigarettes Last attempted to quit: 01/20/2019 Vaporizer Smokeless Tobacco: Never Alcohol Use Standard Drinks/Week Comments Yes 32 (1 standard drink = 0.6 oz pu re alcohol) 2 drinks a week if that Food Insecurity Answer Date Recorded Within the past 12 months, y ou worried that your food would run out before you got money to buy more. Sometimes true 2022 Within the past 12 months, t he food you bought just didn't last and you didn't have money to get more. Sometimes true Sex Assigned at Date Recorded Male 09/22/2018 1:56 PM E DT Job Start Date Occupation Industry Not on file Not on file Not on file documented as of this encounter Miscellaneous Notes * Telephone Encounter - Gi Figueroa RP - 01/19/2023 9:29 AM EDTSigned Prescriptions: Disp Refills Nicotine 14 MG/24HR Transdermal Patch 24 H*14 Pat*0 Sig: Place 1Patch over 24 hours topically on the skin daily. For 2 weeksAuthorizing Provider: LENNY BALL User: GI FIGUEROARefused Prescriptions: Disp Refills Nicotine 21 MG/24HR Transdermal Patch 24 H*56 Pat*0 Sig: Place 1 Patch topically on the skin daily.Refused By: GI FIGUEROA for Refusal: Dose needs clarification * Telephone Encounter - Gi Figueroa RP - 01/14/2023 10:40 AM EDT Refused Prescriptions: Disp Refills Nicotine 21 MG/24HR Transdermal Patch 24 H*56 Pat*0 Sig: Place 1 Patch topically on the skin daily.Refused By: GI FIGUEROA for Refusal: Dose needs cl arification documented in this encounter Plan of Treatment Upcoming Encounters Date Type Specialty Care Team Description 01/22/2023 Office Visit Urology Mukund Hui MD [address] [place] [address] [place] [address] 01/30/2023 [facility]iatry [facility] [address] [facility] [address] 05/07/2023 Office Visit Sleep Disorders Dana Galvan, [address] [place] [address] Scheduled Procedures Name Priority Associated Diagnoses Date/Ti me COLONOSCOPY FLEXIBLE PROXIMAL DIAGNOSTIC Recall History of colon polyps Health Maintenance Due Date Last Done Comments DISCUSS TOBACCO CESSATION (REFER TO SMARTSET #3741) 1972 Albumin/Creatinine Ratio 1990 COVID-19 Vaccine (3 - Pfizer series) 11/18/2020 09/23/2020, 09/02/2020 Zoster Vaccines (2 of 2) 08/20/2022 06/25/2022 Depression Screening 12/19/2022 12/19/2021, 08/21/19 18 GFR 12/19/2022 12/19/2021, 06/27, 06/12/2021, Additional history exists Influenza Vaccine (FLU shot) (#1) 2022 01/21/2022, [...] encounter Visit Diagnoses Diagnosis Tobacco use disorder documented in this encounter Care Teams Sales Recruitment Specialist Relationship Specialty Start Date End Date Lenny Ball MD [address] [place] [id number] PCP - General Internal Medicine 05/18/21 documented as of this encounter
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
--- OUTSIDE RECORDS SUMMARY | 2023-03-26 03:13 | External Medical Summary | Summary of Care ---
Author Name Unknown Organization [facility] Address [address] [place] [address] Phone [phone] Care Team Providers Care Shellfish Harvester Name Role Phone Lenny Castle MD Primary Care Provider + Reason for Visit * Reason Onset Date Comments Other 01/27/2023 Encounter Details Date Type Department Care Team Description 01/27/2023 Telephone Psychiatry, [place] [address] [place] [address] Sara Swanson MD [address] [place] [address] Other (/) Allergies No known active allergiesdocumented as of this encounter (statuses as of 01/29/2023) Medications Medication Sig Dispensed Refills Start Date End Date Status Multiple Vitamins-Minerals (MULTIVITAMIN ADULT) TABS Take by mouth. 0 Active Amitriptyline HCl 50 MG Oral Tablet (Elavil) Take by mouth 50 mg at bedtime . 0 Active Nitroglycerin 0.4 MG Sublingual Tablet Sublingual (Nitrostat)Indicat ions:Coronary artery disease involving [place] coronary artery of [place] heart without angina pectoris Place 1 Tab [...] Transdermal Patch 24 Hour (Nicotine Step 3)Indications:Toba account resolution expert use disorder Place 1 Patch topically on the skin daily. Start after you finish the 14 mg patches. 14 Patch 0 05/14/2022 Active Additional Information Patient not taking.Reported on 06/25/2022 Folic Acid 1 MG Oral TabletIndications: Alcohol abuse Take 1 tablet by mouth once daily 90 Tablet 0 06/11/2022 Active Ezetimibe 10 MG Oral Tablet (Zetia)Indications :Coronary artery disease involving [place] coronary artery of [place] heart without angina pectoris,NSTEMI (non-ST elevation myocardial [...] Oral Tablet (Lipitor)Indicatio ns:Coronary artery disease involving [place] coronary artery of [place] heart without angina pectoris,History of non-ST elevation [...] the morning 90 Capsule 3 12/19/2022 Active Amphetamine-Dextro amphetamine 20 MG Oral Tablet (Adderall) Take 1 Tablet by mouth in the morning and 1 Tablet before bedtime. 60 Tablet 0 12/31/2022 01/30/2023 Active Tadalafil 20 MG Oral Tablet (Cialis) [...] Transdermal Patch 24 Hour (Nicotine Step 2)Indications:Toba account resolution expert use disorder Place 1 Patch over 24 hours topically on the skin daily. For 2 weeks 14 Patch 0 01/19/2023 Active documented as of this encounter (statuses as of 01/29/2023) Active Problems Problem Noted Date Food insecurity 07/08/2022 Overview: Per [facility] Protocol HTN, goal below 130/80 06/25/2022 [...] disease 06/06/2020 Coronary artery disease invo lving [place] coronary artery of [place] heart without angina pectoris 01/25/2020 History of non-ST elevation myocardial i nfarction (NSTEMI) 01/25/2020 Status post insertion of drug eluting co ronary artery stent 01/25/2020 Affective disorder Overview: sees Dr. Castanon Anxiety documented as of this encounter (statuses as of 01/29/2023) Resolved Problems Problem Noted Date Resolved Date Alcohol-induced acute pancreatitis 06/06/2020 06/12/2021 Alcohol dependence, continuous 06/06/2020 0 06/12/2021 Seizure 06/06/2020 06/12/2021 Alcohol abuse 07/22/2018 06/12/2021 Depression 06/25/2022 documented as of this encounter (statuses as of 01/29/2023) Immunizations Name Administration Dates Next Due COVID-19 mRNA, LNP-s, No Pre serve, 2-Dose Series ([place]) 09/23/2020,09/02/2020 Hepatitis B, 20+ yrs 06/25/2022,01/21/2022,12/19 Pneumococcal Conjugate Vacci ne, 20-valent ([id number]) 12/19/2021 Pneumococcal Polysaccharide PPV23 (Pneumovax) 07/13/2013 SEASONAL [...] encounter Miscellaneous Notes * Telephone Encounter - IVY Perry - 01/27/2023 4:12 PM EDT Patient calling to let you know he is at training for a new job and not at home for his appt on . Also, patient will need refill on Adderall either Friday night so he has some for or atappt on . Patient - [phone] Addended on 01/29/23 at 2:34 PM by Sara Swanson MD Attempted to call pt multiple times on both numbers, but no response. Also sent a Zoom message informing him to reach out to reschedule if needed. documented in this encounter Plan of Treatment Upcoming Encounters Date Type Specialty Care Team Description 01/30/2023 Telemedicine Psychiatry Sara Swanson MD [address] [facility] [place] [address] 05/07/2023 Office Visit Sleep Disorders Dana Galvan DO [address] [place] [address] 05/30/2023 Office Visit Urology Mukund Hui MD [address] [place] [address] [place] [address] Scheduled Procedures Name Priority Associated Diagnoses Date/Ti me COLONOSCOPY FLEXIBLE PROXIMAL DIAGNOSTIC Recall History of colon polyps Health Maintenance Due Date Last Done Comments DISCUSS TOBACCO CESSATION (REFER TO SMARTSET #7927) 1972 Albumin/Creatinine Ratio 1990 Zoster Vaccines (2 [...] Not on filedocumented as of this encounter Care Teams Shellfish Harvester Relationship Specialty Start Date End Date Lenny Castle MD [address] [place] [address], [place] [address] PCP - General Internal Medicine 05/18/21 documented as of this encounter
--- OUTSIDE RECORDS SUMMARY | 2023-03-26 03:13 | External Medical Summary | Summary of Care ---
Author Name Unknown Organization [facility] Address [address] [place] [place] [place] [address] Phone [phone] Care Team Providers Care Music Therapist [employer] Name Role Phone Lenny Castle MD Primary Care Provider + Reason for Visit * Reason Comments eRx-Medication Refill Encounter Details Date Type Department Care Team Description 01/10/2023 Refill Urology, [facility] [address] [facility] [place] [address] Mukund Yeager MD [address] [facility] [place] [address] [facility] [place] [address] Allergies No known active allergiesdocumented as of this encounter (statuses as of 01/10/2023) Medications Medication Sig Dispensed Refills Start Date End Date Status Multiple Vitamins-Mineral s (MULTIVITAMIN ADULT) TABS Take by mouth. 0 Active Amitriptyline HCl 50 MG Oral Tablet (Elavil) Take by mouth 50 mg at bedtime . 0 Active Nitroglycerin 0.4 MG Sublingual Tablet Sublingual (Nitrostat)Indic ations:Coronary artery disease involving [place] coronary artery of [place] heart without angina pectoris Place 1 Tab under the tongue as needed for Pain, Chest. May repeat 3 times. If chest pain continues, call 911. 25 Tab 11 08/26/2020 Active Additional Information Patient not taking.Reported on 06/25/2022 Lidocaine 4 % External Patch (Aspercreme)Polina cations:Chronic midline low back pain without sciatica Place [...] 05/09/2022 Active Aspirin 81 MG Oral Tablet ChewableIndicati ons:History of non-ST elevation myocardial infarction (NSTEMI) Take 1 Tablet by mouth in the morning. 90 Tablet 3 05/13/2022 Active Nicotine 7 MG/24HR Transdermal Patch 24 Hour (Nicotine Step 3)Indications:To bacco use disorder Place 1 Patch topically on the skin daily. Start after you finish the 14 mg patches. 14 Patch 0 05/14/2022 Active Additional Information Patient not taking.Reported on 06/25/2022 Folic Acid 1 MG Oral TabletIndication s:Alcohol abuse Take 1 tablet by mouth once daily 90 Tablet 0 06/11/2022 Active Ezetimibe 10 MG Oral Tablet (Zetia)Indicatio ns:Coronary artery disease involving [place] coronary artery of [place] heart without angina pectoris,NSTEMI (non-ST elevation myocardial infarction) (HCC),Presence of drug coated stent in LAD coronary artery,Orthostat ic hypotension,Isch emic cardiomyopathy,H TN, goal below 130/80,Dyslipide aust[place], goal LDL below 70,ACS (acute coronary syndrome) ([facility]) Take 1 tablet by mouth once daily 90 Tablet 3 08/01/2022 Active Venlafaxine HCl ER 75 MG Oral Capsule Extended Release 24 Hour (Effexor XR) Take 1 capsule by mouth in the morning 30 Capsule 5 08/18/2022 Active Pantoprazole Sodium 40 MG Oral Tablet Delayed Release (Protonix)Indica tions:Gastroesop hageal reflux disease without esophagitis TAKE 1 TABLET BY MOUTH IN THE MORNING 90 Tablet 1 11/07/2022 Active tiZANidine HCl 2 MG Oral Tablet (Zanaflex)Indica tions:Chronic midline low back pain without sciatica TAKE 1 TABLET BY MOUTH AT BEDTIME NEEDED FOR BACK PAIN 30 Tablet 0 11/07/2022 Active Atorvastatin Calcium 80 MG Oral Tablet (Lipitor)Indicat ions:Coronary artery disease involving [place] coronary artery of [place] heart without angina pectoris,History of non-ST elevation myocardial infarction (NSTEMI) Take 1 tablet by mouth once daily 90 Tablet 1 11/12/2022 Active Nicotine 14 MG/24HR Transdermal Patch 24 Hour (Nicotine Step 2)Indications:To bacco use disorder Place 1 Patch over 24 hours topically on the skin daily. Start in 6 weeks 28 Patch 0 11/11/2022 Active Sildenafil Citrate 50 MG Oral TabletIndication s:Erectile dysfunction, unspecified erectile dysfunction type TAKE 1 TABLET BY MOUTH 1 TO 4 HOURS BEFORE INTERCOURSE. DO NOT TAKE MORE THAN 1 TABLET A DAY 10 Tablet 1 11/28/2022 Active Tadalafil 5 MG Oral Tablet (Cialis) [...] the morning 90 Capsule 3 12/19/2022 Active Nicotine 21 MG/24HR Transdermal Patch 24 Hour (Nicotine Step 1)Indications:To bacco use disorder Place 1 Patch topically on the skin daily. 56 Patch 0 12/20/2022 Active Amphetamine-Dext roamphetamine 20 MG Oral Tablet (Adderall) Take 1 Tablet by mouth in the morning and 1 Tablet before bedtime. 60 Tablet 0 12/31/2022 01/31/20 23 Active Tadalafil 20 MG Oral Tablet (Cialis) TAKE 1 TABLET BY MOUTH ONCE DAILY NEEDED FOR ERECTILE DYSFUNCTION 10 Tablet 0 01/10/2023 Active Tadalafil 20 MG Oral Tablet Take by mouth 1 Tablet daily as needed for Erectile Dysfunction. 10 Tablet 11 01/21/2022 01/11/20 23 Discontinued documented as of this encounter (statuses as of 01/10/2023) Active Problems Problem Noted Date Food insecurity 07/08/2022 Overview: Per [facility] Protocol HTN, goal below 130/80 06/25/2022 [...] disease 06/06/2020 Coronary artery disease invo lving [place] coronary artery of [place] heart without angina pectoris 01/25/2020 History of non-ST elevation myocardial i nfarction (NSTEMI) 01/25/2020 Status post insertion of drug eluting co ronary artery stent 01/25/2020 Affective disorder Overview: sees Dr. Castanon Anxiety documented as of this encounter (statuses as of 01/10/2023) Resolved Problems Problem Noted Date Resolved Date Alcohol-induced acute pancreatitis 06/06/2020 06/12/2021 Alcohol dependence, continuous 06/06/2020 0 06/12/2021 Seizure 06/06/2020 06/12/2021 Alcohol abuse 07/22/2018 06/12/2021 Depression 06/25/2022 documented as of this encounter (statuses as of 01/10/2023) Immunizations Name Administration Dates Next Due COVID-19 mRNA, LNP-s, No Pre serve, 2-Dose Series (MetaPack) 09/23/2020,09/02/2020 Hepatitis B, 20+ yrs 06/25/2022,01/21/2022,12/19 Pneumococcal Conjugate Vacci ne, 20-valent ([id number]) 12/19/2021 Pneumococcal Polysaccharide PPV23 (Pneumovax) 07/13/2013 Seasonal [...] encounter Miscellaneous Notes * Telephone Encounter - Mukund Yeager MD - 01/10/2023 2:48 PM EDTSigned Prescriptions: Disp Refills Tadalafil 20 MG Oral Tablet (Cialis) 10 Tab*0 Sig: TAKE 1 TABLET BY MOUTH ONCE DAILY NEEDED FOR ERECTILE DYSFUNCTION Authorizing Provider: MUKUND YEAGER * Telephone Encounter - Ermelinda Collazo LPN - 01/10/2023 2:16 PM EDTPending Prescriptions: Disp Refills Tadalafil 20 MG Oral Tablet 10 Tab*0 Sig: TAKE 1 TABLET BY MOUTH ONCE DAILY NEEDED FOR ERECTILE DYSFUNCTION * Telephone Encounter - Ermelinda Collazo LPN - 01/10/2023 2:14 PM EDT Refill of tadalafil requested Last appt: 01/21/2022 (in office), Visit date not found (telemedicine) Next appt: 01/22/2023 Review of patient's allergies indicates: No Known Allergies Thank you Fouzia documented in this encounter Plan of Treatment Upcoming Encounters Date Type Specialty Care Team Description 01/22/2023 Office Visit Urology Mukund Yeager MD [address] [place] [address] [place] [address] 01/30/2023 Telemedicine Psychiatry Sara Swanson MD [address] [facility] [place] [address] 05/07/2023 Office Visit Sleep Disorders Dana Galvan, [address] [place] [address] Scheduled Procedures Name Priority Associated Diagnoses Date/Ti me COLONOSCOPY FLEXIBLE PROXIMAL DIAGNOSTIC Recall History of colon polyps Health Maintenance Due Date Last Done Comments DISCUSS TOBACCO CESSATION (REFER TO SMARTSET #4775) 1972 Albumin/Creatinine Ratio 1990 COVID-19 Vaccine (3 [...] filedocumented as of this encounter Care Teams Music Therapist [employer] Relationship Specialty Start Date End Date Lenny Castle MD [address] [place] [address] PCP - General Internal Medicine 05/18/21 documented as of this encounter
--- OUTSIDE RECORDS SUMMARY | 2023-03-26 03:13 | External Medical Summary | Summary of Care ---
Author Name Unknown Organization [facility] Address [address] [place] [address] Phone [phone] Care Team Providers Care Support Engineer Name Role Phone Lenny Castle MD Primary Care Provider + Reason for Visit * Reason Onset Date Comments Medication Refill 02/24/2023 Encounter Details Date Type Department Care Team (Late st Contact Info) Description 02/24/2023 Refill [facility] [address] [place] [address] Sara Swanson MD [address] [place], [place] [id number] Allergies No known active allergiesdocumented as of this encounter (statuses as of 02/24/2023) Medications Medication Sig Dispensed Refills Start Date End Date Status Multiple Vitamins-Minerals (MULTIVITAMIN ADULT) TABS Take by mouth. 0 Active Amitriptyline HCl 50 MG Oral Tablet (Elavil) Take by mouth 50 mg at bedtime . 0 Active Nitroglycerin 0.4 MG Sublingual Tablet Sublingual (Nitrostat)Indica tions:Coronary artery disease involving [place] coronary artery of [place] heart without angina pectoris Place 1 Tab [...] Oral Tablet (Zetia)Indication s:Coronary artery disease involving [place] coronary artery of [place] heart without angina pectoris,NSTEMI (non-ST elevation myocardial infarction) (HCC),Presence of drug coated stent in LAD coronary artery,Orthostati c hypotension,[place] cardiomyopathy,HT N, goal below 130/80,Dyslipidem ia, goal LDL below 70,ACS (acute coronary syndrome) ([facility]) Take 1 tablet by mouth once daily [...] Oral Tablet (Lipitor)Indicati ons:Coronary artery disease involving [place] coronary artery of [place] heart without angina pectoris,History of non-ST elevation [...] 2 weeks 14 Patch 0 01/19/2023 Active Amphetamine-Dextr oamphetamine 20 MG Oral Tablet (Adderall) Take 1 Tablet by mouth in the morning and 1 Tablet before bedtime. 60 Tablet 0 02/24/2023 Active Amphetamine-Dextr oamphetamine 20 MG Oral Tablet (Adderall) Take 1 Tablet by mouth in the morning and 1 Tablet before bedtime. 60 Tablet 0 01/29/2023 3 Discontinue d(Refill) documented as of this encounter (statuses as of 02/24/2023) Active Problems Problem Noted Date Diagnosed Date Food insecurity 07/08/2022 Overview: Per [facility] Protocol HTN, goal below 130/80 06/25/2022 [...] disease 06/06/2020 Coronary artery disease invo lving [place] coronary artery of [place] heart without angina pectoris 01/25/2020 History of non-ST elevation myocardial infarctio n (NSTEMI) 01/25/2020 Status post insertion of drug eluting coronary a rtery stent 01/25/2020 Affective disorder Overview: sees Dr. Castanon Anxiety documented as of this encounter (statuses as of 02/24/2023) Resolved Problems Problem Noted Date Diagnosed Date Resolved Date Alcohol-induced acute pancreatitis 06/06/2020 06/12/2021 Alcohol dependence, continuous 06/06/2020 06/12/2021 Seizure 06/06/2020 06/12/2021 Alcohol abuse 07/22/2018 06/12/2021 Depression 06/25/2022 documented as of this encounter (statuses as of 02/24/2023) Immunizations Name Administration Dates Next Due COVID-19 mRNA, LNP-s, No Pre serve, 2-Dose Series (BugSense) 09/23/2020,09/02/2020 Hepatitis B, 20+ yrs 06/25/2022,01/21/2022,12/19 Pneumococcal Conjugate Vacci ne, 20-valent ([id number]) 12/19/2021 Pneumococcal Polysaccharide PPV23 (Pneumovax) 07/13/2013 SEASONAL [...] alcohol) 2 drinks a week if that Hunger Vital Sign Answer Date Recorded Within [...] encounter Miscellaneous Notes * Telephone Encounter - Sara Swanson MD - 02/24/2023 3:29 PM EDTSigned Prescriptions: Disp Refills Amphetamine-Dextroamphetamine 20 MG Oral T*60 Tab*0 Sig: Take 1Tablet by mouth in the morning and 1 Tablet before bedtime.Authorizing Provider: SARA SWANSON A * Telephone Encounter - Alysha Murdock LPN - 02/24/2023 12:58 PM EDTPending Prescriptions: Disp Refills Amphetamine-Dextroamphetamine 20 MG Oral T*60 Tab*0 Sig: Take 1 Tablet by mouth in the morning and 1 Tablet before bedtime. * Telephone Encounter - Alysha Murdock, CLIENT DEVELOPMENT DIRECTOR - 02/24/2023 12:57 PM EDT Refill request from patient (Shankar) for Adderall 20mg. Medication last filled on 01/29/23 with 0 refills. Patient last seen on 01/30/23 with return appointment scheduled for 03/04/23. Patient had 0 cancelled appointments and 0 NO SHOW appointments. Addended on 02/24/23 at 3:29 PM by Sara Swanson MD PDMP reviewed, medication refilled. documented in this encounter Plan of Treatment Upcoming Encounters Date Type Department Care Team (Late st Contact Info) Description 03/04/2023 10:30 AM EST Telemedicine Psychiatry, [place] [address] [place] [address] Sara Swanson MD [address] [place] [address] 05/07/2023 3:20 PM EST Office Visit [facility] [address] [facility] [place] [phone] Dana Galvan DO [address] [facility] [place] [address] 05/30/2023 9:45 AM EST Office Visit [facility], [facility] [place] [address] Mukund Hui MD [address] [facility] [address] [place] [address] Scheduled Procedures Name Priority Associated Diagnoses Date/Ti me COLONOSCOPY FLEXIBLE PROXIMAL DIAGNOSTIC Recall History of colon polyps Health Maintenance Due Date Last Done Comments DISCUSS TOBACCO CESSATION (REFER TO SMARTSET #3291) 1972 Albumin/Creatinine Ratio 1990 Zoster Vaccines (2 of 2) 08/20/2022 06/25/2022 Depression Screening 12/19/2022 12/19/2021, 08/21/19 18 GFR 12/19/2022 12/19/2021, 06/27, 06/12/2021, Additional history exists COVID-19 Vaccine (3 - season) 2022 09/23/2020, 09/02/2020 Influenza Vaccine (FLU [...] filedocumented as of this encounter Care Teams Support Engineer Relationship Specialty Start Date End Date Lenny Castle MD [address] [place] [address] PCP - General Internal Medicine 05/18/21 documented as of this encounter
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
--- OUTSIDE RECORDS SUMMARY | 2023-03-26 03:13 | External Medical Summary | Summary of Care ---
Author Name Unknown Organization [facility] Address [address] [place] [address] Phone [phone] Care Team Providers Care Director Of Golf Name Role Phone Lenny Castle MD Primary Care Provider + Reason for Visit * Reason Onset Date Comments Other 01/27/2023 Encounter Details Date Type Department Care Team Description 01/27/2023 Telephone Psychiatry, [place] [address] [place] [address] Sara Swanson MD [address] [place] [address] Other (/) Allergies No known [...] Tablet Sublingual (Nitrostat)Indica tions:Coronary artery disease involving red lake coronary artery of red lake heart without angina pectoris Place 1 Tab [...] Oral Tablet (Zetia)Indication s:Coronary artery disease involving red lake coronary artery of red lake heart without angina pectoris,NSTEMI (non-ST elevation myocardial infarction) ([facility]),Presence of drug coated stent in LAD coronary artery,Orthostati c hypotension,Ische kev cardiomyopathy,HT N, goal below 130/80,Dyslipidem ia, goal LDL below 70,ACS (acute coronary syndrome) ([facility]) Take 1 tablet by mouth [...] Oral Tablet (Lipitor)Indicati ons:Coronary artery disease involving red lake coronary artery of red lake heart without angina pectoris,History of non-ST elevation [...] before bedtime. 60 Tablet 0 01/29/2023 Active Amphetamine-Dextr oamphetamine 20 MG Oral Tablet (Adderall) Take 1 Tablet by mouth in the morning and 1 Tablet before bedtime. 60 Tablet 0 12/31/2022 3 Discontinue d(Refill) documented as of this encounter (statuses as of 01/29/2023) Active Problems Problem Noted Date Food insecurity 07/08/2022 Overview: Per [facility] Protocol HTN, goal below 130/80 06/25/2022 [...] disease 06/06/2020 Coronary artery disease invo lving red lake coronary artery of red lake heart without angina pectoris 01/25/2020 History of [...] mRNA, LNP-s, No Pre serve, 2-Dose Series ([employer]) 09/23/2020,09/02/2020 Hepatitis B, 20+ yrs 06/25/2022,01/21/2022,12/19 Pneumococcal Conjugate Vacci ne, 20-valent ([id number]) 12/19/2021 Pneumococcal Polysaccharide PPV23 (Pneumovax) 07/13/2013 SEASONAL [...] encounter Miscellaneous Notes * Addendum Note - Sara Swanson MD - 01/29/2023 4:33 PM EDTAddended by: SARA SWANSON on: 01/29/2023 04:33 PM Modules accepted: Orders * Telephone Encounter - IVY Perry - 01/27/2023 4:12 PM EDT Patient calling to let you know he is at training for a new job and not at home for his appt on . Also, patient will need refill on Adderall either Friday night so he has some for or atappt on . Patient - [phone] Addended on 01/29/23 at 2:34 PM by Sara Swanson MD Attempted to call pt multiple times on both numbers, but no response. Also sent a [employer] message informing him to reach out to reschedule if needed. PDMP reviewed on 01/29, refill done documented in this encounter Plan of Treatment Upcoming Encounters Date Type Specialty Care Team Description 01/30/2023 Telemedicine Psychiatry Sara Swanson MD [address] [facility] [place] [address] 05/07/2023 Office Visit Sleep Disorders Dana Galvan, [address] [place] [address] 05/30/2023 Office Visit Urology Mukund Hui MD [address] [facility] [place] [address] [place] [address] Scheduled Procedures [...] filedocumented as of this encounter Care Teams Director Of Golf Relationship Specialty Start Date End Date Lenny Castle MD [address] [place] [address], [place] [address] PCP - General Internal Medicine 05/18/21 documented as of this encounter
--- OUTSIDE RECORDS SUMMARY | 2023-03-26 03:13 | External Medical Summary | Summary of Care ---
Author Name Unknown Organization [facility] Address [address] [place] [address] Phone [phone] Care Team Providers Care Drop Hammer Operator Helper Name Role Phone Lenny Ball MD Primary Care Provider + Reason for Visit * Reason Comments eRx-Medication Refill Encounter Details Date Type Department Care Team Description 01/13/2023 Refill Family Practice [facility] [address] [place] [address] Lenny Ball MD [address] [place] [address] Erectile dysfunction, unspecified erectile dysfunction type Allergies No known active allergiesdocumented as of this encounter (statuses as of 01/14/2023) Medications Medication Sig Dispensed Refills Start Date End Date Status Multiple Vitamins-Mineral s (MULTIVITAMIN ADULT) TABS Take by mouth. 0 Active Amitriptyline HCl 50 MG Oral Tablet (Elavil) Take by mouth 50 mg at bedtime . 0 Active Nitroglycerin 0.4 MG Sublingual Tablet Sublingual (Nitrostat)Indic ations:Coronary artery disease involving lovelock coronary artery of lovelock heart without angina pectoris Place 1 Tab [...] Oral Tablet (Zetia)Indicatio ns:Coronary artery disease involving lo[place]ock coronary artery of lovelock heart without angina pectoris,NSTEMI (non-ST elevation myocardial infarction) ([facility]),Presence of drug coated stent in LAD coronary artery,Orthostat ic hypotension,Isch emic cardiomyopathy,H TN, goal below 130/80,Dyslipide austyn, goal LDL below 70,ACS (acute coronary syndrome) ([facility]) Take 1 tablet by mouth once daily [...] Oral Tablet (Lipitor)Indicat ions:Coronary artery disease involving lovelock coronary artery of lovelock heart without angina pectoris,History of non-ST elevation myocardial infarction (NSTEMI) Take 1 tablet by mouth once daily 90 Tablet 1 11/12/2022 Active Nicotine 14 MG/24HR Transdermal Patch 24 Hour (Nicotine Step 2)Indications:To bacco use disorder Place 1 Patch over 24 hours topically on the skin daily. Start in 6 weeks 28 Patch 0 11/11/2022 Active Tadalafil 5 MG Oral Tablet (Cialis) [...] 01/10/2023 Active Sildenafil Citrate 50 MG Oral TabletIndication s:Erectile dysfunction, unspecified erectile dysfunction type TAKE 1 TABLET BY MOUTH 1 TO 4 HOURS BEFORE INTERCOURSE. DO NOT TAKE MORE THAN 1 TABLET IN A 24 HOUR PERIOD 10 Tablet 0 01/14/2023 Active Sildenafil Citrate 50 MG Oral TabletIndication s:Erectile dysfunction, unspecified erectile dysfunction type TAKE 1 TABLET BY MOUTH 1 TO 4 HOURS BEFORE INTERCOURSE. DO NOT TAKE MORE THAN 1 TABLET A DAY 10 Tablet 1 11/28/2022 01/15/20 23 Discontinued documented as of this encounter (statuses as of 01/14/2023) Active Problems Problem Noted Date Food insecurity [...] disease 06/06/2020 Coronary artery disease invo lving lovelock coronary artery of lovelock heart without angina pectoris 01/25/2020 History of non-ST elevation myocardial i nfarction (NSTEMI) 01/25/2020 Status post insertion of drug eluting co ronary artery stent 01/25/2020 Affective disorder Overview: sees Dr. Castanon Anxiety documented as of this encounter (statuses as of 01/14/2023) Resolved Problems Problem Noted Date Resolved Date Alcohol-induced acute pancreatitis 06/06/2020 06/12/2021 Alcohol dependence, continuous 06/06/2020 0 06/12/2021 Seizure 06/06/2020 06/12/2021 Alcohol abuse 07/22/2018 06/12/2021 Depression 06/25/2022 documented as of this encounter (statuses as of 01/14/2023) Immunizations Name Administration Dates Next Due COVID-19 mRNA, LNP-s, No Pre serve, 2-Dose Series ([employer]) 09/23/2020,09/02/2020 Hepatitis B, 20+ yrs 06/25/2022,01/21/2022,12/19 Pneumococcal Conjugate Vacci ne, 20-valent ([id number]) 12/19/2021 Pneumococcal Polysaccharide PPV23 (Pneumovax) 07/13/2013 Seasonal [...] encounter Miscellaneous Notes * Telephone Encounter - Eusebio [facility] - 01/14/2023 10:38 AM EDTSigned Prescriptions: Disp Refills Sildenafil Citrate 50 MG Oral Tablet 10 Tab*0 Sig: TAKE 1 TABLETBY MOUTH 1 TO 4 HOURS BEFORE INTERCOURSE. DO NOT TAKE MORE THAN 1 TABLET IN A 24 HOUR PERIODAuthorizing Provider: LENNY BALL User: EUSEBIO DAO documented in this encounter Plan of Treatment Upcoming Encounters Date Type Specialty Care Team Description 01/22/2023 Office Visit Urology Mukund Hui MD [address] [place] [address] [place] [address] 01/30/2023 Telemedicine Psychiatry Sara Swanson MD [address] [facility] [place] [address] 05/07/2023 Office Visit Sleep Disorders Dana Galvan DO [address] [place] [address] Scheduled Procedures Name Priority Associated Diagnoses Date/Ti me COLONOSCOPY FLEXIBLE PROXIMAL DIAGNOSTIC Recall History of colon polyps Health Maintenance Due Date Last Done Comments DISCUSS TOBACCO CESSATION (REFER TO SMARTSET #4604) 1972 Albumin/Creatinine Ratio 1990 COVID-19 Vaccine (3 [...] as of this encounter Visit Diagnoses Diagnosis Erectile dysfunction, unspecified erectile dysfunction type documented in this encounter Care Teams Drop Hammer Operator Helper Relationship Specialty Start Date End Date Lenny Ball MD [address] [place] [address] [place] [address] PCP - General Internal Medicine 05/18/21 documented as of this encounter
--- OUTSIDE RECORDS SUMMARY | 2023-03-26 03:13 | External Medical Summary | Summary of Care ---
Author Name Unknown Organization [facility] Address [address] [facility] [place] [address] Phone [phone] Care Team Providers Care Disbursing Officer Name Role Phone Lenny Ball MD Primary Care Provider + Reason for Visit * Reason Onset Date Comments Medication Refill 03/18/2023 Encounter Details Date Type Department Care Team (Late st Contact Info) Description 03/18/[address] [facility] [address] [facility] [place] [address] Lenny Ball MD [address] [place] [address] Tobacco use disorder; Erectile dysfunction, unspecified erectile [...] Tablet Sublingual (Nitrostat)Indica tions:Coronary artery disease involving nulato coronary artery of nulato heart without angina pectoris Place 1 Tab under the tongue as needed for Pain, Chest. May repeat 3 times. If chest pain continues, call 911. 30 Tab 11 08/26/2020 Active Additional Information Patient [...] Oral Tablet (Zetia)Indication s:Coronary artery disease involving nulato coronary artery of nulato heart without angina pectoris,NSTEMI (non-ST elevation myocardial infarction) (HCC),Presence of drug coated stent in LAD coronary artery,Orthostati c hypotension,Ische kev cardiomyopathy,HT N, goal below 130/80,Dyslipidem ia, goal LDL below 70,ACS (acute coronary syndrome) ([facility]) Take 1 tablet by mouth once [...] Oral Tablet (Lipitor)Indicati ons:Coronary artery disease involving nulato coronary artery of nulato heart without angina pectoris,History of non-ST elevation [...] disease 06/06/2020 Coronary artery disease invo lving nulato coronary artery of nul[place] heart without angina pectoris 01/25/2020 History of [...] yrs 06/25/2022,01/21/2022,12/19 Pneumococcal Conjugate Vacci ne, 20-valent ([id number]) 12/19/2021 Pneumococcal Polysaccharide PPV23 (Pneumovax) 07/13/2013 SEASONAL [...] Notes * Addendum Note - Hay Navarro, [facility] - 03/19/2023 11:41 AM ESTAddended by: HAY NAVARRO on: 03/19/2023 11:41 AM Modules accepted: Orders * Telephone Encounter - Hay Navarro [facility] - 03/19/2023 11:32 AM EST Per chart review, patient using Tadalafil 5mg daily for BPH symptoms and Sildenafil for impotence. Left message on for call back to confirm this. Refill authorized Thank You, Hay Navarro [facility] Clinical Pharmacist [facility] [phone] 03/19/2023, 11:40 AM * Telephone Encounter - Hay Navarro [facility] - 03/19/2023 11:28 AM ESTSigned Prescriptions: [...] Appropriate * Telephone Encounter - Hay Navarro [facility] - 03/19/2023 11:00 AM ESTPending Prescriptions: [...] ball * Telephone Encounter - Hay Navarro [facility] - 03/19/2023 7:41 AM EST MyG message sent to see if patient is ready to step down to 7mg patch. Thank You, Hay Navarro [facility] Clinical Pharmacist [facility] ([facility]) (formerly [facility]) [phone] 03/19/2023, 7:43 AM documented in this encounter Plan of Treatment Upcoming Encounters Date Type Department Care Team (Late st Contact Info) Description 04/04/2023 12:30 PM EST Telemedicine Psychiatry, [place] [address] [place] [address] Sara Swanson MD [address] [place] [address] 05/07/2023 3:20 PM EST Office [facility] [place] [phone] Dana Gal[facility] [place] [address] 05/30/2023 9:45 AM EST Office Visit Urology, [facility] [address] [facility] [place] [address] Mukund Hui MD [address] [place] [address] [place] [address] Scheduled Procedures Name Priority Associated Diagnoses Date/Ti me COLONOSCOPY FLEXIBLE PROXIMAL DIAGNOSTIC Recall History of colon polyps Health Maintenance Due Date Last Done Comments DISCUSS TOBACCO CESSATION (REFER TO SMARTSET #2091) 1972 Albumin/Creatinine Ratio 1990 Zoster Vaccines (2 [...] type documented in this encounter Care Teams Disbursing Officer Relationship Specialty Start Date End Date Lenny Ball MD [address] [place] [address] PCP - General Internal Medicine 05/18/21 documented as of this encounter
--- OUTSIDE RECORDS SUMMARY | 2023-03-26 03:13 | External Medical Summary | Summary of Care ---
Author Name Unknown Organization [facility] Address [address] [place] [facility] [place] [address] Phone [phone] Care Team Providers Care Post Office Manager Name Role Phone Lenny Ball MD Primary Care Provider + Reason for Visit * Reason Onset Date Comments Medication Refill 03/18/2023 Encounter Details Date Type Department Care Team (Late st Contact Info) Description 03/18/2023 Refill Family Practice [facility] [address] [facility] [place] [address] Lenny Ball MD [address] [place] [address] Tobacco use disorder; Erectile dysfunction, unspecified erectile [...] Tablet Sublingual (Nitrostat)Indica tions:Coronary artery disease involving ute mountain coronary artery of ute mountain heart without angina pectoris Place 1 Tab under the tongue as needed for Pain, Chest. May repeat 3 times. If chest pain continues, call 911. 09 Tab 11 08/26/2020 Active Additional Information Patient [...] Oral Tablet (Zetia)Indication s:Coronary artery disease involving ute mountain coronary artery of ute mountain heart without angina pectoris,NSTEMI (non-ST elevation myocardial infarction) (HCC),Presence of drug coated stent in LAD coronary artery,Orthostati c hypotension,Ische kev cardiomyopathy,HT N, goal below 130/80,Dyslipidem ia, goal LDL below 70,ACS (acute coronary syndrome) ([facility]) Take 1 tablet by mouth once [...] Oral Tablet (Lipitor)Indicati ons:Coronary artery disease involving ute mountain coronary artery of ute mountain heart without angina pectoris,History of non-ST elevation [...] disease 06/06/2020 Coronary artery disease invo lving ute mountain coronary artery of ute mountain heart without angina pectoris 01/25/2020 History of [...] yrs 06/25/2022,01/21/2022,12/19 Pneumococcal Conjugate Vacci ne, 20-valent ([id number]) 12/19/2021 Pneumococcal Polysaccharide PPV23 (Pneumovax) 07/13/2013 SEASONAL [...] Notes * Addendum Note - Hay Navarro, [facility] - 03/19/2023 11:41 AM ESTAddended by: HAY NAVARRO on: 03/19/2023 11:41 AM Modules accepted: Orders * Telephone Encounter - Hay Navarro RP - 03/19/2023 11:32 AM EST Per chart review, patient using Tadalafil 5mg daily for BPH symptoms and Sildenafil for impotence. Refill authorized Thank You, Hay Navarro [facility] Clinical Pharmacist [facility] ([facility]) [facility] [phone] 03/19/2023, 11:40 AM * Telephone Encounter - Hay Navarro RPh - 03/19/2023 11:28 AM ESTSigned Prescriptions: Disp [...] Appropriate * Telephone Encounter - Hay Navarro RPh - 03/19/2023 11:00 AM ESTPending Prescriptions: Disp [...] ball * Telephone Encounter - Hay Navarro [facility] - 03/19/2023 7:41 AM EST MyG message sent to see if patient is ready to step down to 7mg patch. Thank You, Hay Navarro [facility] Clinical Pharmacist [facility] ([facility]) (formerly Telepharmacy) [phone] 03/19/2023, 7:43 AM documented in this encounter Plan of Treatment Upcoming Encounters Date Type Department Care Team (Late st Contact Info) Description 04/04/2023 12:30 PM EST Telemedicine Psychiatry, [place] [address] [place] [address] Sara Swanson MD [address] [place] [address] 05/07/2023 3:20 PM EST Office Visit [facility] Disorders [facility] [address] [facility] [place] [phone] Dana Galvan DO [address] [facility] [place] [address] 05/30/2023 9:45 AM EST Office Visit Urology, [facility] [address] [facility] [place] [address] Mukund Hui MD [address] [place] [address] [place] [address] Scheduled Procedures Name Priority Associated Diagnoses Date/Ti me COLONOSCOPY FLEXIBLE PROXIMAL DIAGNOSTIC Recall History of colon polyps Health Maintenance Due Date Last Done Comments DISCUSS TOBACCO CESSATION (REFER TO SMARTSET #1650) 1972 Albumin/Creatinine Ratio 1990 Zoster Vaccines (2 of 2) 08/20/2022 06/25/2022 Depression Screening 12/19/2022 12/19/2021, 08/21/19 18 GFR 12/19/2022 12/19/2021, 03/07/2021, 06/12/2021, Additional history exists COVID-19 Vaccine ( - season) 2022 09/23/2020, 09/02/2020 Influenza Vaccine [...] type documented in this encounter Care Teams Post Office Manager Relationship Specialty Start Date End Date Lenny Ball MD [address] [place] [address] PCP - General Internal Medicine 05/18/21 documented as of this encounter
--- OUTSIDE RECORDS SUMMARY | 2023-03-26 03:14 | External Medical Summary | Summary of Care ---
Author Name Unknown Organization [facility] Address [address] [facility] [address] Phone [phone] Care Team Providers Care Biomed Tech Name Role Phone Lenny Castle MD Primary Care Provider + Reason for Visit * Reason Onset Date Comments Pre Cert/Prior Auth 11/05/2022 TADALAFIL 5 MG TABLET excluded Encounter Details Date Type Department Care Team Description 11/05/2022 Telephone Urology Kortney Patel [address] [place] [address] [place] [address] Mukund Hui MD [address] [place] [address] [place] [address] Pre Cert/Prior Auth (TADALAFIL 5 MG TABLET... Allergies No known active allergiesdocumented as of this encounter (statuses as of 01/10/2023) Medications Medication Sig Dispensed Refills Start Date End Date Status Multiple Vitamins-Mineral s (MULTIVITAMIN ADULT) TABS Take by mouth. 0 Active Amitriptyline HCl 50 MG Oral Tablet (Elavil) Take by mouth 50 mg at bedtime . 0 Active Nitroglycerin 0.4 MG Sublingual Tablet Sublingual (Nitrostat)Indic ations:Coronary artery disease involving mentasta coronary artery of mentasta heart without angina pectoris Place 1 Tab under the tongue as needed for Pain, Chest. May repeat 3 times. If chest pain continues, call 911. 25 Tab 11 Active Additional Information Patient not taking.Reported on 06/25/2022 Lidocaine 4 % External Patch (Aspercreme)Polina cations:Chronic midline low back pain without sciatica Place topically on the skin 1 Patch daily . 30 Patch 3 2 Active Additional Information Patient not taking.Reported on 05/21/2022 Tadalafil 20 MG Oral Tablet Take by mouth 1 Tablet daily as needed for Erectile Dysfunction. 10 Tablet 11 2 Active Tamsulosin HCl 0.4 MG Oral Capsule (Flomax) Take 1 capsule by mouth daily. May take a second capsule by mouth as needed. Max 2 capsules per day. 180 Capsule 0 3 Active Tamsulosin HCl 0.4 MG Oral Capsule (Flomax) Take 2 Capsules by mouth in the morning. 180 Capsule 3 3 Active Aspirin 81 MG Oral Tablet ChewableIndicati ons:History of non-ST elevation myocardial infarction (NSTEMI) Take 1 Tablet by mouth in the morning. 90 Tablet 3 3 Active Nicotine 7 MG/24HR Transdermal Patch 24 Hour (Nicotine Step 3)Indications:To bacco use disorder Place 1 Patch topically on the skin daily. Start after you finish the 14 mg patches. 14 Patch 0 3 Active Additional Information Patient not taking.Reported on 06/25/2022 Folic Acid 1 MG Oral TabletIndication s:Alcohol abuse Take 1 tablet by mouth once daily 90 Tablet 0 3 Active Ezetimibe 10 MG Oral Tablet (Zetia)Indicatio ns:Coronary artery disease involving mentasta coronary artery of mentasta heart without angina pectoris,NSTEMI (non-ST elevation myocardial infarction) (HCC),Presence of drug coated stent in LAD coronary artery,Orthostat ic hypotension,Isch emic cardiomyopathy,H TN, goal below 130/80,Dyslipide austyn, goal LDL below 70,ACS (acute coronary syndrome) ([facility]) Take 1 tablet by mouth once daily 90 Tablet 3 3 Active Venlafaxine HCl ER 75 MG Oral Capsule Extended Release 24 Hour (Effexor XR) Take 1 capsule by mouth in the morning 30 Capsule 5 3 Active Amphetamine-Dext roamphetamine 10 MG Oral Tablet (Adderall) Take 2 Tablets by mouth in the morning. 0 1 12/03/19 23 Discontinued Venlafaxine HCl ER 37.5 MG Oral Capsule Extended Release 24 Hour (Effexor XR) Take by mouth 1 Capsule daily . For 7 days 0 2 11/28/19 23 Discontinued(Ref ill) Metoprolol Succinate ER 50 MG Oral Tablet Extended Release 24 Hour (toPROL XL) Take by mouth 1 Tablet in the morning. 90 Tablet 3 2 12/06/19 23 Discontinued Fenofibrate Micronized 134 MG Oral Capsule Take by mouth 1 Capsule in the morning. 34 Capsule 11 2 12/20/19 23 Discontinued Pantoprazole Sodium 40 MG Oral Tablet Delayed Release (Protonix)Indica tions:Gastroesop hageal reflux disease without esophagitis Take by mouth 1 Tablet in the morning. 90 Tablet 1 2 11/08/19 23 Discontinued Atorvastatin Calcium 80 MG Oral Tablet (Lipitor)Indicat ions:Coronary artery disease involving mentasta coronary artery of mentasta heart without angina pectoris,History of non-ST elevation myocardial infarction (NSTEMI) Take 1 tablet by mouth once daily 90 Tablet 1 3 11/13/19 23 Discontinued Nicotine 21 MG/24HR Transdermal Patch 24 Hour (Nicotine Step 1)Indications:To bacco use disorder Place 1 Patch topically on the skin daily. 14 Patch 0 3 11/06/19 23 Discontinued(Ref ill) Nicotine 14 MG/24HR Transdermal Patch 24 Hour (Nicotine Step 2)Indications:To bacco use disorder Place 1 Patch topically on the skin daily. Start after you finish the 21 mg patches 14 Patch 0 3 11/12/19 23 Discontinued(Ref ill) tiZANidine HCl 2 MG Oral Tablet (Zanaflex)Indica tions:Chronic midline low back pain without sciatica TAKE 1 TABLET BY MOUTH AT BEDTIME NEEDED FOR BACK PAIN 30 Tablet 0 3 11/08/19 23 Discontinued Sildenafil Citrate 50 MG Oral TabletIndication s:Erectile dysfunction, unspecified erectile dysfunction type TAKE 1 TABLET BY MOUTH 1 TO 4 HOURS BEFORE INTERCOURSE - NO MORE THAN 1 TABLET/DAY 10 Tablet 3 3 11/29/19 23 Discontinued Tadalafil 5 MG Oral Tablet (Cialis) TAKE 1 TABLET BY MOUTH ONCE DAILY NEEDED FOR ERECTILE DYSFUNCTION 30 Tablet 0 3 11/28/19 23 Discontinued Amphetamine-Dext roamphetamine 20 MG Oral Tablet (Adderall) TAKE 1 TABLET BY MOUTH TWICE A DAY NEEDED 180 Tablet 0 3 12/03/19 23 Discontinued(Ref ill) documented as of this encounter (statuses as [...] disease 06/06/2020 Coronary artery disease invo lving mentasta coronary artery of mentasta heart without angina pectoris 01/25/2020 History of [...] mRNA, LNP-s, No Pre serve, 2-Dose Series ([employer]) 09/23/2020,09/02/2020 Hepatitis B, 20+ yrs 06/25/2022,01/21/2022,12/19 Pneumococcal Conjugate Vacci ne, 20-valent ([id number]) 12/19/2021 Pneumococcal Polysaccharide PPV23 (Pneumovax) 07/13/2013 Seasonal [...] encounter Miscellaneous Notes * Telephone Encounter - Jenny Grijalva LPN - 11/05/2022 9:12 AM EDT Urology Pre-Cert Request Medication/Disease State Information: Medication: Tadalafil 5 MG Oral/Inhaler/Self-administered injection Medication- [place] [phone] Diagnosis (including ICD-10): ED Medication(s) Tried/Failed/Contraindicated: NA See corresponding visit note(s) for additional supporting clinical information. Office Information: Prescriber: Dr. Hui documented in this encounter Plan of Treatment Upcoming Encounters Date Type Specialty Care Team Description 01/22/2023 Office Visit UrologMukund French MD [address] [facility] [address] [place] [address] 01/30/2023 Telemedicine Psychiatry Sara Swanson MD [address] [facility] [place] [address] 05/07/2023 Office Visit Sleep Disorders Dana Galvan, [address] [place] [address] Scheduled Procedures Name Priority Associated Diagnoses Date/Ti me COLONOSCOPY FLEXIBLE PROXIMAL DIAGNOSTIC Recall History of colon polyps Health Maintenance Due Date Last Done Comments DISCUSS TOBACCO CESSATION (REFER TO SMARTSET #3295) 1972 Albumin/Creatinine Ratio 1990 COVID-19 Vaccine (3 [...] filedocumented as of this encounter Care Teams Biomed Tech Relationship Specialty Start Date End Date Lenny Castle MD [address] [place] [id number] PCP - General Internal Medicine 05/18/21 documented as of this encounter
--- OUTSIDE RECORDS SUMMARY | 2023-03-26 03:14 | External Medical Summary | Summary of Care ---
Author Name Unknown Organization [facility] Address [address] [facility] [place] [address] Phone [phone] Care Team Providers Care Suture Winder Hand Name Role Phone Lenny Castle MD Primary Care Provider + Reason for Visit * Reason Comments eRx-Medication Refill Encounter Details Date Type Department Care Team Description 12/04/2022 Refill Cardiology, [facility] [address] [place] [address] Nayan Alvarado DO [address] [place] [address] Allergies No known active allergiesdocumented as of this encounter (statuses as of 12/05/2022) Medications Medication Sig Dispensed Refills Start Date End Date Status Multiple Vitamins-Mineral s (MULTIVITAMIN ADULT) TABS Take by mouth. 0 Active Amitriptyline HCl 50 MG Oral Tablet (Elavil) Take by mouth 50 mg at bedtime . 0 Active Nitroglycerin 0.4 MG Sublingual Tablet Sublingual (Nitrostat)Indic ations:Coronary artery disease involving rampart coronary artery of rampart heart without angina pectoris Place 1 Tab [...] Additional Information Patient not taking.Reported on 05/21/2022 Fenofibrate Micronized 134 MG Oral Capsule Take by mouth 1 Capsule in the morning. 34 Capsule 11 12/06/2021 Active Additional Information Patient not taking.Reported on 06/25/2022 Tadalafil 20 MG Oral Tablet Take by mouth 1 Tablet daily as needed for Erectile Dysfunction. 10 Tablet 11 01/21/2022 Active Tamsulosin HCl 0.4 MG Oral Capsule [...] Oral Tablet (Zetia)Indicatio ns:Coronary artery disease involving rampart coronary artery of rampart heart without angina pectoris,NSTEMI (non-ST elevation myocardial infarction) (HCC),Presence of drug coated stent in LAD coronary artery,Orthostat ic hypotension,Isch emic cardiomyopathy,H TN, goal below 130/80,Dyslipide austyn, goal LDL below 70,ACS (acute coronary syndrome) ([facility]) Take 1 tablet by mouth once daily [...] Oral Tablet (Lipitor)Indicat ions:Coronary artery disease involving rampart coronary artery of rampart heart without angina pectoris,History of non-ST elevation myocardial infarction (NSTEMI) Take 1 tablet by mouth once daily 90 Tablet 1 11/12/2022 Active Nicotine 21 MG/24HR Transdermal Patch 24 Hour (Nicotine Step 1)Indications:To bacco use disorder Place 1 Patch topically on the skin daily for 6 weeks 56 Patch 0 11/11/2022 Active Nicotine 14 MG/24HR Transdermal Patch 24 Hour (Nicotine Step 2)Indications:To bacco use disorder Place 1 Patch over 24 hours topically on the skin daily. Start in 6 weeks 28 Patch 0 11/11/2022 Active Escitalopram Oxalate 5 MG Oral Tablet (Lexapro) Take 1 Tablet by mouth in the morning for 10 days. 10 Tablet 0 11/27/2022 12/08/19 23 Active Venlafaxine HCl ER 37.5 MG Oral Capsule Extended Release 24 Hour (Effexor XR) Take 1 Capsule by mouth in the morning. For 7 days. 30 Capsule 1 11/27/2022 12/28/19 23 Active Escitalopram Oxalate 10 MG Oral Tablet (Lexapro) Take 1 Tablet by mouth in the morning. 30 Tablet 2 11/27/2022 12/28/19 23 Active Sildenafil Citrate 50 MG Oral TabletIndication s:Erectile dysfunction, unspecified erectile dysfunction type TAKE 1 TABLET BY MOUTH 1 TO 4 HOURS BEFORE INTERCOURSE. DO NOT TAKE MORE THAN 1 TABLET A DAY 10 Tablet 1 11/28/2022 Active Tadalafil 5 MG Oral Tablet (Cialis) TAKE 1 TABLET BY MOUTH ONCE DAILY NEEDED FOR ERECTILE DYSFUNCTION 30 Tablet 0 11/27/2022 Active Amphetamine-Dext roamphetamine 20 MG Oral Tablet (Adderall) Take 1 Tablet by mouth in the morning and 1 Tablet before bedtime. 180 Tablet 0 12/02/2022 Active Metoprolol Succinate ER 50 MG Oral Tablet Extended Release 24 Hour (toPROL XL) TAKE 1 TABLET BY MOUTH IN THE MORNING 90 Tablet 3 12/05/2022 Active Metoprolol Succinate ER 50 MG Oral Tablet Extended Release 24 Hour (toPROL XL) Take by mouth 1 Tablet in the morning. 90 Tablet 3 11/15/2021 12/06/19 23 Discontinued documented as of this encounter (statuses as of 12/05/2022) Active Problems Problem Noted Date Food insecurity [...] disease 06/06/2020 Coronary artery disease invo lving rampart coronary artery of rampart heart without angina pectoris 01/25/2020 History of non-ST elevation myocardial i nfarction (NSTEMI) 01/25/2020 Status post insertion of drug eluting co ronary artery stent 01/25/2020 Affective disorder Overview: sees Dr. Castanon Anxiety documented as of this encounter (statuses as of 12/05/2022) Resolved Problems Problem Noted Date Resolved Date Alcohol-induced acute pancreatitis 06/06/2020 06/12/2021 Alcohol dependence, continuous 06/06/2020 0 06/12/2021 Seizure 06/06/2020 06/12/2021 Alcohol abuse 07/22/2018 06/12/2021 Depression 06/25/2022 documented as of this encounter (statuses as of 12/05/2022) Immunizations Name Administration Dates Next Due COVID-19 mRNA, LNP-s, No Pre serve, 2-Dose Series ([employer]) 09/23/2020,09/02/2020 Hepatitis B, 20+ yrs 06/25/2022,01/21/2022,12/19 Pneumococcal Conjugate Vacci ne, 20-valent ([id number]) 12/19/2021 Pneumococcal Polysaccharide PPV23 (Pneumovax) 07/13/2013 Seasonal Influenza Virus Vac cine, Unspecified Formulation 02/01/2021,01/25/2020,05/05/2019 Seasonal Influenza, Quadriva lent, No Preserve, 6 Mons & Above, IM 01/21/2022,02/01/2021,01/25/2020,05/05 TDAP (age 10 and older)(Boostrix) 07/13/2013 [...] encounter Miscellaneous Notes * Telephone Encounter - PAULINA Herrera - 12/05/2022 8:00 AM EDTSigned Prescriptions: Disp Refills Metoprolol Succinate ER 50 MG Oral Tablet *90 Tab*3 Sig: TAKE 1 TABLET BY MOUTH IN THE MORNING Authorizing Provider: SUSANNE RAMSEY * Telephone Encounter - Fadi Petersen RN - 12/05/2022 7:25 AM EDTPending Prescriptions: Disp Refills Metoprolol Succinate ER 50 MG Oral Tablet *90 Tab*3 Sig: TAKE 1 TABLET BY MOUTH IN THE MORNING * Telephone Encounter - Fadi Petersen RN - 12/05/2022 7:24 AM EDT Pending Prescriptions: Disp Refills Metoprolol Succinate ER 50 MG Oral Tablet*90 Tab*3 Sig: TAKE 1 TABLET BY MOUTH IN THE MORNING Last Visit: 07/02/2021 (in office), Visit date not found (telemedicine) Next Visit: Visit date not found Last medication order date: 11/15/2021 Have you choosen a preferred pharm?? yes Patient Active Problem List Diagnosis Code Affective disorder ([facility]) F39 Anxiety F41.9 Coronary artery disease involving rampart coronary artery of rampart heart without angina pectoris I25.10 History of non-ST elevation myocardial infarction (NSTEMI) I25.2 Status post insertion of drug eluting coronary artery stent Z95.5 Alcoholic liver disease (HCC) K70.9 Chronic midline low back pain without sciatica M54.50, G89.29 BPH with obstruction/lower urinary tract symptoms N40.1, N13.8 Adjustment disorder with anxious mood F43.22 History of alcohol use Z87.898 ADHD (attention deficit hyperactivity disorder), combined type F90.2 Tobacco use disorder F17.200 Major depressive disorder, recurrent, moderate ([facility]) F33.1 HTN, goal below 130/80 I10 Gastroesophageal reflux disease without esophagitis K21.9 Food insecurity Z59.41 Labs: Lab Results Component Value Date/Time CREATININE - [facility] 0.8 12/19/2021 10:11 AM CREATININE - [facility] 0.8 10/14/2018 08:18 AM CREATININE-OUTSIDE LAB 0.84 04/22/2018 12:00 AM Lab Results Component Value Date/Time POTASSIUM - [facility] 3.9 12/19/2021 10:11 AM POTASSIUM - [facility] 4.0 10/14/2018 08:18 AM POTASSIUM-OUTSIDE LAB 3.7 04/22/2018 12:00 AM Lab Results Component Value Date/Time TSH - [facility] 2.08 11/24/2018 10:21 AM Lab Results Component Value Date/Time LDL CHOLESTEROL (CALCULATED) - [facility] 45 12/19/2021 10:11 AM LDL CHOLESTEROL (CALCULATED) - [facility] 106 12/29/2020 11:20 AM LDL CHOLESTEROL (CALCULATED) - [facility] 160 (H) 10/03/2016 09:48 AM LDL CHOLESTEROL (CALCULATED) - [facility] 152 (H) 02/08/2016 09:44 AM LDL CHOLESTEROL (DIRECT MEASURE) - [facility] 69 06/12/2021 10:24 AM LDL CHOLESTEROL (DIRECT MEASURE) - [facility] NOT APPLICABLE 10/03/2016 09:48 AM Lab Results Component Value Date/Time ALT - [facility] 23 01/21/2022 04:09 PM ALT - [facility] 70 (H) 10/14/2018 08:18 AM Hemoglobin AIC Results: Lab Results Component Value Date/Time HEMOGLOBIN A1C - [facility] 5.3 06/30/2021 01:44 PM documented in this encounter Plan of Treatment Upcoming Encounters Date Type Specialty Care Team Description 01/22/2023 Office Visit Urology Mukund Hui MD [address] [facility] [address] [place] [address] 01/30/2023 Telemedicine Psychiatry Sara Swanson MD [address] [place] [address] Scheduled Procedures Name Priority Associated Diagnoses Date/Ti me COLONOSCOPY FLEXIBLE PROXIMAL DIAGNOSTIC Recall History of colon polyps Health Maintenance Due Date Last Done Comments DISCUSS TOBACCO CESSATION (REFER TO SMARTSET #3291) 1972 Albumin/Creatinine Ratio 1990 COVID-19 Vaccine (3 - Pfizer series) 11/18/2020 09/23/2020, 09/02/2020 Zoster Vaccines (2 of 2) 08/20/2022 06/25/2022 Depression Screening, Annual for Pts 12 and Over 12/19/2022 12/19/2021, 08/20/2017 GFR 12/19/2022 12/19/2021, 06/27, 06/12/2021, Additional history [...] filedocumented as of this encounter Care Teams Suture Winder Hand Relationship Specialty Start Date End Date Lenny Castle MD [address] [place] [address], [place] [address] PCP - General Internal Medicine 05/18/21 documented as of this encounter
--- OUTSIDE RECORDS SUMMARY | 2023-03-26 03:14 | External Medical Summary | Summary of Care ---
Author Name Unknown Organization [facility] Address [address] [place] [address] Phone [phone] Care Team Providers Care Food Processor Name Role Phone Lenny Castle MD Primary Care Provider + Reason for Visit * Reason Onset Date Comments Medication Refill 12/29/2022 Encounter Details Date Type Department Care Team Description 12/29/2022 Refill [facility] [address], [place] [id number] Sara Swanson MD [address], [place] [id number] Allergies No known active allergiesdocumented as of this encounter (statuses as of 12/31/2022) Medications Medication Sig Dispensed Refills Start Date End Date Status Multiple Vitamins-Minerals (MULTIVITAMIN ADULT) TABS Take by mouth. 0 Active Amitriptyline HCl 50 MG Oral Tablet (Elavil) Take by mouth 50 mg at bedtime . 0 Active Nitroglycerin 0.4 MG Sublingual Tablet Sublingual (Nitrostat)Indica tions:Coronary artery disease involving [place] coronary artery of [place] heart without angina pectoris Place 1 Tab [...] Oral Tablet (Zetia)Indication s:Coronary artery disease involving [place] coronary artery of [place] heart without angina pectoris,NSTEMI (non-ST elevation myocardial infarction) (HCC),Presence of drug coated stent in LAD coronary artery,Orthostati c hypotension,[place]sche ke[place] cardiomyopathy,HT N, goal below 130/80,Dyslipidem ia, goal LDL below 70,ACS (acute coronary syndrome) ([facility]) Take 1 tablet by mouth [...] Oral Tablet (Lipitor)Indicati ons:Coronary artery disease involving [place] coronary artery of [place] heart without angina pectoris,History of non-ST elevation myocardial infarction (NSTEMI) Take 1 tablet by mouth once daily 90 Tablet 1 11/12/2022 Active Nicotine 14 MG/24HR Transdermal Patch 24 Hour (Nicotine Step 2)Indications:Tob acco use disorder Place 1 Patch over 24 hours topically on the skin daily. Start in 6 weeks 28 Patch 0 11/11/2022 Active Sildenafil Citrate 50 MG Oral TabletIndications [...] skin daily. 56 Patch 0 12/20/2022 Active Amphetamine-Dextr oamphetamine 20 MG Oral Tablet (Adderall) Take 1 Tablet by mouth in the morning and 1 Tablet before bedtime. 180 Tablet 0 12/31/2022 Active Amphetamine-Dextr oamphetamine 20 MG Oral Tablet (Adderall) Take 1 Tablet by mouth in the morning and 1 Tablet before bedtime. 180 Tablet 0 12/02/2022 3 Discontinue d(Refill) documented as of this encounter (statuses as of 12/31/2022) Active Problems Problem Noted Date Food insecurity 07/08/2022 Overview: Per [facility] Protocol HTN, goal below 130/80 [...] Coronary artery disease invo lving [place] coronary artery of [place] heart without angina pectoris 01/25/2020 History of non-ST elevation myocardial i nfarction (NSTEMI) 01/25/2020 Status post insertion of drug eluting co ronary artery stent 01/25/2020 Affective disorder Overview: sees Dr. Castanon Anxiety documented as of this encounter (statuses as of 12/31/2022) Resolved Problems Problem Noted Date Resolved Date Alcohol-induced acute pancreatitis 06/06/2020 06/12/2021 Alcohol dependence, continuous 06/06/2020 0 06/12/2021 Seizure 06/06/2020 06/12/2021 Alcohol abuse 07/22/2018 06/12/2021 Depression 06/25/2022 documented as of this encounter (statuses as of 12/31/2022) Immunizations Name Administration Dates Next Due COVID-19 mRNA, LNP-s, No Pre serve, 2-Dose Series ([employer]) 09/23/2020,09/02/2020 Hepatitis B, 20+ yrs 06/25/2022,01/21/2022,12/19 Pneumococcal Conjugate Vacci ne, 20-valent ([id number]) 12/19/2021 Pneumococcal Polysaccharide PPV23 (Pneumovax) 07/13/2013 Seasonal [...] Telephone Encounter - Sara Swanson MD - 12/31/2022 4:21 PM EDTSigned Prescriptions: Disp Refills Amphetamine-Dextroamphetamine 20 MG Oral T*180 Ta*0 Sig: Take 1 Tablet by mouth in the morning and 1 Tablet before bedtime.Authorizing Provider: SARA SWANSON * Telephone Encounter - Alysha Murdock LPN - 12/30/2022 3:33 PM EDT Pending Prescriptions: Disp Refills Amphetamine-Dextroamphetamine 20 MG Oral T*180 Ta*0 Sig: Take 1 Tablet by mouth in the morning and 1 Tablet before bedtime. Addended 12/31/22 4:20 PM by Sara Swanson MD Refill for above medication sent to pharmacy. PDMP reviewed. * Telephone Encounter - Alysha Murdock LPN - 12/30/2022 3:31 PM EDT Refill request from patient (Shankar) for Adderall 20mg. Medication last filled on 12/02/22 with 0 refills. Patient last seen on 11/27/22 with return appointment scheduled for 01/30/23. Patient had 0 cancelled appointments and 0 NO SHOW appointments. documented in this encounter Plan of Treatment Upcoming Encounters Date Type Specialty Care Team Description 01/22/2023 Office Visit Urology Mukund Hui MD [address] [place] [address] [place] [id number] 01/30/2023 Telemedicine Psychiatry Sara Swanson MD [address] [facility] [place] [address] 05/07/2023 Office Visit Sleep Disorders Dana Galvan DO [address] [place] [address] Scheduled [...] filedocumented as of this encounter Care Teams Food Processor Relationship Specialty Start Date End Date Lenny Castle MD [address] [place] [address] PCP - General Internal Medicine 05/18/21 documented as of this encounter
--- OUTSIDE RECORDS SUMMARY | 2023-03-26 03:14 | External Medical Summary | Summary of Care ---
Author Name Unknown Organization [facility] Address [address] [place] [address] Phone [phone] Care Team Providers Care Letterer Name Role Phone Lenny Castle MD Primary Care Provider + Reason for Visit * Reason Onset Date Comments Med Request 12/31/2022 Encounter Details Date Type Department Care Team Description 12/31/2022 Telephone Psychiatry, [place] [address] [place] [address] Services, [facility] [address] [place] [address] Med Request Allergies No known active allergiesdocumented as of this encounter (statuses as of 12/31/2022) Medications Medication Sig Dispensed Refills Start Date End Date Status Multiple Vitamins-Minerals (MULTIVITAMIN ADULT) TABS Take by mouth. 0 Active Amitriptyline HCl 50 MG Oral Tablet (Elavil) Take by mouth 50 mg at bedtime . 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 Start after you finish the 14 mg patches. 14 Patch 0 05/14/2022 Active Additional Information Patient not taking.Reported on 06/25/2022 Folic Acid 1 MG Oral TabletIndications: Alcohol abuse Take 1 tablet by mouth once daily 90 Tablet 0 06/11/2022 Active Ezetimibe 10 MG Oral Tablet (Zetia)Indications :Coronary artery disease involving [place] coronary artery of [place] heart without angina pectoris,NSTEMI (non-ST elevation myocardial [...] Oral Tablet (Lipitor)Indicatio ns:Coronary artery disease involving [place] coronary artery of [place] heart without angina pectoris,History of non-ST elevation myocardial infarction (NSTEMI) Take 1 tablet by mouth once daily 90 Tablet 1 11/12/2022 Active Nicotine 14 MG/24HR Transdermal Patch 24 Hour (Nicotine Step 2)Indications:Toba 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 Start in 6 weeks 28 Patch 0 11/11/2022 Active Sildenafil Citrate 50 MG Oral TabletIndications: Erectile dysfunction, unspecified erectile dysfunction type TAKE 1 TABLET BY MOUTH 1 TO 4 HOURS BEFORE INTERCOURSE. 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 56 Patch 0 12/20/2022 Active documented as of this encounter (statuses as of 12/31/2022) Active Problems Problem Noted Date Food insecurity 07/08/2022 Overview: Per [facility] Protocol HTN, goal below 130/80 06/25/2022 [...] disease 06/06/2020 Coronary artery disease invo lving [place] coronary artery of [place] heart without angina pectoris 01/25/2020 History of [...] mRNA, LNP-s, No Pre serve, 2-Dose Series ([employer]) 09/23/2020,09/02/2020 Hepatitis B, 20+ yrs 06/25/2022,01/21/2022,12/19 Pneumococcal Conjugate Vacci ne, 20-valent ([id number]) 12/19/2021 Pneumococcal Polysaccharide PPV23 (Pneumovax) 07/13/2013 Seasonal [...] Miscellaneous Notes * Telephone Encounter - IVY Pearson - 12/31/2022 11:23 AM EDT Patient Requesting Refill Prescribing Provider: Sara Swanson Medication: Adderall 20MG Pharmacy: [facility] in [facility] Last Visit Date: 11/27/22 Future Visit Date: 01/30/23 Pt has run out of medication and is requesting refill today. documented in this encounter Plan of Treatment Upcoming Encounters Date Type Specialty Care Team Description 01/22/2023 Office Visit Urology Mukund Hui MD [address] [place] [address] [place] [address] 01/30/2023 Telemedicine Psychiatry Sara Swanson [facility] [address] [facility] [place] [address] 05/07/2023 Office Visit Sleep Disorders Dana Galvan, [address] [place] [id number] Scheduled Procedures Name Priority Associated Diagnoses Date/Ti [...] filedocumented as of this encounter Care Teams Letterer Relationship Specialty Start Date End Date Lenny Castle MD [address] [place] [address], [place] [address] PCP - General Internal Medicine 05/18/21 documented as of this encounter
--- OUTSIDE RECORDS SUMMARY | 2023-03-26 03:14 | External Medical Summary | Summary of Care ---
Author Name Unknown Organization [facility] Address [address] [place] [address] Phone [phone] Care Team Providers Care Senior Manager Mmcoe Name Role Phone Lenny Ball MD Primary Care Provider + Reason for Visit * Reason Comments eRx-Medication Refill Encounter Details Date Type Department Care Team Description 06/10/2022 Refill General Internal Medicine [facility] [address] [facility] [place] [address] Lenny Ball MD [address] [place] [address] Routine medical exam*; Alcohol abuse; Encounter for long-term (current) use of medications Allergies No known active allergiesdocumented as of this encounter (statuses as of 11/29/2022) Medications Medication Sig Dispensed Refills Start Date End Date Status Multiple Vitamins-Mineral s (MULTIVITAMIN ADULT) TABS Take by mouth. 0 Active Amitriptyline HCl 50 MG Oral Tablet (Elavil) Take by mouth 50 mg at bedtime . 0 Active Nitroglycerin 0.4 MG Sublingual Tablet Sublingual (Nitrostat)Indic ations:Coronary artery disease involving [place] coronary artery of [place] heart without angina pectoris Place 1 Tab under the tongue as needed for Pain, Chest. May repeat 3 times. If chest pain continues, call 911. 25 Tab 11 1 Active Additional Information Patient not taking.Reported on 06/25/2022 Amphetamine-Dext roamphetamine 10 MG Oral Tablet (Adderall) Take 2 Tablets by mouth in the morning. 0 1 Active Lidocaine 4 % External Patch (Aspercreme)Polina cations:Chronic midline low back pain without sciatica Place topically on the skin 1 Patch daily . 30 Patch 3 2 Active Additional Information Patient not taking.Reported on 05/21/2022 Metoprolol Succinate ER 50 MG Oral Tablet Extended Release 24 Hour (toPROL XL) Take by mouth 1 Tablet in the morning. 90 Tablet 3 2 Active Fenofibrate Micronized 134 MG Oral Capsule Take by mouth 1 Capsule in the morning. 34 Capsule 11 2 Active Additional Information Patient not taking.Reported [...] once daily 90 Tablet 0 3 Active Tadalafil 5 MG Oral Tablet (Cialis) Take by mouth 1 Tablet daily as needed for Erectile Dysfunction. 30 Tablet 6 2 07/12/19 23 Discontinued Venlafaxine HCl ER 37.5 MG Oral Capsule Extended Release 24 Hour (Effexor XR) Take by mouth 1 Capsule daily . For 7 days 0 2 11/28/19 23 Discontinued(Ref ill) tiZANidine HCl 2 MG Oral Tablet (Zanaflex)Indica tions:Chronic midline low back pain without sciatica TAKE 1 TAB BY MOUTH AT BEDTIME NEEDED FOR BACK PAIN 30 Tablet 1 2 06/12/19 23 Discontinued Ezetimibe 10 MG Oral Tablet (Zetia)Indicatio ns:Coronary artery disease involving [place] coronary artery of [place] heart without angina pectoris,NSTEMI (non-ST elevation myocardial infarction) (HCC),Presence of drug coated stent in LAD coronary artery,Orthostat ic hypotension,Isch emic cardiomyopathy,H [place], goal below 130/80,Dyslipide [place], goal LDL below 70,ACS (acute coronary syndrome) ([facility]) TAKE 1 TABLET BY MOUTH EVERY DAY 90 Tablet 3 2 08/02/19 23 Discontinued Folic Acid 1 MG Oral TabletIndication s:Alcohol abuse Take 1 tablet by mouth once daily 90 Tablet 1 2 06/11/19 23 Discontinued Pantoprazole Sodium 40 MG Oral Tablet Delayed Release (Protonix)Indica tions:Gastroesop hageal reflux disease without esophagitis Take by mouth 1 Tablet in the morning. 90 Tablet 1 2 11/08/19 23 Discontinued Venlafaxine HCl ER 75 MG Oral Capsule Extended Release 24 Hour (Effexor XR) Take 1 capsule by mouth in the morning 30 Capsule 5 2 08/19/19 23 Discontinued Atorvastatin Calcium 80 MG Oral Tablet (Lipitor)Indicat ions:Coronary artery disease involving [place] coronary artery of [place] heart without angina pectoris,History of non-ST elevation [...] Patch 0 3 11/12/19 23 Discontinued(Ref ill) documented as of this encounter (statuses as of 11/29/2022) Active Problems Problem Noted Date Food insecurity [...] disease 06/06/2020 Coronary artery disease invo lving [place] coronary artery of [place] heart without angina pectoris 01/25/2020 History of non-ST elevation myocardial i nfarction (NSTEMI) 01/25/2020 Status post insertion of drug eluting co ronary artery stent 01/25/2020 Affective disorder Overview: sees Dr. Castanon Anxiety documented as of this encounter (statuses as of 11/29/2022) Resolved Problems Problem Noted Date Resolved Date Alcohol-induced acute pancreatitis 06/06/2020 06/12/2021 Alcohol dependence, continuous 06/06/2020 0 06/12/2021 Seizure 06/06/2020 06/12/2021 Alcohol abuse 07/22/2018 06/12/2021 Depression 06/25/2022 documented as of this encounter (statuses as of 11/29/2022) Immunizations Name Administration Dates Next Due COVID-19 mRNA, LNP-s, No Pre serve, 2-Dose Series ([employer]) 09/23/2020,09/02/2020 Hepatitis B, 20+ yrs 01/21/2022,12/19/2021 Pneumococcal Conjugate Vacci ne, 20-valent ([id number]) 12/19/2021 Pneumococcal Polysaccharide PPV23 (Pneumovax) 07/13/2013 Seasonal Influenza Virus Vac cine, Unspecified Formulation 02/01/2021,01/25/2020,05/05/2019 Seasonal Influenza, Quadriva lent, No Preserve, 6 Mons & Above, IM 01/21/2022,02/01/2021,01/25/2020,05/05 TDAP (age 10 and older)(Boostrix) 07/13/2013 documented as of this encounter Social History Tobacco Use Types Packs/Day Years Used Date Smoking Tobacco: Former Cigarettes Q uit: 01/20/2019 Smokeless Tobacco: Never Alcohol Use Standard Drinks/Week [...] encounter Miscellaneous Notes * Telephone Encounter - Irineo Wang [facility] - 11/29/2022 7:54 PM EDT Received message from [facility] regarding patient needing labs. Patient was notified. Successfully contacted patient and provided [facility] message. * Telephone Encounter - Debbie Turner [facility] - 06/11/2022 2:27 PM EST Signed Prescriptions: Disp Refills Folic Acid 1 MG Oral Tablet 90 Tab*0 Sig: Take 1 tablet by mouth once daily Authorizing Provider: LENNY BALL User: DEBBIE TURNER * Telephone Encounter - Debbie Turner [facility] - 06/11/2022 2:25 PM EST Provided 90 days supply with 0 refill(s) until upcoming appointment. Per refill protocol patient should have CBC on file within past year. Reviewed AMP report, Care Gaps/Health Maintenance, medications list, and for any routine labs typically ordered for this patient. Lab orders placed. Please contact patient to advise of labs ordered for blood draw.. Fasting is not required. Advise to obtain labs after his scheduled office visit 06/25/2022. Thank you, Debbie Turner, PharmD Clinical Pharmacist Telepharmacy 06/11/22 2:26 PM [phone] documented in this encounter Plan of Treatment Upcoming Encounters Date Type Specialty Care Team Description 01/22/2023 Office Visit Urology Mukund Hui MD [address] [place] [address] [facility] [place] [address] 01/30/2023 Telemedicine Psychiatry Sara Swanson MD [address] [place] [address] Scheduled Orders Name Type Priority Associated Diagnoses Orde r Schedule CBC Lab Routine Routine medical exam Encounter for long-term (current) use of medications Expected: 06/25/2022 (Approximate), Expires: 06/12/2023 Scheduled Procedures Name Priority Associated Diagnoses Date/Ti [...] as of this encounter Visit Diagnoses Diagnosis Routine medical exam- Primary Routine general medical examination at a health care facility Alcohol abuse Alcohol abuse, unspecified Encounter for long-term (current) use of medications Encounter for long-term (current) use of other medications documented in this encounter Care Teams Senior Manager Mmcoe Relationship Specialty Start Date End Date Lenny Ball MD [address] [place] [address], [place] [address] PCP - General Internal Medicine 05/18/21 documented as of this encounter
--- OUTSIDE RECORDS SUMMARY | 2023-03-26 03:14 | External Medical Summary | Summary of Care ---
Author Name Unknown Organization [facility] Address [address] [facility] [address] Phone [phone] Care Team Providers Care Melt Down Furnace Operator Name Role Phone Lenny Castle MD Primary Care Provider + Reason for Visit * Reason Comments eRx-Medication Refill Encounter Details Date Type Department Care Team Description 12/19/2022 Refill [facility] [address] [place] [facility] [place] [address] Raegan Ramsey CRNP [address] [place] [address] Allergies No known active allergiesdocumented as of this encounter (statuses as of 12/19/2022) Medications Medication Sig Dispensed Refills Start Date End Date Status Multiple Vitamins-Mineral s (MULTIVITAMIN ADULT) TABS Take by mouth. 0 Active Amitriptyline HCl 50 MG Oral Tablet (Elavil) Take by mouth 50 mg at bedtime . 0 Active Nitroglycerin 0.4 MG Sublingual Tablet Sublingual (Nitrostat)Indic ations:Coronary artery disease involving [place] coronary artery of [place] heart without angina pectoris Place 1 Tab [...] Oral Tablet (Zetia)Indicatio ns:Coronary artery disease involving [place] coronary artery of [place] heart without angina pectoris,NSTEMI (non-ST elevation myocardial infarction) (HCC),Presence of drug coated stent in LAD coronary artery,Orthostat ic hypotension,Isch emic cardiomyopathy,H [place], goal below 130/80,Dyslipide [place], goal LDL below 70,ACS (acute coronary syndrome) ([facility]) Take 1 tablet by mouth [...] Oral Tablet (Lipitor)Indicat ions:Coronary artery disease involving [place] coronary artery of [place] heart without angina pectoris,History of non-ST elevation [...] 6 weeks 28 Patch 0 11/11/2022 Active Venlafaxine HCl ER 37.5 MG Oral [...] the morning 90 Capsule 3 12/19/2022 Active Fenofibrate Micronized 134 MG Oral Capsule Take by mouth 1 Capsule in the morning. 34 Capsule 11 12/06/2021 12/20/19 23 Discontinued documented as of this encounter (statuses as of 12/19/2022) Active Problems Problem Noted Date Food insecurity [...] disease 06/06/2020 Coronary artery disease invo lving [place] coronary artery of [place] heart without angina pectoris 01/25/2020 History of non-ST elevation myocardial i nfarction (NSTEMI) 01/25/2020 Status post insertion of drug eluting co ronary artery stent 01/25/2020 Affective disorder Overview: sees Dr. Castanon Anxiety documented as of this encounter (statuses as of 12/19/2022) Resolved Problems Problem Noted Date Resolved Date Alcohol-induced acute pancreatitis 06/06/2020 06/12/2021 Alcohol dependence, continuous 06/06/2020 0 06/12/2021 Seizure 06/06/2020 06/12/2021 Alcohol abuse 07/22/2018 06/12/2021 Depression 06/25/2022 documented as of this encounter (statuses as of 12/19/2022) Immunizations Name Administration Dates Next Due COVID-19 mRNA, LNP-s, No Pre serve, 2-Dose Series ([employer]) 09/23/2020,09/02/2020 Hepatitis B, 20+ yrs 06/25/2022,01/21/2022,12/19 Pneumococcal Conjugate Vacci ne, 20-valent ([id number]) 12/19/2021 Pneumococcal Polysaccharide PPV23 (Pneumovax) 07/13/2013 Seasonal [...] * Telephone Encounter - PAULINA Herrera - 12/19/2022 3:01 PM EDTSigned Prescriptions: Disp Refills Fenofibrate Micronized 134 MG Oral Capsule 90 Cap*3 Sig: Take 1 capsule by mouth in the morning Authorizing Provider: RAEGAN RAMSEY * Telephone Encounter - RICHI Gordon - 12/19/2022 2:54 PM EDTPending Prescriptions: Disp Refills Fenofibrate Micronized 134 MG Oral Capsule 90 Cap*3 Sig: Take 1 capsule by mouth in the morning * Telephone Encounter - RICHI Gordon - 12/19/2022 2:54 PM EDT Did you pend patient's preferred pharmacy and medication before forwarding?yes [facility] [address] [address] [place] Pending Prescriptions: Disp Refills Fenofibrate Micronized 134 MG Oral [id number] Cap*3 Sig: Take 1 capsule by mouth in the morning Last Visit: 07/02/2021 (in office), Visit date not found (telemedicine) Next Visit: Visit date not found If no future appointments scheduled, and last appointment is greater than a year ago, please schedule patient for a follow-up appointment Last date the medication was ordered: 12-06-2021 Is this request for a controlled substance?No Urine Drug Screen:No results found for this or any previous visit. Patient Phone Numbers Labs: Lab Results Component Value Date/Time CREAT 0.8 12/19/2021 10:11 AM CREAT 0.8 10/14/2018 08:18 AM POTASSIUM 3.9 12/19/2021 10:11 AM POTASSIUM 4.0 10/14/2018 08:18 AM TSH 2.08 11/24/2018 10:21 AM LDLCALC 45 12/19/2021 10:11 AM LDLCALC 160 (H) 10/03/2016 09:48 AM LDLDIRECT 69 06/12/2021 10:24 AM LDLDIRECT NOT APPLICABLE 10/03/2016 09:48 AM ALT 23 01/21/2022 04:09 PM ALT 70 (H) 10/14/2018 08:18 AM HGBA1C 5.3 06/30/2021 01:44 PM documented in this encounter Plan of Treatment Upcoming Encounters Date Type Specialty Care Team Description 01/22/2023 Office Visit Urology Mukund Hui MD [address] [facility] [address] [place] [address] 01/30/2023 Telemedicine Psychiatry Sara Swanson MD [address] [place] [address] Scheduled Procedures Name Priority Associated Diagnoses Date/Ti [...] filedocumented as of this encounter Care Teams Melt Down Furnace Operator Relationship Specialty Start Date End Date Lenny Castle MD [address] [place] [address] PCP - General Internal Medicine 05/18/21 documented as of this encounter
--- OUTSIDE RECORDS SUMMARY | 2023-03-26 03:14 | External Medical Summary | Summary of Care ---
Author Name Unknown Organization [facility] Address [address] [place] [address] Phone [phone] Care Team Providers Care Ep Technologist Name Role Phone Lenny Castle MD Primary Care Provider + Reason for Visit * Reason Onset Date Comments Med Request 12/31/2022 Encounter Details Date Type Department Care Team Description 12/31/2022 Telephone Psychiatry, [place] [address] [place] [address] Services, Pending Sale To [facility] [address] [place] [address] Med Request Allergies No known active allergiesdocumented as of this encounter (statuses as of 12/31/2022) Medications Medication Sig Dispensed Refills Start Date End Date Status Multiple Vitamins-Minerals (MULTIVITAMIN ADULT) TABS Take by mouth. 0 Active Amitriptyline HCl 50 MG Oral Tablet (Elavil) Take by mouth 50 mg at bedtime . 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 Start after you finish the 14 mg patches. 14 Patch 0 05/14/2022 Active Additional Information Patient not taking.Reported on 06/25/2022 Folic Acid 1 MG Oral TabletIndications: Alcohol abuse Take 1 tablet by mouth once daily 90 Tablet 0 06/11/2022 Active Ezetimibe 10 MG Oral Tablet (Zetia)Indications :Coronary artery disease involving [place] coronary artery of [place] heart without angina pectoris,NSTEMI (non-ST elevation myocardial [...] Oral Tablet (Lipitor)Indicatio ns:Coronary artery disease involving [place] coronary artery of [place] heart without angina pectoris,History of non-ST elevation myocardial infarction (NSTEMI) Take 1 tablet by mouth once daily 90 Tablet 1 11/12/2022 Active Nicotine 14 MG/24HR Transdermal Patch 24 Hour (Nicotine Step 2)Indications:Toba client account specialist use disorder Place 1 Patch over 24 [...] Transdermal Patch 24 Hour (Nicotine Step 1)Indications:Toba client account specialist use disorder Place 1 Patch topically on the skin daily. 56 Patch 0 12/20/2022 Active documented as of this encounter (statuses as of 12/31/2022) Active Problems Problem Noted Date Food insecurity 07/08/2022 Overview: Per [facility] Protocol HTN, goal below 130/80 06/25/2022 [...] disease 06/06/2020 Coronary artery disease invo lving [place] coronary artery of [place] heart without angina pectoris 01/25/2020 History of [...] mRNA, LNP-s, No Pre serve, 2-Dose Series ([employer]) 09/23/2020,09/02/2020 Hepatitis B, 20+ yrs 06/25/2022,01/21/2022,12/19 Pneumococcal Conjugate Vacci ne, 20-valent ([id number]) 12/19/2021 Pneumococcal Polysaccharide PPV23 (Pneumovax) 07/13/2013 Seasonal [...] Provider: Sara Swanson Medication: Adderall 20MG Pharmacy: [facility] in [facility] Last Visit Date: 11/27/22 Future Visit Date: 01/30/23 Pt has run out of medication and is requesting refill today. documented in this encounter Plan of Treatment Upcoming Encounters Date Type Specialty Care Team Description 01/22/2023 Office Visit Urology Mukund Hui MD [address] [place] [address] [place] [address] 01/30/2023 [facility]medicine [facility]iatry [facility] [address] [facility] [address] 05/07/2023 Office Visit Sleep Disorders Dana Galvan, [address] [place] [id number] Scheduled Procedures Name Priority Associated Diagnoses Date/Ti [...] filedocumented as of this encounter Care Teams Ep Technologist Relationship Specialty Start Date End Date Lenny Castle MD [address] [place] [address], [place] [address] PCP - General Internal Medicine 05/18/21 documented as of this encounter
--- OUTSIDE RECORDS SUMMARY | 2023-03-26 03:15 | External Medical Summary | Summary of Care ---
Author Name Unknown Organization [facility] [address] [facility] [address] Phone [phone] Care Team Providers Care Director Radio Name Role Phone Lenny Castle MD Primary Care Provider + Reason for Visit * Reason Comments eRx-Medication Refill Encounter Details Date Type Department Care Team Description 11/27/2022 Refill Urology, [facility] [address] [facility] [place] [address] Mukund Yeager MD [address] [facility] [place] [address] [place] [address] Allergies No known active allergiesdocumented as of this encounter (statuses as of 11/27/2022) Medications Medication Sig Dispensed Refills Start Date End Date Status Multiple Vitamins-Mineral s (MULTIVITAMIN ADULT) TABS Take by mouth. 0 Active Amitriptyline HCl 50 MG Oral Tablet (Elavil) Take by mouth 50 mg at bedtime . 0 Active Nitroglycerin 0.4 MG Sublingual Tablet Sublingual (Nitrostat)Indic ations:Coronary artery disease involving [place] coronary artery of [place] heart without angina pectoris Place 1 Tab under the tongue as needed for Pain, Chest. May repeat 3 times. If chest pain continues, call 911. 25 Tab 11 08/26/2020 Active Additional Information Patient not taking.Reported on 06/25/2022 Amphetamine-Dext roamphetamine 10 MG Oral Tablet (Adderall) Take 2 Tablets by mouth in the morning. 0 01/24/2021 Active Lidocaine 4 % External Patch (Aspercreme)Polina cations:Chronic midline low back pain without sciatica Place topically on the skin 1 Patch daily . 30 Patch 3 07/19/2021 Active Additional Information Patient not taking.Reported on 05/21/2022 Metoprolol Succinate ER 50 MG Oral Tablet Extended Release 24 Hour (toPROL XL) Take by mouth 1 Tablet in the morning. 90 Tablet 3 11/15/2021 Active Fenofibrate Micronized 134 MG Oral Capsule [...] once daily 90 Tablet 0 06/11/2022 Active Sildenafil Citrate 50 MG Oral TabletIndication s:Erectile dysfunction, unspecified erectile dysfunction type TAKE 1 TABLET BY MOUTH 1 TO 4 HOURS BEFORE INTERCOURSE - NO MORE THAN 1 TABLET/DAY 10 Tablet 3 06/29/2022 Active Ezetimibe 10 MG Oral Tablet (Zetia)Indicatio ns:Coronary artery disease involving [place] coronary artery of [place] heart without angina pectoris,NSTEMI (non-ST elevation myocardial [...] the morning 30 Capsule 5 08/18/2022 Active Amphetamine-Dext roamphetamine 20 MG Oral Tablet (Adderall) TAKE 1 TABLET BY MOUTH TWICE A DAY NEEDED 180 Tablet 0 10/23/2022 Active Pantoprazole Sodium 40 MG Oral Tablet [...] Oral Tablet (Lipitor)Indicat ions:Coronary artery disease involving [place] coronary artery of [place] heart without angina pectoris,History of non-ST elevation [...] 30 Tablet 2 11/27/2022 12/28/19 23 Active Tadalafil 5 MG Oral Tablet (Cialis) TAKE 1 TABLET BY MOUTH ONCE DAILY NEEDED FOR ERECTILE DYSFUNCTION 30 Tablet 0 11/27/2022 Active Tadalafil 5 MG Oral Tablet (Cialis) TAKE 1 TABLET BY MOUTH ONCE DAILY NEEDED FOR ERECTILE DYSFUNCTION 30 Tablet 0 10/15/2022 11/28/19 23 Discontinued documented as of this encounter (statuses as of 11/27/2022) Active Problems Problem Noted Date Food insecurity [...] disease 06/06/2020 Coronary artery disease invo lving [place] coronary artery of [place] heart without angina pectoris 01/25/2020 History of non-ST elevation myocardial i nfarction (NSTEMI) 01/25/2020 Status post insertion of drug eluting co ronary artery stent 01/25/2020 Affective disorder Overview: sees Dr. Castanon Anxiety documented as of this encounter (statuses as of 11/27/2022) Resolved Problems Problem Noted Date Resolved Date Alcohol-induced acute pancreatitis 06/06/2020 06/12/2021 Alcohol dependence, continuous 06/06/2020 0 06/12/2021 Seizure 06/06/2020 06/12/2021 Alcohol abuse 07/22/2018 06/12/2021 Depression 06/25/2022 documented as of this encounter (statuses as of 11/27/2022) Immunizations Name Administration Dates Next Due COVID-19 mRNA, LNP-s, No Pre serve, 2-Dose Series ([employer]) 09/23/2020,09/02/2020 Hepatitis B, 20+ yrs 06/25/2022,01/21/2022,12/19 Pneumococcal Conjugate Vacci ne, 20-valent ([id number]) 12/19/2021 Pneumococcal Polysaccharide PPV23 (Pneumovax) 07/13/2013 Seasonal [...] Telephone Encounter - Mukund Yeager MD - 11/27/2022 1:19 PM EDTSigned Prescriptions: Disp Refills Tadalafil 5 MG Oral Tablet (Cialis) 30 Tab*0 Sig: TAKE 1 TABLET BY MOUTH ONCE DAILY NEEDED FOR ERECTILE DYSFUNCTION Authorizing Provider: MUKUND YEAGER * Telephone Encounter - Nadya Ortiz LPN - 11/27/2022 1:13 PM EDTPending Prescriptions: Disp Refills Tadalafil 5 MG Oral Tablet 30 Tab*0 Sig: TAKE 1 TABLET BY MOUTH ONCE DAILY NEEDED FOR ERECTILE DYSFUNCTION * Telephone Encounter - Nadya Ortiz LPN - 11/27/2022 1:12 PM EDT Please refill the requested medication(s). Tadalafil 01/21/2022 (in office), Visit date not found (telemedicine) 01/22/2023 Review of patient's allergies indicates: No Known Allergies documented in this encounter Plan of Treatment Upcoming Encounters Date Type Specialty Care Team Description 11/28/2022 Office Visit Cardiology Raegan Draper CRNP [address] [place] [address] 01/22/2023 Office Visit Urology Mukund Yeager MD [address] [place] [address] [place], [place] [id number] 01/30/2023 Telemedicine Psychiatry Sara Swanson MD [address] [place] [address] Scheduled Procedures Name Priority Associated Diagnoses Date/Ti me COLONOSCOPY FLEXIBLE PROXIMAL DIAGNOSTIC Recall History of colon polyps Health Maintenance Due Date Last Done Comments DISCUSS TOBACCO CESSATION (REFER TO SMARTSET #4581) 1972 Albumin/Creatinine Ratio 1990 COVID-19 Vaccine (3 [...] as of this encounter Care Teams Director Radio Relationship Specialty Start Date End Date Lenny Castle MD [address] [place] [address], [place] [address] PCP - General Internal Medicine 05/18/21 documented as of this encounter
--- OUTSIDE RECORDS SUMMARY | 2023-03-26 03:15 | External Medical Summary | Summary of Care ---
Author Name Unknown Organization [facility] Address [address] [place] [address] Phone [phone] Care Team Providers Care Ceramic Coater Machine Name Role Phone Lenny Castle MD Primary Care Provider + Reason for Visit * Reason Onset Date Comments Encounter Created in Error 10/31/2022 Encounter Details Date Type Department Care Team Description 10/31/2022 Telephone General Internal Medicine [facility] [address] [place] [address] Lenny Castle MD [address] [place] [address] Encounter Created in Error Allergies No known active allergiesdocumented as of this encounter (statuses as of 10/31/2022) Medications Medication Sig Dispensed Refills Start Date End Date Status Multiple Vitamins-Minerals (MULTIVITAMIN ADULT) TABS Take by mouth. 0 Active Amitriptyline HCl 50 MG Oral Tablet (Elavil) Take by mouth 50 mg at bedtime . 0 Active Nitroglycerin 0.4 MG Sublingual Tablet Sublingual (Nitrostat)Indicat ions:Coronary artery disease involving [place] coronary artery of [place] heart without angina pectoris Place 1 Tab under the tongue as needed for Pain, Chest. May repeat 3 times. If chest pain continues, call 911. 25 Tab 11 08/26/2020 Active Additional Information Patient not taking.Reported on 06/25/2022 Amphetamine-Dextro amphetamine 10 MG Oral Tablet (Adderall) Take 2 Tablets by mouth in the morning. 0 01/24/2021 Active Venlafaxine HCl ER 37.5 MG Oral Capsule Extended Release 24 Hour (Effexor XR) Take by mouth 1 Capsule daily . For 7 days 0 06/21/2021 Active Lidocaine 4 % External Patch (Aspercreme)Indica tions:Chronic [...] Additional Information Patient not taking.Reported on 06/25/2022 Pantoprazole Sodium 40 MG Oral Tablet Delayed Release (Protonix)Indicati ons:Gastroesophage al reflux disease without esophagitis Take by mouth 1 Tablet in the morning. 90 Tablet 1 01/08/2022 Active Tadalafil 20 MG Oral Tablet Take by mouth 1 Tablet daily as needed for Erectile Dysfunction. 10 Tablet 11 01/21/2022 Active Atorvastatin Calcium 80 MG Oral Tablet (Lipitor)Indicatio ns:Coronary artery disease involving [place] coronary artery of [place] heart without angina pectoris,History of non-ST elevation myocardial infarction (NSTEMI) Take 1 tablet by mouth once daily 90 Tablet 1 05/08/2022 Active Tamsulosin HCl 0.4 MG Oral Capsule [...] morning. 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 Start after you finish the 14 mg patches. 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 Start after you finish the 21 mg patches 14 Patch 0 05/14/2022 Active Additional Information Patient not taking.Reported on 06/25/2022 tiZANidine HCl 2 MG Oral Tablet (Zanaflex)Indicati ons:Chronic midline low back pain without sciatica TAKE 1 TABLET BY MOUTH AT BEDTIME NEEDED FOR BACK PAIN 30 Tablet 0 06/12/2022 Active Folic Acid 1 MG Oral TabletIndications: Alcohol abuse Take 1 tablet by mouth once daily 90 Tablet 0 06/11/2022 Active Sildenafil Citrate 50 MG Oral TabletIndications: Erectile dysfunction, unspecified erectile dysfunction type TAKE 1 TABLET BY MOUTH 1 TO 4 HOURS BEFORE INTERCOURSE - NO MORE THAN 1 TABLET/DAY 10 Tablet 3 06/29/2022 Active Ezetimibe 10 MG Oral Tablet (Zetia)Indications :Coronary artery disease involving [place] coronary artery of [place] heart without angina pectoris,NSTEMI (non-ST elevation myocardial infarction) (HCC),Presence of drug coated stent in LAD coronary artery,Orthostatic hypotension,Ischem ic cardiomyopathy,HTN , goal below 130/80,Dyslipidemi a, goal LDL below 70,ACS (acute coronary syndrome) ([facility]) Take 1 tablet by mouth once daily 90 Tablet 3 08/01/2022 Active Venlafaxine HCl ER 75 MG Oral Capsule Extended Release 24 Hour (Effexor XR) Take 1 capsule by mouth in the morning 30 Capsule 5 08/18/2022 Active Tadalafil 5 MG Oral Tablet (Cialis) TAKE 1 TABLET BY MOUTH ONCE DAILY NEEDED FOR ERECTILE DYSFUNCTION 30 Tablet 0 10/15/2022 Active documented as of this encounter (statuses as of 10/31/2022) Active Problems Problem Noted Date Food insecurity 07/08/2022 Overview: Per [facility] Protocol HTN, goal below 130/80 06/25/2022 [...] disease 06/06/2020 Coronary artery disease invo lving [place] coronary artery of [place] heart without angina pectoris 01/25/2020 History of non-ST elevation myocardial i nfarction (NSTEMI) 01/25/2020 Status post insertion of drug eluting co ronary artery stent 01/25/2020 Affective disorder Overview: sees Dr. Castanon Anxiety documented as of this encounter (statuses as of 10/31/2022) Resolved Problems Problem Noted Date Resolved Date Alcohol-induced acute pancreatitis 06/06/2020 06/12/2021 Alcohol dependence, continuous 06/06/2020 0 06/12/2021 Seizure 06/06/2020 06/12/2021 Alcohol abuse 07/22/2018 06/12/2021 Depression 06/25/2022 documented as of this encounter (statuses as of 10/31/2022) Immunizations Name Administration Dates Next Due COVID-19 mRNA, LNP-s, No Pre serve, 2-Dose Series ([employer]) 09/23/2020,09/02/2020 Hepatitis B, 20+ yrs 06/25/2022,01/21/2022,12/19 Pneumococcal Conjugate Vacci ne, 20-valent ([id number]) 12/19/2021 Pneumococcal Polysaccharide PPV23 (Pneumovax) 07/13/2013 Seasonal [...] on file documented as of this encounter Plan of Treatment Upcoming Encounters Date Type Specialty Care Team Description 11/28/2022 Office Visit Cardiology Raegan Draper CRNP [address] [place] [address] 01/22/2023 Office Visit Urology Mukund Hui MD [address] [place] [address] [place] [address] Scheduled Procedures Name Priority Associated Diagnoses Date/Ti me COLONOSCOPY FLEXIBLE PROXIMAL DIAGNOSTIC Recall History of colon polyps Health Maintenance Due Date Last Done Comments DISCUSS TOBACCO CESSATION (REFER TO SMARTSET #0801) 1972 Albumin/Creatinine Ratio 1990 COVID-19 Vaccine (3 [...] filedocumented as of this encounter Care Teams Ceramic Coater Machine Relationship Specialty Start Date End Date Lenny Castle MD [address] [place] [id number] PCP - General Internal Medicine 05/18/21 documented as of this encounter
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
--- OUTSIDE RECORDS SUMMARY | 2023-03-26 03:15 | External Medical Summary | Summary of Care ---
Author Name Unknown Organization [facility] Address [address] [place] [address] Phone [phone] Care Team Providers Care Psychologists Name Role Phone Lenny Castle MD Primary Care Provider + Reason for Visit * Reason Comments eRx-Medication Refill tadalafil Encounter Details Date Type Department Care Team Description 10/14/2022 Refill Urology, [facility] [address] [facility] [place] [address] Mukund Yeager MD [address] [facility] [place] [address] [place] [address] Allergies No known active allergiesdocumented as of this encounter (statuses as of 10/15/2022) Medications Medication Sig Dispensed Refills Start Date [...] 06/21/2021 Active Lidocaine 4 % External Patch (Aspercreme)Polina [...] 06/25/2022 tiZANidine HCl 2 MG Oral Tablet (Zanaflex)Indica tions:Chronic midline low back pain without sciatica TAKE 1 TABLET BY MOUTH AT BEDTIME NEEDED FOR BACK PAIN 30 Tablet 0 06/12/2022 Active Folic Acid 1 MG Oral TabletIndication s:Alcohol [...] without angina pectoris,NSTEMI (non-ST elevation myocardial infarction) ([facility]),Presence of drug coated stent in LAD coronary artery,Orthostat ic hypotension,Isch emic cardiomyopathy,H [place], goal below 130/80,Dyslipide austyn, goal LDL below 70,ACS (acute coronary syndrome) ([facility]) Take 1 tablet by mouth once daily 90 Tablet 3 08/01/2022 Active Venlafaxine HCl ER 75 MG Oral Capsule Extended Release 24 Hour (Effexor XR) Take 1 capsule by mouth in the morning 30 Capsule 5 08/18/2022 Active Tadalafil 5 MG Oral Tablet (Cialis) TAKE 1 TABLET BY MOUTH ONCE DAILY NEEDED FOR ERECTILE DYSFUNCTION 30 Tablet 0 10/15/2022 Active Tadalafil 5 MG Oral Tablet (Cialis) TAKE 1 TABLET BY MOUTH ONCE DAILY NEEDED FOR ERECTILE DYSFUNCTION 30 Tablet 0 07/11/2022 10/16/19 23 Discontinued documented as of this encounter (statuses as of 10/15/2022) Active Problems Problem Noted Date Food insecurity [...] as of this encounter (statuses as of 10/15/2022) Resolved Problems Problem Noted Date Resolved Date Alcohol-induced acute pancreatitis 06/06/2020 06/12/2021 Alcohol dependence, continuous 06/06/2020 0 06/12/2021 Seizure 06/06/2020 06/12/2021 Alcohol abuse 07/22/2018 06/12/2021 Depression 06/25/2022 documented as of this encounter (statuses as of 10/15/2022) Immunizations Name Administration Dates Next Due COVID-19 mRNA, LNP-s, No Pre serve, 2-Dose Series (PEVESA) 09/23/2020,09/02/2020 Hepatitis B, 20+ yrs 06/25/2022,01/21/2022,12/19 Pneumococcal Conjugate Vacci ne, 20-valent ([id number]) 12/19/2021 Pneumococcal Polysaccharide PPV23 (Pneumovax) 07/13/2013 Seasonal [...] Telephone Encounter - Mukund Yeager MD - 10/15/2022 9:46 AM EDTSigned Prescriptions: Disp Refills Tadalafil 5 MG Oral Tablet (Cialis) 30 Tab*0 Sig: TAKE 1 TABLET BY MOUTH ONCE DAILY NEEDED FOR ERECTILE DYSFUNCTION Authorizing Provider: MUKUND YEAGER * Telephone Encounter - Ermelinda Collazo LPN - 10/15/2022 7:57 AM EDTPending Prescriptions: Disp Refills Tadalafil 5 MG Oral Tablet 30 Tab*0 Sig: TAKE 1 TABLET BY MOUTH ONCE DAILY NEEDED FOR ERECTILE DYSFUNCTION * Telephone Encounter - Ermelinda Collazo LPN - 10/15/2022 7:56 AM EDT Refill of tadalafil requested Last appt: 01/21/2022 (in office), Visit date not found (telemedicine) Next appt: 01/22/2023 Review of patient's allergies indicates: No Known Allergies Thank you Fouzia documented in this encounter Plan of Treatment Upcoming Encounters Date Type Specialty Care Team Description 11/28/2022 Office Visit Cardiology Raegan Draper CRNP [address] [place] [address] 01/22/2023 Office Visit Urology Mukund Yeager MD [address] [place] [address] [place] [address] Scheduled Procedures Name Priority Associated Diagnoses Date/Ti me COLONOSCOPY FLEXIBLE PROXIMAL DIAGNOSTIC Recall History of colon polyps Health Maintenance Due Date Last Done Comments DISCUSS TOBACCO CESSATION (REFER TO SMARTSET #0497) 1972 Albumin/Creatinine Ratio 1990 COVID-19 Vaccine (3 - Pfizer series) 11/18/2020 09/23/2020, 09/02/2020 Zoster Vaccines (2 of 2) 08/20/2022 06/25/2022 Depression Screening, Annual for Pts 12 and Over 12/19/2022 12/19/2021, 08/20/2017 GFR 12/19/2022 12/19/2021, 06/27, 06/12/2021, Additional history exists COLONOSCOPY-EVERY 5 YRS AGES 18-100 02/17/2023 02/17/2018, 02/17/2018 DTaP,Tdap,and Td Vaccines (2 - Td or Tdap) 07/14/2023 07/13/2013 Diabetes Screening 12/19/2024 12/19/2021, 0 07/19/2021, 06/30/2021, Additional history exists Hepatitis C Screening Completed 10/14/2018 Pneumococcal Vaccine: Pediatrics (0 to 5 Years) and At-Risk Patients (6 to 64 Years) Completed 12/19/2021, 07/13/2013 Influenza Vaccine (FLU shot) Completed , 02/01/2021, 02/01/2021, Additional history exists Hepatitis B Completed 06/25/2022, 12/28, 12/19/2021 GARDASIL-HPV IMMUNIZATION SERIES Aged Out No longer eligible based on patient's age to complete this topic MENINGOCOCCAL (MENACTRA/MENVEO) Aged Out No longer eligible based on patient's age to complete this topic documented as of this encounter Medical Devices Not on filedocumented as of this encounter Care Teams Psychologists Relationship Specialty Start Date End Date Lenny Castle MD [address] [place] [address], [place] [address] PCP - General Internal Medicine 05/18/21 documented as of this encounter
--- OUTSIDE RECORDS SUMMARY | 2023-03-26 03:15 | External Medical Summary | Summary of Care ---
Author Name Unknown Organization [facility] Address [address] [place] [address] Phone [phone] Care Team Providers Care Team Primary Care Physician Name Role Phone Lenny Ball MD Primary Care Provider + Reason for Visit * Reason Comments eRx-Medication Refill Encounter Details Date Type Department Care Team Description 11/27/2022 Refill Family Practice [facility] [address] [place] [address] Lenny Ball MD [address] [place] [address] Erectile dysfunction, unspecified erectile dysfunction type Allergies No known active allergiesdocumented as of this encounter (statuses as of 11/28/2022) Medications Medication Sig Dispensed Refills Start Date End Date Status Multiple Vitamins-Mineral s (MULTIVITAMIN ADULT) TABS Take by mouth. 0 Active Amitriptyline HCl 50 MG Oral Tablet (Elavil) Take by mouth 50 mg at bedtime . 0 Active Nitroglycerin 0.4 MG Sublingual Tablet Sublingual (Nitrostat)Indic ations:Coronary artery disease involving [place] coronary artery of [place] heart without angina pectoris Place 1 Tab [...] Oral Tablet (Zetia)Indicatio ns:Coronary artery disease involving [place] coronary artery of [place] heart without angina pectoris,NSTEMI (non-ST elevation myocardial [...] Oral Tablet (Lipitor)Indicat ions:Coronary artery disease involving [place] coronary artery of [place] heart without angina pectoris,History of non-ST elevation [...] ERECTILE DYSFUNCTION 30 Tablet 0 11/27/2022 Active Sildenafil Citrate 50 MG Oral TabletIndication s:Erectile dysfunction, unspecified erectile dysfunction type TAKE 1 TABLET BY MOUTH 1 TO 4 HOURS BEFORE INTERCOURSE - NO MORE THAN 1 TABLET/DAY 10 Tablet 3 06/29/2022 11/29/19 23 Discontinued documented as of this encounter (statuses as of 11/28/2022) Active Problems Problem Noted Date Food insecurity [...] disease 06/06/2020 Coronary artery disease invo lving [place] coronary artery of [place] heart without angina pectoris 01/25/2020 History of non-ST elevation myocardial i nfarction (NSTEMI) 01/25/2020 Status post insertion of drug eluting co ronary artery stent 01/25/2020 Affective disorder Overview: sees Dr. Castanon Anxiety documented as of this encounter (statuses as of 11/28/2022) Resolved Problems Problem Noted Date Resolved Date Alcohol-induced acute pancreatitis 06/06/2020 06/12/2021 Alcohol dependence, continuous 06/06/2020 0 06/12/2021 Seizure 06/06/2020 06/12/2021 Alcohol abuse 07/22/2018 06/12/2021 Depression 06/25/2022 documented as of this encounter (statuses as of 11/28/2022) Immunizations Name Administration Dates Next Due COVID-19 mRNA, LNP-s, No Pre serve, 2-Dose Series ([employer]) 09/23/2020,09/02/2020 Hepatitis B, 20+ yrs 06/25/2022,01/21/2022,12/19 Pneumococcal Conjugate Vacci ne, 20-valent ([id number]) 12/19/2021 Pneumococcal Polysaccharide PPV23 (Pneumovax) 07/13/2013 Seasonal [...] encounter Miscellaneous Notes * Telephone Encounter - Misael Epperson RPh - 11/28/2022 8:35 AM EDT Signed Prescriptions: Disp Refills Sildenafil Citrate 50 MG Oral Tablet 10 Tab*1 Sig: TAKE 1 TABLETBY MOUTH 1 TO 4 HOURS BEFORE INTERCOURSE. DO NOT TAKE MORE THAN 1 TABLET A DAYAuthorizing Provider:LENNY BALL User: MISAEL EPPERSON documented in this encounter Plan of Treatment Upcoming Encounters Date Type Specialty Care Team Description 11/28/2022 Office Visit Cardiology Raegan Draper CRNP [address] [place] [id number] 01/22/2023 Office Visit Urology Mukund Hui MD [address] [place] [address] [place] [address] 01/30/2023 Telemedicine Psychiatry Sara Swanson MD [address] [facility] [place] [address] Scheduled Procedures Name Priority Associated Diagnoses Date/Ti me COLONOSCOPY FLEXIBLE PROXIMAL DIAGNOSTIC Recall History of colon polyps Health Maintenance Due Date Last Done Comments DISCUSS TOBACCO CESSATION (REFER TO SMARTSET #3299) 1972 Albumin/Creatinine Ratio 1990 COVID-19 Vaccine (3 [...] type documented in this encounter Care Teams Team Primary Care Physician Relationship Specialty Start Date End Date Lenny Ball MD [address] [place] [address], [place] [address] PCP - General Internal Medicine 05/18/21 documented as of this encounter
--- OUTSIDE RECORDS SUMMARY | 2023-03-26 03:15 | External Medical Summary | Summary of Care ---
Author Name Unknown Organization [facility] Address [address] [place] [address] Phone [phone] Care Team Providers Care Survey Research Manager Name Role Phone Lenny Ball MD Primary Care Provider + Reason for Visit * Reason Comments eRx-Medication Refill Encounter Details Date Type Department Care Team Description 11/04/2022 Refill Family Practice [facility] [address] [place] [address] Lenny Ball MD [address] [place] [address] Gastroesophageal reflux disease without esophagitis; Chronic midline low back pain without sciatica Allergies No known active allergiesdocumented as of this encounter (statuses as of 11/07/2022) Medications Medication Sig Dispensed Refills Start Date End Date Status Multiple Vitamins-Mineral s (MULTIVITAMIN ADULT) TABS Take by mouth. 0 Active Amitriptyline HCl 50 MG Oral Tablet (Elavil) Take by mouth 50 mg at bedtime . 0 Active Nitroglycerin 0.4 MG Sublingual Tablet Sublingual (Nitrostat)Indic ations:Coronary artery disease involving [place] coronary artery of [place] heart without angina pectoris Place 1 Tab under the tongue as needed for Pain, Chest. May repeat 3 times. If chest pain continues, call 911. 25 Tab 11 1 Active Additional Information Patient not taking.Reported on 06/25/2022 Amphetamine-Dext roamphetamine 10 MG Oral Tablet (Adderall) Take 2 Tablets by mouth in the morning. 0 1 Active Venlafaxine HCl ER 37.5 MG Oral Capsule Extended Release 24 Hour (Effexor XR) Take by mouth 1 Capsule daily . For 7 days 0 2 Active Lidocaine 4 % External Patch (Aspercreme)Polina [...] Erectile Dysfunction. 10 Tablet 11 2 Active Atorvastatin Calcium 80 MG Oral Tablet (Lipitor)Indicat ions:Coronary artery disease involving [place] coronary artery of [place] heart without angina pectoris,History of non-ST elevation myocardial infarction (NSTEMI) Take 1 tablet by mouth once daily 90 Tablet 1 3 Active Tamsulosin HCl 0.4 MG Oral [...] 21 mg patches 14 Patch 0 3 Active Additional Information Patient not taking.Reported on 06/25/2022 Folic Acid 1 MG Oral TabletIndication s:Alcohol abuse Take 1 tablet by mouth once daily 90 Tablet 0 3 Active Sildenafil Citrate 50 MG Oral TabletIndication s:Erectile dysfunction, unspecified erectile dysfunction type TAKE 1 TABLET BY MOUTH 1 TO 4 HOURS BEFORE INTERCOURSE - NO MORE THAN 1 TABLET/DAY 10 Tablet 3 3 Active Ezetimibe 10 MG Oral Tablet (Zetia)Indicatio ns:Coronary artery disease involving [place] coronary artery of [place] heart without angina pectoris,NSTEMI (non-ST elevation myocardial infarction) ([facility]),Presence of drug coated stent in LAD coronary artery,Orthostat ic hypotension,Isch emic cardiomyopathy,H TN, goal below 130/80,Dyslipide austyn, goal LDL below 70,ACS (acute coronary syndrome) ([facility]) Take 1 tablet by mouth once daily 90 Tablet 3 3 Active Venlafaxine HCl ER 75 MG Oral Capsule Extended Release 24 Hour (Effexor XR) Take 1 capsule by mouth in the morning 30 Capsule 5 3 Active Tadalafil 5 MG Oral Tablet (Cialis) TAKE 1 TABLET BY MOUTH ONCE DAILY NEEDED FOR ERECTILE DYSFUNCTION 30 Tablet 0 3 Active Amphetamine-Dext roamphetamine 20 MG Oral Tablet (Adderall) TAKE 1 TABLET BY MOUTH TWICE A DAY NEEDED 180 Tablet 0 3 04/21/20 23 Active Pantoprazole Sodium 40 MG Oral Tablet Delayed Release (Protonix)Indica tions:Gastroesop hageal reflux disease without esophagitis TAKE 1 TABLET BY MOUTH IN THE MORNING 90 Tablet 1 3 Active tiZANidine HCl 2 MG Oral Tablet (Zanaflex)Indica tions:Chronic midline low back pain without sciatica TAKE 1 TABLET BY MOUTH AT BEDTIME NEEDED FOR BACK PAIN 30 Tablet 0 3 Active Pantoprazole Sodium 40 MG Oral Tablet Delayed Release (Protonix)Indica tions:Gastroesop hageal reflux disease without esophagitis Take by mouth 1 Tablet in the morning. 90 Tablet 1 2 11/08/19 23 Discontinued Nicotine 21 MG/24HR Transdermal Patch 24 Hour (Nicotine Step 1)Indications:To bacco use disorder Place 1 Patch topically on the skin daily. 14 Patch 0 3 11/06/19 23 Discontinued(Ref ill) tiZANidine HCl 2 MG Oral Tablet (Zanaflex)Indica tions:Chronic midline low back pain without sciatica TAKE 1 TABLET BY MOUTH AT BEDTIME NEEDED FOR BACK PAIN 30 Tablet 0 3 11/08/19 23 Discontinued documented as of this encounter (statuses as of 11/07/2022) Active Problems Problem Noted Date Food insecurity [...] disease 06/06/2020 Coronary artery disease invo lving [place] coronary artery of [place] heart without angina pectoris 01/25/2020 History of non-ST elevation myocardial i nfarction (NSTEMI) 01/25/2020 Status post insertion of drug eluting co ronary artery stent 01/25/2020 Affective disorder Overview: sees Dr. Castanon Anxiety documented as of this encounter (statuses as of 11/07/2022) Resolved Problems Problem Noted Date Resolved Date Alcohol-induced acute pancreatitis 06/06/2020 06/12/2021 Alcohol dependence, continuous 06/06/2020 0 06/12/2021 Seizure 06/06/2020 06/12/2021 Alcohol abuse 07/22/2018 06/12/2021 Depression 06/25/2022 documented as of this encounter (statuses as of 11/07/2022) Immunizations Name Administration Dates Next Due COVID-19 mRNA, LNP-s, No Pre serve, 2-Dose Series ([employer]) 09/23/2020,09/02/2020 Hepatitis B, 20+ yrs 06/25/2022,01/21/2022,12/19 Pneumococcal Conjugate Vacci ne, 20-valent ([id number]) 12/19/2021 Pneumococcal Polysaccharide PPV23 (Pneumovax) 07/13/2013 Seasonal [...] encounter Miscellaneous Notes * Telephone Encounter - Orville Carrillo PA-C - 11/07/2022 2:43 PM EDTSigned Prescriptions: Disp Refills Pantoprazole Sodium 40 MG Oral Tablet Marine*90 Tab*1 Sig: TAKE 1 TABLET BY MOUTH IN THE MORNING Authorizing Provider: LENNY BALL Ordering User: SIMEON HUFFMAN tiZANidine HCl 2 MG Oral Tablet (Zanaflex) 30 Tab*0 Sig: TAKE 1 TABLET BY MOUTH AT BEDTIME NEEDED FOR BACK PAIN Authorizing Provider: ORVILLE CARRILLO - * Telephone Encounter - Simeon Huffman [facility] - 11/07/2022 8:28 AM EDTPending Prescriptions: Disp Refills tiZANidine HCl 2 MG Oral Tablet (Zanaflex) 30 Tab*0 Sig: TAKE 1 TABLET BY MOUTH AT BEDTIME NEEDED FOR BACK PAIN Signed Prescriptions: Disp Refills Pantoprazole Sodium 40 MG Oral Tablet Marine*90 Tab*1 Sig: TAKE 1 TABLET BY MOUTH IN THE MORNING Authorizing Provider: LENNY BALL User : SIMEON HUFFMAN * Telephone Encounter - Simeon Huffman [facility] - 11/07/2022 8:27 AM EDT [facility] is currently not authorized to approve refills for the pended medication(s) per refill protocol. Please approve if appropriate. Thanks, Lei Huffman, PharmD Clinical Pharmacist [facility] [phone] 11/07/2022 8:28 AM documented in this encounter Plan of Treatment Upcoming Encounters Date Type Specialty Care Team Description 11/28/2022 Office Visit Cardiology Raegan Draper CRNP [address] [place] [address] 01/22/2023 Office Visit Urology Mukund Hui MD [address] [place] [address] [place] [address] Scheduled Procedures Name Priority Associated Diagnoses Date/Ti me COLONOSCOPY FLEXIBLE PROXIMAL DIAGNOSTIC Recall History of colon polyps Health Maintenance Due Date Last Done Comments DISCUSS TOBACCO CESSATION (REFER TO SMARTSET #0316) 1972 Albumin/Creatinine Ratio 1990 COVID-19 Vaccine (3 [...] as of this encounter Visit Diagnoses Diagnosis Gastroesophageal reflux disease without esophagitis Esophageal reflux Chronic midline low back pain without sciatica documented in this encounter Care Teams Survey Research Manager Relationship Specialty Start Date End Date Lenny Ball MD [address] [facility] [place] [address] PCP - General Internal Medicine 1/21/22 documented as of this encounter
--- OUTSIDE RECORDS SUMMARY | 2023-03-26 03:15 | External Medical Summary | Summary of Care ---
Author Name Unknown Organization [facility] Address [address] [place] [address] Phone [phone] Care Team Providers Care Automobile Engine Assembler Name Role Phone Lenny Ball MD Primary Care Provider + Reason for Visit * Reason Comments eRx-Medication Refill Encounter Details Date Type Department Care Team Description 11/09/2022 Refill Family Practice [facility] [address] [place] [address] Lenny Ball MD [address] [place] [address] Coronary artery disease involving [place] coronary artery of [place] heart without angina pectoris; History of non-ST elevation myocardial infarction (NSTEMI) Allergies No known active allergiesdocumented as of this encounter (statuses as of 11/12/2022) Medications Medication Sig Dispensed Refills Start Date End Date Status Multiple Vitamins-Mineral s (MULTIVITAMIN ADULT) TABS Take by mouth. 0 Active Amitriptyline HCl 50 MG Oral Tablet (Elavil) Take by mouth 50 mg at bedtime . 0 Active Nitroglycerin 0.4 MG Sublingual Tablet Sublingual (Nitrostat)Indic ations:Coronary artery disease involving [place] coronary artery of [place] heart without angina pectoris Place 1 Tab [...] Oral Tablet (Zetia)Indicatio ns:Coronary artery disease involving [place] coronary artery of [place] heart without angina pectoris,NSTEMI (non-ST elevation myocardial [...] ERECTILE DYSFUNCTION 30 Tablet 0 10/15/2022 Active Amphetamine-Dext roamphetamine 20 MG Oral Tablet (Adderall) TAKE 1 TABLET BY MOUTH TWICE A DAY NEEDED 180 Tablet 0 10/23/2022 04/21/20 23 Active Pantoprazole Sodium 40 MG [...] Oral Tablet (Lipitor)Indicat ions:Coronary artery disease involving [place] coronary artery of [place] heart without angina pectoris,History of non-ST elevation myocardial infarction (NSTEMI) Take 1 tablet by mouth once daily 90 Tablet 1 11/12/2022 Active Nicotine 21 MG/24HR Transdermal Patch 24 Hour (Nicotine Step 1)Indications:To bacco use disorder Place 1 Patch topically on the skin daily. 45 Patch 0 11/11/2022 Active Nicotine 14 MG/24HR Transdermal Patch 24 Hour (Nicotine Step 2)Indications:To bacco use disorder Place 1 Patch over 24 hours topically on the skin daily. Start in 6 weeks 28 Patch 0 11/11/2022 Active Atorvastatin Calcium 80 MG Oral Tablet (Lipitor)Indicat ions:Coronary artery disease involving [place] coronary artery of [place] heart without angina pectoris,History of non-ST elevation myocardial infarction (NSTEMI) Take 1 tablet by mouth once daily 90 Tablet 1 05/08/2022 11/13/19 23 Discontinued documented as of this encounter (statuses as of 11/12/2022) Active Problems Problem Noted Date Food insecurity 07/08/2022 Overview: Per [facility] Protocol HTN, goal below 130/80 06/25/2022 [...] disease 06/06/2020 Coronary artery disease invo lving [place] coronary artery of [place] heart without angina pectoris 01/25/2020 History of non-ST elevation myocardial i nfarction (NSTEMI) 01/25/2020 Status post insertion of drug eluting co ronary artery stent 01/25/2020 Affective disorder Overview: sees Dr. Castanon Anxiety documented as of this encounter (statuses as of 11/12/2022) Resolved Problems Problem Noted Date Resolved Date Alcohol-induced acute pancreatitis 06/06/2020 06/12/2021 Alcohol dependence, continuous 06/06/2020 0 06/12/2021 Seizure 06/06/2020 06/12/2021 Alcohol abuse 07/22/2018 06/12/2021 Depression 06/25/2022 documented as of this encounter (statuses as of 11/12/2022) Immunizations Name Administration Dates Next Due COVID-19 mRNA, LNP-s, No Pre serve, 2-Dose Series ([email or web address] 09/23/2020,09/02/2020 Hepatitis B, 20+ yrs 06/25/2022,01/21/2022,12/19 Pneumococcal Conjugate Vacci ne, 20-valent ([id number]) 12/19/2021 Pneumococcal Polysaccharide PPV23 (Pneumovax) 07/13/2013 Seasonal [...] encounter Miscellaneous Notes * Telephone Encounter - Hay Navarro RPh - 11/12/2022 8:43 AM EDTSigned Prescriptions: Disp Refills Atorvastatin Calcium 80 MG Oral Tablet (Li*90 Tab*1 Sig: Take 1 tablet by mouth once dailyAuthorizing Provider: LENNY BALL User: HAY NAVARRO-- documented in this encounter Plan of Treatment Upcoming Encounters Date Type Specialty Care Team Description 11/28/2022 Office Visit Cardiology Raegan Draper CRNP [address] [place] [address] 01/22/2023 Office Visit Urology Mukund Hui MD [address] [facility] [place] [address] [place] [id number] Scheduled Procedures Name Priority Associated Diagnoses Date/Ti me COLONOSCOPY FLEXIBLE PROXIMAL DIAGNOSTIC Recall History of colon polyps Health Maintenance Due Date Last Done Comments DISCUSS TOBACCO CESSATION (REFER TO SMARTSET #329) 1972 Albumin/Creatinine Ratio 1990 COVID-19 Vaccine (3 [...] as of this encounter Visit Diagnoses Diagnosis Coronary artery disease involving [place] coronary artery of [place] heart without angina pectoris History of non-ST elevation myocardial infarction (NSTEMI) Old myocardial infarction documented in this encounter Care Teams Automobile Engine Assembler Relationship Specialty Start Date End Date Lenny Ball MD [address] [place] [id number] PCP - General Internal Medicine 05/18/21 documented as of this encounter
[2023-03-26] MEDS ORDERED: MoRPHine SULFATE 4 MG/ML 1 ML CARP\\VIAL IV STA (03:26)
[2023-03-26] MEDS ORDERED: LORazepam 0.25 MG in SYRINGE 0.125 ML IV STA (03:26)
[2023-03-26] MEDS ORDERED: LORazepam 1 MG/1 ML SYR ED Inj Use IV STA (03:29)
[2023-03-26] MEDS: POTASSIUM CHLORIDE / WTR 10 MEQ/100 ML PLCT IV SCH ×4 (03:43→06:39)
[2023-03-26 04:20] LABS: Appearance Urine Clear (Clear); Bacteria Urine Automated Negative (Negative); Bilirubin Urine Negative (Negative); Blood Urine Negative (Negative); Cast Urine Automated 0 /lpf (0-5); Color Urine Yellow; Glucose Urine UA Negative (Negative); Ketones Urine Negative (Negative); Leukocyte Esterase Urine Negative (Negative); Nitrite Urine Negative (Negative); RBC Urine Automated 0-4 /hpf (0-4); Specific Gravity Urine > 1.045 (1.000-1.030); Urobilinogen Urine Negative (Negative); WBC Urine Automated 0 /hpf (0-5); pH Urine 7.5 (4.5-7.5)
[2023-03-26 04:21] LABS: Protein Urine Trace (Negative)
--- NOTE | 2023-03-26 04:26 | History & Physical Report ---
Date of Service March 26, 2023 Assessment & Plan (1) Multiple rib fractures: Plan: 52-year-old male with past med history significant for CAD s/p stent, hypertension, alcohol liver disease, GERD, BPH, affective disorder, anxiety, adjustment disorder, ADHD, tobacco use disorder, depression, presents with fall and found to rib fractures and alcoholism. Multiple rib fractures S/p fall on right side CT chest Right eighth and ninth posterior lateral rib fractures. Pain control Alcoholism Alcohol intoxication Alcohol level 342 on presentation In the ER he was agitated and received IM Haldol and Ativan Currently doing okay Patient okay for alcohol withdrawal protocol Will do a gabapentin protocol and IV Ativan as needed Thiamine and folic acid Close monitor Suicidal ideation? Consult psychiatry History of CAD s/p stent On aspirin, beta-david and statin ADHD Depression Continue Lexapro and Adderall Hypertension On metoprolol Hyperlipidemia On statin, fenofibrate and Zetia GERD Protonix BPH Flomax DVT prophylaxis Lovenox. Disposition Med/telemetry Full code History of Present Illness Chief Complaint: Fall, rib fractures and alcoholism Primary Care Provider: Lazaro Jackson DO 52-year-old male with past med history significant for CAD s/p stent, hypertension, alcohol liver disease, GERD, BPH, affective disorder, anxiety, adjustment disorder, ADHD, tobacco use disorder, depression, presents with fall and found to rib fractures and alcoholism. Patient states he has been sober but lately since holidays he was drinking. He slipped and fell on a guitar stand struck the right side of his ribs. And states he drank more for the pain to go away. Looks like initially he did not want to come and refused care. And he also expressed to stay home and . In the ER he denied suicidal ideation as per ER notes.. Seems his significant other was present in the ER and she told he was drinking for last 5 days. Previously has been sober. But in the ER he became agitated and was given IM Haldol and IM Ativan. Currently patient is alert and awake. Seems calmer. Complains of pain at the rib fracture site. And asking for pain medication. Has some pain in the right side abdominal region also. Denies any shortness of breath. Says he did not hit his head and there was no loss of consciousness. No headache. Vision is okay. No runny nose. No cough. No fevers. No nausea. Normal bowel and bladder movements. Past medical history. As mentioned above Past surgical history. Colonoscopy. EGD. EGD with endoscopic ultrasound. Cardiac stent placement. Social history. Denies smoking. Breast peptic denies vaping. As per epic drinks 30 standard drinks of alcohol per week. But states currently he is sober and is only drinking these holidays. No drug use. Family history. No family history on file Allergies Allergy/AdvReac Type Severity Reaction Status Date / Time No Known Allergies Allergy Verified 03/25/23 19:26 Home Medications Medication Instructions Recorded Confirmed Type tizanidine 2 mg tablet 2 mg PO HS PRN Back Pain 07/20/19 03/25/23 History folic acid 1 mg tablet 1 mg PO DAILY 01/20/20 03/25/23 History multivitamin 1 tab PO QAM 01/20/20 03/25/23 History pantoprazole 40 mg tablet,delayed 40 mg PO DAILY 01/20/20 03/25/23 History release atorvastatin 80 mg tablet 80 mg PO DAILY #30 tabs 01/21/20 03/25/23 Rx aspirin 81 mg tablet,delayed 81 mg PO DAILY 03/26/20 03/25/23 History release metoprolol succinate 50 mg 50 mg PO DAILY 03/26/20 03/25/23 History tablet,extended release 24 hr dextroamphetamine-amphetamine 10 10 mg PO DAILY 03/25/23 03/25/23 History mg tablet escitalopram oxalate 10 mg tablet 10 mg PO DAILY 03/25/23 03/25/23 History escitalopram oxalate 5 mg tablet 5 mg PO DAILY 03/25/23 03/25/23 History ezetimibe 10 mg tablet 10 mg PO DAILY 03/25/23 03/25/23 History fenofibrate micronized 134 mg 134 mg PO QAM 03/25/23 03/25/23 History capsule tadalafil 20 mg tablet 20 mg PO DIRECTED PRN Erectile 03/25/23 03/25/23 History Dysfunction tamsulosin 0.4 mg capsule 0.4 mg PO DAILY 03/25/23 03/25/23 History Past Med/Surg History Medical History ADD (attention deficit disorder) Alcohol use disorder CAD (coronary artery disease) NSTEMI status post percutaneous intervention to the mid LAD and obtuse marginal branch vessel. December 2019. Dyslipidemia Hypertension Migraines Sleep disorder Surgical History History of endoscopy Hx of colonoscopy Family History Other Heart disease Social History Smoking Status: Current every day smoker Tobacco Type: E-cigarettes / Vaping Cigarettes Per Day: 6; Second Hand Exposure: No; Do You Dip or Chew Tobacco: No; Hx Alcohol Use: Yes Alcohol type: beer and hard liquor Hx Substance Use: Yes Last Used Substance: Days (ago) Substance Use Type Other:: medical marijuana Preferred Language: Slovenian Communication Ability: Effective Communication Ability Comment: PT INTOXICATED Rn Provider Relations Required: No Beliefs That Will Affect Care: None marital status: Single Current Living Situation: Alone Other Information That Helps Us Care for You: No Feels Safe at Home: Yes Safety Concerns: Feels Safe At This Time Assistive Devices: Glasses Review of Systems Review of Systems: All systems reviewed & are unremarkable except as noted in HPI & below Physical Exam Physical Exam: General- Not in distress Head- atraumatic Eyes- PERRL. ENT- oropharynx clear Neck- supple, no JVD. Lungs- clear to auscultation no wheezing or crackles. Heart- regular rhythm; no murmur, no gallop. Abdomen- normal bowel sounds, soft, nontender, no distension. Extremities- no pretibial edema, no erythema seen. Neuro- alert, oriented x 3; PERRL, no facial palsy; no dysarthria; moves extremities. Skin- warm & dry Results & Data Results & Data Vital Signs (Past 12 Hours) Vital Signs Temp Pulse Pulse Resp BP BP Pulse Ox 03/26/23 04:00 74 16 132/84 03/26/23 03:00 64 12 118/75 03/26/23 01:00 83 17 03/25/23 23:30 86 03/25/23 23:00 91 H 19 03/25/23 20:43 78 20 141/92 H 95 03/25/23 19:14 84 03/25/23 19:04 36.6 C 91 H 16 140/94 96 O2 Del Method 03/26/23 04:00 03/26/23 03:00 03/26/23 01:00 03/25/23 23:30 03/25/23 23:00 03/25/23 20:43 Room Air 03/25/23 19:14 03/25/23 19:04 Room Air Diagnostic Findings Laboratory Results WBC 10.25 K/ul (4.8-10.8) 03/25/23 19:06 RBC 4.75 M/uL (4.70-6.10) 03/25/23 19:06 Hgb 14.4 g/dl (14.0-18.0) 03/25/23 19:06 Hct 40.9 % (42.0-52.0) L 03/25/23 19:06 MCV 86.1 fL (80.0-100.0) 03/25/23 19:06 MCH 30.3 pg (25.0-34.0) 03/25/23 19:06 MCHC 35.2 g/dL (32.0-36.0) 03/25/23 19:06 RDW Std Deviation 39.4 fL (36.4-46.3) 03/25/23 19:06 RDW Coeff of [place]il[place] 12.5 % (11.5-14.5) 03/25/23 19:06 Plt Count 293 K/uL (130-400) 03/25/23 19:06 MPV 8.5 fL (9.4-12.4) L 03/25/23 19:06 Immature Gran % (Auto) 0.3 % 03/25/23 19:06 Neut % (Auto) 64.7 % 03/25/23 19:06 Lymph % (Auto) 27.5 % 03/25/23 19:06 [place] % (Auto) 6.3 % 03/25/23 19:06 Eos % (Auto) 0.4 % 03/25/23 19:06 Baso % (Auto) 0.8 % 03/25/23 19:06 Neut # (Auto) 6.63 K/uL (1.40-6.50) H 03/25/23 19:06 Lymph # (Auto) 2.82 K/uL (1.20-3.40) 03/25/23 19:06 [place] # (Auto) 0.65 K/uL (0.11-0.59) H 03/25/23 19:06 Eos # (Auto) 0.04 K/uL (0.00-0.50) 03/25/23 19:06 Baso # (Auto) 0.08 K/uL (0.00-0.20) 03/25/23 19:06 Immature Gran # (Auto) 0.03 K/uL (0.01-0.20) 03/25/23 19:06 Sodium 143 mmol/L (136-145) 03/25/23 19:06 Potassium 3.2 mmol/L (3.5-5.1) L 03/25/23 19:06 Chloride 106 mmol/L (98-107) 03/25/23 19:06 Carbon Dioxide 25 mmol/L (21-32) 03/25/23 19:06 Anion Gap 12 (3-11) H 03/25/23 19:06 BUN 8 mg/dl (6-23) 03/25/23 19:06 Creatinine 0.90 mg/dl (0.6-1.4) 03/25/23 19:06 Est Cr Clr Drug Dosing 104.6 ml/min 03/25/23 19:06 Est GFR ( Amer) 115.0 ml/min 03/25/23 19:06 Est GFR (Non-Af Amer) 99.2 ml/min 03/25/23 19:06 BUN/Creatinine Ratio 8.9 (10-20) L 03/25/23 19:06 Glucose 139 mg/dl (70-99(Fasting)) H 03/25/23 19:06 Calcium 8.9 mg/dl (8.6-10.3) 03/25/23 19:06 Total Bilirubin 0.6 mg/dl (0.2-1.0) 03/25/23 19:06 AST 41 U/L (13-39) H 03/25/23 19:06 ALT 26 U/L (7-52) 03/25/23 19:06 Alkaline Phosphatase 72 U/L (34-104) 03/25/23 19:06 Troponin I High Sens 5.9 pg/ml (0-20) 03/25/23 19:06 Total Protein 8.1 gm/dl (6.0-8.3) 03/25/23 19:06 Albumin 4.9 gm/dl (3.4-5.0) 03/25/23 19:06 Globulin 3.2 gm/dl (2.5-4.0) 03/25/23 19:06 Albumin/Globulin Ratio 1.5 (0.9-2) 03/25/23 19:06 Lipase 106 U/L (11-82) H 03/25/23 19:06 Urine Color Yellow 03/26/23 02:47 Urine Appearance Clear (Clear) 03/26/23 02:47 Urine pH 7.5 (4.5-7.5) 03/26/23 02:47 Ur Specific [place] > 1.045 (1.000-1.030) H 03/26/23 02:47 Urine Protein Trace (Negative) H 03/26/23 02:47 Urine Glucose (UA) Negative (Negative) 03/26/23 02:47 Urine Ketones Negative (Negative) 03/26/23 02:47 Urine Blood Negative (Negative) 03/26/23 02:47 Urine Nitrite Negative (Negative) 03/26/23 02:47 Urine Bilirubin Negative (Negative) 03/26/23 02:47 Urine Urobilinogen Negative (Negative) 03/26/23 02:47 Ur Leukocyte Esterase Negative (Negative) 03/26/23 02:47 Urine WBC (Auto) 0 /hpf (0-5) 03/26/23 02:47 Urine RBC (Auto) 0-4 /hpf (0-4) 03/26/23 02:47 U Hyaline Cast (Auto) 0 /lpf (0-5) 03/26/23 02:47 U Epithel Cells (Auto) 5-10 /lpf (0-5) H 03/26/23 02:47 Urine Bacteria (Auto) Negative (Negative) 03/26/23 02:47 Salicylates < 3.0 mg/dl (3.0-30) L 03/25/23 19:06 Acetaminophen < 3 ug/ml (10-30) L 03/25/23 19:06 Ethyl Alcohol mg/dL 342.6 mg/dl (<10.0) H 03/25/23 19:06 Impressions Chest X-Ray 03/25/23 19:01 XR chest 1V portable HISTORY: 52 years-old Male Chest pain, nonspecific COMPARISON: 08/03/2020 TECHNIQUE: AP view of the chest FINDINGS: Cardiac silhouette is enlarged. Coronary arterial stents. No pneumothorax, pleural effusion or airspace consolidation. Bones appear grossly intact. IMPRESSION: No acute process. ACT 112: Negative or not required by law. The above report was generated using voice recognition software. It may contain grammatical, syntax or spelling errors. Electronically signed by: Simeon Oglesby M.D. 03/25/2023 7:36 PM Abdomen/Pelvis CT 03/25/23 19:15 Exam(s): CT ABDOMEN + PELVIS With Contrast IV Amt: 94 cc opti 320 EXAM: CT Abdomen and Pelvis With Intravenous Contrast CLINICAL HISTORY: Reason for exam: right flank ecchymosis s/p fall. TECHNIQUE: Axial computed tomography images of the abdomen and pelvis with intravenous contrast. CTDI is 25.53 mGy and DLP is 811.65 mGy-cm. Automated exposure control was utilized for the study. A dose lowering technique was utilized adhering to the principles of ALARA. CONTRAST: Patient received 94 cc opti 320 of IV contrast COMPARISON: 05/26/2020 CT abdomen pelvis. FINDINGS: ABDOMEN: Liver: Unremarkable. Gallbladder and bile ducts: Unremarkable. Pancreas: Unremarkable. Spleen: Unremarkable. Adrenals: Unremarkable. Kidneys and ureters: Unremarkable. No obstructing stones. No hydronephrosis. Stomach and bowel: Unremarkable. PELVIS: Appendix: No findings to suggest acute appendicitis. Bladder: Unremarkable. Reproductive: Unremarkable as visualized. ABDOMEN and PELVIS: Intraperitoneal space: Unremarkable. No free air. No significant fluid collection. Bones/joints: Right posterior lateral eighth and ninth rib fractures. Soft tissues: Unremarkable. Vasculature: Unremarkable. Lymph nodes: Unremarkable. IMPRESSION: Right posterior lateral eighth and ninth rib fractures. Otherwise no traumatic injury within the abdomen or pelvis. Electronically signed by: Juan Alberto Berg MD 03/25/23 21:[address] 03/25/23 19:15 Exam(s): CT C SPINE EXAM: CT Cervical Spine Without Intravenous Contrast CLINICAL HISTORY: Reason for exam: trauma. TECHNIQUE: Axial computed tomography images of the cervical spine without intravenous contrast. CTDI is 23.49 mGy and DLP is 537.6 mGy-cm. Automated exposure control was utilized for the study. A dose lowering technique was utilized adhering to the principles of ALARA. COMPARISON: No relevant prior studies available. FINDINGS: Vertebrae: No acute fracture or malalignment. Soft tissues: Unremarkable. IMPRESSION: No acute fracture or malalignment. Electronically signed by: Juan Alberto Berg MD 03/25/23 21:[address] 03/25/23 19:15 Exam(s): CT CHEST With Contrast IV Amt: 94 cc opti 320 EXAM: CT Chest With Intravenous Contrast CLINICAL HISTORY: Reason for exam: trauma; right posterior rib pain. TECHNIQUE: Axial computed tomography images of the chest with intravenous contrast. CTDI is 24.73 mGy and DLP is 1379.52 mGy-cm. Automated exposure control was utilized for the study. A dose lowering technique was utilized adhering to the principles of ALARA. CONTRAST: Patient received 94 cc opti 320 of IV contrast COMPARISON: No relevant prior studies available. FINDINGS: Lungs: No consolidation or interstitial edema. Pleural space: No pleural effusion or pneumothorax. Heart: Moderate to severe coronary artery calcifications. Bones/joints: Right eighth and ninth posterior lateral rib fractures. Soft tissues: Unremarkable. Vasculature: No traumatic injury to the aorta. Lymph nodes: Unremarkable. IMPRESSION: Right eighth and ninth posterior lateral rib fractures. Electronically signed by: Juan Alberto Berg MD 03/25/23 21:[address] 03/25/23 19:15 Exam(s): CT HEAD Without Contrast EXAM: CT Head Without Intravenous Contrast CLINICAL HISTORY: Reason for exam: trauma. TECHNIQUE: Axial computed tomography images of the head/brain without intravenous contrast. CTDI is 37.78 mGy and DLP is 702.46 mGy-cm. Automated exposure control was utilized for the study. A dose lowering technique was utilized adhering to the principles of ALARA. COMPARISON: No relevant prior studies available. FINDINGS: Brain: No hemorrhage, extra-axial fluid collection, mass effect, or edema. Ventricles: Unremarkable. Bones/joints: Unremarkable. No fracture. Soft tissues: Unremarkable. Sinuses: No acute sinusitis. Mastoid air cells: Unremarkable as visualized. IMPRESSION: 1. No acute intracranial abnormality. Electronically signed by: Juan Alberto Berg MD 03/25/23 21:01 PM ECG Additional Comments: ECG. Normal sinus rhythm rate of 90. Left axis deviation. Q waves in lateral leads. Code Status & VTE Plan VTE Prophylaxis Plan VTE Prophylaxis will be ordered: Yes
[2023-03-26 04:56] LABS: Amphetamines+Metham, Urine Neg (Neg); Barbiturates, Urine Neg (Neg); Benzodiazepine, Urine Neg (Neg); Cocaine, Urine Neg (Neg); MDMA (Ecstacy), Urine Neg (Neg); Marijuana, Urine Pos (Neg); Methadone, Urine Neg (Neg); Opiate, Urine Neg (Neg); Phencyclidine, Urine Neg (Neg)
[2023-03-26] MEDS ORDERED: THIAMINE HCL 100 MG in SYRINGE 9 ML IV ONE (05:00)
[2023-03-26] MEDS ORDERED: tiZANidine HCL 4 MG TABLET PO PRN (05:03)
[2023-03-26] MEDS ORDERED: SODIUM CHLORIDE 0.9% 1,000 ML IV SCH (05:03)
[2023-03-26] MEDS ORDERED: LORazepam 3 MG in SYRINGE 1.5 ML IV PRN (05:03)
[2023-03-26] MEDS ORDERED: Ativan IV Alcohol Withdrawal--Active Protocol IV PRN (05:03)
[2023-03-26] MEDS ORDERED: LORazepam 2 MG in SYRINGE 1 ML IV PRN (05:03)
[2023-03-26] MEDS ORDERED: LORazepam 1 MG in SYRINGE 0.5 ML IV PRN (05:03)
[2023-03-26] MEDS ORDERED: NITROGLYCERIN SL 0.4 MG/TAB TAB SL PRN (05:03)
[2023-03-26] MEDS ORDERED: GABAPENTIN 1200MG ALCOHOL WITHDRAWAL LOAD PO STA (05:03)
[2023-03-26] MEDS ORDERED: POLYETHYLENE (MIRALAX) 17 GM PACK PO PRN (05:03)
[2023-03-26] MEDS ORDERED: GABAPENTIN 600 MG TAB PO ONE (06:00)
[2023-03-26] MEDS: ENOXAPARIN INJ 40 MG/0.4 ML SYR SQ SCH (06:48)
[2023-03-26 07:18] LABS: Basophils # (auto) 0.07 K/uL (0.00-0.20); Basophils % (auto) 0.9 %; Eosinophils % (auto) 1.3 %; Hematocrit (blood only) 39.3 % (42.0-52.0); Hemoglobin 13.6 g/dl (14.0-18.0); Immature Granulocytes # (auto) 0.02 K/uL (0.01-0.20); Immature Granulocytes % (auto) 0.3 %; Lymphocytes # (auto) 2.43 K/uL (1.20-3.40); Lymphocytes % (auto) 32.5 %; Mean Corpuscular Hemoglobin 30.4 pg (25.0-34.0); Mean Corpuscular Hgb Conc 34.6 g/dL (32.0-36.0); Mean Corpuscular Volume 87.9 fL (80.0-100.0); Mean Platelet Volume 8.5 fL (9.4-12.4); Monocytes # (auto) 0.57 K/uL (0.11-0.59); Monocytes % (auto) 7.6 %; Neutrophils # (auto) 4.29 K/uL (1.40-6.50); Neutrophils % (auto) 57.4 %; Platelet Count 243 K/uL (130-400); RDW Coefficient of Variation 12.5 % (11.5-14.5); RDW Standard Deviation 40.3 fL (36.4-46.3); Red Blood Count 4.47 M/uL (4.70-6.10); White Blood Count 7.48 K/ul (4.8-10.8)
[2023-03-26 07:33] LABS: BUN Creatinine Ratio 9.5 (10-20); Calcium 8.3 mg/dl (8.6-10.3); Creatinine Clr Calc Pharmacy 112.1 ml/min; Est GFR (African American) 118.3 ml/min; Est GFR (Non-African American) 102.1 ml/min; Magnesium 2.1 mg/dl (1.7-2.4); Potassium 3.7 mmol/L (3.5-5.1)
[2023-03-26] MEDS: ASPIRIN 81 MG ECTAB PO SCH (08:32)
[2023-03-26] MEDS: AMPHETAMINE ASP/SULF/DEXTRAMPH 10 MG TAB PO SCH ×2 (08:32→09:22)
[2023-03-26] MEDS: ESCITALOPRAM OXALATE 10 MG TAB PO SCH (08:33)
[2023-03-26] MEDS: ATORVASTATIN 40 MG TAB PO SCH (08:33)
[2023-03-26] MEDS: FOLIC ACID 1 MG TAB PO SCH (08:33)
[2023-03-26] MEDS: EZETIMIBE 10 MG TAB PO SCH (08:33)
[2023-03-26] MEDS: TAMSULOSIN HCL 0.4 MG CAP PO SCH (08:34)
[2023-03-26] MEDS: MULTIVITAMIN TAB PO SCH (08:34)
[2023-03-26] MEDS: PANTOprazole 40 MG TAB PO SCH (08:34)
[2023-03-26] MEDS: METOPROLOL SUCC 50MG EXT REL TAB PO SCH (08:34)
[2023-03-26] MEDS: THIAMINE HCL 100 MG TAB PO SCH (08:34)
[2023-03-26] MEDS ORDERED: NON-FORMULARY MEDICATION (Escitalopram Oxalate 5 mg tablet) PO SCH (09:00)
[2023-03-26] MEDS: ACETAMINOPHEN 325 MG TAB PO PRN ×3 (09:19→21:01)
--- NOTE | 2023-03-26 11:22 | Electrocardiogram Report ---
Test Reason : Blood Pressure : / mmHG Vent. Rate : 090 BPM Atrial Rate : 090 BPM P-R Int : 170 ms QRS Dur : 090 ms QT Int : 358 ms P-R-T Axes : 064 -42 066 degrees QTc Int : 437 ms Normal sinus rhythm Left axis deviation Low voltage QRS Lateral infarct , age undetermined Incomplete right bundle branch block Possible Inferior infarct (cited on or before 20-JAN-2020) Abnormal ECG When compared with ECG of 03-AUG-2020 16:01, Lateral infarct is now Present Confirmed by Rajinder Golden ([id number]) on 03/26/2023 11:22:23 AM Referred By: REFERRED SELF Confirmed By:Seamus Golden
[2023-03-26] MEDS: GABAPENTIN 600 MG TAB PO SCH ×2 (13:05→18:00)
[2023-03-26] MEDS ORDERED: NICOTINE 14 MG/24 HR PATCH TD STA (14:23)
--- NOTE | 2023-03-26 18:48 | Hospitalist Progress Note ---
Date of Service March 26, 2023 Assessment & Plan (1) Multiple rib fractures: Plan: Pt is a 52yoM with PMHx significant for CAD s/p stent placement, HTN, alcohol liver disease, Hx of heroin abuse, GERD, BPH, affective disorder, anxiety, adjustment disorder, ADHD, tobacco use disorder, depression admitted with noted rib fractures and an elevated alcohol level. Multiple rib fractures Fall Per pt had mechanical fall at home CT chest noted R eighth and ninth posterior lateral rib fractures. Pain control Alcoholism Alcohol intoxication Alcohol level 342 on presentation In the ER he was agitated and received IM Haldol and Ativan AWSS protocol with gabapentin and PRN Ativan Thiamine and folic acid Continue to monitor Suicidal Ideation Reportedly pt made statements en route to the ED that he would like to Psychiatry was consulted -pt denied SI to psychiatry -seen by the psych liaison History of CAD s/p stent On aspirin, beta-david and statin ADHD Depression Continue Lexapro and Adderall Hypertension On metoprolol Hyperlipidemia On statin, fenofibrate and Zetia GERD continue Protonix BPH continue Flomax Diet: HH, safe tray DVT prophylaxis: Lovenox. CODE STATUS: Full code Admission and Anticipated Discharge Date Admission Date: March 26, 2023 Subjective Pt seen while still down in the ED, longtime girlfriend at bedside. States that he is not a chronic alcohol drinker. States he only binged this time as he was having pain and wanted the alcohol to help. States he tripped and fell in his room and that fall caused the rib fractures. Declined assistance with alcohol use, notes this was a one time event. Otherwise denied acute concerns. Review of Systems Review of Systems: All systems reviewed & are unremarkable except as noted in Subjective Physical Exam Physical Exam: General: Alert, oriented. No acute distress Skin: Bruising on the right flank noted Psych: Appropriate mood and affect Neuro: No gross deficits HEENT: NC/AT Chest: Nontender to palpation. CV: RRR Resp: Breath sounds clear bilaterally, no increased effort of breathing. Abdomen: Soft, nontender, nondistended. Extremities: No edema in lower extremities bilaterally. Results & Data Results & Data Vital Signs (Past 12 Hours) Vital Signs Pulse Resp BP Pulse Ox O2 Del Method 03/26/23 14:00 75 21 137/87 03/26/23 12:00 75 16 124/75 98 Room Air 03/26/23 07:22 78 03/26/23 06:00 81 14 125/83 97 Room Air 03/26/23 04:21 85 03/26/23 04:00 74 16 132/84
[2023-03-26] MEDS: KETOROLAC 30 MG/ML VIAL IV PRN (19:54)
[2023-03-26] MEDS: MELATONIN 3 MG TAB PO PRN (20:50)
[2023-03-27] MEDS: GABAPENTIN 600 MG TAB PO SCH ×3 (01:25→17:35)
[2023-03-27] MEDS: KETOROLAC 30 MG/ML VIAL IV PRN ×3 (05:36→17:34)
[2023-03-27] MEDS: ACETAMINOPHEN 325 MG TAB PO PRN ×3 (05:36→14:24)
[2023-03-27] MEDS: ENOXAPARIN INJ 40 MG/0.4 ML SYR SQ SCH (05:36)
[2023-03-27 06:47] LABS: Basophils # (auto) 0.04 K/uL (0.00-0.20); Basophils % (auto) 0.7 %; Eosinophils # (auto) 0.17 K/uL (0.00-0.50); Eosinophils % (auto) 2.8 %; Hematocrit (blood only) 36.5 % (42.0-52.0); Hemoglobin 13.2 g/dl (14.0-18.0); Immature Granulocytes # (auto) 0.01 K/uL (0.01-0.20); Immature Granulocytes % (auto) 0.2 %; Lymphocytes # (auto) 1.61 K/uL (1.20-3.40); Lymphocytes % (auto) 26.9 %; Mean Corpuscular Hemoglobin 30.7 pg (25.0-34.0); Mean Corpuscular Hgb Conc 36.2 g/dL (32.0-36.0); Mean Corpuscular Volume 84.9 fL (80.0-100.0); Mean Platelet Volume 8.7 fL (9.4-12.4); Monocytes # (auto) 0.56 K/uL (0.11-0.59); Monocytes % (auto) 9.3 %; Neutrophils % (auto) 60.1 %; Platelet Count 225 K/uL (130-400); RDW Coefficient of Variation 11.8 % (11.5-14.5); RDW Standard Deviation 36.3 fL (36.4-46.3); White Blood Count 5.99 K/ul (4.8-10.8)
[2023-03-27 07:19] LABS: Albumin Globulin Ratio 1.6 (0.9-2); Albumin Level 4.3 gm/dl (3.4-5.0); BUN Creatinine Ratio 16.7 (10-20); Bilirubin,Total 1.7 mg/dl (0.2-1.0); Calcium 8.9 mg/dl (8.6-10.3); Est GFR (African American) 106.4 ml/min; Est GFR (Non-African American) 91.8 ml/min; Globulin 2.7 gm/dl (2.5-4.0); Phosphorus 3.1 mg/dl (2.5-4.9); Potassium 3.3 mmol/L (3.5-5.1)
[2023-03-27] MEDS: NICOTINE 14 MG/24 HR PATCH TD SCH (08:52)
[2023-03-27] MEDS: PANTOprazole 40 MG TAB PO SCH (08:52)
[2023-03-27] MEDS: MULTIVITAMIN TAB PO SCH (08:53)
[2023-03-27] MEDS: FOLIC ACID 1 MG TAB PO SCH (08:53)
[2023-03-27] MEDS: ASPIRIN 81 MG ECTAB PO SCH (08:53)
[2023-03-27] MEDS: EZETIMIBE 10 MG TAB PO SCH (08:53)
[2023-03-27] MEDS: ESCITALOPRAM OXALATE 10 MG TAB PO SCH (08:53)
[2023-03-27] MEDS: TAMSULOSIN HCL 0.4 MG CAP PO SCH (08:53)
--- NOTE | 2023-03-27 08:53 | Discharge Summary ---
Discharge Summary Date of Service March 27, 2023 Admission HPI Per Admitting Provider 52-year-old male with past med history significant for CAD s/p stent, hypertension, alcohol liver disease, GERD, BPH, affective disorder, anxiety, adjustment disorder, ADHD, tobacco use disorder, depression, presents with fall and found to rib fractures and alcoholism. Patient states he has been sober but lately since holidays he was drinking. He slipped and fell on a guitar stand struck the right side of his ribs. And states he drank more for the pain to go away. Looks like initially he did not want to come and refused care. And he also expressed to stay home and . In the ER he denied suicidal ideation as per ER notes.. Seems his significant other was present in the ER and she told he was drinking for last 5 days. Previously has been sober. But in the ER he became agitated and was given IM Haldol and IM Ativan. Currently patient is alert and awake. Seems calmer. Complains of pain at the rib fracture site. And asking for pain medication. Has some pain in the right side abdominal region also. Denies any shortness of breath. Says he did not hit his head and there was no loss of consciousness. No headache. Vision is okay. No runny nose. No cough. No fevers. No nausea. Normal bowel and bladder movements. Past medical history. As mentioned above Past surgical history. Colonoscopy. EGD. EGD with endoscopic ultrasound. Cardiac stent placement. Social history. Denies smoking. Breast peptic denies vaping. As per [employer] drinks 30 standard drinks of alcohol per week. But states currently he is sober and is only drinking these holidays. No drug use. Family history. No family history on file Principal Dx & Hospital Course #1 = Principal Diagnosis (1) Multiple rib fractures: Pt is a 52yoM with PMHx significant for CAD s/p stent placement, HTN, alcohol liver disease, Hx of heroin abuse, GERD, BPH, affective disorder, anxiety, adjustment disorder, ADHD, tobacco use disorder, depression admitted with noted rib fractures and an elevated alcohol level. Multiple rib fractures Fall Per pt had mechanical fall at home CT chest noted R eighth and ninth posterior lateral rib fractures. Pain control Alcoholism Alcohol intoxication Alcohol level 342 on presentation In the ER he was agitated and received IM Haldol and Ativan AWSS protocol with gabapentin and PRN Ativan Thiamine and folic acid Continue to monitor Suicidal Ideation Reportedly pt made statements en route to the ED that he would like to Psychiatry was consulted -pt denied SI to psychiatry -seen by the psych liaison History of CAD s/p stent On aspirin, beta-david and statin ADHD Depression Continue Lexapro and Adderall Hypertension On metoprolol Hyperlipidemia On statin, fenofibrate and Zetia GERD continue Protonix BPH continue Flomax Diet: HH, safe tray DVT prophylaxis: Lovenox. CODE STATUS: Full code Discharge Exam General: Alert, oriented. No acute distress Skin: Bruising on the right flank noted Psych: Appropriate mood and affect Neuro: No gross deficits HEENT: NC/AT Chest: Nontender to palpation. CV: RRR Resp: Breath sounds clear bilaterally, no increased effort of breathing. Abdomen: Soft, nontender, nondistended. Extremities: No edema in lower extremities bilaterally. Updated Medication List Medication Instructions Recorded Confirmed Type tizanidine 2 mg tablet 2 mg PO HS PRN Back Pain 07/20/19 03/25/23 History folic acid 1 mg tablet 1 mg PO DAILY 01/20/20 03/25/23 History multivitamin 1 tab PO QAM 01/20/20 03/25/23 History pantoprazole 40 mg tablet,delayed 40 mg PO DAILY 01/20/20 03/25/23 History release atorvastatin 80 mg tablet 80 mg PO DAILY #30 tabs 01/21/20 03/25/23 Rx aspirin 81 mg tablet,delayed 81 mg PO DAILY 03/26/20 03/25/23 History release metoprolol succinate 50 mg 50 mg PO DAILY 03/26/20 03/25/23 History tablet,extended release 24 hr dextroamphetamine-amphetamine 10 10 mg PO DAILY 03/25/23 03/25/23 History mg tablet escitalopram oxalate 10 mg tablet 10 mg PO DAILY 03/25/23 03/25/23 History escitalopram oxalate 5 mg tablet 5 mg PO DAILY 03/25/23 03/25/23 History ezetimibe 10 mg tablet 10 mg PO DAILY 03/25/23 03/25/23 History fenofibrate micronized 134 mg 134 mg PO QAM 03/25/23 03/25/23 History capsule tadalafil 20 mg tablet 20 mg PO DIRECTED PRN Erectile 03/25/23 03/25/23 History Dysfunction tamsulosin 0.4 mg capsule 0.4 mg PO DAILY 03/25/23 03/25/23 History Hospital Stay Data Consultations 03/26/23 00:47 ED Decision to Admit Stat 03/26/23 14:28 Consult Behavioral Health Liaison Routine Diagnostic Imagining Performed 03/25/23 19:15 CT Abd and Pelvis [CT abd pelvis IV con only] Stat CT cervical spine wo con Stat CT chest diagnostic w con Stat CT head/brain wo con Stat
[2023-03-27] MEDS: THIAMINE HCL 100 MG TAB PO SCH (08:54)
[2023-03-27] MEDS: ATORVASTATIN 40 MG TAB PO SCH (08:54)
[2023-03-27] MEDS: METOPROLOL SUCC 50MG EXT REL TAB PO SCH (08:54)
[2023-03-27] MEDS: AMPHETAMINE ASP/SULF/DEXTRAMPH 10 MG TAB PO SCH (09:00)
[2023-03-27] MEDS ORDERED: LORazepam 0.5 MG TAB PO STA (10:17)
--- NOTE | 2023-03-27 11:57 | Hospitalist Progress Note ---
Date of Service March 27, 2023 Assessment & Plan (1) Alcohol withdrawal: (2) Multiple rib fractures: (3) Alcohol intoxication: (4) Hypokalemia: (5) Transaminitis: (6) Dyslipidemia: (7) Alcohol use disorder: (8) Hypertension: (9) ADD (attention deficit disorder): (10) Chronic alcohol abuse: Plan Pt is a 52yoM with PMHx significant for CAD s/p stent placement, HTN, alcohol liver disease, Hx of heroin abuse, GERD, BPH, affective disorder, anxiety, adjustment disorder, ADHD, tobacco use disorder, depression admitted with noted rib fractures and an elevated alcohol level. Alcoholism Alcohol intoxication Alcohol withdrawal Alcohol level 342 on presentation In the ER he was agitated and received IM Haldol and Ativan AWSS protocol with gabapentin and PRN Ativan Thiamine and folic acid Continue to monitor -03/27- pt started to be in active withdrawal. Transferred to PCU/tele, Active Ativan withdrawal protocol ordered to be given with gabapentin. Continue to monitor Multiple rib fractures Fall Per pt had mechanical fall at home CT chest noted R eighth and ninth posterior lateral rib fractures. Pain control Alcoholism Alcohol intoxication Alcohol level 342 on presentation In the ER he was agitated and received IM Haldol and Ativan AWSS protocol with gabapentin and PRN Ativan Thiamine and folic acid Continue to monitor Suicidal Ideation Reportedly pt made statements en route to the ED that he would like to Psychiatry was consulted -pt denied SI to psychiatry -seen by the psych liaison History of CAD s/p stent On aspirin, beta-david and statin ADHD Depression Continue Lexapro and Adderall Hypertension On metoprolol Hyperlipidemia On statin, fenofibrate and Zetia GERD continue Protonix BPH continue Flomax Diet: HH, safe tray DVT prophylaxis: Lovenox CODE STATUS: Full code Admission and Anticipated Discharge Date Admission Date: March 26, 2023 Subjective Pt seen in the AM. States that he is starting to feel a bit more anxious. States that he can go through withdrawal at home, had been requesting discharge from the day prior. Per nursing, pt with anxious and starting to get agitated. Review of Systems Review of Systems: All systems reviewed & are unremarkable except as noted in Subjective Physical Exam Physical Exam: General: Alert, oriented. N Skin: Bruising on the right flank noted Psych: Appropriate mood and affect Neuro: No gross deficits HEENT: NC/AT Chest: Nontender to palpation. CV: Tachycardic Resp: Breath sounds clear bilaterally, no increased effort of breathing. Abdomen: Soft, nontender, nondistended. Extremities: No edema in lower extremities bilaterally. Results & Data Results & Data Vital Signs (Past 12 Hours) Vital Signs Temp Pulse Pulse Resp BP Pulse Ox O2 Del Method 03/27/23 11:32 37.2 C 116 H 20 170/102 H 97 Room Air 03/27/23 08:00 Room Air 03/27/23 07:45 36.8 C 81 16 145/86 H 94 Room Air 03/27/23 07:00 63 03/27/23 04:00 36.8 C 71 18 142/81 H 95 Room Air
[2023-03-27] MEDS ORDERED: Ativan IV Alcohol Withdrawal--Active Protocol IV PRN (13:53)
[2023-03-27] MEDS ORDERED: LORazepam 3 MG in SYRINGE 1.5 ML IV PRN (13:53)
[2023-03-27] MEDS: LORazepam 2 MG in SYRINGE 1 ML IV PRN ×2 (14:53→17:54)
[2023-03-27] MEDS ORDERED: POTASSIUM CHLORIDE CRTAB 20 MEQ TABCR PO STA (18:33)
[2023-03-27] MEDS ORDERED: LORazepam 1 MG in SYRINGE 0.5 ML IV PRN (20:01)
[2023-03-27] MEDS: LORazepam 1 MG in SYRINGE 0.5 ML IV PRN ×2 (20:12→23:20)
[2023-03-27 21:57] LABS: Marijuana Quant, GCMS Urine 884 ng/mL (<5)
[2023-03-28] MEDS: KETOROLAC 30 MG/ML VIAL IV PRN ×2 (01:22→07:33)
[2023-03-28] MEDS: MELATONIN 3 MG TAB PO PRN (01:23)
[2023-03-28] MEDS: LORazepam 1 MG in SYRINGE 0.5 ML IV PRN ×2 (01:40→06:27)
[2023-03-28] MEDS: ACETAMINOPHEN 325 MG TAB PO PRN ×2 (03:43→07:52)
[2023-03-28] MEDS: LORazepam 2 MG in SYRINGE 1 ML IV PRN ×3 (03:43→09:25)
[2023-03-28 04:50] LABS: Basophils # (auto) 0.05 K/uL (0.00-0.20); Basophils % (auto) 0.8 %; Eosinophils # (auto) 0.31 K/uL (0.00-0.50); Hematocrit (blood only) 35.1 % (42.0-52.0); Hemoglobin 12.4 g/dl (14.0-18.0); Immature Granulocytes # (auto) 0.01 K/uL (0.01-0.20); Immature Granulocytes % (auto) 0.2 %; Lymphocytes # (auto) 1.99 K/uL (1.20-3.40); Lymphocytes % (auto) 32.4 %; Mean Corpuscular Hemoglobin 30.4 pg (25.0-34.0); Mean Corpuscular Hgb Conc 35.3 g/dL (32.0-36.0); Mean Platelet Volume 8.5 fL (9.4-12.4); Monocytes # (auto) 0.47 K/uL (0.11-0.59); Monocytes % (auto) 7.6 %; Neutrophils # (auto) 3.32 K/uL (1.40-6.50); Platelet Count 201 K/uL (130-400); RDW Coefficient of Variation 11.9 % (11.5-14.5); RDW Standard Deviation 37.5 fL (36.4-46.3); Red Blood Count 4.08 M/uL (4.70-6.10); White Blood Count 6.15 K/ul (4.8-10.8)
[2023-03-28 05:09] LABS: Albumin Globulin Ratio 1.5 (0.9-2); Albumin Level 4.1 gm/dl (3.4-5.0); BUN Creatinine Ratio 18.5 (10-20); Bilirubin,Total 1.1 mg/dl (0.2-1.0); Calcium 8.5 mg/dl (8.6-10.3); Creatinine Clr Calc Pharmacy 101.2 ml/min; Est GFR (African American) 111.2 ml/min; Globulin 2.8 gm/dl (2.5-4.0); Magnesium 1.9 mg/dl (1.7-2.4); Phosphorus 3.1 mg/dl (2.5-4.9); Potassium 3.7 mmol/L (3.5-5.1); Total Protein 6.9 gm/dl (6.0-8.3)
[2023-03-28] MEDS ORDERED: GABAPENTIN 600 MG TAB PO SCH (06:00)
[2023-03-28] MEDS: ENOXAPARIN INJ 40 MG/0.4 ML SYR SQ SCH (06:28)
[2023-03-28] MEDS: NICOTINE 14 MG/24 HR PATCH TD SCH (07:35)
[2023-03-28] MEDS: PANTOprazole 40 MG TAB PO SCH (07:40)
[2023-03-28] MEDS: ESCITALOPRAM OXALATE 10 MG TAB PO SCH (07:41)
[2023-03-28] MEDS: MULTIVITAMIN TAB PO SCH (07:42)
[2023-03-28] MEDS: ATORVASTATIN 40 MG TAB PO SCH (07:44)
[2023-03-28] MEDS: METOPROLOL SUCC 50MG EXT REL TAB PO SCH (07:44)
[2023-03-28] MEDS: ASPIRIN 81 MG ECTAB PO SCH (07:44)
[2023-03-28] MEDS: TAMSULOSIN HCL 0.4 MG CAP PO SCH (07:44)
[2023-03-28] MEDS: EZETIMIBE 10 MG TAB PO SCH (07:44)
[2023-03-28] MEDS: FOLIC ACID 1 MG TAB PO SCH (07:45)
[2023-03-28] MEDS: THIAMINE HCL 100 MG TAB PO SCH (07:46)
[2023-03-28] MEDS: AMPHETAMINE ASP/SULF/DEXTRAMPH 10 MG TAB PO SCH (07:51)
[2023-03-28] MEDS ORDERED: FENOFIBRATE NANOCRYSTALLIZED 145 MG TABLET PO SCH (09:00)
--- NOTE | 2023-03-28 12:00 | Discharge Summary ---
Discharge Summary Date of Service March 28, 2023 Notes For Next Care Provider Pt left AMA while in acute alcohol withdrawal and after receiving Ativan approximately 2 hours prior Please ensure close followup Encourage alcohol cessation Medication Changes From Visit None Admission HPI Per Admitting Provider 52-year-old male with past med history significant for CAD s/p stent, hypertension, alcohol liver disease, GERD, BPH, affective disorder, anxiety, adjustment disorder, ADHD, tobacco use disorder, depression, presents with fall and found to rib fractures and alcoholism. Patient states he has been sober but lately since holidays he was drinking. He slipped and fell on a guitar stand struck the right side of his ribs. And states he drank more for the pain to go away. Looks like initially he did not want to come and refused care. And he also expressed to stay home and . In the ER he denied suicidal ideation as per ER notes.. Seems his significant other was present in the ER and she told he was drinking for last 5 days. Previously has been sober. But in the ER he became agitated and was given IM Haldol and IM Ativan. Currently patient is alert and awake. Seems calmer. Complains of pain at the rib fracture site. And asking for pain medication. Has some pain in the right side abdominal region also. Denies any shortness of breath. Says he did not hit his head and there was no loss of consciousness. No headache. Vision is okay. No runny nose. No cough. No fevers. No nausea. Normal bowel and bladder movements. Past medical history. As mentioned above Past surgical history. Colonoscopy. EGD. EGD with endoscopic ultrasound. Cardiac stent placement. Social history. Denies smoking. Breast peptic denies vaping. As per [employer] drinks 30 standard drinks of alcohol per week. But states currently he is sober and is only drinking these holidays. No drug use. Family history. No family history on file Admission Exam Per Admitting Provider General- Not in distress Head- atraumatic Eyes- PERRL. ENT- oropharynx clear Neck- supple, no JVD. Lungs- clear to auscultation no wheezing or crackles. Heart- regular rhythm; no murmur, no gallop. Abdomen- normal bowel sounds, soft, nontender, no distension. Extremities- no pretibial edema, no erythema seen. Neuro- alert, oriented x 3; PERRL, no facial palsy; no dysarthria; moves extremities. Skin- warm & dry Principal Dx & Hospital Course #1 = Principal Diagnosis (1) Alcohol withdrawal: (2) Multiple rib fractures: (3) Alcohol intoxication: (4) Hypokalemia: (5) Transaminitis: (6) Dyslipidemia: (7) Alcohol use disorder: (8) Hypertension: (9) ADD (attention deficit disorder): (10) Chronic alcohol abuse: Plan Pt is a 52yoM with PMHx significant for CAD s/p stent placement, HTN, alcohol liver disease, Hx of heroin abuse, GERD, BPH, affective disorder, anxiety, adjustment disorder, ADHD, tobacco use disorder, depression admitted with noted rib fractures and an elevated alcohol level. Alcoholism Alcohol intoxication Alcohol withdrawal Alcohol level 342 on presentation In the ER he was agitated and received IM Haldol and Ativan AWSS protocol with gabapentin and Ativan, required close monitoring in the PCU as he went into alcohol withdrawal on 03/27 Thiamine and folic acid Pt left AMA while in acute alcohol withdrawal and after receiving Ativan approximately 2 hours prior -pt seen, advised not recommended to leave while in active withdrawal, pt signed AMA paperwork and left via Uber -pt was alert and oriented to self, place and time before departure. Was able to verbalize the risks associated with leaving AMA while in active withdrawal. Denied being actively suicidal or homicidal. PCP follow up after discharge Multiple rib fractures Fall Per pt on admission, had mechanical fall at home CT chest noted R eighth and ninth posterior lateral rib fractures. Pain control PCP follow up Suicidal Ideation Reportedly pt made statements en route to the ED that he would like to Psychiatry was consulted -pt denied SI to psychiatry Denied being actively suicidal or homicidal on AMA discharge History of CAD s/p stent On aspirin, beta-david and statin Continue ADHD Depression Continue Lexapro and Adderall Hypertension On metoprolol, continue Hyperlipidemia On statin, fenofibrate and Zetia Continue GERD continue Protonix BPH continue Flomax Discharge Exam General: Alert, orientedx3. Unsteady on his feet Skin: Bruising on the right flank noted Psych: Agitated at times, frustrated Neuro: AAOx3, unsteady on his feet HEENT: NC/AT CV: Tachycardic Resp: Breath sounds clear bilaterally, no increased effort of breathing. Abdomen: Soft, nontender, nondistended. Updated Medication List Medication Instructions Recorded Confirmed Type tizanidine 2 mg tablet 2 mg PO HS PRN Back Pain 07/20/19 03/25/23 History folic acid 1 mg tablet 1 mg PO DAILY 01/20/20 03/25/23 History multivitamin 1 tab PO QAM 01/20/20 03/25/23 History pantoprazole 40 mg tablet,delayed 40 mg PO DAILY 01/20/20 03/25/23 History release atorvastatin 80 mg tablet 80 mg PO DAILY #30 tabs 01/21/20 03/25/23 Rx aspirin 81 mg tablet,delayed 81 mg PO DAILY 03/26/20 03/25/23 History release metoprolol succinate 50 mg 50 mg PO DAILY 03/26/20 03/25/23 History tablet,extended release 24 hr dextroamphetamine-amphetamine 10 10 mg PO DAILY 03/25/23 03/25/23 History mg tablet escitalopram oxalate 10 mg tablet 10 mg PO DAILY 03/25/23 03/25/23 History escitalopram oxalate 5 mg tablet 5 mg PO DAILY 03/25/23 03/25/23 History ezetimibe 10 mg tablet 10 mg PO DAILY 03/25/23 03/25/23 History fenofibrate micronized 134 mg 134 mg PO QAM 03/25/23 03/25/23 History capsule tadalafil 20 mg tablet 20 mg PO DIRECTED PRN Erectile 03/25/23 03/25/23 History Dysfunction tamsulosin 0.4 mg capsule 0.4 mg PO DAILY 03/25/23 03/25/23 History Hospital Stay Data Consultations 03/26/23 00:47 ED Decision to Admit Stat 03/26/23 14:28 Consult Behavioral Health Liaison Routine Diagnostic Imagining Performed 03/25/23 19:15 CT Abd and Pelvis [CT abd pelvis IV con only] Stat CT cervical spine wo con Stat CT chest diagnostic w con Stat CT head/brain wo con Stat Chest X-Ray 03/25/23 19:01 XR chest 1V portable HISTORY: 52 years-old Male Chest pain, nonspecific COMPARISON: 08/03/2020 TECHNIQUE: AP view of the chest FINDINGS: Cardiac silhouette is enlarged. Coronary arterial stents. No pneumothorax, pleural effusion or airspace consolidation. Bones appear grossly intact. IMPRESSION: No acute process. ACT 112: Negative or not required by law. The above report was generated using voice recognition software. It may contain grammatical, syntax or spelling errors. Electronically signed by: Simeon Oglesby M.D. 03/25/2023 7:36 PM Abdomen/Pelvis CT 03/25/23 19:15 Exam(s): CT ABDOMEN + PELVIS With Contrast IV Amt: 94 cc opti 320 EXAM: CT Abdomen and Pelvis With Intravenous Contrast CLINICAL HISTORY: Reason for exam: right flank ecchymosis s/p fall. TECHNIQUE: Axial computed tomography images of the abdomen and pelvis with intravenous contrast. CTDI is 25.53 mGy and DLP is 811.65 mGy-cm. Automated exposure control was utilized for the study. A dose lowering technique was utilized adhering to the principles of ALARA. CONTRAST: Patient received 94 cc opti 320 of IV contrast COMPARISON: 05/26/2020 CT abdomen pelvis. FINDINGS: ABDOMEN: Liver: Unremarkable. Gallbladder and bile ducts: Unremarkable. Pancreas: Unremarkable. Spleen: Unremarkable. Adrenals: Unremarkable. Kidneys and ureters: Unremarkable. No obstructing stones. No hydronephrosis. Stomach and bowel: Unremarkable. PELVIS: Appendix: No findings to suggest acute appendicitis. Bladder: Unremarkable. Reproductive: Unremarkable as visualized. ABDOMEN and PELVIS: Intraperitoneal space: Unremarkable. No free air. No significant fluid collection. Bones/joints: Right posterior lateral eighth and ninth rib fractures. Soft tissues: Unremarkable. Vasculature: Unremarkable. Lymph nodes: Unremarkable. IMPRESSION: Right posterior lateral eighth and ninth rib fractures. Otherwise no traumatic injury within the abdomen or pelvis. Electronically signed by: Juan Alberto Berg MD 03/25/23 21:[address] 03/25/23 19:15 Exam(s): CT C SPINE EXAM: CT Cervical Spine Without Intravenous Contrast CLINICAL HISTORY: Reason for exam: trauma. TECHNIQUE: Axial computed tomography images of the cervical spine without intravenous contrast. CTDI is 23.49 mGy and DLP is 537.6 mGy-cm. Automated exposure control was utilized for the study. A dose lowering technique was utilized adhering to the principles of ALARA. COMPARISON: No relevant prior studies available. FINDINGS: Vertebrae: No acute fracture or malalignment. Soft tissues: Unremarkable. IMPRESSION: No acute fracture or malalignment. Electronically signed by: Juan Alberto Berg MD 03/25/23 21:[address] 03/25/23 19:15 Exam(s): CT CHEST With Contrast IV Amt: 94 cc opti 320 EXAM: CT Chest With Intravenous Contrast CLINICAL HISTORY: Reason for exam: trauma; right posterior rib pain. TECHNIQUE: Axial computed tomography images of the chest with intravenous contrast. CTDI is 24.73 mGy and DLP is 1379.52 mGy-cm. Automated exposure control was utilized for the study. A dose lowering technique was utilized adhering to the principles of ALARA. CONTRAST: Patient received 94 cc opti 320 of IV contrast COMPARISON: No relevant prior studies available. FINDINGS: Lungs: No consolidation or interstitial edema. Pleural space: No pleural effusion or pneumothorax. Heart: Moderate to severe coronary artery calcifications. Bones/joints: Right eighth and ninth posterior lateral rib fractures. Soft tissues: Unremarkable. Vasculature: No traumatic injury to the aorta. Lymph nodes: Unremarkable. IMPRESSION: Right eighth and ninth posterior lateral rib fractures. Electronically signed by: Juan Alberto Berg MD 03/25/23 21:[address] 03/25/23 19:15 Exam(s): CT HEAD Without Contrast EXAM: CT Head Without Intravenous Contrast CLINICAL HISTORY: Reason for exam: trauma. TECHNIQUE: Axial computed tomography images of the head/brain without intravenous contrast. CTDI is 37.78 mGy and DLP is 702.46 mGy-cm. Automated exposure control was utilized for the study. A dose lowering technique was utilized adhering to the principles of ALARA. COMPARISON: No relevant prior studies available. FINDINGS: Brain: No hemorrhage, extra-axial fluid collection, mass effect, or edema. Ventricles: Unremarkable. Bones/joints: Unremarkable. No fracture. Soft tissues: Unremarkable. Sinuses: No acute sinusitis. Mastoid air cells: Unremarkable as visualized. IMPRESSION: 1. No acute intracranial abnormality. Electronically signed by: Juan Alberto Berg MD 03/25/23 21:01 PM Pending Results Patient Have Any Pending Studies at Discharge: No Discharge Instructions Given to Patient (Per Discharging Provider) Pt left AMA Total Time Total Time Spent Total Time Spent (In Minutes): >30minutes
[2023-03-29] MEDS ORDERED: GABAPENTIN 600 MG TAB PO SCH (18:00)
== END 2023-03-28 11:59 | disposition left against medical advice (07) | DRG 184 ==
LOC: ED 18:46 → EDINP 03-26 04:15 → SUATTDRO 03-26 04:15 → 2N 03-26 05:04 → 1E 03-27 13:37